=== PATIENT | female | born 1970 | race Caucasian/White ===

== ENCOUNTER 2023-12-28 17:20 | Emergency (ER) | payer OTHER, SELFPAY ==
[2023-12-28] VITALS (35 sets, daily range): BP systolic 155–182; BP diastolic 74–109; PULSE 69–91; TEMP 36.6–36.9; O2SAT 89–96; BMI 39.9
--- NOTE | 2023-12-28 17:42 | ECG_ITS ---
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
--- NOTE | 2023-12-28 17:42 | XR_ITS ---
The [address] [address] Patient Name: MABEL CHONG MRN: [id number] date: 1970 Sex: F Assigned Patient Location: ER Current Patient Location: ED.MAIN Accession/Order Number: [id number] Exam Date: 12/28/2023 18:10 Report Date: 12/28/2023 20:26 At the request of: SHARIFA LAMBERT Procedure: XR chest 1V EXAM: XR chest 1V HISTORY: c/p COMPARISON: CT angiography chest 12/28/2023. TECHNIQUE: AP portable upright chest x-ray. FINDINGS: Upper and mid lungs appear clear. Limited visualization left lung base due to overlying soft tissues. Prominent markings right base. Prominent markings also seen on CT. Cardiac enlargement accentuated by magnification and low lung volume. Adenopathy seen on CT is not well demonstrated on x-ray. No definite pneumothorax. No right effusion, left costophrenic angle poorly seen. Distended stomach. XR/XR chest 1V IMPRESSION: No definite acute abnormality seen although lower chest especially left lung base visualization limited due to overlying soft tissues. See report of subsequent chest CT. Electronically authenticated by: PIETRO BLANKENSHIP Date: 12/28/2023 20:26
--- NOTE | 2023-12-28 18:18 | ECG_ITS ---
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
--- NOTE | 2023-12-28 18:19 | ED_ITS ---
<Statement entered by Tera Lopez MD - 12/28/23 18:48> This documentation has been reviewed and approved. Chart was sent to my inbox for administrative and group management purposes. I was the attending physicians working during the patients hospital course. The patient was seen and managed independently by the MLP. I did not personally see or evaluate this patient, nor was I involved in the patient medical decision making process or plans of care. Pt was dispositioned by the MLP with complete independence and I was not involved in planning, or disposition. I was available for consultation should the MLP request during this patients ED stay. HPI HPI - General Adult General Chief complaint: Chest Pain Stated complaint: R SIDE CHEST PAIN Time Seen by Provider: 12/28/23 18:03 Source: patient Mode of arrival: walk-in Limitations: no limitations History of Present Illness HPI narrative: Patient presented to the emergency department for evaluation of chest pain. Patient states that starting on Thursday she woke up and she was having right- sided chest pain. Sharp, stabbing in nature, worsening when she takes deep breath, bends, twists. States that the pain takes her breath away. Patient states that when she bends over she notices it more as well, she cannot breathe at all. Patient states that sharp stabbing, 8-9 out of 10. Swelling. No calf pain or tenderness. States this is never happened before, she has not had no cancer, surgery, immobility. No other complaint at this time Related Data Allergies Allergy/AdvReac Type Severity Reaction Status Date / Time No Known Drug Allergies Allergy Verified 12/28/23 17:33 Opioid HPI Opioid Management Most Recent Opioid Data: Last Pain Scale 5 12/28/23 18:36 Last MAR Pain Assessment 12/28/23 18:36 Review of Systems ROS Narrative Negative unless otherwise stated in the HPI PFSH PFSH Social History Little interest or pleasure in doing things: not at all Feeling down, depressed, or hopeless: not at all Exam Narrative Exam Narrative: General: NAD, AAOx3, no distress Respiratory: respiratory effort normal, speaks in full sentences, no tripod position, no accessory muscle use. Lungs clear to auscultation without rhonchi, wheezes, rales, right chest wall and substernal chest pain that is reproducing patient's complaint on exam Cardiac: Regular rate and rhythm, no edema, regular s1/s2, no m/g/r Abdomen: Soft, ND/NT. No evidence of fluid wave. No pulsatile masses on exam, rebound tenderness, Fontaine sign or pain over Mcburney's point. Ext: No calf pain or tenderness noted or elicited Constitutional Vital Signs, click to edit/add: Last Vital Signs Temp 98 F 12/28/23 17:58 Pulse 90 12/28/23 17:58 Resp 18 12/28/23 17:58 BP 155/93 H 12/28/23 17:58 Pulse Ox 95 12/28/23 17:58 O2 Del Method Room Air 12/28/23 17:58 Course Vital Signs Vital signs: Vital Signs Temperature 98.4 F 12/28/23 17:33 Pulse Rate 86 12/28/23 17:33 Respiratory Rate 18 12/28/23 17:33 Blood Pressure 182/88 H 12/28/23 17:33 Pulse Oximetry 96 12/28/23 17:33 Temperature 98 F 12/28/23 17:58 Pulse Rate 90 12/28/23 17:58 Respiratory Rate 18 12/28/23 17:58 Blood Pressure 155/93 H 12/28/23 17:58 Pulse Oximetry 95 12/28/23 17:58 Oxygen Delivery Method Room Air 12/28/23 17:58 Medical Decision Making MDM Narrative Medical decision making narrative: [facility] Patient with history as above presented with chest pain. History obtained from patient. Patient was nontoxic, stable. Ambulatory. Exam as above. EKG reviewed. Labs reviewed. Independently reviewed imaging. Reviewed external records. Differential diagnosis considered. Overall presentation is consistent with chest pain, unclear etiology 1850 patient was signed out at normal change of shift pending labs, imaging Medical Records Medical records reviewed: Yes I reviewed the patient's medical records Discharge Plan Discharge Chief Complaint: Chest Pain Clinical Impression: Chest pain Patient Disposition: Still a Patient Print Language: Malay Referrals: Physician,Non-Staff, MD [Primary Care Provider] - 1 week
[2023-12-28] MEDS: MORPHINE SULFATE 4 MG/ML VIAL IV (18:36)
[2023-12-28] MEDS: ASPIRIN 81 MG TAB.CHEW 324 MG PO (18:38)
[2023-12-28 18:46] LABS: Basophils Percent Auto 0.4 % (0.2-2.0); Eosinophils Absolute Auto 0.2 10^3/uL (0.0-0.7); Eosinophils Percent Auto 2.1 % (0.9-7.0); Hematocrit 40.5 % (36.0-48.0); Hemoglobin 13.8 g/dL (12.0-16.0); Immature Granulocytes Abs Auto 0.03 10^3/uL (0.00-0.03); Immature Granulocytes Pct Auto 0.4 % (0.0-0.5); Lymphocytes Absolute Auto 1.4 10^3/uL (1.2-3.8); Lymphocytes Percent Auto 17.4 % (20.5-60.0); Mean Corpuscular HGB Conc 34.1 g/dL (29.9-35.2); Mean Corpuscular Hemoglobin 30.6 pg (26.7-34.0); Mean Corpuscular Volume 89.8 fL (81.0-99.0); Mean Platelet Volume 9.3 fL (9.5-13.5); Monocytes Absolute Auto 0.8 10^3/uL (0.3-0.8); Neutrophils Absolute Auto 5.6 10^3/uL (1.4-6.5); Neutrophils Percent Auto 69.7 % (43.0-75.0); Platelet Count 314 10^3/uL (150-450); Red Blood Count 4.51 10^6/uL (4.20-5.40); Red Cell Distribution Width 14.6 % (11.0-15.0)
--- NOTE | 2023-12-28 18:51 | CT_ITS ---
[address] [address] Patient Name: MABEL CHONG MRN: [id number] date: 1970 Sex: F Assigned Patient Location: ER Current Patient Location: ER Accession/Order Number: [id number] Exam Date: 12/28/2023 18:45 Report Date: 12/28/2023 20:35 At the request of: SHARIFA LAMBERT Procedure: CT angio chest EXAM: CT angio chest HISTORY: chest pain COMPARISON: Chest x-ray 12/28/2023 5:59 PM TECHNIQUE: CTA chest PE protocol. Axial scans with reformatted coronal sagittal and MIP images. Individualized radiation dose reduction used for this exam. Graft contrast: 100 mL Omnipaque 350 FINDINGS: Pulmonary arteries: Suboptimal pulmonary artery enhancement assessment limited due to patient size and body habitus. No definite pulmonary artery thrombus or embolus in the large central or medium size vessels. Suboptimal visualization of the distal vessels although no definite embolus or thrombus seen. Pulmonary outflow tract not dilated. Lungs/pleura: Scattered mild areas of dependent groundglass density upper, mid and lower lung brown with linear densities at the lung bases. No dense consolidation, edema or suspicious focal lung lesion. No pleural effusion or pneumothorax. No significant lung nodularity. Mediastinum: Diffuse mediastinal and hilar adenopathy. Lymph node enlargement generally between 1-2 cm, subcarinal lymph node 2.3 cm. Cardiac/vascular: Cardiac enlargement. No significant pericardial effusion. Normal size aorta. No evidence of right ventricular strain. No lower neck or axillary mass or adenopathy. No acute abnormality upper abdomen. Distended stomach. No suspicious bone lesion. CT/CT angio chest IMPRESSION: 1. Negative for pulmonary embolus although suboptimal pulmonary artery contrast enhancement especially of the smaller distal vessels. 2. Groundglass and linear lung densities most prominent dependent lungs especially lung bases. Differential Diagnosis includes atelectasis/pneumonitis or scarring or combination. No dense consolidation or edema. No pleural effusion. Not well demonstrated on preceding chest x-ray. 3. Diffuse hilar and mediastinal adenopathy. Question whether this due to benign disorder such as sarcoid or malignant process including lymphoma. Not typical for reactive adenopathy. Follow-up recommended. Electronically authenticated by: PIETRO BLANKENSHIP Date: 12/28/2023 20:35
[2023-12-28 19:14] LABS: Alanine Aminotransferase 24 U/L (14-59); Albumin Level 3.6 g/dL (3.4-5.0); Alkaline Phosphatase 105 U/L (46-116); Anion Gap 13.8; Aspartate Amino Transferase 22 U/L (15-37); BUN Creatinine Ratio 9.1; Bilirubin Total 0.4 mg/dL (0.2-1.0); Carbon Dioxide 29.8 mmol/L (21.0-32.0); Chloride 97 mmol/L (98-107); Estimated GFR (African America >60 (>=60 mL/min/1.73m^2); Estimated GFR (Non-African Ame >60 (>=60 mL/min/1.73m^2); Globulin 3.5 g/dL; Glucose 97 mg/dL (74-106); Sodium 138 mmol/L (136-145); Total Protein 7.1 g/dL (6.4-8.2); Troponin I High Sensitivity 25.8 pg/mL (4.0-51.3)
--- NOTE | 2023-12-28 19:14 | ED.CHESTPAI1 ---
HPI - Chest Pain General Chief Complaint: Chest Pain Stated Complaint: R SIDE CHEST PAIN Time Seen by Provider: 12/28/23 18:03 Source: patient Mode of arrival: walk-in Limitations: no limitations History of Present Illness HPI narrative: This 53-year-old female was signed out to me at shift change. She was seen and evaluated by Dr. Lopez for evaluation of several days of pleuritic chest pain, right shoulder pain and shortness of breath. The patient was seen and evaluated. She was noted to be mildly tachypneic and hypoxic at triage. I reviewed her EKG which is a sinus rhythm 87 bpm with nonspecific changes and no acute ST segment elevation. She has a normal white count and hemoglobin. CT scan at time of signout was pending but I did receive a call that it appeared that she had multiple pulmonary embolism. She was seen and evaluated. The preliminary result of the CTA was discussed with her. She is not on any hormone replacement therapy or control. She does vape but denies smoking cigarettes. She will be given an IV bolus of heparin and started on a heparin bolus. She has a normal BNP and troponin. Comprehensive metabolic profile reveals a potassium of 2.9. She was given IV and oral potassium. The CTA was read by radiology and is included in the body of this report. Is negative for pulmonary embolus although it does report suboptimal pulmonary artery contrast especially of the smaller distal vessels. It does note groundglass and linear lung densities most prominent in the dependent lungs and lung bases was a differential diagnosis including atelectasis pneumonitis or scarring or combination. There was no dense consolidation or edema no pleural effusion. It did show diffuse hilar and mediastinal adenopathy which was questionable due to CRYPTOLOGIC LINGUIST disorder such as sarcoid or malignant process including lymphoma. It was noted that this is not typical for reactive adenopathy with recommendation for close follow-up. The results of the CT scan were discussed with the patient and she was given a copy of the report. The heparin was discontinued at that time. She notes that she is still having pain that started in the right breast area. She states she did have a normal mammogram approximately 1 year ago. She wishes to be discharged home. She will be discharged home after her potassium has completed with prescription for [place] and Naprosyn for pleuritic type of chest pain, doxycycline and potassium. She was given a first dose of doxycycline in the emergency department. I offered her COVID-19 testing but she states she has this test at home and will test herself at home. I explained to her that the lymphadenopathy is concerning and could be a lymphoma. I explained that she will likely need a tissue diagnosis, mediastinoscopy or bronchoscopy. She states that her family physician is in [facility] and she will follow-up closely with her family physician. She will also be given referral information for pulmonary critical care from this facility. Related Data Home Medications ?Medication ?Instructions ?Recorded ?Confirmed Kratom 600 mg PO ONCE PRN PRN 12/28/23 12/28/23 acetaminophen 650 mg 650 mg PO Q12H PRN pain 12/28/23 12/28/23 tablet,extended release (8 Hour Pain Reliever) chlorthalidone 25 mg tablet 25 mg PO DAILY 12/28/23 12/28/23 cyclobenzaprine 10 mg tablet 10 mg PO BID 12/28/23 12/28/23 fluoxetine 20 mg capsule 20 mg PO BID 12/28/23 12/28/23 gabapentin 300 mg capsule 300 mg PO TID 12/28/23 12/28/23 hydrocodone 5 mg-acetaminophen 325 1 tab PO Q8H 12/28/23 12/28/23 mg tablet naproxen sodium 220 mg tablet 220 mg PO Q12H PRN prn 12/28/23 12/28/23 (Aleve) semaglutide 0.25 mg or 0.5 mg (2 0.25 mg subcut QWEEK 12/28/23 12/28/23 mg/3 mL) subcutaneous pen injector (Ozempic) Allergies Allergy/AdvReac Type Severity Reaction Status Date / Time No Known Drug Allergies Allergy Verified 12/28/23 17:33 PFSH PFSH Social History Little interest or pleasure in doing things: not at all Feeling down, depressed, or hopeless: not at all Exam Constitutional Vital Signs, click to edit/add: Last Vital Signs Temp 98 F 12/28/23 17:58 Pulse 79 12/28/23 18:54 Resp 21 H 12/28/23 18:54 BP 157/86 H 12/28/23 18:06 Pulse Ox 92 L 12/28/23 18:54 O2 Del Method Room Air 12/28/23 17:58 Course Vital Signs Vital signs: Vital Signs Temperature 98.4 F 12/28/23 17:33 Pulse Rate 86 12/28/23 17:33 Respiratory Rate 18 12/28/23 17:33 Blood Pressure 182/88 H 12/28/23 17:33 Pulse Oximetry 96 12/28/23 17:33 Temperature 98 F 12/28/23 17:58 Pulse Rate 79 12/28/23 18:54 Respiratory Rate 21 H 12/28/23 18:54 Blood Pressure 157/86 H 12/28/23 18:06 Pulse Oximetry 92 L 12/28/23 18:54 Oxygen Delivery Method Room Air 12/28/23 17:58 MDM - Chest Pain MDM Narrative Medical decision making narrative: [place] [address] CT Scan Report Signed Patient: MABEL CHONG MR#: [id number] : 1970 Acct:[id number] Age/Sex: 53 / F ADM Date: 12/28/23 Loc: ER Attending Dr: Ordering Physician: Sharifa Lopez M.D. Date of Service: 12/28/23 Procedure(s): CT angio chest Accession Number(s): [id number] cc: Physician,Non-Staff Shannan~ The [address] [address] Patient Name: MABEL CHONG MRN: [id number] date: 1970 Sex: F Assigned Patient Location: ER Current Patient Location: ER Accession/Order Number: [id number] Exam Date: 12/28/2023 18:45 Report Date: 12/28/2023 20:35 At the request of: SHARIFA LOPEZ Procedure: CT angio chest EXAM: CT angio chest HISTORY: chest pain COMPARISON: Chest x-ray 12/28/2023 5:59 PM TECHNIQUE: CTA chest PE protocol. Axial scans with reformatted coronal sagittal and MIP images. Individualized radiation dose reduction used for this exam. Graft contrast: 100 mL Omnipaque 350 FINDINGS: Pulmonary arteries: Suboptimal pulmonary artery enhancement assessment limited due to patient size and body habitus. No definite pulmonary artery thrombus or embolus in the large central or medium size vessels. Suboptimal visualization of the distal vessels although no definite embolus or thrombus seen. Pulmonary outflow tract not dilated. Lungs/pleura: Scattered mild areas of dependent groundglass density upper, mid and lower lung brown with linear densities at the lung bases. No dense consolidation, edema or suspicious focal lung lesion. No pleural effusion or pneumothorax. No significant lung nodularity. Mediastinum: Diffuse mediastinal and hilar adenopathy. Lymph node enlargement generally between 1-2 cm, subcarinal lymph node 2.3 cm. Cardiac/vascular: Cardiac enlargement. No significant pericardial effusion. Normal size aorta. No evidence of right ventricular strain. No lower neck or axillary mass or adenopathy. No acute abnormality upper abdomen. Distended stomach. No suspicious bone lesion. CT/CT angio chest IMPRESSION: 1. Negative for pulmonary embolus although suboptimal pulmonary artery contrast enhancement especially of the smaller distal vessels. 2. Groundglass and linear lung densities most prominent dependent lungs especially lung bases. Differential Diagnosis includes atelectasis/pneumonitis or scarring or combination. No dense consolidation or edema. No pleural effusion. Not well demonstrated on preceding chest x-ray. 3. Diffuse hilar and mediastinal adenopathy. Question whether this due to benign disorder such as sarcoid or malignant process including lymphoma. Not typical for reactive adenopathy. Follow-up recommended. Electronically authenticated by: PIETRO BLANKENSHIP Date: 12/28/2023 20:35 Medical Records Data Medical records narrative: [place] [address] XRay Report Signed Patient: MABEL CHONG MR#: [id number] : 1970 Acct:[id number] Age/Sex: 53 / F ADM Date: 12/28/23 Loc: ER Attending Dr: Ordering Physician: Sharifa Lopez M.D. Date of Service: 12/28/23 Procedure(s): XR chest 1V Accession Number(s): [id number] cc: Sharifa Lopez M.D.; Physician,Non-Staff M.DDarrion~ The [address] [address] Patient Name: MABEL CHONG MRN: [id number] date: 1970 Sex: F Assigned Patient Location: ER Current Patient Location: ED.MAIN Accession/Order Number: [id number] Exam Date: 12/28/2023 18:10 Report Date: 12/28/2023 20:26 At the request of: SHARIFA LOPEZ Procedure: XR chest 1V EXAM: XR chest 1V HISTORY: c/p COMPARISON: CT angiography chest 12/28/2023. TECHNIQUE: AP portable upright chest x-ray. FINDINGS: Upper and mid lungs appear clear. Limited visualization left lung base due to overlying soft tissues. Prominent markings right base. Prominent markings also seen on CT. Cardiac enlargement accentuated by magnification and low lung volume. Adenopathy seen on CT is not well demonstrated on x-ray. No definite pneumothorax. No right effusion, left costophrenic angle poorly seen. Distended stomach. XR/XR chest 1V IMPRESSION: No definite acute abnormality seen although lower chest especially left lung base visualization limited due to overlying soft tissues. See report of subsequent chest CT. Electronically authenticated by: PIETRO BLANKENSHIP Date: 12/28/2023 20:26 Lab Data Labs: Lab Results 12/28/23 12/28/23 Range/Units 18:33 19:03 WBC 8.0 (4.0-11.0) 10^3/uL RBC 4.51 (4.20-5.40) 10^6/uL Hgb 13.8 (12.0-16.0) g/dL Hct 40.5 (36.0-48.0) % MCV 89.8 (81.0-99.0) fL MCH 30.6 (26.7-34.0) pg MCHC 34.1 (29.9-35.2) g/dL RDW 14.6 (11.0-15.0) % Plt Count 314 (150-450) 10^3/uL MPV 9.3 L (9.5-13.5) fL Neut % (Auto) 69.7 (43.0-75.0) % Lymph % (Auto) 17.4 L (20.5-60.0) % [place] % (Auto) 10.0 (1.7-12.0) % Eos % (Auto) 2.1 (0.9-7.0) % Baso % (Auto) 0.4 (0.2-2.0) % Neut # (Auto) 5.6 (1.4-6.5) 10^3/uL Lymph # (Auto) 1.4 (1.2-3.8) 10^3/uL [place] # (Auto) 0.8 (0.3-0.8) 10^3/uL Eos # (Auto) 0.2 (0.0-0.7) 10^3/uL Baso # (Auto) 0.0 (0.0-0.1) 10^3/uL Abs Immat Gran (auto) 0.03 (0.00-0.03) 10^3/uL Imm/Tot Granulo (auto) 0.4 (0.0-0.5) % PT 10.4 (9.0-11.6) sec INR 0.98 APTT 29.2 (22.3-36.2) sec Sodium 138 (136-145) mmol/L Potassium 2.6 L* (3.5-5.1) mmol/L Chloride 97 L (98-107) mmol/L Carbon Dioxide 29.8 (21.0-32.0) mmol/L Anion Gap 13.8 BUN 8.0 (7.0-18.0) mg/dL Creatinine 0.88 (0.55-1.02) mg/dL Est GFR ( Amer) >60 (>=60 mL/min/1.73m^2) Est GFR (Non-Af Amer) >60 (>=60 mL/min/1.73m^2) BUN/Creatinine Ratio 9.1 Glucose 97 (74-106) mg/dL Calcium 9.0 (8.5-10.1) mg/dL Total Bilirubin 0.4 (0.2-1.0) mg/dL AST 22 (15-37) U/L ALT 24 (14-59) U/L Alkaline Phosphatase 105 (46-116) U/L Troponin I High Sens 25.8 (4.0-51.3) pg/mL NT-Pro-B Natriuret Pep 121.0 (<=900.0) pg/mL Total Protein 7.1 (6.4-8.2) g/dL Albumin 3.6 (3.4-5.0) g/dL Globulin 3.5 g/dL Albumin/Globulin Ratio 1.0 Lipase 43.0 (16.0-77.0) U/L Discharge Plan Discharge Chief Complaint: Chest Pain Clinical Impression: Chest pain, Pleuritic chest pain, Hilar lymphadenopathy, Mediastinal lymphadenopathy, Hypokalemia Patient Disposition: Home, Self-Care Time of Disposition Decision: 21:03 Condition: Good Prescriptions / Home Meds: No Action chlorthalidone 25 mg tablet 25 mg PO DAILY hydrocodone-acetaminophen 5-325 mg tablet 1 tab PO Q8H gabapentin 300 mg capsule 300 mg PO TID cyclobenzaprine 10 mg tablet 10 mg PO BID fluoxetine 20 mg capsule 20 mg PO BID Rx Instructions: administer in the morning and at noon/midday naproxen sodium [Aleve] 220 mg tablet 220 mg PO Q12H PRN (Reason: prn) Kratom capsule 600 mg PO ONCE PRN (Reason: PRN) acetaminophen [8 Hour Pain Reliever] 650 mg tablet extended release 650 mg PO Q12H PRN (Reason: pain) Ozempic 0.25 mg or 0.5 mg (2 mg/3 mL) pen injector 0.25 mg subcut QWEEK Rx Instructions: for 4 weeks 0.25mg/0.2 mL Print Language: Georgian Instructions: Pleurisy (ED), Lymphadenopathy (ED), Hypokalemia (ED) Referrals: Jeff Jenkins DO [Physician] - 1 week (hilar and mediastinal lymphadenopathy on CTA) Physician,Non-Staff, MD [Primary Care Provider] - 1 week
[2023-12-28 19:18] LABS: Potassium 2.6 mmol/L (3.5-5.1)
[2023-12-28 19:35] LABS: INR 0.98; Partial Thromboplastin Time 29.2 sec (22.3-36.2); Prothrombin Time 10.4 sec (9.0-11.6)
[2023-12-28] MEDS: HEPARIN SODIUM (PORCINE) 5,000 UNIT/ML VIAL 6200 UNIT IV (19:46)
[2023-12-28] MEDS: HEPARIN SODIUM,PORCINE/D5W 25,000 UNIT/500 ML IV.SOLN 28.08 UNIT IV (19:49)
[2023-12-28] MEDS: POTASSIUM CHLORIDE IN WATER 10 MEQ/100 ML PREMIX 100 MEQ IV ×2 (19:52→21:04)
[2023-12-28] MEDS: 0.9 % SODIUM CHLORIDE 1,000 ML 50 ML IV (20:00)
[2023-12-28] MEDS: POTASSIUM CHLORIDE 10 MEQ ER TABLET 40 MEQ PO (20:57)
[2023-12-28] MEDS: DOXYCYCLINE MONOHYDRATE 100 MG CAPSULE PO (21:16)
[2023-12-28] MEDS: HYDROCODONE/ACET 5-325 MG TABLET 2 TAB PO (21:16)
== END 2023-12-28 22:24 | disposition home or self-care (01) ==
PROVIDERS: Emergency Medicine; Emergency Provider Emergency Medicine
DX: R07.9 Chest pain, unspecified (principal); E87.6 Hypokalemia; R07.81 Pleurodynia; R59.0 Localized enlarged lymph nodes; F17.290 Nicotine dependence, other tobacco product, uncomplicated
CPT/HCPCS: 36415; 71045; 71275; 80053; 83690; 83880; 84484; 85025; 85610; 85730; 93005; 96365; 96367; 96368; 96375; 96376; 99285; J1644; J2270; J3480; Q9967

== ENCOUNTER 2024-03-08 14:09 | Emergency (ER) | payer OTHER, SELFPAY ==
[2024-03-08 14:14] VITALS: BP 173/83; PULSE 93; TEMP 37.3; O2SAT 97
--- NOTE | 2024-03-08 14:25 | XR_ITS ---
The [address] [address] Patient Name: MABEL CHONG MRN: [id number] date: 1970 Sex: F Assigned Patient Location: ER Current Patient Location: ER Accession/Order Number: [id number] Exam Date: 03/08/2024 15:05 Report Date: 03/08/2024 15:27 At the request of: ZHEN STATON Procedure: XR ribs BI min 4V w CXR1V EXAMINATION: XR ribs BI min 4V w CXR1V HISTORY: pain, fall COMPARISON: No relevant comparison available. FINDINGS: LUNGS: No significant pulmonary parenchymal abnormalities. Low lung volumes PLEURA: No pneumothorax, effusion, or pleural thickening. MEDIASTINUM: No visible mass or adenopathy. CARDIAC: No cardiomegaly or cardiac silhouette abnormality. RIBS: Mildly displaced fractures left lateral sixth through ninth ribs. OTHER: Negative. XR/XR ribs BI min 4V w CXR1V IMPRESSION: Mildly displaced left lateral sixth through ninth rib fractures with no definite pneumothorax Electronically authenticated by: EVANS CORADO Date: 03/08/2024 15:27
--- NOTE | 2024-03-08 14:25 | XR_ITS ---
[address] [address] Patient Name: MABEL CHONG MRN: [id number] date: 1970 Sex: F Assigned Patient Location: ER Current Patient Location: ER Accession/Order Number: [id number] Exam Date: 03/08/2024 15:05 Report Date: 03/08/2024 15:26 At the request of: ZHEN STATON Procedure: XR knee RT 3V PROCEDURE: XR knee RT 3V COMPARISON: None. HISTORY: pain, fall FINDINGS: BONES:No acute fracture or dislocation. Moderate tricompartmental osteoarthropathy with marginal osteophyte formation. Narrowing of the medial joint space SOFT TISSUES:Anterior soft tissue swelling EFFUSION:None visible. OTHER: Negative. XR/XR knee RT 3V IMPRESSION: Anterior soft tissue swelling. No acute fracture Electronically authenticated by: EVANS CORADO Date: 03/08/2024 15:26
--- NOTE | 2024-03-08 14:26 | ED_ITS ---
HPI HPI - Extremity Injury (Lower) General Chief Complaint: Extremity Injury, Lower Stated Complaint: FALL - RT SIDE PAIN Time Seen by Provider: 03/08/24 14:25 Source: patient Mode of arrival: walk-in History of Present Illness HPI Narrative: 53 year old female presents to the ED for pain to her right knee, right lower leg, and bilateral rib areas s/p slip and fall Thursday03/04/24. She landed on the knee. Denies hitting her head and LOC. Denies pain to her head, neck, back, abdomen, hips. She has extensive bruising to the right knee and proximal lower leg. Denies change in bowel and/or bladder control. Denies saddle anesthesia. She is in pain management. She takes norco. She did drive herself here today. Related Data Home Medications ?Medication ?Instructions ?Recorded ?Confirmed Kratom 600 mg PO ONCE PRN PRN 12/28/23 12/28/23 acetaminophen 650 mg 650 mg PO Q12H PRN pain 12/28/23 12/28/23 tablet,extended release (8 Hour Pain Reliever) chlorthalidone 25 mg tablet 25 mg PO DAILY 12/28/23 12/28/23 cyclobenzaprine 10 mg tablet 10 mg PO BID 12/28/23 12/28/23 fluoxetine 20 mg capsule 20 mg PO BID 12/28/23 12/28/23 gabapentin 300 mg capsule 300 mg PO TID 12/28/23 12/28/23 hydrocodone 5 mg-acetaminophen 325 1 tab PO Q8H 12/28/23 12/28/23 mg tablet naproxen sodium 220 mg tablet 220 mg PO Q12H PRN prn 12/28/23 12/28/23 (Aleve) semaglutide 0.25 mg or 0.5 mg (2 0.25 mg subcut QWEEK 12/28/23 12/28/23 mg/3 mL) subcutaneous pen injector (Ozempic) Previous Rx's ?Medication ?Instructions ?Recorded naproxen 375 mg tablet 375 mg PO BID PRN pain #10 tabs 03/08/24 Allergies Allergy/AdvReac Type Severity Reaction Status Date / Time No Known Drug Allergies Allergy Verified 12/28/23 17:33 Opioid HPI Opioid Management Most Recent Pain and Opioid Data: Last Pain Scale 5 12/28/23 18:50 12/28/23 Review of Systems ROS Constitutional Denies: fever or chills Ears, nose, mouth, and throat Denies: throat pain or neck pain Respiratory Denies: shortness of breath Gastrointestinal Denies: abdominal pain, nausea or vomiting Genitourinary Denies: painful urination, urinary incontinence or blood in urine Musculoskeletal Reports: extremity pain and extremity swelling; Denies: back pain or neck pain Integumentary/Breast Denies: rash Neurological Denies: headache, numbness in extremities, weakness in extremities or dizziness PFSH PFSH Social History Little interest or pleasure in doing things: not at all Feeling down, depressed, or hopeless: not at all Exam Constitutional Vital Signs, click to edit/add: Last Vital Signs Temp 99.2 F 03/08/24 14:14 Pulse 93 H 03/08/24 14:14 Resp 18 03/08/24 14:14 BP 173/83 H 03/08/24 14:14 Pulse Ox 97 03/08/24 14:14 O2 Del Method Room Air 03/08/24 14:14 Common normals: no apparent distress and oriented x3 General appearance: cooperative HENMT Head and scalp: atraumatic Nose: external nose normal Mouth: oral and palatal mucosa normal and lip normal Neck & C-Spine Common normals: supple Cervical spine: no cervical spine tenderness, no paracervical muscle tenderness and no paracervical muscle spasm Chest Chest: symmetrical chest wall rise and tenderness (Bilat anterior and lateral rib areas) Other: No bruising, abrasions, or wounds noted to chest, abdomen, neck, back. Respiratory Common normals: normal respiratory effort and clear to auscultation bilaterally Effort & inspection: able to speak in complete sentences and symmetric chest movement Cardio Common normals: regular rate and regular rhythm Peripheral pulses: radial pulses present, posterior tibial pulses present and dorsalis pedis pulses present GI Common normals: soft to palpation and non-tender Extremity Other: Full ROM to right hip, knee, foot, and ankle. Swelling to right knee, lower leg, and foot. Ecchymosis to right knee and proximal lower leg. Pain increases with movement. Tenderness to the knee. Neuro Common normals: oriented x3 and moves all extremities Sensorium/orientation: awake and alert Speech: speech normal Course Vital Signs Vital signs: Vital Signs Temperature 99.2 F 03/08/24 14:14 Pulse Rate 93 H 03/08/24 14:14 Respiratory Rate 18 03/08/24 14:14 Blood Pressure 173/83 H 03/08/24 14:14 Pulse Oximetry 97 03/08/24 14:14 Oxygen Delivery Method Room Air 03/08/24 14:14 Temperature 99.2 F 03/08/24 14:14 Pulse Rate 93 H 03/08/24 14:14 Respiratory Rate 18 03/08/24 14:14 Blood Pressure 173/83 H 03/08/24 14:14 Pulse Oximetry 97 03/08/24 14:14 Oxygen Delivery Method Room Air 03/08/24 14:14 MDM - Extremity Injury (Lower) MDM Narrative Medical decision making narrative: X-ray showed mildly displaced left lateral sixth through ninth rib fractures with no definite pneumothorax. Findings were discussed with the patient. She is in pain management. OARRS was reviewed. She has an incentive spirometer at home. A prescription was provided for Naprosyn at the recommendation of the ED physician. She was encouraged to follow up with her pcp and an orthopedist for a recheck, further evaluation and treatment. An appointment was made for her with Dr. Manjarrez for Mar 21 at 11 am. Differential Diagnosis Differential diagnosis: Likely acute internal derangement of knee and other (knee contusion, rib fracture, chest wall pain) Medical Records Attestation: I reviewed the patient's medical records. Imaging Data Chest x-ray: Attestation: I have reviewed the pertinent imaging results. Radiologist's impression: ITS Impressions Knee X-Ray 03/08/24 14:25 IMPRESSION: Anterior soft tissue swelling. No acute fracture Electronically authenticated by: EVANS CORADO Date: 03/08/2024 15:26 Ribs w/Chest X-Ray 03/08/24 14:25 IMPRESSION: Mildly displaced left lateral sixth through ninth rib fractures with no definite pneumothorax Electronically authenticated by: EVANS CORADO Date: 03/08/2024 15:27 Discharge Plan Discharge Chief Complaint: Extremity Injury, Lower Clinical Impression: Contusion of knee, right, Contusion of leg, right, Multiple rib fractures Patient Disposition: Home, Self-Care Time of Disposition Decision: 15:46 Condition: Good Mode of Transportation: Private Vehicle Prescriptions / Home Meds: New naproxen 375 mg tablet 375 mg PO BID PRN (Reason: pain) Qty: 10 0RF No Action chlorthalidone 25 mg tablet 25 mg PO DAILY hydrocodone-acetaminophen 5-325 mg tablet 1 tab PO Q8H gabapentin 300 mg capsule 300 mg PO TID cyclobenzaprine 10 mg tablet 10 mg PO BID fluoxetine 20 mg capsule 20 mg PO BID Rx Instructions: administer in the morning and at noon/midday naproxen sodium [Aleve] 220 mg tablet 220 mg PO Q12H PRN (Reason: prn) Kratom capsule 600 mg PO ONCE PRN (Reason: PRN) acetaminophen [8 Hour Pain Reliever] 650 mg tablet extended release 650 mg PO Q12H PRN (Reason: pain) Ozempic 0.25 mg or 0.5 mg (2 mg/3 mL) pen injector 0.25 mg subcut QWEEK Rx Instructions: for 4 weeks 0.25mg/0.2 mL Print Language: [place]ican Instructions: How to Use an Incentive Spirometer (ED), Rib Fracture (ED), C ontusion in Adults (ED) Additional Instructions: Return to the ER for new or worsening symptoms. Referrals: Physician,Non-Staff, [Primary Care Provider] - 1 week Robert Manjarrez MD [Physician] - 03/21/24 11:00 am Discharge Date/Time: 03/08/24 15:50
[2024-03-08] MEDS: ACETAMINOPHEN 325 MG TABLET 650 MG PO (14:51)
[2024-03-08] MEDS: DEXAMETHASONE SOD PHOS 10 MG/ML VIAL PO (14:51)
== END 2024-03-08 15:50 | disposition home or self-care (01) ==
PROVIDERS: Emergency Provider Emergency Medicine
DX: S22.42XA Multiple fractures of ribs, left side, initial encounter for closed fracture (principal); S80.11XA Contusion of right lower leg, initial encounter; S80.01XA Contusion of right knee, initial encounter; W01.0XXA Fall on same level from slipping, tripping and stumbling without subsequent striking against object, initial encounter; Z79.899 Other long term (current) drug therapy
CPT/HCPCS: 71111; 73562; 99284; J1100

== ENCOUNTER 2024-04-04 14:16 | Emergency (ER) | payer OTHER, SELFPAY ==
[2024-04-04 14:21] VITALS: BP 159/93; PULSE 93; TEMP 37.1; O2SAT 97; BMI 44.9
--- OUTSIDE RECORDS SUMMARY | 2024-04-04 14:32 | XMS_ITS | CCD ---
Author Organization [facility]iniSypr Care Team Providers Care Copy Editor Name Role Phone WANG, KUL B Unavailable Unavailable WANG, KUL B Unavailable Unavailable PRABHAKAR, DIPAKKUMAR P Unavailable Unavailable MURO, KAREN Unavailable Unavailable MURO, KAREN Unavailable Unavailable PRABHAKAR, DIPAKKUMAR P Unavailable Unavailable WANG, MILAGRO Unavailable Unavailable BEACH, EVETTE T Unavailable Unavailable PRABHAKAR, DIPAKKUMAR P Unavailable Unavailable DALE MONTIEL Unavailable Unavailabl e Prabhakar, Dipakkumar P Unavailable Unavailable Ruth Swanson MD Primary Care Provider Ruth Swanson MD Primary Care Provider [phone] Job Mehta DO Unavailable Kevin Lee DO Unavailable Alicia Hernandez DO Unavailable Jeff Deng MD Unavailable Genesis Deng MD Unavailable Ruth Swanson MD Unavailable Alphonso Sosa DO Unavailable [place] Adames RN Unavailable Unavailable Job Mehta DO Unavailable [phone] [place], [place] Unavailable Adrian Aaron DO Unavailable [place] Adames RN Unavailable Unavailable Kevin Lee DO Unavailable Moc, [place] Unavailable uRth Swanson MD Primary Care Provider [phone] Didich DO, Job M Unavailable Kevin Lee DO Unavailable [phone] Kohara DO, Alicia Unavailable Jeff Deng MD Unavailable Genesis Deng MD Unavailable Ruth Swanson MD Unavailable [phone] Sasfer DO Casey Unavailable Zacarias PALOMARES, [place] Unavailable Unavailable Tyson DO, Job M Unavailable Moc, [place] Unavailable Giorgio Aaron DOn K Unavailable Zacarias PALOMARES, [place] Unavailable Unavailable Kevin Lee DO Unavailable [phone] Moc, [place] Unavailable Ruth Swanson MD Primary Care Provider Tyson DOJob M Unavailable Kevin Lee DO Unavailable [phone] Kohara DO, Alicia Unavailable Jeff Deng MD Unavailable [phone] Genesis Deng MD Unavailable Ruth Swanson MD Unavailable [phone] Suhavaishali ARORA Casey Unavailable Tyson DOJob M Unavailable Moc, [place] Unavailable Adrian Aaron DO K Unavailable Kevin Lee DO Unavailable [phone] Moc, [place] Unavailable Zacarias PALOMARES, [place] Unavailable Unavailable Kevin Lee DO Unavailable [phone] Mary DO, Alicia Unavailable Jeff Deng MD Unavailable [phone] Ish CORNEJO, Genesis Kern Unavailable Ruth Swanson MD Unavailable Alphonso Sosa DO Unavailable Job Mehta DO Unavailable Galen DOAdrian Unavailable Mo, [place] Unavailable Zacarias PALOMARES, [place] Unavailable Unavailable Dago DO, Irma Unavailable Dago DO, Irma Unavailable [phone] Sona Aponte MD Unavailable Patricio PALOMARES, Juma Hernandez Unavailable Unavailabl e Dago DO, Irma Unavailable [phone] Dago DO, Irma Unavailable LIZA DOSREY Referring Unavailab le EJ, RUTH MARGIE Primary Care Unavailable ABUTEER HADEEL Admitting Unavailable PROVIDER, UNKNOWN Consulting Unavailable JE, RUTH MARGIE Primary Care Unavailable SONA APONTE Attending Unavailable Ruth Swanson MD Primary Care Provider [phone] NADINE BLACK Attending Unavailable EJ, RUTH MARGIE Referring Unavailable EJ, RUTH MARGIE Primary Care Unavailable LIZA DORSEY Attending Unavailab SONA James Referring Unavailable EJ, RUTH MARGIE Primary Care Unavailable RUTH SWANSON Attending Unavailable EJ, RUTH MARGIE Primary Care Unavailable SELF Referring Unavailable EJRUTH MARGIE Attending Unavailable EJ, RUTH MARGIE Primary Care Unavailable EJ RUTH MARGIE Attending Unavailable EJ, RUTH MARGIE Primary Care Unavailable EJ, RUTH MARGIE Referring Unavailable EJ, RUTH MARGIE Primary Care Unavailable EJRUTH MARGIE Attending Unavailable EJ, RUTH MARGIE Primary Care Unavailable MARIO, MARIO Admitting Unavailable MARIO MARIO Attending Unavailable MARIO, MARIO Referring Unavailable EJ, RUTH MARGIE Primary Care Unavailable EJ, RUTH MARGIE Primary Care Unavailable GABRIELLE BAIG Attending Unavailable EJ, RUTH MARGIE Primary Care Unavailable DAGO, IRMA Attending Unavailable EJ, RUTH MARGIE Primary Care Unavailable MARIAM MOSER Attending Unavailabl e EJ, RUTH MARGIE Primary Care Unavailable IRMA LOZA Attending Unavailable RUTH SWANSON Primary Care Unavailable IRMA LOZA Attending Unavailable RUTH SWANSON Primary Care Unavailable Allergies Allergy Classification Reported Allergen(s) Allergy Type Date of Onset Reaction(s) Facility (1 source) No Known Allergies; Translations: [No Known Allergies] Propensity to adverse reactions to drug (disorder) [facility] Repository (1 source) No Known Medication Allergies; Translations: [No Known Medication Allergies] Propensity to adverse reactions to drug (disorder) [facility] Repository Medications Current Medications Medication Drug Class(es) Dates Sig (Normalized) Sig (Original) acetaminophen 325 mg / HYDROcodone bitartrate 5 mg oral tablet (20 sources) Opioid Agonist Start: 01-04-2024 take 1 tablet by mouth every eight hours as needed HYDROcodone-aceta minophen (NORCO) 5-325 mg per tablet TAKE 1 TABLET BY MOUTH EVERY 8 HOURS FOR 17 DAYS NEEDED 01/04/2024 Active Start: 06-16-2023 End: 06-23-2023 take 1 tablet by mouth every six hours as needed for pain HYDROcodone-acetaminophen (NORCO) 5-325 mg per tablet Indications: Closed nondisplaced fracture of right ilium with routine healing, unspecified fracture morphology, subsequent encounter Take 1 tablet by mouth every 6 hours as needed for pain for up to 7 days. 28 tablet 0 06/16/2023 06/23/2023 Active Start: 05-25-2023 End: 06-16-2023 take 1 tablet by mouth every eight hours as needed HYDROcodone-acetaminophen (NORCO) 5-325 mg per tablet 1 tablet as needed Orally every 8 hrs for 28 days 05/25/2023 06/16/2023 Discontinued Start: 04-24-2022 take 1 tablet by koby th every eight hours as needed HYDROcodone-acetaminophen (NORCO) 5-325 mg per tablet Take 1 tablet by mouth every 8 hours as needed. 0 04/24/2022 Active Comment on above: Take 1 tablet by koby th every 8 hours as needed. 1 tablet as needed O rally every 8 hrs for 28 days Take 1 tablet by koby th every 6 hours as needed for pain for up to 7 days. acetaminophen 325 mg / oxyCODONE hydrochloride 5 mg oral tablet (1 source) Opioid Agonist Start: 06-02-19 End: 06-07-19 take 1 tablet by mouth every six hours as needed for pain oxyCODONE-acetamino phen (PERCOCET) 5-325 mg tablet Indications: Closed fracture of multiple rami of right pubis, initial encounter ([facility]) , Closed fracture of sacrum, unspecified fracture morphology, initial encounter ([facility]) , Other osteoporosis Take 1 tablet by mouth every 6 hours as needed for pain for up to 5 days. 20 tablet 0 06/02/2023 06/07/2023 Active Comment on above: Take 1 tablet by koby th every 6 hours as needed for pain for up to 5 days. amLODIPine 5 mg / benazepril hydrochloride 20 mg oral capsule (6 sources) Dihydropyridine Calcium Channel Bonny, Angiotensin Converting Enzyme Inhibitor Start: 02-04-20 End: 08-03-19 take 1 capsule by mouth once daily amLODIPine-benazepr il (LOTREL) 5-20 mg per capsule Take 1 capsule by mouth once daily. 90 capsule 1 02/04/2024 08/02/2024 Active atorvastatin 80 mg oral tablet (20 sources) HMG-CoA Reductase Inhibitor Start: 01-08-20 End: 07-07-19 take 1 tablet by mouth once daily atorvastatin (LIPITOR) 80 mg tablet Take 1 tablet by mouth once daily. 90 tablet 1 01/08/2024 07/06/2024 Active Start: 01-06-2022 End: 01-08-2024 take 1 tablet by mouth once daily atorvastatin (LIPITOR) 40 mg tablet take 1 tablet by mouth once daily 90 tablet 1 06/25/2022 01/08/2024 Discontinued Start: 10-02-2020 take 1 tablet by koby th once daily atorvastatin (LIPITOR) 40 mg tablet Take 1 tablet by mouth once daily. 90 tablet 1 10/02/2020 Active Comment on above: Take 1 tablet by koby th once daily. take 1 tablet by koby th once daily calcium citrate 950 mg oral tablet (20 sources) Start: End: take 1 tablet by mouth once daily calcium citrate (CALCITRATE) 200 mg (950 mg) tab Take 1 tablet by mouth once daily. Patient should start on May 31, 2023. 30 tablet 05/31/2023 Active Comment on above: Take 1 tablet by koby th once daily. Patient should start on May 31, 2023. cetirizine hydrochloride 10 mg oral tablet (17 sources) Histamine-1 Receptor Antagonist Start: 2 End: 3 take 1 tablet by mouth once daily cetirizine (ZYRTEC) 10 mg tablet Take 1 tablet by mouth once daily. 90 tablet 1 01/06/2022 07/05/2022 Active Start: 04-05-2021 take 1 tablet by koby th once daily cetirizine (ZYRTEC) 10 mg tablet take 1 tablet by mouth once daily 90 tablet 5 04/05/2021 Active Comment on above: take 1 tablet by koby th once daily Take 1 tablet by koby th once daily. chlorthalidone 25 mg oral tablet (20 sources) Thiazide-like Diuretic Start: 3 End: 4 take 1 tablet by mouth once daily chlorthalidone (HYGROTON) 25 mg tablet TAKE 1 TABLET BY MOUTH ONCE DAILY 90 tablet 1 03/18/2024 Active Start: 08-06-2021 End: 07-05-2022 take 1 tablet by mouth once daily chlorthalidone (HYGROTON) 25 mg tablet Take 1 tablet by mouth once daily. 90 tablet 1 01/06/2022 Active Start: 03-01-2020 take 1 tablet by koby th once daily chlorthalidone (HYGROTON) 25 mg tablet Take 1 tablet by mouth once daily. 90 tablet 1 03/01/2020 Active Comment on above: Take 1 tablet by koby th once daily. take 1 tablet by koby th once daily cyclobenzaprine hydrochloride 10 mg oral tablet (20 sources) Muscle Relaxant Start: 09-20-19 End: 01-13-20 take 1 tablet by mouth twice daily cyclobenzaprine (FLEXERIL) 10 mg tablet Indications: Chronic midline low back pain without sciatica , Muscle spasm take 1 tablet by mouth twice a day if needed 60 tablet 01/12/2023 Active Start: 01-06-2022 take 1 tablet by koby th twice daily as needed cyclobenzaprine (FLEXERIL) 10 mg tablet Indications: Chronic midline low back pain without sciatica , Muscle spasm Take 1 tablet by mouth twice daily as needed. 60 tablet 2 01/06/2022 Active Start: 01-10-2021 End: 12-12-2021 take 1 tablet by mouth twice daily as needed cyclobenzaprine (FLEXERIL) 10 mg tablet Indications: Chronic midline low back pain without sciatica , Muscle spasm Take 1 tablet by mouth twice daily as needed. 60 tablet 2 12/13/2021 Active Comment on above: Take 1 tablet by koby twice daily as needed. take 1 tablet by koby twice a day if needed diclofenac sodium 0.01 mg/mg topical gel (20 sources) Nonsteroidal Anti-inflammatory Drug Start: apply 4 g topically four times daily diclofenac (VOLTAREN) 1 % topical gel apply 4 grams to affected area four times a day TO AFFECTED LOWER JOINT 04/22/2022 Active Start: 12-03-2021 End: 01-02-2022 apply 2 g topically four times daily diclofenac (VOLTAREN) 1 % topical gel Apply 2 g to affected area four times daily. 240 g 2 12/03/2021 01/02/2022 Active Comment on above: Apply 2 g to affecte d area four times daily. apply 4 grams to aff ected area four times a day TO AFFECTED LOWER JOINT ergocalciferol 1.25 mg oral capsule (20 sources) Provitamin D2 Compound Start: 05-31-19 End: 06-22-19 take 1 capsule by mouth every week ergocalciferol 50,000 unit capsule (VITAMIN D2, DRISDOL) Take 1 capsule by mouth one time a week for 4 doses. Patient should start on May 31, 2023. 4 capsule 05/31/2023 Active Comment on above: Take 1 capsule by mo [facility] one time a week for 4 doses. Patient should start on May 31, 2023. FLUoxetine 20 mg oral capsule (20 sources) Serotonin Reuptake Inhibitor Start: 04-03-19 take 1 capsule by mouth twice daily FLUoxetine (PROZAC) 20 mg capsule Take 1 capsule by mouth two times a day. 180 capsule 1 04/03/2024 Active Start: 08-08-2022 End: 03-31-2024 take 1 capsule by mouth twice daily FLUoxetine (PROZAC) 20 mg capsule Take 1 capsule by mouth two times a day. 180 capsule 1 10/15/2023 03/31/2024 Discontinued Start: 01-06-2022 End: 07-05-2022 take 1 capsule by mouth twice daily FLUoxetine (PROZAC) 20 mg capsule Take 1 capsule by mouth twice daily. 180 capsule 1 01/06/2022 Active Start: 06-24-2021 End: 12-21-2021 take 2 capsules by mouth twice daily FLUoxetine (PROZAC) 20 mg capsule Take 2 capsules by mouth twice daily. 360 capsule 1 06/24/2021 06/25/2021 Discontinued Start: 12-13-2020 End: 12-22-2021 take 1 capsule by mouth twice daily FLUoxetine (PROZAC) 20 mg capsule Take 1 capsule by mouth twice daily. 180 capsule 1 06/25/2021 12/22/2021 Active Comment on above: Take 2 capsules by m outh twice daily. Take 1 capsule by mo uth twice daily. take 1 capsule by mo uth twice a day Take 1 capsule by mo uth two times a day. gabapentin 100 mg oral capsule (20 sources) Anti-epileptic Agent Start: 04-24-19 take 1 capsule by mouth three times daily gabapentin (NEURONTIN) 100 mg capsule Take 100 mg by mouth three times daily. 04/24/2022 Active Comment on above: Take 100 mg by mouth three times daily. levothyroxine sodium 0.05 mg oral tablet (16 sources) l-Thyroxine Start: 01-08-20 End: 07-07-19 take 1 tablet by mouth once daily levothyroxine (SYNTHROID) 50 mcg tablet Take 1 tablet by mouth once daily. 90 tablet 1 01/08/2024 07/06/2024 Active lidocaine 0.04 mg/mg medicated patch (6 sources) Antiarrhythmic, Amide Local Anesthetic Start: 05-31-19 End: 06-07-19 apply 1 dose transdermal route once daily lidocaine (SALONPAS) 4 % patch Apply 1 Patch as directed once daily for 7 days. 7 Patch 0 05/31/2023 06/07/2023 Active Start: 01-13-2022 End: 01-13-2022 lidocaine (PF) 10 mg/mL (1 % ) 2 mL injection (XYLOCAINE) Start: 01-13-2022 End: 01-13-2022 lidocaine (PF) 10 mg/mL (1 % ) 2 mL injection (XYLOCAINE) Start: 10-16-2021 End: 10-16-2021 lidocaine (PF) 10 mg/mL (1 % ) 2 mL injection (XYLOCAINE) Comment on above: Apply 1 Patch as dir ected once daily for 7 days. naproxen 500 mg oral tablet (20 sources) Nonsteroidal Anti-inflammatory Drug Start: 11-13-2022 End: 05-17-2023 take 1 tablet by mouth twice daily for pain naproxen (NAPROSYN) 500 mg tablet take 1 tablet by mouth twice a day if needed for pain take with food 60 tablet 2 05/17/2023 Active Start: 08-12-2022 take 1 tablet by koby th twice daily for pain naproxen (NAPROSYN) 500 mg tablet take 1 tablet by mouth twice a day if needed for pain take with food 60 tablet 2 08/12/2022 Active Start: 09-09-2021 End: 04-06-2022 take 1 tablet by mouth twice daily for pain naproxen (NAPROSYN) 500 mg tablet take 1 tablet by mouth twice a day if needed for pain take with food 60 tablet 2 01/06/2022 Active Start: 01-07-2021 take 1 tablet by koby th twice daily naproxen (NAPROSYN) 500 mg tablet take 1 tablet by mouth twice a day 60 tablet 2 01/07/2021 Active Comment on above: take 1 tablet by koby th twice a day Take 1 tablet by koby th twice daily as needed. for pain. Take with food. take 1 tablet by koby th twice a day if needed for pain take with food Take 1 tablet by koby th twice daily as needed (for pain). for pain. Take with food. ondansetron 4 mg oral tablet (7 sources) Serotonin-3 Receptor Antagonist Start: End: take 1 tablet by mouth every eight hours as needed ondansetron (ZOFRAN) 4 mg tablet Take 1 tablet by mouth every 8 hours as needed for nausea/vomiting for up to 12 doses. 12 tablet 02/04/2024 Active polyethylene glycol 3350 63077 mg powder for oral solution (3 sources) Osmotic Laxative Start: 4 End: polyethylene glycol 3350 (MIRALAX) 17 gram/dose powder Take 17 g by mouth once daily for 7 days. Dissolve dose in 4 - 8 ounces of liquid and take as directed. 119 g 0 05/30/2023 06/06/2023 Active Comment on above: Take 17 g by mouth o nce daily for 7 days. Dissolve dose in 4 - 8 ounces of liquid and take as directed. pot bicarb/potassium cit/ca (POTASSIUM BICARBONATE ORAL) (11 sources) take 99 mg by mouth once daily pot bicarb/potassium cit/ca (POTASSIUM BICARBONATE ORAL) Take 99 mg by mouth once daily. Active take 99 mg by mouth once daily p ot bicarb/potassium cit/ca (POTASSIUM BICARBONATE ORAL) Take 99 mg by mouth once daily. Suspended semaglutide (OZEMPIC) 0.25 mg or 0.5 mg (2 mg/3 mL) pen (6 sources) Start: 02-04-2024 End: 05-04-2024 inject 0.5 mg by subcutaneous injection every week semaglutide (OZEMPIC) 0.25 mg or 0.5 mg (2 mg/3 mL) pen Indications: Class 3 severe obesity with body mass index (BMI) of 45.0 to 49.9 in adult, unspecified obesity type, unspecified whether serious comorbidity present (HCC) Inject 0.5 mg subcutaneously one time a week. 3 mL 2 02/04/2024 05/04/2024 Active semaglutide, weight loss, (WEGOVY) 0.25 mg/0.5 mL pen injector (2 sources) Start: 10-12-2023 End: 11-09-2023 inject 0.5 mL by subcutaneous injection every week semaglutide, weight loss, (WEGOVY) 0.25 mg/0.5 mL pen injector Inject 0.5 mL subcutaneously one time a week for 28 days. 2 mL 0 10/12/2023 11/09/2023 Active sulfamethoxazole 800 mg / trimethoprim 160 mg oral tablet (10 sources) Dihydrofolate Reductase Inhibitor Antibacterial, Sulfonamide Antimicrobial Start: 02-02-2024 End: 02-05-2024 take 1 tablet by mouth twice daily sulfamethoxazole-t rimethoprim (BACTRIM DS) 800-160 mg per tablet Take 1 tablet by mouth two times a day for 3 days. 6 tablet 02/02/2024 02/04/2024 Discontinued Start: 01-29-2024 End: 02-25-2024 take 1 tablet by mouth once daily sulfamethoxazole-trimethoprim (BACTRIM D S) 800-160 mg per tablet Take 1 tablet by mouth once daily for 21 days. 21 tablet 02/04/2024 02/25/2024 Active urea 400 mg/ml topical cream (20 sources) Start: 11-18-2022 urea (CARMOL) 40 % Apply to affected area as needed. 198 g 1 11/18/2022 Active Comment on above: Apply to affected ar ea as needed. Completed/Discontinued Medications Medication Drug Class(es) Dates Sig (Normalized) Sig (Original) 30 ml bupivacaine hydrochloride 2.5 mg/ml injection (13 sources) Amide Local Anesthetic Start: 01-26-2024 End: 01-26-2024 bupivacaine (PF) 0.25 % (2.5 mg/mL) 4 mL injection (SENSORCAINE MPF) Start: 01-26-2024 End: 01-26-2024 4 mL, Injection - FOR ORTHO USE ONLY, ONCE, 1 dose, Starting on Thu01/26/24 at 1442, Until Thu01/26/24 at 1442 Start: 10-22-2023 End: 10-22-2023 bupivacaine (PF) 0.25 % (2.5 mg/mL) 4 mL injection (SENSORCAINE MPF) Start: 07-28-2022 End: 07-28-2022 BUPivacaine (PF) 0.25 % (2.5 mg/mL) 4 mL injection (SENSORCAINE MPF) Start: 01-13-2022 End: 01-13-2022 bupivacaine (PF) 0.25 % (2.5 mg/mL) 2 mL injection (SENSORCAINE MPF) Start: 01-13-2022 End: 01-13-2022 bupivacaine (PF) 0.25 % (2.5 mg/mL) 2 mL injection (SENSORCAINE MPF) Start: 10-16-2021 End: 10-16-2021 bupivacaine (PF) 0.25 % (2.5 mg/mL) 2 mL injection (SENSORCAINE MPF) 2 ml sodium hyaluronate 10 m g/ml prefilled syringe (2 sources) Start: 09-03-2021 End: 09-03-2021 sodium hyaluronate 20 mg injection (EUFLEXXA) Start: 08-23-2021 End: 08-23-2021 sodium hyaluronate 20 mg inj ection (EUFLEXXA) ketoconazole 20 mg/ml topical cream (20 sources) Azole Antifungal Start: 11-18-2022 End: 02-04-2024 ketoconazole (NIZORAL) 2 % cream Apply bid x 6 weeks 60 g 1 11/18/2022 02/04/2024 Discontinued (Other) Comment on above: Apply bid x 6 weeks lisinopril 20 mg oral tablet (13 sources) Angiotensin Converting Enzyme Inhibitor Start: 10-17-2016 take 1 tablet by mouth once daily lisinopril (ZESTRIL, PRINIVIL) 20 mg tablet Take 1 tablet by mouth once daily. 0 10/17/2016 Active Comment on above: Take 1 tablet by koby th once daily. meloxicam 15 mg oral tablet (7 sources) Nonsteroidal Anti-inflammatory Drug Start: 08-12-2021 take 1 tablet by mouth once daily at mealtime meloxicam (MOBIC) 15 mg tablet Indications: Chronic midline low back pain without sciatica take 1 tablet by mouth once daily with food 30 tablet 0 08/12/2021 Active Start: 04-10-2021 take 1 tablet by koby th once daily at mealtime meloxicam (MOBIC) 15 mg tablet take 1 tablet by mouth once daily with food 30 tablet 2 04/10/2021 Active Comment on above: take 1 tablet by koby th once daily with food oxyCODONE hydrochloride 5 mg oral tablet (3 sources) Opioid Agonist Start: End: take 1 tablet by mouth every six hours as needed oxyCODONE IR (ROXICODONE) 5 mg immediate release tablet Indications: Closed fracture of sacrum, unspecified portion of sacrum, initial encounter ([facility]) Take 1 tablet by mouth every 6 hours as needed for up to 3 days. 10 tablet 0 05/30/2023 06/02/2023 Comment on above: Take 1 tablet by koby th every 6 hours as needed for up to 3 days. microencapsulated potassium chloride 20 meq extended release oral tablet (13 sources) Start: take 1 tablet by mouth once daily potassium chloride ER (K-DUR, KLOR-CON) 20 mEq tablet Take 1 tablet by mouth once daily. 0 10/17/2016 Active Comment on above: Take 1 tablet by koby once daily. 0.25 mg, 0.5 mg dose 1.5 ml semaglutide 1.34 mg/ml pen injector (6 sources) Start: End: semaglutide (OZEMPIC) 0.25 mg or 0.5 mg(2 mg/1.5 mL) pen INJECT 20 UNITS SUBCUTANEOUSLY ONCE WEEKLY 12/30/2023 02/04/2024 Discontinued 1 ml triamcinolone acetonide 40 mg/ml injection (13 sources) Corticosteroid Start: End: triamcinolone acetonide 40 mg injection (KeNALog 40) Start: 01-26-2024 End: 01-26-2024 40 mg, Injection - FOR ORTHO USE ONLY, ONCE, 1 dose, Starting on Thu01/26/24 at 1442, Until Thu01/26/24 at 1442 Start: 10-22-2023 End: 10-22-2023 triamcinolone acetonide 40 m g injection (KeNALog 40) Start: 07-28-2022 End: 07-28-2022 triamcinolone acetonide 40 m g injection (KeNALog 40) Start: 01-13-2022 End: 01-13-2022 triamcinolone acetonide 40 m g injection (KeNALog 40) Start: 01-13-2022 End: 01-13-2022 triamcinolone acetonide 40 m g injection (KeNALog 40) Start: 10-16-2021 End: 10-16-2021 triamcinolone acetonide 40 m g injection (KeNALog 40) triazolam 0.25 mg oral tablet (8 sources) Benzodiazepine Start: 05-17-2023 End: 06-16-2023 take 1 tablet by mouth every hour triazolam (HALCION) 0.25 mg tablet take 1 tablet by mouth 1 HOUR PRIOR TO INJECTION 05/17/2023 06/16/2023 Discontinued Comment on above: take 1 tablet by mouth 1 HOUR PRIOR TO I NJECTION 1 tablet one hour pr ior to injection Orally 1 per day. for 2 days Problems Active Problems Problem Classification Problem Date Documented Date Episodic/Chronic Anxiety disorders (20 sources) Mixed anxiety and depressive disorder; Translations: [Other specified anxiety disorders] Onset: 05-19-2023 05-19-2023 Chronic Disorders of lipid metabolism (20 sources) Hyperlipidemia; Translations: [Hyperlipidemia, unspecified] Onset: 05-29-2023 05-29-2023 Chronic Essential hypertension (20 sources) Essential hypertension; Translations: [Essential (primary) hypertension] Onset: 05-29-2023 05-29-2023 Chronic Lymphadenitis (5 sources) Hilar lymphadenopathy ; Translations: [Localized enlarged lymph nodes] Onset: 01-15-2024 01-15-2024 Episodic Mood disorders (2 sources) Major depressive disorder, single episode, unspecified; Translations: [Major depressive disorder, single episode, unspecified] Onset: 11-05-2016 Mycoses (1 source) Tinea pedis; Translations: [Tinea pedis] 11-18-2022 Episodic Osteoarthritis (20 sources) Osteoarthritis of left knee joint; Translations: [Unilateral primary osteoarthritis, left knee] Onset: 05-29-2023 Chronic Osteoporosis (2 sources) Osteoporosis; Translations: [Other osteoporosis without current pathological fracture] Onset: 06-02-2023 06-02-2023 Chronic Other connective tissue disease (3 sources) Spasm; Translations: [Other muscle spasm] Episodic Other fractures (1 source) Fracture of unspecified parts of lumbosacral spine and pelvis, initial encounter for closed fracture; Translations: [Pelvic fracture (HCC)] Onset: 05-29-2023 Episodic Other fractures (1 source) Fracture of lumbar spine and/or pelvis; Translations: [Fracture of unspecified parts of lumbosacral spine and pelvis, subsequent encounter for fracture with routine healing] 06-10-2023 Episodic Other fractures (1 source) Closed fracture of ilium; Translations: [Unspecified fracture of right ilium, subsequent encounter for fracture with routine healing] 06-16-2023 Episodic Other lower respiratory disease (1 source) Dyspnea on exertion; Translations: [Other forms of dyspnea] 02-23-2024 Episodic Other non-traumatic joint disorders (1 source) Pain in unspecified hip; Translations: [Pain in joint involving pelvic region and thigh, unspecified laterality] Onset: 06-10-2023 Episodic Other non-traumatic joint disorders (1 source) Arthralgia of the pelvic region and thigh; Translations: [Pain in unspecified hip] 06-10-2023 Episodic Other nutritional; endocrine; and metabolic disorders (20 sources) Body mass index 40+ - severely obese; Translations: [Morbid (severe) obesity due to excess calories] Onset: 05-29-2023 05-29-2023 Chronic Other nutritional; endocrine; and metabolic disorders (1 source) Severe obesity; Translations: [Class 3 severe obesity with body mass index (BMI) of 45.0 to 49.9 in adult, unspecified obesity type, unspecified whether serious comorbidity present (HCC)] 02-04-2024 Chronic Other nutritional; endocrine; and metabolic disorders (1 source) Morbid (severe) obesity due to excess calories; Translations: [Class 3 severe obesity with body mass index (BMI) of 45.0 to 49.9 in adult, unspecified obesity type, unspecified whether serious comorbidity present (HCC)] Onset: 02-04-2024 Chronic Other nutritional; endocrine; and metabolic disorders (1 source) Body mass index (BMI) 45.0-49.9, adult; Translations: [Class 3 severe obesity with body mass index (BMI) of 45.0 to 49.9 in adult, unspecified obesity type, unspecified whether serious comorbidity present (HCC)] Onset: 02-04-2024 Chronic Pathological fracture (1 source) Pathological fracture, other site, initial encounter for fracture; Translations: [Sacral insufficiency fracture, initial encounter] Onset: 05-29-2023 Episodic Pneumonia (except that caused by tuberculosis or sexually transmitted disease) (2 sources) Pneumocystosis pneumonia; Translations: [Pneumocystosis] Onset: 02-23-2024 02-23-2024 Episodic Poisoning by other medications and drugs (2 sources) Poisoning by unspecified drugs, medicaments and biological substances, accidental (unintentional), initial encounter; Translations: [Poisoning by unspecified drugs, medicaments and biological substances, accidental (unintentional), initial encounter] Onset: 11-05-2016 Residual codes; unclassified (1 source) Pain, unspecified; Translations: [Intractable pain] Onset: 05-29-2023 Episodic Screening and history of mental health and substance abuse codes (3 sources) Ex-smoker; Translations: [Personal history of nicotine dependence] Onset: 02-23-2024 01-15-2024 Episodic Spondylosis; intervertebral disc disorders; other back problems (1 source) Unspecified thoracic, thoracolumbar and lumbosacral intervertebral disc disorder; Translations: [Schmorl's node] Onset: 05-29-2023 Chronic Substance-related disorders (20 sources) Opioid dependence in remission; Translations: [Opioid dependence, in remission] Onset: 06-02-2023 06-02-2023 Chronic Suicide and intentional self-inflicted injury (2 sources) Suicide attempt; Translations: [Poisoning by 4-Aminophenol derivatives, intentional self-harm, initial encounter] Onset: 11-04-2016 Unclassified (1 source) Class 3 severe obesity with body mass index (BMI) of 45.0 to 49.9 in adult, unspecified obesity type, unspecified whether serious comorbidity present (HCC); Translations: [Class 3 severe obesity with body mass index (BMI) of 45.0 to 49.9 in adult, unspecified obesity type, unspecified whether serious comorbidity present (HCC)] Onset: 02-04-2024 Past or Other Problems Problem Classification Problem Date Documented Da te Episodic/Chronic Abdominal pain (1 source) Right lower quadrant pain; Translations: [Severe right inguinal pain] Onset: 05-17-2023 Episodic Fluid and electrolyte disorders (20 sources) Hypokalemia; Translations: [Hypokalemia] Onset: 05-29-2023 05-29-2023 Episodic Other connective tissue disease (1 source) Pain in lower limb Onset: 05-26-2023 Episodic Other connective tissue disease (1 source) Pain in right thigh; Translations: [Acute pain of right thigh] Onset: 05-17-2023 Episodic Other fractures (20 sources) Fracture of multiple pubic rami; Translations: [Other specified fracture of right pubis, initial encounter for closed fracture] Onset: 05-29-2023 05-29-2023 Episodic Other fractures (20 sources) Closed fracture sacrum; Translations: [Unspecified fracture of sacrum, initial encounter for closed fracture] Onset: 05-29-2023 05-29-2023 Episodic Other fractures (2 sources) Unspecified fracture of sacrum, initial encounter for closed fracture; Translations: [Closed fracture of sacrum, unspecified portion of sacrum, initial encounter (HCC)] Onset: 05-29-2023 Episodic Other fractures (1 source) Unspecified fracture of right ilium, subsequent encounter for fracture with routine healing; Translations: [Closed nondisplaced fracture of right ilium with routine healing, unspecified fracture morphology, subsequent encounter] Onset: 06-16-2023 Episodic Other fractures (1 source) Other specified fracture of right pubis, initial encounter for closed fracture; Translations: [Closed fracture of multiple rami of right pubis, initial encounter ([facility])] Onset: 06-02-2023 Episodic Other screening for suspected conditions (not mental disorders or infectious disease) (20 sources) Patient encounter status; Translations: [Encounter for screening mammogram for malignant neoplasm of breast] Onset: 05-29-2023 Episodic Spondylosis; intervertebral disc disorders; other back problems (20 sources) Chronic low back pain; Translations: [Chronic midline low back pain without sciatica] Onset: 05-29-2023 Episodic Unclassified (1 source) Altered mental status, unspecified; Translations: [Altered mental status, unspecified] Onset: 11-04-2016 Episodic Results Test Name Value Interpretation Reference Range Facil ity CNOVon 02-23-2024 CNOV Office Visit (PUWCB ) SHEYLA CHONG ([id number]) 1970 F Date Time Provider Department 02/23/24 1:30 PM MARIAM MOSER [facility] During your visit today, we recorded the following information about you: Temperature Pulse Respiration Blood pressure 97.7 degrees 83/minute 20/minute 119/59 Weight Height 130.2 kg 1.651 m Mariam Moser APRN.GEOSPATIAL EXTRACTOR ANALYSIS 02/23/2024 4:11 PM Signed PULMONARY CLINIC follow up post bronchoscopy PATIENT NAME: Sheyla Chong PRIMARY CARE PHYSICIAN: Ruth Swanson MD Communication will be sent via US mail or shared electronic medical records S: last visit with pulmonology Dr. Joe CORNEJO 01/15/2024 Present today post bronchoscopy to review lung biopsy results. CT chest PE done 12/2023 at [facility] for right sided chest pain, started mid 12/2023. notes some improvement in right side chest discomfort, now reports more prominent Left chest pain, denies radiating pain to arms or jaw. Was treated with empiric antibiotics in for possible chest pleurisy. Was seen by Pulmonology 01/14/2025. Quit cigarettes 06/2022, Pyh 1.5 Now Vape's since 06/2022. Sob with climbing < 1 flight of stairs, ambulating < 1 mile, also notes weight increased. On Ozempic start 3 months ago. Tolerates routine adls. In her 20's was told she had cat scratch fever. 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 Denies prior exposure to HIV, recent URIs, Cough, hemoptysis, fevers/chills, wheezing, chest palpitations, use of inhalers, LE edema,unintentional wt loss, altered appetite or neck axillary lumps. ECOG PERFORMANCE STATUS: 1- Restricted in physically strenuous activity. Carries out light duty. Last 12 Encounter Wt Readings: Date: Wt: 02/04/2024 126.1 kg (278 lb) 01/26/2024 125.2 kg (276 lb) 01/15/2024 125.2 kg (276 lb) 10/22/2023 113.4 kg (250 lb) 06/16/2023 113.4 kg (250 lb) 06/02/2023 0 kg () 05/29/2023 113.4 kg (250 lb) 05/26/2023 113.4 kg (250 lb) 05/17/2023 113.4 kg (250 lb) 03/31/2023 104.3 kg (230 lb) 11/04/2022 104.3 kg (230 lb) 07/28/2022 104.3 kg (230 lb) PAST MEDICAL HISTORY: PAST MEDICAL HISTORY Diagnosis Date Anxiety Arthritis of hrjgdrye-xrwmcjbdx-ncip ezoid joint of right hand Bilateral knee pain Depression Fibromyalgia Hypertension Mixed hyperlipidemia CHASE (obstructive sleep apnea) Pneumonia community aquired Right wrist pain Tobacco use disorder PAST SURGICAL HISTORY: PAST SURGICAL HISTORY Procedure Laterality Date SECTION HX 2004 3 SECTIONS last one in 2004 HYSTERECTOMY HX 2009 KNEE ARTHROSCOPY/SURGERY Left 2017 WRIST SURGERY HX 07/2020 FAMILY HISTORY: FAMILY HISTORY Problem Relation Age of Onset Obesity Mother Diabetes Father Obesity Father SOCIAL HISTORY: Social History Tobacco Use Smoking status: Former Current packs/day: 0.00 Average packs/day: 0.5 packs/day for 3.0 years (1.5 ttl pk-yrs) Types: Cigarettes Start date: 06/2019 Quit date: 06/2022 Years since quittin.6 Smokeless tobacco: Never Vaping Use Vaping status: current everyday user Substance Use Topics Alcohol use: No Drug use: Yes Comment: rx percocet abuse- 4 years October MEDICATIONS: Current Outpatient Medications on File Prior to Visit Medication Sig amLODIPine-benazepril (LOTREL) 5-20 mg per capsule Take 1 capsule by mouth once daily. semaglutide (OZEMPIC) 0.25 mg or 0.5 mg (2 mg/3 mL) pen Inject 0.5 mg subcutaneously one time a week. sulfamethoxazole-trimet hoprim (BACTRIM DS) 800-160 mg per tablet Take 1 tablet by mouth once daily for 21 days. ondansetron (ZOFRAN) 4 mg tablet Take 1 tablet by mouth every 8 hours as needed for nausea/vomiting for up to 12 doses. pot bicarb/potassium cit/ca (POTASSIUM BICARBONATE ORAL) Take 99 mg by mouth once daily. (Patient not taking: Reported on 02/04/2024) HYDROcodone-acetaminoph en (NORCO) 5-325 mg per tablet TAKE 1 TABLET BY MOUTH EVERY 8 HOURS FOR 17 DAYS NEEDED levothyroxine (SYNTHROID) 50 mcg tablet Take 1 tablet by mouth once daily. atorvastatin (LIPITOR) 80 mg tablet Take 1 tablet by mouth once daily. chlorthalidone (HYGROTON) 25 mg tablet take 1 tablet by mouth once daily FLUoxetine (PROZAC) 20 mg capsule Take 1 capsule by mouth two times a day. calcium citrate (CALCITRATE) 200 mg (950 mg) tab Take 1 tablet by mouth once daily. Patient should start on May 31, 2023. ergocalciferol 50,000 unit capsule (VITAMIN D2, DRISDOL) Take 1 capsule by mouth one time a week for 4 doses. Patient should start on May 31, 2023. naproxen (NAPROSYN) 500 mg tablet take 1 tablet by mouth twice a day if needed for pain take with food cyclobenzaprine (FLEXERIL) 10 mg tablet take 1 tablet by mouth twice a day if needed urea (CARMOL) 40 % Apply to affected area as needed. ( (more content not included)... Normal [facility] CNOVon 02-04-2024 CNOV Office Visit (STFLF) BEST,SHEYLA MADDOX ([id number]) 1970 F Date Time Provider Department 02/04/24 5:15 PM RUTH SWANSON [facility] During your visit today, we recorded the following information about you: Temperature Pulse Blood pressure Weight 99.1 degrees 81/minute 180/78 126.1 kg Height 1.651 m Ruth Swanson MD 02/04/2024 6:15 PM Signed Sheyla is here today for an Ozempic follow up. She has been on it for 2 months. She having some nausea. She is wondering if she can have a medication to subside her nausea. She is ready to go up on her prescription. The history is provided by the patient. HISTORY REVIEWED PAST MEDICAL HISTORY Diagnosis Date Anxiety Arthritis of xpbxfplc-uzidczoul-qnvn ezoid joint of right hand Bilateral knee pain Depression Fibromyalgia Hypertension Mixed hyperlipidemia CHASE (obstructive sleep apnea) Pneumonia community aquired Right wrist pain Tobacco use disorder PAST SURGICAL HISTORY Procedure Laterality Date SECTION HX 2004 3 SECTIONS last one in 2004 HYSTERECTOMY HX 2008 KNEE ARTHROSCOPY/SURGERY Left 2017 WRIST SURGERY HX 07/2020 FAMILY HISTORY Problem Relation Age of Onset Obesity Mother Diabetes Father Obesity Father Social History Social History Narrative Not on file Allergies: ALLERGIES No Known Allergies Medications: sulfamethoxazole-trimet hoprim (BACTRIM DS) 800-160 mg per tablet Take 1 tablet by mouth two times a day for 3 days. sulfamethoxazole-trimet hoprim (BACTRIM DS) 800-160 mg per tablet Take 1 tablet by mouth once daily for 21 days. semaglutide (OZEMPIC) 0.25 mg or 0.5 mg(2 mg/1.5 mL) pen INJECT 20 UNITS SUBCUTANEOUSLY ONCE WEEKLY HYDROcodone-acetaminoph en (NORCO) 5-325 mg per tablet TAKE 1 TABLET BY MOUTH EVERY 8 HOURS FOR 17 DAYS NEEDED levothyroxine (SYNTHROID) 50 mcg tablet Take 1 tablet by mouth once daily. atorvastatin (LIPITOR) 80 mg tablet Take 1 tablet by mouth once daily. chlorthalidone (HYGROTON) 25 mg tablet take 1 tablet by mouth once daily FLUoxetine (PROZAC) 20 mg capsule Take 1 capsule by mouth two times a day. naproxen (NAPROSYN) 500 mg tablet take 1 tablet by mouth twice a day if needed for pain take with food cyclobenzaprine (FLEXERIL) 10 mg tablet take 1 tablet by mouth twice a day if needed gabapentin (NEURONTIN) 100 mg capsule Take 100 mg by mouth three times daily. diclofenac (VOLTAREN) 1 % topical gel apply 4 grams to affected area four times a day TO AFFECTED LOWER JOINT pot bicarb/potassium cit/ca (POTASSIUM BICARBONATE ORAL) Take 99 mg by mouth once daily. (Patient not taking: Reported on 02/04/2024) calcium citrate (CALCITRATE) 200 mg (950 mg) tab Take 1 tablet by mouth once daily. Patient should start on May 31, 2023. ergocalciferol 50,000 unit capsule (VITAMIN D2, DRISDOL) Take 1 capsule by mouth one time a week for 4 doses. Patient should start on May 31, 2023. urea (CARMOL) 40 % Apply to affected area as needed. (Patient not taking: Reported on 02/04/2024) ketoconazole (NIZORAL) 2 % cream Apply bid x 6 weeks Problem List: ACTIVE PROBLEM LIST Opioid Dependence in Remission ([facility]) - 06/02/2023 Closed Fracture of Multiple Pubic Rami, Right, Initial Encounter ([facility]) - 05/29/2023 Anxiety and Depression - 05/29/2023 Primary Hypertension - 05/29/2023 Chronic Back Pain - 05/29/2023 Osteoarthritis - 05/29/2023 Hld (Hyperlipidemia) - 05/29/2023 Hypokalemia - 05/29/2023 High Serum Bicarbonate - 05/29/2023 Closed Fracture of Sacrum (Hcc) - 05/29/2023 Obesity, Class III, BMI >= 40 - 05/29/2023 Review of Systems Constitutional: Negative for activity change, appetite change, chills, diaphoresis, fatigue, fever and unexpected weight change. HENT: Negative. Respiratory: Positive for shortness of breath. Negative for chest tightness. Cardiovascular: Negative for chest pain, palpitations and leg swelling. Gastrointestinal: Positive for nausea. Negative for abdominal pain, constipation, diarrhea and vomiting. Musculoskeletal: Positive for arthralgias, back pain and myalgias. Physical Exam Constitutional: Appearance: Normal appearance. She is obese. HENT: Head: Normocephalic and atraumatic. Cardiovascular: Rate and Rhythm: Normal rate and regular rhythm. Pulses: Normal pulses. Heart sounds: Normal heart sounds. Pulmonary: Breath sounds: Wheezing present. Comments: Bilateral lung wheezing Musculoskeletal: General: Normal range of motion. Skin: General: Skin is warm. Neurological: General: No focal deficit present. Mental Status: She is alert and oriented to person, place, and time. Psychiatric: Mood and Affect: Mood normal. Behavior: Behavior normal. BP 180/78 Pulse 81 Temp 37.3 ?C (99.1 ?F) (Left Tympanic) Ht 165.1 cm (5' 5 ) Wt 126.1 kg (278 lb) SpO2 93% BMI 46.26 kg/m? ASSESSMENT/PLAN: 1. Class 3 (more content not included)... Normal [facility] Jennifer 02-01-2024 [facility] Telephone (PULMGR) SHEYLA CHONG ([id number]) 1970 F Date Time Provider Department 02/01/24 NADINE BLACK PULMGR During your visit today, we recorded the following information about you: Saadia Espinoza 02/01/2024 12:04 PM Signed Pt lvm stating that dr black calls in antibiotic for her bacteria infection and has not received them and she has left [place] and want it to send over to [facility] in [facility], please advice Joseline Mccbae MA 02/02/2024 11:08 AM Signed A [facility] sent the rx over on 02/02/2024 pt informed Allergies As of Date: 02/01/2024 (No Known Allergies) Date Reviewed: 01/27/2024 Reviewed by: Josie De Oliveira, RN - Fully Assessed Prescriptions as of 02/02/2024 - sulfamethoxazole-trimet hoprim (BACTRIM DS) 800-160 mg per tablet Take 1 tablet by mouth two times a day for 3 days. - sulfamethoxazole-trimet hoprim (BACTRIM DS) 800-160 mg per tablet Take 1 tablet by mouth once daily for 21 days. - semaglutide (OZEMPIC) 0.25 mg or 0.5 mg(2 mg/1.5 mL) pen INJECT 20 UNITS SUBCUTANEOUSLY ONCE WEEKLY - pot bicarb/potassium cit/ca (POTASSIUM BICARBONATE ORAL) Take 99 mg by mouth once daily. - HYDROcodone-acetaminoph en (NORCO) 5-325 mg per tablet TAKE 1 TABLET BY MOUTH EVERY 8 HOURS FOR 17 DAYS NEEDED - levothyroxine (SYNTHROID) 50 mcg tablet Take 1 tablet by mouth once daily. - atorvastatin (LIPITOR) 80 mg tablet Take 1 tablet by mouth once daily. - chlorthalidone (HYGROTON) 25 mg tablet take 1 tablet by mouth once daily - FLUoxetine (PROZAC) 20 mg capsule Take 1 capsule by mouth two times a day. - calcium citrate (CALCITRATE) 200 mg (950 mg) tab Take 1 tablet by mouth once daily. Patient should start on May 31, 2023. - ergocalciferol 50,000 unit capsule (VITAMIN D2, DRISDOL) Take 1 capsule by mouth one time a week for 4 doses. Patient should start on May 31, 2023. - naproxen (NAPROSYN) 500 mg tablet take 1 tablet by mouth twice a day if needed for pain take with food - cyclobenzaprine (FLEXERIL) 10 mg tablet take 1 tablet by mouth twice a day if needed - urea (CARMOL) 40 % Apply to affected area as needed. - ketoconazole (NIZORAL) 2 % cream Apply bid x 6 weeks - gabapentin (NEURONTIN) 100 mg capsule Take 100 mg by mouth three times daily. - diclofenac (VOLTAREN) 1 % topical gel apply 4 grams to affected area four times a day TO AFFECTED LOWER JOINT Problem List As Of Date 02/01/2024 Noted Resolved Closed fracture of multiple pubic rami, right, *05/29/2023 Anxiety and depression [F41.9, F32.A] 05/29/2023 Primary hypertension [I10] 05/29/2023 Chronic back pain [M54.9, G89.29] 05/29/2023 Osteoarthritis [M19.90] 05/29/2023 HLD (hyperlipidemia) [E78.5] 05/29/2023 Hypokalemia [E87.6] 05/29/2023 High serum bicarbonate [R79.89] 05/29/2023 Closed fracture of sacrum (HCC) [S32.10XA] 05/29/2023 Obesity, Class III, BMI >= 40 [E66.01] 05/29/2023 Opioid dependence in remission (HCC) [F11.21] 06/02/2023 Encounter Status:Closed by JOSELINE MCCABE on 02/02/24 [facility] 01-29-2024 [facility] Telephone ([facility]) SHEYLA CHONG ([id number]) 1970 F Date Time Provider Department 01/29/24 KELSY CAMACHO During your visit today, we recorded the following information about you: Kelsy Camacho APRN.MEDINA 01/29/2024 2:51 PM Signed Called patient and updated her on bronchoscopy cultures (+PJP) Bactrim DS ordered x 21 days to patient's pharmacy of choice. Kelsy Camacho APRN.CNP 01/29/2024 2:51 PM Faina Ramos RN 02/01/2024 1:10 PM Signed Pt calling in requesting script to be sent to [facility] on [address] Allergies As of Date: 01/29/2024 (No Known Allergies) Date Reviewed: 01/27/2024 Reviewed by: Josie De Oliveira RN - Fully Assessed Reason for Visit: Orders [681] Order(s):sulfamethoxazo le-trimethoprim (BACTRIM DS) 800-160 mg per tabletTake 1 tablet by mouth once daily for 21 days.Disp: 21 tabletRfl: 0 Prescriptions as of 02/01/2024 - sulfamethoxazole-trimet hoprim (BACTRIM DS) 800-160 mg per tablet Take 1 tablet by mouth once daily for 21 days. - semaglutide (OZEMPIC) 0.25 mg or 0.5 mg(2 mg/1.5 mL) pen INJECT 20 UNITS SUBCUTANEOUSLY ONCE WEEKLY - pot bicarb/potassium cit/ca (POTASSIUM BICARBONATE ORAL) Take 99 mg by mouth once daily. - HYDROcodone-acetaminoph en (NORCO) 5-325 mg per tablet TAKE 1 TABLET BY MOUTH EVERY 8 HOURS FOR 17 DAYS NEEDED - levothyroxine (SYNTHROID) 50 mcg tablet Take 1 tablet by mouth once daily. - atorvastatin (LIPITOR) 80 mg tablet Take 1 tablet by mouth once daily. - chlorthalidone (HYGROTON) 25 mg tablet take 1 tablet by mouth once daily - FLUoxetine (PROZAC) 20 mg capsule Take 1 capsule by mouth two times a day. - calcium citrate (CALCITRATE) 200 mg (950 mg) tab Take 1 tablet by mouth once daily. Patient should start on May 31, 2023. - ergocalciferol 50,000 unit capsule (VITAMIN D2, DRISDOL) Take 1 capsule by mouth one time a week for 4 doses. Patient should start on May 31, 2023. - naproxen (NAPROSYN) 500 mg tablet take 1 tablet by mouth twice a day if needed for pain take with food - cyclobenzaprine (FLEXERIL) 10 mg tablet take 1 tablet by mouth twice a day if needed - urea (CARMOL) 40 % Apply to affected area as needed. - ketoconazole (NIZORAL) 2 % cream Apply bid x 6 weeks - gabapentin (NEURONTIN) 100 mg capsule Take 100 mg by mouth three times daily. - diclofenac (VOLTAREN) 1 % topical gel apply 4 grams to affected area four times a day TO AFFECTED LOWER JOINT Problem List As Of Date 01/29/2024 Noted Resolved Closed fracture of multiple pubic rami, right, *05/29/2023 Anxiety and depression [F41.9, F32.A] 05/29/2023 Primary hypertension [I10] 05/29/2023 Chronic back pain [M54.9, G89.29] 05/29/2023 Osteoarthritis [M19.90] 05/29/2023 HLD (hyperlipidemia) [E78.5] 05/29/2023 Hypokalemia [E87.6] 05/29/2023 High serum bicarbonate [R79.89] 05/29/2023 Closed fracture of sacrum (HCC) [S32.10XA] 05/29/2023 Obesity, Class III, BMI >= 40 [E66.01] 05/29/2023 Opioid dependence in remission (HCC) [F11.21] 06/02/2023 Prescriptions ordered this encounter Disp Refills Start End SULFAMETHOXAZOLE 800 MG-TRIMETHOPRIM* 21 t* 0 01/29/2024 02/19/2024 Route: ORAL Sig: Take 1 tablet by mouth once daily for 21 days. Encounter Status:Closed by KELSY CAMACHO on 01/29/24 [facility] Telephone ([facility]) SHEYLA CHONG ([id number]) 1970 F Date Time Provider Department 01/28/24 MARIO MARTIN [facility] During your visit today, we recorded the following information about you: Isi Coffman RN 01/28/2024 11:35 AM Addendum 1133 Vidhi Randall calling with urgent lab value. Broncho-alveolar lavage - RML BAL Pneumocystis jirovecii dna detected abnormal Secure EPIC chat also sent to Dr. Martin for notification. Isi Coffman RN Allergies As of Date: 01/28/2024 (No Known Allergies) Date Reviewed: 01/27/2024 Reviewed by: Josie De Oliveira RN - Fully Assessed Reason for Visit: Results [95] urgent lab value [Other] Prescriptions as of 01/28/2024 - semaglutide (OZEMPIC) 0.25 mg or 0.5 mg(2 mg/1.5 mL) pen INJECT 20 UNITS SUBCUTANEOUSLY ONCE WEEKLY - pot bicarb/potassium cit/ca (POTASSIUM BICARBONATE ORAL) Take 99 mg by mouth once daily. - HYDROcodone-acetaminoph en (NORCO) 5-325 mg per tablet TAKE 1 TABLET BY MOUTH EVERY 8 HOURS FOR 17 DAYS NEEDED - levothyroxine (SYNTHROID) 50 mcg tablet Take 1 tablet by mouth once daily. - atorvastatin (LIPITOR) 80 mg tablet Take 1 tablet by mouth once daily. - chlorthalidone (HYGROTON) 25 mg tablet take 1 tablet by mouth once daily - FLUoxetine (PROZAC) 20 mg capsule Take 1 capsule by mouth two times a day. - calcium citrate (CALCITRATE) 200 mg (950 mg) tab Take 1 tablet by mouth once daily. Patient should start on May 31, 2023. - ergocalciferol 50,000 unit capsule (VITAMIN D2, DRISDOL) Take 1 capsule by mouth one time a week for 4 doses. Patient should start on May 31, 2023. - naproxen (NAPROSYN) 500 mg tablet take 1 tablet by mouth twice a day if needed for pain take with food - cyclobenzaprine (FLEXERIL) 10 mg tablet take 1 tablet by mouth twice a day if needed - urea (CARMOL) 40 % Apply to affected area as needed. - ketoconazole (NIZORAL) 2 % cream Apply bid x 6 weeks - gabapentin (NEURONTIN) 100 mg capsule Take 100 mg by mouth three times daily. - diclofenac (VOLTAREN) 1 % topical gel apply 4 grams to affected area four times a day TO AFFECTED LOWER JOINT Problem List As Of Date 01/28/2024 Noted Resolved Closed fracture of multiple pubic rami, right, *05/29/2023 Anxiety and depression [F41.9, F32.A] 05/29/2023 Primary hypertension [I10] 05/29/2023 Chronic back pain [M54.9, G89.29] 05/29/2023 Osteoarthritis [M19.90] 05/29/2023 HLD (hyperlipidemia) [E78.5] 05/29/2023 Hypokalemia [E87.6] 05/29/2023 High serum bicarbonate [R79.89] 05/29/2023 Closed fracture of sacrum (HCC) [S32.10XA] 05/29/2023 Obesity, Class III, BMI >= 40 [E66.01] 05/29/2023 Opioid dependence in remission (HCC) [F11.21] 06/02/2023 Encounter Status:Closed by ISI COFFMAN on 01/28/24 [facility] ANES POSTPROC EVALon 024 ANES POSTPROC EVAL HNO ID: [id number] Author: MICHAEL ALBA MD Service: Anesthesiology Author Type: Physician Type: Anesthesia Postprocedure Evaluation Filed: 01/27/2024 15:54 Note Text: POST ANESTHESIA EVALUATION NOTE : 1970 Procedure Summary Date: 01/27/24 Room / Location: [place] OR / [place] OR Anesthesia Start: 5 Anesthesia Stop: 151 Procedure: BRONCHOSCOPY,RIGID/FLEX IBLE W/ FLUORO,W/ENDOBRONCHIAL ULTRASOUND (EBUS) GUIDED TRANSTRACHEAL/ TRANSBRONCHIAL ASPIRATION/BIOPSY,1 OR 2 MEDIASTINAL AND/OR HILAR LYMPH NODE STATIONS/STRUCTURES (Lung) Diagnosis: Mediastinal lymphadenopathy (Mediastinal lymphadenopathy [R59.0]) Surgeons: Mario Martin MD Responsible Provider: Michael Alba MD Anesthesia Type: general ASA Status: 3 Anesthesia Type: general Airway Type: ETT Last Vitals Vitals Value Taken Time BP 121/75 01/27/24 1548 Temp 36 ?C (96.8 ?F) 01/27/24 1548 Pulse 74 01/27/24 1554 Resp 49 01/27/24 1554 SpO2 93 % 01/27/24 1554 Vitals shown include unfiled device data. Post Anesthesia Patient Status Patient Evaluation: bedside. Neurological Status: aware and responsive. Pulmonary Status: breathing comfortably on supplemental oxygen Airway Control: returned to baseline unsupported. Cardiovascular Status: stable. Pain Management: clinically adequate Postoperative Hydration: acceptable. Intraoperative Events: no significant anesthesia events Post Operative Nausea/Vomiting Status: no significant post operative nausea or vomiting Recommendation: continue current plan of care. Anesthesia Observations No Documentation SIGNATURE: Michael Alba MD PATIENT NAME: Sheyla Chong DATE: January 27, 2024 TIME: 3:54 PM CSN: [id number] Normal [facility] ANES PRE-OPon 01-27-2024 ANES PRE-OP HNO ID: [id number] Author: MICHAEL ALBA MD Service: Anesthesiology Author Type: Physician Type: Anesthesia Preprocedure Evaluation Filed: 01/27/2024 13:20 Note Text: ANESTHESIOLOGY DAY OF SURGERY NOTE : 1970 Procedure Information Date/Time: 01/27/24 1500 Procedure: BRONCHOSCOPY,RIGID/FLEX IBLE W/ FLUORO,W/ENDOBRONCHIAL ULTRASOUND (EBUS) GUIDED TRANSTRACHEAL /TRANSBRONCHIAL ASPIRATION/BIOPSY 3 OR MORE MEDIASTINAL AND/OR HILAR LYMPH NODE STATIONS/STRUCTURES (Lung) Location: [place] OR 19 / [place] OR Surgeons: Mario Martin MD Estimated body mass index is 45.93 kg/m? as calculated from the following: Height as of 01/26/24: 165.1 cm (5' 5 ). Weight as of 01/26/24: 125.2 kg (276 lb). Most recent hematocrit and potassium results: Hematocrit 43.1 12/31/2023 Potassium 3.3 12/31/2023 Relevant Problems CARDIO (+) Primary hypertension I - PHYSICAL EVALUATION AIRWAY Patient intubated: No. Tracheostomy tube not present Mallampati: III. TM distance: >3 FB. Neck ROM: full ROM without neurological symptoms. Mouth opening: adequate. Short neck: no. Thick neck: no DENTAL Dental findings: poor dentition. Additional exam findings: no II - ANESTHESIA PLAN ASA Score: 3 Anesthetic Plan: general Airway type: ETT NPO Status: adequate Beta Bonny Monitoring Plan Monitoring plan: standard ASA. Post Procedure Analgesic Plan Postoperative analgesic plan: parenteral or oral opioids. Informed Consent Anesthetic risks, benefits, alternatives, personnel and consent discussed: yes. Patient / Responsible Constitution Party agrees to proceed: yes Patient / Surrogate agrees to blood products: blood products not planned DNR status not reviewed with patient and/or family prior to surgery. Significant changes in the patient condition since the History and Physical, not otherwise documented in primary service progress note: no. Vitals Value Taken Time BP 181/93 01/27/24 1303 Pulse Resp Temp SpO2 93 % 01/27/24 1303 Vitals shown include unfiled device data. No current facility-administered medications on file as of 01/27/2024. Outpatient Medications as of 01/27/2024 Medication Sig pot bicarb/potassium cit/ca (POTASSIUM BICARBONATE ORAL) Take 99 mg by mouth once daily. HYDROcodone-acetaminoph en (NORCO) 5-325 mg per tablet TAKE 1 TABLET BY MOUTH EVERY 8 HOURS FOR 17 DAYS NEEDED levothyroxine (SYNTHROID) 50 mcg tablet Take 1 tablet by mouth once daily. atorvastatin (LIPITOR) 80 mg tablet Take 1 tablet by mouth once daily. chlorthalidone (HYGROTON) 25 mg tablet take 1 tablet by mouth once daily FLUoxetine (PROZAC) 20 mg capsule Take 1 capsule by mouth two times a day. calcium citrate (CALCITRATE) 200 mg (950 mg) tab Take 1 tablet by mouth once daily. Patient should start on May 31, 2023. ergocalciferol 50,000 unit capsule (VITAMIN D2, DRISDOL) Take 1 capsule by mouth one time a week for 4 doses. Patient should start on May 31, 2023. naproxen (NAPROSYN) 500 mg tablet take 1 tablet by mouth twice a day if needed for pain take with food cyclobenzaprine (FLEXERIL) 10 mg tablet take 1 tablet by mouth twice a day if needed urea (CARMOL) 40 % Apply to affected area as needed. ketoconazole (NIZORAL) 2 % cream Apply bid x 6 weeks gabapentin (NEURONTIN) 100 mg capsule Take 100 mg by mouth three times daily. diclofenac (VOLTAREN) 1 % topical gel apply 4 grams to affected area four times a day TO AFFECTED LOWER JOINT semaglutide (OZEMPIC) 0.25 mg or 0.5 mg(2 mg/1.5 mL) pen INJECT 20 UNITS SUBCUTANEOUSLY ONCE WEEKLY I have interviewed and examined the patient. I have reviewed the medical record and/or the pre-anesthesia evaluation, pertinent labs, and test results. This contains updated information obtained within 48 hours of Surgery/Procedure. SIGNATURE: Michael Alba MD PATIENT NAME: Sheyla Chong DATE: January 27, 2024 TIME: 1:19 PM CSN: [id number] Normal [facility] ASPERGILLUS GALACTOMANNAN BA [place] 01-27-2024 ASPER. AG BAL,QUAL Negative Normal Negative [facility] Comment on above: Order Comment: Speci men Type: SPECIMEN OBTAINED BY LAVAGEOrdering Facility: [facility] Address: [address] [place] [address] Result Comment: Aspe rgillus Galactomannan antigen assay is used as an aid in diagnosis of invasive aspergillosis in immunocompromised individuals especially in post-stem cell transplant, hematological malignancies on chemotherapy, and HIV-positive patients with very low CD4 T-cell counts. The test may also be used in disease prognostication and for monitoring response to anti-fungal therapy. False positive and false negative results are not uncommon. Clinical and radiological correlation is required. Performed By: #### A SGALB ####[facility] LABCLIA [id number] [place] [address] [place] ASPERGILLUS GALACTOMANNAN 0.08 Index Value Normal <=0.49 [facility] Comment on above: Order Comment: Speci men Type: SPECIMEN OBTAINED BY LAVAGEOrdering Facility: [facility] Address: [address] [place] [address] Performed By: #### A SGALB ####[facility] LABCLIA [id number] [place] [address] [place] BAL MANUAL DIFFon 01-27-2024 DIF TTL, BA LAVAGE 100 cells counted Normal [facility] Comment on above: Order Comment: Speci men Type: SPECIMEN OBTAINED BY LAVAGEOrdering Facility: [facility] Address: [address] [place] [address] Performed By: #### L [id number], [id number], BALAVI ####[facility] LABORATORYCLIA [id number] [place] [address] [place] LYMPH%, BA LAVAGE 22 % Normal [facility] Comment on above: Order Comment: Speci men Type: SPECIMEN OBTAINED BY LAVAGEOrdering Facility: [facility] Address: [address] [place] [address] Performed By: #### L [id number], [id number], BALAVI ####[facility]ORYCLIA [id number] [place] [address] [place] MACRO%, BA LAVAGE 20 % Normal [facility] Comment on above: Order Comment: Speci men Type: SPECIMEN OBTAINED BY LAVAGEOrdering Facility: [facility] Address: [address] [place] [address] Performed By: #### L [id number], [id number], BALAVI ####[facility]ORYCLIA [id number] [place] [address] [place] MONO%, BA LAVAGE 1 % Normal [facility] Comment on above: Order Comment: Speci men Type: SPECIMEN OBTAINED BY LAVAGEOrdering Facility: [facility] Address: [address] [place] [address] Performed By: #### L [id number], [id number], BALAVI ####[facility]ORYCLIA [id number] [place] [address] [place] NEUT%, BA LAVAGE 17 % Normal [facility] Comment on above: Order Comment: Speci men Type: SPECIMEN OBTAINED BY LAVAGEOrdering Facility: [facility] Address: [address] [place] [address] Performed By: #### L [id number], [id number], BALAVI ####[facility]ORYCLIA [id number] [place] [address] [place] OTHER C1%, BA LAVAGE 39 % Normal [facility] Comment on above: Order Comment: Speci men Type: SPECIMEN OBTAINED BY LAVAGEOrdering Facility: [facility] Address: [address] [place] [address] Result Comment: Path review to follow. Performed By: #### L [id number], [id number], BALAVI ####[facility]ORYCLIA [id number] [place] [address] [place] REAC LYMPH %, BA LAVAGE 1 % Normal [facility] Comment on above: Order Comment: Speci men Type: SPECIMEN OBTAINED BY LAVAGEOrdering Facility: [facility] Address: [facility] [place] [address] Performed By: #### L [id number], [id number], BALAVI ####[facility] LABORATORYCLIA [id number] [address] STATES [facility] BAL ROUTINE BFLon 01-27-2024 Clarity (Unsp spec) Slightly Cloudy Abnormal Clear [facility] Comment on above: Order Comment: Speci men Type: SPECIMEN OBTAINED BY LAVAGEOrdering Facility: [facility] Address: [address] [place] [address] Performed By: #### L [id number], [id number], BALAVI ####[facility] LABORATORYCLIA [id number] [address] Color (Bronch spec) Slightly bloody Abnormal Colorless [facility] Comment on above: Order Comment: Speci men Type: SPECIMEN OBTAINED BY LAVAGEOrdering Facility: [facility] Address: [address] [place] [address] Performed By: #### L [id number], [id number], BALAVI ####[facility] LABORATORYCLIA [id number] [address] RBC LM.HPF (BAL) [#/Area] 2161 /uL Normal Reference range not established. [facility] Comment on above: Order Comment: Speci men Type: SPECIMEN OBTAINED BY LAVAGEOrdering Facility: [facility] Address: [address] [place] [address] Performed By: #### L [id number], [id number], BALAVI ####[facility] LABORATORYCLIA [id number] [address] WBC Manual cnt (Bronch spec) [#/Vol] 136 /uL Normal Reference range not established. [facility] Comment on above: Order Comment: Speci men Type: SPECIMEN OBTAINED BY LAVAGEOrdering Facility: [facility] Address: [address] [place] [address] Performed By: #### L [id number], [id number], BALAVI ####[facility] LABORATORYCLIA [id number] [address] BAL STAFF REVIEW (LAB ORDER) on 01-27-2024 BAL REVIEW Reviewed by Jeremias Cevallos MD [facility] Comment on above: Order Comment: Speci men Type: SPECIMEN OBTAINED BY LAVAGEOrdering Facility: [facility] Address: [address] [place] [address] Performed By: #### L [id number], [id number], BALAVI ####[facility] LABORATORYCLIA [id number] [address] BAL STAFF COMMENTS Negative [facility] Comment on above: Order Comment: Speci men Type: SPECIMEN OBTAINED BY LAVAGEOrdering Facility: [facility] Address: [address] [place] [address] Performed By: #### L [id number], [id number], BALAVI ####[facility] LABORATORYCLIA [id number] [address] Bacteria BAL Aerobe Culton 1 03-28-2023 Bacteria identified Aer cx Nom (BAL) ORGANISM ID: 1 1,000 CFU/mL normal respiratory dany GRAM STAIN: No organisms seen No Polymorphonuclear Leukocytes Normal [facility] Comment on above: Performed By: #### 1 1475-1, 91557-0 #### [facility] CLIA [id number] [address] Bronchoscopyon 01-27-2024 Bronchoscopy [facility] Pulmonary Patient Name: Sheyla Chong Procedure Date: 01/27/2024 1:48 PM Date of : 1970 Admit Type: Outpatient Room: OR Area Procedure: Bronchoscopy Indications: Adenopathy Providers: Mario Martin MD (Doctor) Referring MD: Nadine Black MD (Referring MD) Medicines: General Anesthesia, See the Anesthesia note for documentation of the administered medications Complications: No immediate complications Estimated Blood Loss: Estimated blood loss was minimal. Procedure: Pre-Anesthesia Assessment: - A History and Physical has been performed. Patient meds and allergies have been reviewed. The risks and benefits of the procedure and the sedation options and risks were discussed with the patient. All questions were answered and informed consent was obtained. Patient identification and proposed procedure were verified prior to the procedure by the physician, the nurse and the anesthesiologist in the procedure room. Mental Status Examination: alert and oriented. Airway Examination: normal oropharyngeal airway. Respiratory Examination: clear to auscultation. CV Examination: normal. ASA Grade Assessment: II - A patient with mild systemic disease. After reviewing the risks and benefits, the patient was deemed in satisfactory condition to undergo the procedure. The anesthesia plan was to use general anesthesia. Immediately prior to administration of medications, the patient was re-assessed for adequacy to receive sedatives. The heart rate, respiratory rate, oxygen saturations, blood pressure, adequacy of pulmonary ventilation, and response to care were monitored throughout the procedure. The physical status of the patient was re-assessed after the procedure. After obtaining informed consent, the Bronchoscope was introduced through the and advanced to the. I was present and participated during the entire procedure, including non-loving portions, and during the administration and monitoring of Moderate Sedation. the Endosonoscope was introduced through the and advanced to the. I was present and participated during the entire procedure, including non-loving portions, and during the administration and monitoring of Moderate Sedation. The procedure was accomplished without difficulty. The patient tolerated the procedure well. Findings: The laryngeal mask airway is in good position. The vocal cords appear normal. The subglottic space is normal. The trachea is of normal caliber. The glenis is sharp. The tracheobronchial tree was examined to at least the first subsegmental level. Bronchial mucosa and anatomy are normal; there are no endobronchial lesions, and no secretions. The bronchoscope was advanced until wedged at the desired location for bronchoalveolar lavage. BAL was performed in the RML medial segment (B5) of the lung and sent for cell count and differential, flow cytometry and bacterial, AFB and fungal analysis. 80 mL of fluid were instilled. 30 mL were returned. The return was blood-tinged. Once the airway inspection was completed, the standard bronchoscope was withdrawn and the convex probe endobronchial ultrasound (EBUS) bronchoscope was inserted through the same route. Lymph Nodes: The following lymph nodes were evaluated and/or sampled. Lymph node sizing was performed via endobronchial ultrasound. Sampling by transbronchial needle aspiration was also performed using a fine needle and sent for routine cytology. - The 7 (subcarinal) node was 12.3 mm by EBUS, [address] and PET scan was not done. Nine samples with the needle were obtained. - The 11Ri (inferior interlobar) node was 5.6 mm by EBUS, [address] and PET scan was not done. Three samples with the needle were obtained. Lymph Nodes: Rapid On-Site Evaluation (TEOFILO): Preliminary cytology was suggestive of non-necrotic granulomatous tissue (final results are pending) in the subcarinal mediastinum (level 7). Preliminary cytology was suggestive of non-necrotic granulomatous tissue (final results are pending) in the right inferior interlobar region (level 11Ri). Impression: - Adenopathy - Bronchoalveolar lavage was performed. - Lymph node sizing and sampling was performed. - Rapid On-Site Evaluation (TEOFILO): Preliminary cytology was suggestive suggestive of non-necrotic granulomatous tissue in node level 7, suggestive of non-necrotic granulomatous tissue in node level 11Ri (final results are pending). Recommendation: - Await test results. MD Mario Dewey MD 01/27/2024 3:23:39 PM This report has been signed electronically by Mario Martin MD Number of Addenda: 0 Note Initiated On: 01/27/2024 1:48 PM Procedure Start: 2:31:20 PM Procedure End: 3:07:07 PM Normal [facility] CD3 Cells NFr Bronchon 01-26 CD3 cells/100 cells (Bronch spec) 94 % Normal [facility] Comment on above: Order Comment: Speci men Type: SPECIMEN OBTAINED BY LAVAGEOrdering Facility: [facility] Address: [address] [place] [address] Performed By: #### 3 2752-8 ####[facility] LABCLIA [id number] [place] [address] [place] CD3 cells/100 cells (Bronch spec)on 01-27-2024 CD3+CD4+ (T4 helper) cells/100 cells (Bronch spec) 55 % Normal [facility] Comment on above: Order Comment: Speci men Type: SPECIMEN OBTAINED BY LAVAGEOrdering Facility: [facility] Address: [address] [place] [address] Performed By: #### 3 2752-8 ####[facility] LABIA [id number] [place] [address] [place] CD3+CD4+ (T4 helper) cells/CD3+CD8+ (T8 suppressor cells) cells (Bronch spec) [# ratio] 1.38 Normal [facility] Comment on above: Order Comment: Speci men Type: SPECIMEN OBTAINED BY LAVAGEOrdering Facility: [facility] Address: [address] [place] [address] Performed By: #### 3 2752-8 ####[facility] LABIA [id number] [place] [address] [place] CD3+CD8+ (T8 suppressor cells) cells/100 cells (Bronch spec) 40 % Normal [facility] Comment on above: Order Comment: Speci men Type: SPECIMEN OBTAINED BY LAVAGEOrdering Facility: [facility] Address: [address] [place] [address] Performed By: #### 3 2752-8 ####[facility] [id number] [place] [address] [place] CYTOLOGY NON-GYNon 4 ADEQUACY INTERPRETATION Normal [facility] Comment on above: Order Comment: Speci men Type: SPECIMEN OBTAINED BY ASPIRATION Ordering Facility: [facility] Address: [address] [place] [address] Result Comment: A: 1 1Ri #1,2 Rare non-necrotizing granulomas #3 Non-necrotizing granulomas B: St. 7 #1-3 Lymphoid sample with non-necrotizing granulomas #4 Non-diagnostic Each letter in the above intra-procedural assessment refers to a unique site. The specific site is indicated in the final diagnosis portion of the report. Each number in this assessment references a discrete evaluation episode. Intra-procedural assessment performed at [facility], [address] [place] [address] The above adequacy interpretation(s) were performed by cytopathologist, Dr. Chuy Alexander. Performed By: #### C YTONON #### [facility] CLIA [id number] [address] CASE REPORT Normal [facility] Comment on above: Order Comment: Speci men Type: SPECIMEN OBTAINED BY ASPIRATION Ordering Facility: [facility] Address: [address] [place] [address] Result Comment: [facility] Cytology Report Case: [id number] Authorizing Provider: Mario Martin MD Collected: 01/27/2024 03:12 PM Ordering Location: [facility] Received: 01/27/2024 03:40 PM Pathologist: Chuy Alexander DO Specimens: A) - Lymph Node, Transbronchial, 11 RI B) - Lymph Node, Transbronchial, 7 Performed By: #### C YTONON #### [facility] CLIA [id number] [address] [place] [address] CLINICAL HISTORY Normal [facility] Comment on above: Order Comment: Speci men Type: SPECIMEN OBTAINED BY ASPIRATION Ordering Facility: [facility] Address: [address] [place] [address] Result Comment: Pre- op diagnosis: Mediastinal lymphadenopathy [R59.0] Performed By: #### C YTONON #### [facility] CLIA [id number] [address] DIAGNOSIS COMMENT Normal [facility] Comment on above: Order Comment: Speci men Type: SPECIMEN OBTAINED BY ASPIRATION Ordering Facility: [facility] Address: [address] [place] [address] Result Comment: A, B . AFB and GMS stains performed on parts A and B are negative for acid fast and fungal organisms respectively. B. Flow cytometry shows no immunophenotypic evidence of a B-cell lymphoproliferative disorder (See [id number]). Performed By: #### C YTONON #### [facility] CLIA [id number] [address] Result Comment: This test was developed and its performance characteristics determined by [facility]'s [facility] Pathology and Laboratory Medicine [place] ([facility]). It has not been cleared or approved by the FDA. -[facility] is regulated under CLIA as qualified to perform high-complexity testing. This test is used for clinical purposes. It should not be regarded as investigational or for research. Performed By: #### F CLLRFLX #### [facility] CLIA [id number] [address] [place] [address] FINAL DIAGNOSIS Normal [facility] Comment on above: Order Comment: Speci men Type: SPECIMEN OBTAINED BY ASPIRATION Ordering Facility: [facility] Address: [address] [place] [address] Result Comment: A - Lymph Node, Transbronchial, Aspirate/Fine Needle Aspirate - 11 RI Negative for malignant cells. Non-necrotizing granulomas present. See comment. B - Lymph Node, Transbronchial, Aspirate/Fine Needle Aspirate - 7 Negative for malignant cells. Non-necrotizing granulomas present. See comment. The following cell blocks were associated with this case: A1 Cell Block, Alcohol Fixed B1 Cell Block, Alcohol Fixed Performed By: #### C YTONON #### [facility] CLIA [id number] [address] [place] [address] FINAL PERFORMING LAB Normal [facility] Comment on above: Order Comment: Speci men Type: SPECIMEN OBTAINED BY ASPIRATION Ordering Facility: [facility] Address: [address] [place] [address] Result Comment: Tech nical component, nurse monitoring screening performed at [facility], [address] [place] [address] CLIA# [id number] Diagnostic interpretation performed at [facility], [address] [place] [address] CLIA# [id number] Management Internship: Herrera Cui M.D. Performed By: #### C YTONON #### [facility] CLIA [id number] [address] [place] [address] Result Comment: Diag nostic interpretation performed at [facility], [address] [place] [address] CLIA# [id number] Management Internship: Jose Angel Romo M.D. Performed By: #### F CLLRFLX #### [facility] CLIA [id number] [address] [place] [address] OF [place] GROSS DESCRIPTION [facility] Comment on above: Order Comment: Speci men Type: SPECIMEN OBTAINED BY ASPIRATION Ordering Facility: [facility] Address: [address] [place] [address] Result Comment: A. L ymph Node, Transbronchial 30 cc clear colorless CytoLyt with material. Cell block prepared and 6 smears (3 air dried and 3 fixed). B. Lymph Node, Transbronchial 30 cc clear colorless CytoLyt with material. Cell block prepared and 8 smears (4 air dried and 4 fixed). Flow cytometry sent. Performed By: #### C YTONON #### [facility] CLIA [id number] [address] [place] [address] STATES [facility] Result Comment: A. L ymph Node, Transbronchial Received 10 mls of FNA Performed By: #### F CLLRFLX #### [facility] CLIA [id number] [address] [place] [address] STATES [place] ORDER COMMENT [facility] Comment on above: Order Comment: Speci men Type: SPECIMEN OBTAINED BY ASPIRATION Ordering Facility: [facility] Address: [address] [place] [address] Result Comment: Pre- op diagnosis: Mediastinal lymphadenopathy [R59.0] Performed By: #### C YTONON #### [facility] CLIA [id number] [address] [place] [address] FLOW CYTOMETRY FOR LEUKEMIA/ LYMPHOMA (FCLL) PERFORMABLEon 01-27-2024 FLOW CYTOMETRY ORDER STATUS Results will be reported under F case ID when completed [facility] Comment on above: Order Comment: Speci men Type: SPECIMEN OBTAINED BY ASPIRATION Ordering Facility: [facility] Address: [address] [place] [address] Performed By: #### F CLLP #### [facility] CLIA [id number] STATES [place] FLOW CYTOMETRY FOR LEUKEMIA/ LYMPHOMA (FCLL) REFLEXon 01-27-2024 FLOW CYTOMETRY RESULTS Normal [facility] Comment on above: Order Comment: Speci men Type: SPECIMEN OBTAINED BY ASPIRATION Ordering Facility: [facility] Address: [address] [place] [address] Result Comment: Spec imen type: Transbronchial station seven lymph node biopsy Morphology comments: See report [id number] Viability: 100% Lymphocyte gate: 74% of total events A limited flow cytometric analysis was performed on the transbronchial lymph node biopsy due to low cell yield. Antibodies to CD5, CD10, CD19, CD20, CD23, CD45, CD123, CD200, kappa and lambda light chains were used. This shows that 74% of total events have the CD45 and side scatter properties of lymphocytes. The lymphocytes are composed of T-cells (62%) and polytypic B-cells (38%). The limited antibody panel is insufficient to adequately evaluate for T-cell clonality or aberrant marker expression. GG 01/28/2024 Performed By: #### F CLLRFLX #### [facility] CLIA [id number] [address] [place] [address] [place] INTERPRETATION [facility] Comment on above: Order Comment: Speci men Type: SPECIMEN OBTAINED BY ASPIRATION Ordering Facility: [facility] Address: [address] [place] [address] Result Comment: Ther e is no immunophenotypic evidence of involvement by a B-lymphoproliferative disorder in this limited sample. Correlation with the histopathologic and clinical findings is suggested. ABO 01/28/2024 Performed By: #### F CLLRFLX #### [facility] CLIA [id number] [address] [place] [address] [place] Fungus Spec Culton 4 Fungus identified Cx Nom (Unsp spec) CULTURE, FUNGAL: No Fungus isolated after 28 days [facility] Comment on above: Performed By: #### 5 80-1 ####[facility] [id number] [address] STATES [place] L. pneumophila DNA EDILIA+probe Ql (Unsp spec)on 01-27-2024 Legionella spp Spec Ql EDILIA+probe Not detected Normal Not detected [facility] Comment on above: Order Comment: Speci men Type: SPECIMEN OBTAINED BY LAVAGEOrdering Facility: [facility] Address: [address] [place] [address] Performed By: #### 2 1363-7 ####[facility] [id number] [place] [address] [place] Microorganism Spec Culton Microorganism identified Cx Nom (Unsp spec) CULTURE, FUNGAL: No Fungus isolated after 28 days FUNGAL SMEAR: No fungus seen [facility] Comment on above: Performed By: #### 1 1475-1 ####[facility] [id number] [address] [place] Microorganism identified Cx Nom (Unsp spec) CULTURE, AFB: No Acid Fast Bacilli isolated after 42 days AFB STAIN: No acid fast bacilli seen by fluorochrome stain [facility] Comment on above: Performed By: #### 1 1475-1 ####[facility] [id number] [address] [place] Microorganism identified Cx Nom (Unsp spec) CULTURE, AFB: No Acid Fast Bacilli isolated after 42 days AFB STAIN: No acid fast bacilli seen by fluorochrome stain [facility] Comment on above: Performed By: #### 1 1475-1, 12105-2 ####[facility] [id number] [address] [place] PNEUMOCYSTIS JIROVECII PCRon 01-27-2024 P. jiroveci DNA EDILIA+probe (Unsp spec) [#/Vol] Detected Abnormal Pneumocystis jirovecii Not Detected by PCR [facility] Comment on above: Order Comment: Speci men Type: SPECIMEN OBTAINED BY LAVAGEOrdering Facility: [facility] Address: [address] [place] [address] Result Comment: Isol ated detection of Pneumocystis jirovecii DNA by PCR is not always diagnostic of Pneumocystis pneumonia, as some individuals can be colonized without signs or symptoms of disease. Correlation with clinical findings and other laboratory results is recommended. Performed By: #### P JPCR ####[facility] [id number] [address] [id number] [id number] [facility] CNOVon 01-26-2024 CNOV Office Visit (AGOTAL ) SHEYLA CHONG ([id number]) 1970 F Date Time Provider Department 01/26/24 3:30 PM IRMA LOZA During your visit today, we recorded the following information about you: Respiration Weight Height 18/minute 125.2 kg 1.651 m Zaira Benitez LPN 01/27/2024 8:42 AM Signed Injection prepared per Dr. Loza's order and provided to Dr. Loza. INDU Parks Heather, DO 01/27/2024 8:42 AM Signed The risks and benefits of a corticosteroid injection were discussed with the patient. The risks include but are not limited to: infection, fat atrophy, skin hypopigmentation, facial flushing, elevated blood glucose. The patient elected to proceed with injection and tolerated well. Large Joint Arthro/Inj: L knee joint Informed Consent Consent Obtained: Verbal [place] Protocol A moment to CARE was completed. SIGN IN Personnel directly involved with the procedure wore the appropriate PPE. Patient/Surrogate Stated/Verified: Patient name, Date of , Relevant allergies and Intended procedure TIME OUT Intended patient and procedure match the source document(s). Consent documented and matches the intended procedure. Relevant labs, photos, and/or imaging studies have been reviewed. Correct side/site marked and visible. Medications required for procedure verified. 01/26/2024 2:42 PM The procedure site was prepped in the usual sterile fashion. Site: L knee joint Medications: 40 mg triamcinolone acetonide 40 mg/mL Anesthetics: 4 mL bupivacaine (PF) 0.25 % (2.5 mg/mL) Outcome: Tolerated well, no immediate complications Post-injection instructions were reviewed with the patient and the patient voiced understanding of these instructions. SIGN OUT All instruments, equipment, possible retained foreign bodies accounted for. Post-procedure follow-up management communicated and Plan of Care Visit completed when applicable Large Joint Arthro/Inj: R knee joint Informed Consent Consent Obtained: Verbal [place] Protocol A moment to CARE was completed. SIGN IN Personnel directly involved with the procedure wore the appropriate PPE. Patient/Surrogate Stated/Verified: Patient name, Date of , Relevant allergies and Intended procedure TIME OUT Intended patient and procedure match the source document(s). Consent documented and matches the intended procedure. Relevant labs, photos, and/or imaging studies have been reviewed. Correct side/site marked and visible. Medications required for procedure verified. 01/26/2024 2:42 PM The procedure site was prepped in the usual sterile fashion. Site: R knee joint Medications: 40 mg triamcinolone acetonide 40 mg/mL Anesthetics: 4 mL bupivacaine (PF) 0.25 % (2.5 mg/mL) Outcome: Tolerated well, no immediate complications Post-injection instructions were reviewed with the patient and the patient voiced understanding of these instructions. SIGN OUT All instruments, equipment, possible retained foreign bodies accounted for. Post-procedure follow-up management communicated and Plan of Care Visit completed when applicable Irma Loza DO Orthopedic Surgery, Sports Medicine Allergies As of Date: 01/26/2024 (No Known Allergies) Date Reviewed: 01/26/2024 Reviewed by: Erik Whitmore MA - Fully Assessed Reason for Visit: Established Patient [175] Established Patient [175] Primary Visit Diagnosis:Primary osteoarthritis of left knee [M17.12] Other Visit Diagnosis:Primary osteoarthritis of right knee [M17.11] Order(s):Large Joint Arthro/Inj: L knee joint [GMU727] Order #: [id number] Large Joint Arthro/Inj: R knee joint [RHM601] Order #: [id number] [] bupivacaine (PF) 0.25 % (2.5 mg/mL) 4 mL injection (SENSORCAINE MPF)Disp: Rfl: [] bupivacaine (PF) 0.25 % (2.5 mg/mL) 4 mL injection (SENSORCAINE MPF)Disp: Rfl: [] triamcinolone acetonide 40 mg injection (KeNALog 40)Disp: Rfl: [] triamcinolone acetonide 40 mg injection (KeNALog 40)Disp: Rfl: Prescriptions as of 01/27/2024 - semaglutide (OZEMPIC) 0.25 mg or 0.5 mg(2 mg/1.5 mL) pen INJECT 20 UNITS SUBCUTANEOUSLY ONCE WEEKLY - pot bicarb/potassium cit/ca (POTASSIUM BICARBONATE ORAL) Take 99 mg by mouth once daily. - HYDROcodone-acetaminoph en (NORCO) 5-325 mg per tablet TAKE 1 TABLET BY MOUTH EVERY 8 HOURS FOR 17 DAYS NEEDED - levothyroxine (SYNTHROID) 50 mcg tablet Take 1 tablet by mouth once daily. - atorvastatin (LIPITOR) 80 mg tablet Take 1 tablet by mouth once daily. - chlorthalidone (HYGROTON) 25 mg tablet take 1 tablet by mouth once daily - FLUoxetine (PROZAC) 20 mg capsule Take 1 capsule by mouth two times a day. - calcium citrate (CALCITRATE) 200 mg (950 mg) tab Take 1 tablet by mouth once daily. Patient should start on May 31, 2023. - ergocalciferol 50,000 unit capsule (VITAMIN D2, DRISDO (more content not included)... Normal [facility] Large Joint Arthro/Inj: L kn ee jointon 01-26-2024 Irma Loza DO 01/27/2024 8:42 AM Large Joint Arthro/Inj: L knee joint Informed Consent Consent Obtained: Verbal [place] Protocol A moment to CARE was completed. SIGN IN Personnel directly involved with the procedure wore the appropriate PPE. Patient/Surrogate Stated/Verified: Patient name, Date of , Relevant allergies and Intended procedure TIME OUT Intended patient and procedure match the source document(s). Consent documented and matches the intended procedure. Relevant labs, photos, and/or imaging studies have been reviewed. Correct side/site marked and visible. Medications required for procedure verified. 01/26/2024 2:42 PM The procedure site was prepped in the usual sterile fashion. Site: L knee joint Medications: 40 mg triamcinolone acetonide 40 mg/mL Anesthetics: 4 mL bupivacaine (PF) 0.25 % (2.5 mg/mL) Outcome: Tolerated well, no immediate complications Post-injection instructions were reviewed with the patient and the patient voiced understanding of these instructions. SIGN OUT All instruments, equipment, possible retained foreign bodies accounted for. Post-procedure follow-up management communicated and Plan of Care Visit completed when applicable [facility] Large Joint Arthro/Inj: R kn ee jointon 01-26-2024 Irma Loza DO 01/27/2024 8:42 AM Large Joint Arthro/Inj: R knee joint Informed Consent Consent Obtained: Verbal [place] Protocol A moment to CARE was completed. SIGN IN Personnel directly involved with the procedure wore the appropriate PPE. Patient/Surrogate Stated/Verified: Patient name, Date of , Relevant allergies and Intended procedure TIME OUT Intended patient and procedure match the source document(s). Consent documented and matches the intended procedure. Relevant labs, photos, and/or imaging studies have been reviewed. Correct side/site marked and visible. Medications required for procedure verified. 01/26/2024 2:42 PM The procedure site was prepped in the usual sterile fashion. Site: R knee joint Medications: 40 mg triamcinolone acetonide 40 mg/mL Anesthetics: 4 mL bupivacaine (PF) 0.25 % (2.5 mg/mL) Outcome: Tolerated well, no immediate complications Post-injection instructions were reviewed with the patient and the patient voiced understanding of these instructions. SIGN OUT All instruments, equipment, possible retained foreign bodies accounted for. Post-procedure follow-up management communicated and Plan of Care Visit completed when applicable [facility] Vaishali Panel Informationon 01-25 [facility] Jennifer 01-19-2024 [facility] Telephone ([facility]) BEST,SHEYLA GABI ([id number]) 1970 F Date Time Provider Department 01/19/24 LALO RUBIO [facility] During your visit today, we recorded the following information about you: Clau Saldaña 01/19/2024 2:00 PM Signed Lalo Rubio MD [facility] Admin Pool For EBUS scheduling, Clau Saldaña 01/19/2024 2:27 PM Signed Patient is scheduled for EBUS on 01/27/24 @ 3:00pm. Nurse: Please contact patient for medication review and prep. NOTE: Patient has indicated that she is having cortisone shots in both days the day before on 01/26/24, I do not see that this is on the med list but to be sure, please advise if this would require a delay in the procedure. Called pt and reviewed all pre procedure dates times and locations. Pt is aware to be there 2 hours early. Pt aware nothing to eat or drink after midnight Pt aware must have a regional driver Pt aware a nurse will be reaching out to her to cover medications and prep. Pt notes understanding all instructions and will call if they have any questions before the procedure. Clau Saldaña 01/19/2024 2:39 PM Signed PSS: Patient is scheduled for EBUS on 01/27/24, please call patient and schedule for a follow up w/CMN provider or pulmonary provider approximately 2 weeks after procedure around 02/10/24. Please advise when patient is scheduled. Thank you Debra Camarena 01/20/2024 11:27 AM Signed Left a voicemail for patient to call back and schedule for New CMN visit on 02/08, 02/09 or 02/10 for follow up after EBUS. Faina Ramos, RN 01/20/2024 1:40 PM Signed Reviewed preop/medication hold instructions. Answered all questions. Ariadna Judd 01/21/2024 3:58 PM Signed PSS: Patient is scheduled for EBUS on 01/27/24, please call patient and schedule for a follow up w/CMN provider or pulmonary provider approximately 2 weeks after procedure around 02/10/24. Please advise when patient is scheduled. Bumping to the top to make sure this doesn't slip through the cracks. Debra Russell 01/22/2024 10:19 AM Signed Spoke with patient and scheduled New CMN for 02/23/2024 Allergies As of Date: 01/19/2024 (No Known Allergies) Date Reviewed: 01/15/2024 Reviewed by: Kwabena Feldman MA - Fully Assessed Reason for Visit: Bronchoscopy Scheduling [37169] Cmt: Bronchoscopy scheduling Primary Visit Diagnosis:Mediastinal lymphadenopathy [R59.0] Order(s):SURGICAL REQUEST - ELECTIVE (10/2019) [[id number]] Order #: [id number]: 1 Prescriptions as of 01/22/2024 - levothyroxine (SYNTHROID) 50 mcg tablet Take 1 tablet by mouth once daily. - atorvastatin (LIPITOR) 80 mg tablet Take 1 tablet by mouth once daily. - chlorthalidone (HYGROTON) 25 mg tablet take 1 tablet by mouth once daily - FLUoxetine (PROZAC) 20 mg capsule Take 1 capsule by mouth two times a day. - calcium citrate (CALCITRATE) 200 mg (950 mg) tab Take 1 tablet by mouth once daily. Patient should start on May 31, 2023. - ergocalciferol 50,000 unit capsule (VITAMIN D2, DRISDOL) Take 1 capsule by mouth one time a week for 4 doses. Patient should start on May 31, 2023. - naproxen (NAPROSYN) 500 mg tablet take 1 tablet by mouth twice a day if needed for pain take with food - cyclobenzaprine (FLEXERIL) 10 mg tablet take 1 tablet by mouth twice a day if needed - urea (CARMOL) 40 % Apply to affected area as needed. - ketoconazole (NIZORAL) 2 % cream Apply bid x 6 weeks - gabapentin (NEURONTIN) 100 mg capsule Take 100 mg by mouth three times daily. - diclofenac (VOLTAREN) 1 % topical gel apply 4 grams to affected area four times a day TO AFFECTED LOWER JOINT Problem List As Of Date 01/19/2024 Noted Resolved Closed fracture of multiple pubic rami, right, *05/29/2023 Anxiety and depression [F41.9, F32.A] 05/29/2023 Primary hypertension [I10] 05/29/2023 Chronic back pain [M54.9, G89.29] 05/29/2023 Osteoarthritis [M19.90] 05/29/2023 HLD (hyperlipidemia) [E78.5] 05/29/2023 Hypokalemia [E87.6] 05/29/2023 High serum bicarbonate [R79.89] 05/29/2023 Closed fracture of sacrum (HCC) [S32.10XA] 05/29/2023 Obesity, Class III, BMI >= 40 [E66.01] 05/29/2023 Opioid dependence in remission (HCC) [F11.21] 06/02/2023 Encounter Status:Closed by DEBRA LARA on 01/20/24 [facility] CNOVon 01-15-2024 CNOV Office Visit (PULMJM ) SHEYLA CHONG ([id number]) 1970 F Date Time Provider Department 01/15/24 9:20 AM NADINE BLACK [facility] During your visit today, we recorded the following information about you: Pulse Blood pressure Weight Height 84/minute 170/88 125.2 kg 1.651 m Nadine Black MD 01/18/2024 2:01 PM [facility]piratory [place] [facility] New Patient Consult Note Patient Name: Sheyla Chong PRIMARY CARE PHYSICIAN: Ruth Swanson MD REFERRING PHYSICIAN: Ruth Swasnon MD REASON FOR CONSULT: Mediastinal adenopathy My final recommendations will be communicated to the requesting health care provider by way of the shared medical record for internal providers or letter via the [employer] for external providers. CHIEF COMPLAINT: Mediastinal adenopathy HISTORY OF PRESENT ILLNESS: Sheyla Chong is a 53 year old female with a history of High cholesterol, Hypothyroidism, CHASE not on CPAP, Ex smoker, Anxiety and depression, fibromyalgia, chronic pain, obesity with BMI 45.93 . This patient is here for first Pulmonary office visit and consultation. I reviewed available objective data including imaging as available. Patient comes in for evaluation of incidentally found mediastinal and hilar lymphadenopathy on the recent CT scan. States that she went to [facility] on 27 December with a right sided chest pain. CT PE protocol was done which did not show any PE but showed mediastinal and hilar lymphadenopathy and some groundglass opacities. She was treated with antibiotics and ibuprofen for a possible pleuritic chest pain. She was told to follow-up with pulmonary and the oncology. She comes in today for evaluation. States that while taking the antibiotics her pain resolved but seems like it is coming back on and off. She denies any fever or chills or night sweats. She denies any weight loss. She denies any shortness of breath at rest but has dyspnea on exertion. She denies any coughing. Denies any wheezing. She is currently vaping. Started smoking at the age of 48 after she underwent divorce. States that 1 pack would last her couple of days but quit smoking 1 year ago. But she quit smoking after she had the recent CT chest. States that she had the CD of CT chest at home but she forgot to bring the CD PAST MEDICAL HISTORY Diagnosis Date Anxiety Arthritis of zppnajlu-bktmmvpkt-qzab ezoid joint of right hand Bilateral knee pain Depression Fibromyalgia Hypertension Mixed hyperlipidemia CHASE (obstructive sleep apnea) Pneumonia community aquired Right wrist pain Tobacco use disorder PAST SURGICAL HISTORY Procedure Laterality Date SECTION HX 2004 3 SECTIONS last one in 2004 HYSTERECTOMY HX 2009 KNEE ARTHROSCOPY/SURGERY Left 2017 WRIST SURGERY HX 07/2020 FAMILY HISTORY Problem Relation Age of Onset Obesity Mother Diabetes Father Obesity Father No reported family hx of ILD fibrosis, PAH, Tb, lung cancer, A1AT deficiency Social History Tobacco Use Smoking status: Former Current packs/day: 0.00 Average packs/day: 0.5 packs/day for 3.0 years (1.5 ttl pk-yrs) Types: Cigarettes Start date: 06/2019 Quit date: 06/2022 Years since quittin.5 Smokeless tobacco: Never Vaping Use Vaping status: current everyday user Substance Use Topics Alcohol use: No Drug use: Yes Comment: 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 atorvastatin (LIPITOR) 80 mg tablet Take 1 tablet by mouth once daily. chlorthalidone (HYGROTON) 25 mg tablet take 1 tablet by mouth once daily FLUoxetine (PROZAC) 20 mg capsule Take 1 capsule by mouth two times a day. naproxen (NAPROSYN) 500 mg tablet take 1 tablet by mouth twice a day if needed for pain take with food cyclobenzaprine (FLEXERIL) 10 mg tablet take 1 tablet by mouth twice a day if needed urea (CARMOL) 40 % Apply to affected area as needed. ketoconazole (NIZORAL) 2 % cream Apply bid x 6 weeks gabapentin (NEURONTIN) 100 mg capsule Take 100 mg by mouth three times daily. diclofenac (VOLTAREN) 1 % topical gel apply 4 grams to affected area four times a day TO AFFECTED LOWER JOINT calcium citrate (CALCITRATE) 200 mg (950 mg) tab Take 1 tablet by mouth once daily. Patient should start on May 31, 2023. ergocalciferol 50,000 unit capsule (VITAMIN D2, DRISDOL) Take 1 capsule by mouth one time a week for 4 doses. Patient should start on May 31, 2023. REVIEW OF SYSTEMS Constitutional:No fevers, sweats, chills, nightsweats, change in appetite, change in weight, change in energy. HEENT:Negative for frequent or significant headaches, No changes in hearing or vision, no nose bleeds or othe (more content not included)... [facility] 01-14-2024 [facility] Telephone ([facility]) SHEYLA CHONG ([id number]) 1970 F Date Time Provider Department 01/14/24 RUTH SWANSON [facility] During your visit today, we recorded the following information about you: Day Hayden 01/14/2024 8:56 AM Signed Patient called stating she has called to set up an appointment with pulmonology but has yet to hear back. Patient wants to know what she should do. Please follow up with patient. Marianna Walter 01/14/2024 12:26 PM Signed Has an appointment on 01/14 in [facility]. Allergies As of Date: 01/14/2024 (No Known Allergies) Date Reviewed: 06/16/2023 Reviewed by: Josafat Sifuentes MA - Fully Assessed Reason for Visit: Patient Question [6687] Prescriptions as of 01/14/2024 - levothyroxine (SYNTHROID) 50 mcg tablet Take 1 tablet by mouth once daily. - atorvastatin (LIPITOR) 80 mg tablet Take 1 tablet by mouth once daily. - chlorthalidone (HYGROTON) 25 mg tablet take 1 tablet by mouth once daily - FLUoxetine (PROZAC) 20 mg capsule Take 1 capsule by mouth two times a day. - calcium citrate (CALCITRATE) 200 mg (950 mg) tab Take 1 tablet by mouth once daily. Patient should start on May 31, 2023. - ergocalciferol 50,000 unit capsule (VITAMIN D2, DRISDOL) Take 1 capsule by mouth one time a week for 4 doses. Patient should start on May 31, 2023. - naproxen (NAPROSYN) 500 mg tablet take 1 tablet by mouth twice a day if needed for pain take with food - cyclobenzaprine (FLEXERIL) 10 mg tablet take 1 tablet by mouth twice a day if needed - urea (CARMOL) 40 % Apply to affected area as needed. - ketoconazole (NIZORAL) 2 % cream Apply bid x 6 weeks - gabapentin (NEURONTIN) 100 mg capsule Take 100 mg by mouth three times daily. - diclofenac (VOLTAREN) 1 % topical gel apply 4 grams to affected area four times a day TO AFFECTED LOWER JOINT Problem List As Of Date 01/14/2024 Noted Resolved Closed fracture of multiple pubic rami, right, *05/29/2023 Anxiety and depression [F41.9, F32.A] 05/29/2023 Primary hypertension [I10] 05/29/2023 Chronic back pain [M54.9, G89.29] 05/29/2023 Osteoarthritis [M19.90] 05/29/2023 HLD (hyperlipidemia) [E78.5] 05/29/2023 Hypokalemia [E87.6] 05/29/2023 High serum bicarbonate [R79.89] 05/29/2023 Closed fracture of sacrum (HCC) [S32.10XA] 05/29/2023 Obesity, Class III, BMI >= 40 [E66.01] 05/29/2023 Opioid dependence in remission (HCC) [F11.21] 06/02/2023 Encounter Status:Closed by MARIANNA WALTER on 01/14/24 Normal [facility] Jennifer 01-08-2024 [facility] SHEYLA CHONG ([id number]) 1970 F Date Time Provider Department 01/08/24 [facility] During your visit today, we recorded the following information about you: Allergies As of Date: 01/08/2024 (No Known Allergies) Date Reviewed: 06/16/2023 Reviewed by: Josafat Sifuentes MA - Fully Assessed Order(s):levothyroxine (SYNTHROID) 50 mcg tabletTake 1 tablet by mouth once daily.Disp: 90 tabletRfl: 1 atorvastatin (LIPITOR) 80 mg tabletTake 1 tablet by mouth once daily.Disp: 90 tabletRfl: 1 Prescriptions as of 01/22/2024 - levothyroxine (SYNTHROID) 50 mcg tablet Take 1 tablet by mouth once daily. - atorvastatin (LIPITOR) 80 mg tablet Take 1 tablet by mouth once daily. - chlorthalidone (HYGROTON) 25 mg tablet take 1 tablet by mouth once daily - FLUoxetine (PROZAC) 20 mg capsule Take 1 capsule by mouth two times a day. - calcium citrate (CALCITRATE) 200 mg (950 mg) tab Take 1 tablet by mouth once daily. Patient should start on May 31, 2023. - ergocalciferol 50,000 unit capsule (VITAMIN D2, DRISDOL) Take 1 capsule by mouth one time a week for 4 doses. Patient should start on May 31, 2023. - naproxen (NAPROSYN) 500 mg tablet take 1 tablet by mouth twice a day if needed for pain take with food - cyclobenzaprine (FLEXERIL) 10 mg tablet take 1 tablet by mouth twice a day if needed - urea (CARMOL) 40 % Apply to affected area as needed. - ketoconazole (NIZORAL) 2 % cream Apply bid x 6 weeks - gabapentin (NEURONTIN) 100 mg capsule Take 100 mg by mouth three times daily. - diclofenac (VOLTAREN) 1 % topical gel apply 4 grams to affected area four times a day TO AFFECTED LOWER JOINT Problem List As Of Date 01/08/2024 Noted Resolved Closed fracture of multiple pubic rami, right, *05/29/2023 Anxiety and depression [F41.9, F32.A] 05/29/2023 Primary hypertension [I10] 05/29/2023 Chronic back pain [M54.9, G89.29] 05/29/2023 Osteoarthritis [M19.90] 05/29/2023 HLD (hyperlipidemia) [E78.5] 05/29/2023 Hypokalemia [E87.6] 05/29/2023 High serum bicarbonate [R79.89] 05/29/2023 Closed fracture of sacrum (HCC) [S32.10XA] 05/29/2023 Obesity, Class III, BMI >= 40 [E66.01] 05/29/2023 Opioid dependence in remission (HCC) [F11.21] 06/02/2023 Prescriptions ordered this encounter Disp Refills Start End LEVOTHYROXINE 50 MCG TABLET 90 t* 1 01/08/2024 07/06/2024 Route: ORAL Sig: Take 1 tablet by mouth once daily. ATORVASTATIN 80 MG TABLET 90 t* 1 01/08/2024 07/06/2024 Route: ORAL Sig: Take 1 tablet by mouth once daily. Medications Discontinued During This Encounter Prescriptions - atorvastatin (LIPITOR) 40 mg tablet (Discontinued) take 1 tablet by mouth once daily Encounter Status:Closed by RUTH SWANSON on 01/22/24 Normal [facility] CBC W Auto Differential pane l (Bld)on 12-31-2023 Basophils (Bld) [#/Vol] 0.03 10*3/uL Normal <0.11 [facility] Comment on above: Order Comment: Speci men Type: BLOOD SPECIMENOrdering Facility: [facility] Address: [address] [place] [address] Performed By: #### 5 7021-8 ####[facility] LABCL[facility] [id number] [place] [address] [place] Basophils/100 WBC (Bld) 0.3 % Normal [facility] Comment on above: Order Comment: Speci men Type: BLOOD SPECIMENOrdering Facility: [facility] Address: [address] [place] [address] Performed By: #### 5 7021-8 ####[facility]CL[facility] [id number] [place] [address] [place] Differential cell count method Nom (Bld) Auto Normal [facility] Comment on above: Order Comment: Speci men Type: BLOOD SPECIMENOrdering Facility: [facility] Address: [address] [place] [address] Performed By: #### 5 7021-8 ####[facility]CL[facility] [id number] [place] [address] [place] Eosinophils (Bld) [#/Vol] 0.15 10*3/uL Normal <0.46 [facility] Comment on above: Order Comment: Speci men Type: BLOOD SPECIMENOrdering Facility: [facility] Address: [address] [place] [address] Performed By: #### 5 7021-8 ####[facility]CL[facility] [id number] [place] [address] [place] Eosinophils/100 WBC (Bld) 1.7 % Normal [facility] Comment on above: Order Comment: Speci men Type: BLOOD SPECIMENOrdering Facility: [facility] Address: [address] [place], [place] [address] Performed By: #### 5 7021-8 ####[facility]CL[facility] [id number] [place] [address] [place] Erythrocyte distribution width (RBC) [Ratio] 15.0 % Normal 11.5-15.0 [facility] Comment on above: Order Comment: Speci men Type: BLOOD SPECIMENOrdering Facility: [facility] Address: [address] [place] [address] Performed By: #### 5 7021-8 ####[facility] LABIA [id number] [place] [address] [place] Hematocrit (Bld) [Volume fraction] 43.1 % Normal 36.0-46.0 [facility] Comment on above: Order Comment: Speci men Type: BLOOD SPECIMENOrdering Facility: [facility] Address: [address] [place] [address] Performed By: #### 5 7021-8 ####[facility]IA [id number] [place] [address] [place] Hemoglobin (Bld) [Mass/Vol] 14.0 g/dL Normal 11.5-15.5 [facility] Comment on above: Order Comment: Speci men Type: BLOOD SPECIMENOrdering Facility: [facility] Address: [address] [place] [address] Performed By: #### 5 7021-8 ####[facility] LABIA [id number] [place] [address] [place] Immature granulocytes (Bld) [#/Vol] 0.03 10*3/uL Normal <0.10 [facility] Comment on above: Order Comment: Speci men Type: BLOOD SPECIMENOrdering Facility: [facility] Address: [address] [place] [address] Performed By: #### 5 7021-8 ####[facility]IA [id number] [place] [address] [place] Immature granulocytes/100 WBC (Bld) 0.3 % Normal [facility] Comment on above: Order Comment: Speci men Type: BLOOD SPECIMENOrdering Facility: [facility] Address: [address] [place] [address] Performed By: #### 5 7021-8 ####[facility]CL[facility] [id number] [place] [address] [place] Lymphocytes (Bld) [#/Vol] 1.34 10*3/uL Normal 1.00-4.00 [facility] Comment on above: Order Comment: Speci men Type: BLOOD SPECIMENOrdering Facility: [facility] Address: [address] [place] [address] Performed By: #### 5 7021-8 ####[facility]CL[facility] [id number] [place] [address] [place] Lymphocytes/100 WBC (Bld) 15.6 % Normal [facility] Comment on above: Order Comment: Speci men Type: BLOOD SPECIMENOrdering Facility: [facility] Address: [address] [place] [address] Performed By: #### 5 7021-8 ####[facility]CL[facility] [id number] [place] [address] [place] MCH (RBC) [Entitic mass] 29.5 pg Normal 26.0-34.0 [facility] Comment on above: Order Comment: Speci men Type: BLOOD SPECIMENOrdering Facility: [facility] Address: [address] [place] [address] Performed By: #### 5 7021-8 ####[facility]CL[facility] [id number] [place] [address] [place] MCHC (RBC) [Mass/Vol] 32.5 g/dL Normal 30.5-36.0 [facility] Comment on above: Order Comment: Speci men Type: BLOOD SPECIMENOrdering Facility: [facility] Address: [address] [place] [address] Performed By: #### 5 7021-8 ####[facility]CL[facility] [id number] [place] [address] [place] MCV (RBC) [Entitic vol] 90.9 fL Normal 80.0-100.0 [facility] Comment on above: Order Comment: Speci men Type: BLOOD SPECIMENOrdering Facility: [facility] Address: [address] [place] [address] Performed By: #### 5 7021-8 ####[facility]CL[facility] [id number] [place] [address] [place] Monocytes (Bld) [#/Vol] 0.85 10*3/uL Normal <0.87 [facility] Comment on above: Order Comment: Speci men Type: BLOOD SPECIMENOrdering Facility: [facility] Address: [address] [place] [address] Performed By: #### 5 7021-8 ####[facility]CL[facility] [id number] [place] [address] [place] Monocytes/100 WBC (Bld) 9.9 % Normal [facility] Comment on above: Order Comment: Speci men Type: BLOOD SPECIMENOrdering Facility: [facility] Address: [address] [place] [address] Performed By: #### 5 7021-8 ####[facility]CL[facility] [id number] [place] [address] [place] Neutrophils (Bld) [#/Vol] 6.21 10*3/uL Normal 1.45-7.50 [facility] Comment on above: Order Comment: Speci men Type: BLOOD SPECIMENOrdering Facility: [facility] Address: [address] [place] [address] Performed By: #### 5 7021-8 ####[facility]CL[facility] [id number] [place] [address] [place] Neutrophils/100 WBC (Bld) 72.2 % Normal [facility] Comment on above: Order Comment: Speci men Type: BLOOD SPECIMENOrdering Facility: [facility] Address: [address] [place] [address] Performed By: #### 5 7021-8 ####[facility]CL[facility] [id number] [place] [address] [place] Nucleated RBC (Bld) [#/Vol] 10*3/uL Normal <0.01 [facility] Comment on above: Order Comment: Speci men Type: BLOOD SPECIMENOrdering Facility: [facility] Address: [address] [place] [address] Performed By: #### 5 7021-8 ####[facility]CL[facility] [id number] [place] [address] [place] Nucleated RBC/100 WBC (Bld) [Ratio] 0.0 /100 WBC Normal [facility] Comment on above: Order Comment: Speci men Type: BLOOD SPECIMENOrdering Facility: [facility] Address: [address] [place] [address] Performed By: #### 5 7021-8 ####[facility]CL[facility] [id number] [place] [address] [place] Platelet mean volume (Bld) [Entitic vol] 9.3 fL Normal 9.0-12.7 [facility] Comment on above: Order Comment: Speci men Type: BLOOD SPECIMENOrdering Facility: [facility] Address: [address] [place] [address] Performed By: #### 5 7021-8 ####[facility]CL[facility] [id number] [place] [address] [place] Platelets (Bld) [#/Vol] 335 10*3/uL Normal 150-400 [facility] Comment on above: Order Comment: Speci men Type: BLOOD SPECIMENOrdering Facility: [facility] Address: [address] [place] [address] Performed By: #### 5 7021-8 ####[facility] LABCLIA [id number] [place] [id number] [place] RBC (Bld) [#/Vol] 4.74 10*6/uL Normal 3.90-5.20 [facility] Comment on above: Order Comment: Speci men Type: BLOOD SPECIMENOrdering Facility: [facility] Address: [address] [place] [address] Performed By: #### 5 7021-8 ####[facility] LABIA [id number] [place] [address] [place] WBC (Bld) [#/Vol] 8.61 10*3/uL Normal 3.70-11.00 [facility] Comment on above: Order Comment: Speci men Type: BLOOD SPECIMENOrdering Facility: [facility] Address: [address] [place] [address] Performed By: #### 5 7021-8 ####[facility] LABIA [id number] [place] [address] [place] Comprehensive metabolic 2000 panelon 12-31-2023 Albumin [Mass/Vol] 4.2 g/dL Normal 3.9-4.9 [facility] Comment on above: Order Comment: Speci men Type: BLOOD SPECIMENOrdering Facility: [facility] Address: [address] [place] [address] Performed By: #### 2 4331-1, 3016-3, 65433-8, 3024-7 ####[facility] LABIA [id number] [place] [address] [place] ALP [Catalytic activity/Vol] 98 U/L Normal 34-123 [facility] Comment on above: Order Comment: Speci men Type: BLOOD SPECIMENOrdering Facility: [facility] Address: [address] [place] [address] Performed By: #### 2 4331-1, 3016-3, 07690-8, 3023-7 ####[facility]CL[facility] [id number] [place] [address] [place] ALT [Catalytic activity/Vol] 19 U/L Normal 7-38 [facility] Comment on above: Order Comment: Speci men Type: BLOOD SPECIMENOrdering Facility: [facility] Address: [address] [place] [address] Performed By: #### 2 4331-1, 3016-3, 39895-0, 302-7 ####[facility]CL[facility] [id number] [place] [address] [place] Anion gap [Moles/Vol] 16 mmol/L High 8-15 [facility] Comment on above: Order Comment: Speci men Type: BLOOD SPECIMENOrdering Facility: [facility] Address: [address] [place] [address] Performed By: #### 2 4331-1, 3016-3, 62491-9, 3027 ####[facility]CL[facility] [id number] [place] [address] [place] AST [Catalytic activity/Vol] 22 U/L Normal 13-35 [facility] Comment on above: Order Comment: Speci men Type: BLOOD SPECIMENOrdering Facility: [facility] Address: [address] [place] [address] Performed By: #### 2 4331-1, 3016-3, 23128-2, 302-7 ####[facility] LABIA [id number] [place] [address] [place] Bilirubin [Mass/Vol] 0.2 mg/dL Normal 0.2-1.[address] [facility] Comment on above: Order Comment: Speci men Type: BLOOD SPECIMENOrdering Facility: [facility] Address: [address] [place], [place] [address] Performed By: #### 2 4331-1, 3016-3, 47656-2, 302-7 ####[facility]CLIA [id number] [address] [address] [place] Calcium [Mass/Vol] 9.4 mg/dL Normal 8.5-10.2 [facility] Comment on above: Order Comment: Speci men Type: BLOOD SPECIMENOrdering Facility: [facility] Address: [address] [place] [address] Performed By: #### 2 4331-1, 3016-3, 63435-0, 302-7 ####[facility]IA [id number] [place] [address] [place] Chloride [Moles/Vol] 96 mmol/L Low 98-[address] [facility] Comment on above: Order Comment: Speci men Type: BLOOD SPECIMENOrdering Facility: [facility] Address: [address] [place] [address] Performed By: #### 2 4331-1, 3016-3, 76631-3, 3023-7 ####[facility]IA [id number] [place] [address] [place] CO2 [Moles/Vol] 24 mmol/L Normal 22-30 [facility] Comment on above: Order Comment: Speci men Type: BLOOD SPECIMENOrdering Facility: [facility] Address: [address] [place], [place] [address] Performed By: #### 2 4331-1, 3016-3, 82850-6, 302-7 ####[facility] LABIA [id number] [place] [address] [place] Creatinine [Mass/Vol] 0.70 mg/dL Normal 0.58-0.96 [facility] Comment on above: Order Comment: Speci men Type: BLOOD SPECIMENOrdering Facility: [facility] Address: [address] [place] [address] Performed By: #### 2 4331-1, 3016-3, 11100-9, 3024-7 ####[facility]IA [id number] [place] [address] [place] Creatinine and Glomerular filtration rate.predicted panel (S/P/Bld) 104 mL/min/1.73m??? Normal >=60 [facility] Comment on above: Order Comment: Momo jalloh Type: BLOOD SPECIMENOrdering Facility: [facility] Address: [address] [place] [address] Result Comment: Radha mated Glomerular Filtration Rate (eGFR) is calculated using the 2020 CKD-EPI creatinine equation. This equation utilizes serum creatinine, sex, and age as parameters. The creatinine assay has traceable calibration to isotope dilution-mass spectrometry. Refer to KDIGO guidelines for clinical interpretation. In patients with unstable renal function, e.g. those with acute kidney injury, the eGFR may not accurately reflect actual GFR. Performed By: #### 2 4331-1, 3016-3, 55060-7, 3024-7 ####[facility]CL[facility] [id number] [place] [address] [place] Glucose [Mass/Vol] 128 mg/dL High 74-99 [facility] Comment on above: Order Comment: Momo jalloh Type: BLOOD SPECIMENOrdering Facility: [facility] Address: [address] [place] [address] Result Comment: The [place] Diabetes Association (ADA) provides guidance for cutoff values for fasting glucose and random glucose. The ADA defines fasting as no caloric intake for at least 8 hours. Fasting plasma glucose results between 100 to 125 mg/dL indicate increased risk for diabetes (prediabetes). Fasting plasma glucose results greater than or equal to 126 mg/dL meet the criteria for diagnosis of diabetes. In the absence of unequivocal hyperglycemia, results should be confirmed by repeat testing. In a patient with classic symptoms of hyperglycemia or hyperglycemic crisis, random plasma glucose results greater than or equal to 200 mg/dL meet the criteria for diagnosis of diabetes. Reference: Standards of Medical Care in Diabetes 2016, [place] Diabetes Association. Diabetes Care. 2016.39(Suppl 1). Performed By: #### 2 4331-1, 3016-3, 04125-5, 302-7 ####[facility]CL[facility] [id number] [address] [address] [place] Potassium [Moles/Vol] 3.3 mmol/L Low 3.7-5.1 [facility] Comment on above: Order Comment: Speci men Type: BLOOD SPECIMENOrdering Facility: [facility] Address: [address] [place], [place] [address] Performed By: #### 2 4331-1, 3016-3, 81147-4, 3023-7 ####[facility]IA [id number] [address] [address] [place] Protein [Mass/Vol] 7.0 g/dL Normal 6.3-8.0 [facility] Comment on above: Order Comment: Speci men Type: BLOOD SPECIMENOrdering Facility: [facility] Address: [address] [place] [address] Performed By: #### 2 4331-1, 3016-3, 99055-5, 7 ####[facility]IA [id number] [place] [id number] [place] Sodium [Moles/Vol] 136 mmol/L Normal 136-144 [facility] Comment on above: Order Comment: Speci men Type: BLOOD SPECIMENOrdering Facility: [facility] Address: [address] [place] [address] Performed By: #### 2 4331-1, 3016-3, 05156-4, 7 ####[facility]IA [id number] [address] [address] [place] Urea nitrogen [Mass/Vol] 9 mg/dL Normal 7-21 [facility] Comment on above: Order Comment: Speci men Type: BLOOD SPECIMENOrdering Facility: [facility] Address: [address] [place] [address] Performed By: #### 2 4331-1, 3016-3, 21636-8, 3024-7 ####[facility]IA [id number] [place] [address] [place] HbA1c (Bld)on 12-31-2023 Average glucose Estimated from glycated hemoglobin (Bld) [Mass/Vol] 114 mg/dL Normal [facility] Comment on above: Order Comment: Speci men Type: BLOOD SPECIMENOrdering Facility: [facility] Address: [address] [place] [address] Result Comment: eAG: (Estimated average glucose) is a calculated value from HgbA1c and is veterans employment representative of the average blood glucose level in the last 2-3 month period. Performed By: #### 5 5454-3 ####[facility] [id number] [place] [address] [place] HbA1c (Bld) [Mass fraction] 5.6 % Normal 4.3-5.6 [facility] Comment on above: Order Comment: Momo jalloh Type: BLOOD SPECIMENOrdering Facility: [facility] Address: [address] [place] [address] Result Comment: [place] Diabetes Association guidelines indicate that patients with HgbA1c in the range 5.7-6.4% are at increased risk for development of diabetes, and intervention by lifestyle modification may be beneficial. HgbA1c greater or equal to 6.5% is considered diagnostic of diabetes. Performed By: #### 5 5454-3 ####[facility]IA [id number] [place] [address] [place] Lipid 1996 panelon 4 Cholesterol [Mass/Vol] 266 mg/dL High <200 [facility] Comment on above: Order Comment: Momo jalloh Type: BLOOD SPECIMENOrdering Facility: [facility] Address: [address] [place] [address] Result Comment: <200 mg/dL, Desirable 200-239 mg/dL, Borderline high >239 mg/dL, High Performed By: #### 2 4331-1, 3016-3, 69803-9, 3023-7 ####[facility]CL[facility] [id number] [address] [address] [place] Cholesterol in HDL [Mass/Vol] 46 mg/dL Normal >39 [facility] Comment on above: Order Comment: Speci men Type: BLOOD SPECIMENOrdering Facility: [facility] Address: [address] [place] [address] Result Comment: 40-5 9 mg/dL, Acceptable >59 mg/dL, High: Negative risk factor for coronary heart disease <40 mg/dL, Low: Positive risk factor for coronary heart disease Performed By: #### 2 4331-1, 6-3, 42877-5, 7 ####[facility] LABCLIA [id number] [address] [address] [place] Cholesterol in LDL [Mass/Vol] 162 mg/dL High <100 [facility] Comment on above: Order Comment: Momo jalloh Type: BLOOD SPECIMENOrdering Facility: [facility] Address: [address] [place] [address] Result Comment: <100 mg/dL, Optimal 100-129 mg/dL, Near optimal/above optimal 130-159 mg/dL, Borderline high 160-189 mg/dL, High >189 mg/dL, Very high Secondary prevention optimal LDL Cholesterol levels are recommended to be < 70 mg/dL Performed By: #### 2 4331-1, 6-3, 53047-0, 3023-7 ####[facility] LABCLIA [id number] [address] [address] [place] Cholesterol in LDL/Cholesterol in HDL [Mass ratio] 3.52 {ratio} High <2.54 [facility] Comment on above: Order Comment: Geraldoi men Type: BLOOD SPECIMENOrdering Facility: [facility] Address: [address] [place] [address] Result Comment: Mariama pratt: 1. National Cholesterol Education Program ATP III Guideline At-A-Glance Quick Desk Reference: National Heart, Lung, and Blood [place]. National Institutes of Health. 2001: NIH Publication No. 01-3305. 2. An International Atherosclerosis Society position paper: global recommendations for the management of dyslipidemia: executive summary, Atherosclerosis. 2014: 232(2):410-413. Performed By: #### 2 4331-1, 3016-3, 53707-0, 3024-7 ####[facility] LABCLIA [id number] [place] [address] [place] Cholesterol in VLDL [Mass/Vol] 58 mg/dL High <30 [facility] Comment on above: Order Comment: Speci men Type: BLOOD SPECIMENOrdering Facility: [facility] Address: [address] [place] [address] Performed By: #### 2 4331-1, 3016-3, 50727-5, 3024-7 ####[facility] LABCLIA [id number] [place] [address] [place] Cholesterol non HDL [Mass/Vol] 220 mg/dL High <130 [facility] Comment on above: Order Comment: Geraldoi men Type: BLOOD SPECIMENOrdering Facility: [facility] Address: [address] [place] [address] Result Comment: <130 mg/dL, Optimal 130-159 mg/dL, Near optimal/above optimal 160-189 mg/dL, Borderline high 190-219 mg/dL, High >219 mg/dL, Very high Secondary prevention optimal non HDL Cholesterol levels are recommended to be <100 mg/dL Performed By: #### 2 4331-1, 3016-3, 83980-4, 3024-7 ####[facility] LABIA [id number] [place] [address] [place] Cholesterol.total/Ch olesterol in HDL [Mass ratio] 5.78 {ratio} High <5.10 [facility] Comment on above: Order Comment: Speci men Type: BLOOD SPECIMENOrdering Facility: [facility] Address: [address] [place] [address] Performed By: #### 2 4331-1, 6-3, 26278-2, 3023-09 ####[facility] LABCLIA [id number] [place] [address] [place] FASTING TIME 12 hrs Normal [facility] Comment on above: Order Comment: Speci men Type: BLOOD SPECIMENOrdering Facility: [facility] Address: [address] [place] [address] Performed By: #### 2 4331-1, 6-3, 70815-0, 3023-09 ####[facility] LABCLIA [id number] [place] [address] [place] Triglyceride [Mass/Vol] 288 mg/dL High <150 [facility] Comment on above: Order Comment: Speci men Type: BLOOD SPECIMENOrdering Facility: [facility] Address: [address] [place] [address] Result Comment: <150 mg/dL, Normal 150-199 mg/dL, Borderline high 200-499 mg/dL, High >499 mg/dL, Very high Performed By: #### 2 4331-1, 3015-3, , 3023-09 ####[facility] LABCLIA [id number] [place] [address] [place] T4 Free SerPl-mCncon 024 Free T4 [Mass/Vol] 0.8 ng/dL Low 0.9-1.7 [facility] Comment on above: Order Comment: Speci men Type: BLOOD SPECIMENOrdering Facility: [facility] Address: [address] [place] [address] Performed By: #### 2 4331-1, 6-3, 82037-1, 3023-09 ####[facility] LABCLIA [id number] [place] [address] [place] TSH SerPl-aCncon 12-31-2023 TSH Qn 5.320 m[IU]/L High 0.270-4.200 [facility] Comment on above: Order Comment: Speci men Type: BLOOD SPECIMENOrdering Facility: [facility] Address: [address] [place] [id number] Performed By: #### 2 4331-1, 3016-3, 31697-7, 3024-7 ####[facility] LABCLIA [id number] [id number] [id number] [facility] CNPNon 12-29-2023 CNPN Telephone (STFL) CASTILLO,SHEYLA MADDOX ([id number]) 1970 F Date Time Provider Department 12/29/23 RUTH SWANSON [facility] During your visit today, we recorded the following information about you: Vidhya Red RN 12/29/2023 1:00 PM Signed Patient states that she was seen in [place] ED yesterday, she states that she was told that she has 2 masses on her lungs, she states that she is in need of a referral for pulmonology, patient states that she is uploading the results of the xray to her [facility] for you to review Ruth Swanson MD 12/29/2023 1:23 PM Signed If she could take a pic of the report and send it in this message thread that would be a good start. Ellen Hirsch MA 12/29/2023 2:30 PM Signed Patient contacted, she did this, see mychart Allergies As of Date: 12/29/2023 (No Known Allergies) Date Reviewed: 06/16/2023 Reviewed by: Josafat Sifuentes MA - Fully Assessed Reason for Visit: Patient Update [1234] Prescriptions as of 12/30/2023 - chlorthalidone (HYGROTON) 25 mg tablet take 1 tablet by mouth once daily - FLUoxetine (PROZAC) 20 mg capsule Take 1 capsule by mouth two times a day. - calcium citrate (CALCITRATE) 200 mg (950 mg) tab Take 1 tablet by mouth once daily. Patient should start on May 31, 2023. - ergocalciferol 50,000 unit capsule (VITAMIN D2, DRISDOL) Take 1 capsule by mouth one time a week for 4 doses. Patient should start on May 31, 2023. - naproxen (NAPROSYN) 500 mg tablet take 1 tablet by mouth twice a day if needed for pain take with food - cyclobenzaprine (FLEXERIL) 10 mg tablet take 1 tablet by mouth twice a day if needed - urea (CARMOL) 40 % Apply to affected area as needed. - ketoconazole (NIZORAL) 2 % cream Apply bid x 6 weeks - atorvastatin (LIPITOR) 40 mg tablet take 1 tablet by mouth once daily - gabapentin (NEURONTIN) 100 mg capsule Take 100 mg by mouth three times daily. - diclofenac (VOLTAREN) 1 % topical gel apply 4 grams to affected area four times a day TO AFFECTED LOWER JOINT Problem List As Of Date 12/29/2023 Noted Resolved Closed fracture of multiple pubic rami, right, *05/29/2023 Anxiety and depression [F41.9, F32.A] 05/29/2023 Primary hypertension [I10] 05/29/2023 Chronic back pain [M54.9, G89.29] 05/29/2023 Osteoarthritis [M19.90] 05/29/2023 HLD (hyperlipidemia) [E78.5] 05/29/2023 Hypokalemia [E87.6] 05/29/2023 High serum bicarbonate [R79.89] 05/29/2023 Closed fracture of sacrum (HCC) [S32.10XA] 05/29/2023 Obesity, Class III, BMI >= 40 [E66.01] 05/29/2023 Opioid dependence in remission (HCC) [F11.21] 06/02/2023 Encounter Status:Closed by VIDHYA RED on 12/30/23 Normal [facility] CNOVon 10-22-2023 CNOV Office Visit (AGOTAL ) CASTILLOSHEYLA ([id number]) 1970 F Date Time Provider Department 10/22/23 3:15 PM IRMA LOZA During your visit today, we recorded the following information about you: Respiration Weight Height 16/minute 113.4 kg 1.651 m Guru Nixon LPN 10/22/2023 3:56 PM Signed Injection of 4cc marcaine and 1cc kenalog bilaterally ordered by Dr. Loza. Injection prepared per order and handed off to ordering physician. INDU Nichols Heather, DO 10/22/2023 3:56 PM Signed The risks and benefits of a corticosteroid injection were discussed with the patient. The risks include but are not limited to: infection, fat atrophy, skin hypopigmentation, facial flushing, elevated blood glucose. The patient elected to proceed with injection and tolerated well. Large Joint Arthro/Inj: R knee joint Informed Consent Consent Obtained: Verbal [place] Protocol A moment to CARE was completed. SIGN IN Personnel directly involved with the procedure wore the appropriate PPE. Patient/Surrogate Stated/Verified: Patient name, Date of , Relevant allergies and Intended procedure TIME OUT Intended patient and procedure match the source document(s). Consent documented and matches the intended procedure. Relevant labs, photos, and/or imaging studies have been reviewed. Correct side/site marked and visible. Medications required for procedure verified. 10/22/2023 3:55 PM The procedure site was prepped in the usual sterile fashion. Site: R knee joint Medications: 40 mg triamcinolone acetonide 40 mg/mL; 4 mL bupivacaine (PF) 0.25 % (2.5 mg/mL) Outcome: Tolerated well, no immediate complications Post-injection instructions were reviewed with the patient and the patient voiced understanding of these instructions. SIGN OUT All instruments, equipment, possible retained foreign bodies accounted for. Post-procedure follow-up management communicated and Plan of Care Visit completed when applicable Large Joint Arthro/Inj: L knee joint Informed Consent Consent Obtained: Verbal [place] Protocol A moment to CARE was completed. SIGN IN Personnel directly involved with the procedure wore the appropriate PPE. Patient/Surrogate Stated/Verified: Patient name, Date of , Relevant allergies and Intended procedure TIME OUT Intended patient and procedure match the source document(s). Consent documented and matches the intended procedure. Relevant labs, photos, and/or imaging studies have been reviewed. Correct side/site marked and visible. Medications required for procedure verified. 10/22/2023 3:56 PM The procedure site was prepped in the usual sterile fashion. Site: L knee joint Medications: 40 mg triamcinolone acetonide 40 mg/mL; 4 mL bupivacaine (PF) 0.25 % (2.5 mg/mL) Outcome: Tolerated well, no immediate complications Post-injection instructions were reviewed with the patient and the patient voiced understanding of these instructions. SIGN OUT All instruments, equipment, possible retained foreign bodies accounted for. Post-procedure follow-up management communicated and Plan of Care Visit completed when applicable Irma Loza DO Orthopedic Surgery, Sports Medicine Allergies As of Date: 10/22/2023 (No Known Allergies) Date Reviewed: 06/16/2023 Reviewed by: Josafat Sifuentes MA - Fully Assessed Reason for Visit: Follow Up [171] Follow Up [171] Primary Visit Diagnosis:Primary osteoarthritis of left knee [M17.12] Other Visit Diagnosis:Primary osteoarthritis of right knee [M17.11] Order(s):Large Joint Arthro/Inj: R knee joint [YXS013] Order #: [id number] Large Joint Arthro/Inj: L knee joint [EKN386] Order #: [id number] [] bupivacaine (PF) 0.25 % (2.5 mg/mL) 4 mL injection (SENSORCAINE MPF)Disp: Rfl: [] bupivacaine (PF) 0.25 % (2.5 mg/mL) 4 mL injection (SENSORCAINE MPF)Disp: Rfl: [] triamcinolone acetonide 40 mg injection (KeNALog 40)Disp: Rfl: [] triamcinolone acetonide 40 mg injection (KeNALog 40)Disp: Rfl: Prescriptions as of 10/22/2023 - FLUoxetine (PROZAC) 20 mg capsule Take 1 capsule by mouth two times a day. - semaglutide, weight loss, (WEGOVY) 0.25 mg/0.5 mL pen injector Inject 0.5 mL subcutaneously one time a week for 28 days. - chlorthalidone (HYGROTON) 25 mg tablet Take 1 tablet by mouth once daily. - calcium citrate (CALCITRATE) 200 mg (950 mg) tab Take 1 tablet by mouth once daily. Patient should start on May 31, 2023. - ergocalciferol 50,000 unit capsule (VITAMIN D2, DRISDOL) Take 1 capsule by mouth one time a week for 4 doses. Patient should start on May 31, 2023. - naproxen (NAPROSYN) 500 mg tablet take 1 tablet by mouth twice a day if needed for pain take with food - cyclobenzaprine (FLEXERIL) 10 mg tablet take 1 tablet by mouth twice a day if needed - urea (CARMOL) 40 % Ap (more content not included)... Normal [facility] Large Joint Arthro/Inj: L curt ta 10-22-2023 Irma Loza DO 10/22/2023 3:56 PM Large Joint Arthro/Inj: L knee joint Informed Consent Consent Obtained: Verbal [place] Protocol A moment to CARE was completed. SIGN IN Personnel directly involved with the procedure wore the appropriate PPE. Patient/Surrogate Stated/Verified: Patient name, Date of , Relevant allergies and Intended procedure TIME OUT Intended patient and procedure match the source document(s). Consent documented and matches the intended procedure. Relevant labs, photos, and/or imaging studies have been reviewed. Correct side/site marked and visible. Medications required for procedure verified. 10/22/2023 3:56 PM The procedure site was prepped in the usual sterile fashion. Site: L knee joint Medications: 40 mg triamcinolone acetonide 40 mg/mL; 4 mL bupivacaine (PF) 0.25 % (2.5 mg/mL) Outcome: Tolerated well, no immediate complications Post-injection instructions were reviewed with the patient and the patient voiced understanding of these instructions. SIGN OUT All instruments, equipment, possible retained foreign bodies accounted for. Post-procedure follow-up management communicated and Plan of Care Visit completed when applicable [facility] Large Joint Arthro/Inj: R curt ta 10-22-2023 Irma Loza DO 10/22/2023 3:56 PM Large Joint Arthro/Inj: R knee joint Informed Consent Consent Obtained: Verbal [place] Protocol A moment to CARE was completed. SIGN IN Personnel directly involved with the procedure wore the appropriate PPE. Patient/Surrogate Stated/Verified: Patient name, Date of , Relevant allergies and Intended procedure TIME OUT Intended patient and procedure match the source document(s). Consent documented and matches the intended procedure. Relevant labs, photos, and/or imaging studies have been reviewed. Correct side/site marked and visible. Medications required for procedure verified. 10/22/2023 3:55 PM The procedure site was prepped in the usual sterile fashion. Site: R knee joint Medications: 40 mg triamcinolone acetonide 40 mg/mL; 4 mL bupivacaine (PF) 0.25 % (2.5 mg/mL) Outcome: Tolerated well, no immediate complications Post-injection instructions were reviewed with the patient and the patient voiced understanding of these instructions. SIGN OUT All instruments, equipment, possible retained foreign bodies accounted for. Post-procedure follow-up management communicated and Plan of Care Visit completed when applicable [facility] CNOVon 06-16-2023 CNOV Office Visit (STFLF) SHEYLA CHONG ([id number]) 1970 F Date Time Provider Department 06/16/23 4:45 PM RUTH SWANSON STFLF During your visit today, we recorded the following information about you: Temperature Pulse Blood pressure Weight 97.8 degrees 89/minute 135/90 113.4 kg Height 1.651 m Ruth Swanson MD 06/16/2023 4:58 PM Signed Pt is here with continued discomfort from a pelvis fracture, possibly a stress fracture.She is walking with a walker. The history is provided by the patient. Hypertension Pertinent negatives include no chest pain, palpitations or shortness of breath. HISTORY REVIEWED PAST MEDICAL HISTORY Diagnosis Date Anxiety Arthritis of fmbzkpgn-maxciwagz-rjfh ezoid joint of right hand Bilateral knee pain Depression Fibromyalgia Hypertension Mixed hyperlipidemia CHASE (obstructive sleep apnea) Pneumonia community aquired Right wrist pain Tobacco use disorder PAST SURGICAL HISTORY Procedure Laterality Date SECTION HX 2005 3 SECTIONS last one in 2004 HYSTERECTOMY HX 2009 KNEE ARTHROSCOPY/SURGERY Left 2017 WRIST SURGERY HX 07/2020 FAMILY HISTORY Problem Relation Age of Onset Obesity Mother Diabetes Father Obesity Father Social History Social History Narrative Not on file Allergies: ALLERGIES No Known Allergies Medications: calcium citrate (CALCITRATE) 200 mg (950 mg) tab Take 1 tablet by mouth once daily. Patient should start on May 31, 2023. ergocalciferol 50,000 unit capsule (VITAMIN D2, DRISDOL) Take 1 capsule by mouth one time a week for 4 doses. Patient should start on May 31, 2023. FLUoxetine (PROZAC) 20 mg capsule Take 1 capsule by mouth two times a day. naproxen (NAPROSYN) 500 mg tablet take 1 tablet by mouth twice a day if needed for pain take with food cyclobenzaprine (FLEXERIL) 10 mg tablet take 1 tablet by mouth twice a day if needed urea (CARMOL) 40 % Apply to affected area as needed. ketoconazole (NIZORAL) 2 % cream Apply bid x 6 weeks gabapentin (NEURONTIN) 100 mg capsule Take 100 mg by mouth three times daily. diclofenac (VOLTAREN) 1 % topical gel apply 4 grams to affected area four times a day TO AFFECTED LOWER JOINT chlorthalidone (HYGROTON) 25 mg tablet Take 1 tablet by mouth once daily. HYDROcodone-acetaminoph en (NORCO) 5-325 mg per tablet Take 1 tablet by mouth every 6 hours as needed for pain for up to 7 days. atorvastatin (LIPITOR) 40 mg tablet take 1 tablet by mouth once daily Problem List: ACTIVE PROBLEM LIST Opioid Dependence in Remission ([facility]) - 06/02/2023 Closed Fracture of Multiple Pubic Rami, Right, Initial Encounter ([facility]) - 05/29/2023 Anxiety and Depression - 05/29/2023 Primary Hypertension - 05/29/2023 Chronic Back Pain - 05/29/2023 Osteoarthritis - 05/29/2023 Hld (Hyperlipidemia) - 05/29/2023 Hypokalemia - 05/29/2023 High Serum Bicarbonate - 05/29/2023 Closed Fracture of Sacrum ([facility]) - 05/29/2023 Obesity, Class III, BMI >= 40 - 05/29/2023 Review of Systems Constitutional: Negative. HENT: Negative. Respiratory: Negative for cough, shortness of breath and wheezing. Cardiovascular: Negative for chest pain, palpitations and leg swelling. Genitourinary: Positive for pelvic pain. Physical Exam Vitals and nursing note reviewed. Constitutional: General: She is not in acute distress. Appearance: Normal appearance. She is not ill-appearing, toxic-appearing or diaphoretic. Cardiovascular: Rate and Rhythm: Normal rate and regular rhythm. Pulmonary: Effort: Pulmonary effort is normal. Breath sounds: Normal breath sounds. Musculoskeletal: Lumbar back: Tenderness present. Decreased range of motion. Back: Skin: General: Skin is warm and dry. Neurological: Mental Status: She is alert and oriented to person, place, and time. BP 135/90 Pulse 89 Temp 36.6 ?C (97.8 ?F) (Left Tympanic) Ht 165.1 cm (5' 5 ) Wt 113.4 kg (250 lb) SpO2 99% BMI 41.60 kg/m? ASSESSMENT/PLAN: 1. Closed nondisplaced fracture of right ilium with routine healing, unspecified fracture morphology, subsequent encounter - ICD9: V54.19, ICD10: S32.301D PT consulted - HYDROCODONE 5 MG-ACETAMINOPHEN 325 MG TABLET Ruth Swanson MD Allergies As of Date: 06/16/2023 (No Known Allergies) Date Reviewed: 06/16/2023 Reviewed by: Josafat Sifuentes MA - Fully Assessed Reason for Visit: Hypertension [168] Cmt: Medications Refills Primary Visit Diagnosis:Closed nondisplaced fracture of right ilium with routine healing, unspecified fracture morphology, subsequent encounter [S32.301D] Order(s):chlorthalidone (HYGROTON) 25 mg tabletTake 1 tablet by mouth once daily.Disp: 90 tabletRfl: 1 HYDROcodone-acetaminoph en (NORCO) 5-325 mg per tabletTake 1 tablet by mouth every 6 hours as needed for pain for up to 7 days.Disp: 28 tabletRfl: 0 CONSULT TO PHYSICAL THERAPY [9032 (more content not included)... Normal [facility] XR Pelvis APon 06-15-2023 IMPRESSION: Healing right superior and inferior rami fractures. Pharmacist'S Aide: BASIL Transcribe Date/Time: Jun 15 2023 9:27A Dictated by : REMEDIOS PERERA MD This examination was interpreted and the report reviewed and electronically signed by: REMEDIOS PERERA MD on Jun 15 2023 9:29AM [facility] * * *Final Report* * * DATE OF EXAM: Jun 10 2023 3:06PM MDO 5239 - XR PELVIS 1V AP / PROCEDURE REASON: M25.559-Pain in joint involving pelvic region and thigh, unspecified laterality * * * * Physician Interpretation * * * * EXAMINATION / TECHNIQUE: XR PELVIS 1V AP PATIENT/TECHNOLOGIST PROVIDED HISTORY: PAIN IN JOINT INVOLVING PELVIC REGION AND THIGH CLINICAL INFORMATION ( PROVIDED BY ORDERING CLINICIAN) : Pain in joint involving pelvic region and thigh, unspecified laterality COMPARISON: 05/17/[address] 06/05/2023 RESULT: Increased callus along right superior and inferior rami fractures suggestive of healing. No new fracture. The bilateral hip joints, pubic symphysis, and sacroiliac joints are relatively preserved. Degenerative changes in the lower lumbar spine. [facility] Provider, [facility] [place] - 06/15/2023 * * *Final Report* * * DATE OF EXAM: Jun 10 2023 3:06PM MDO 5239 - XR PELVIS 1V AP / PROCEDURE REASON: M25.559-Pain in joint involving pelvic region and thigh, unspecified laterality * * * * Physician Interpretation * * * * EXAMINATION / TECHNIQUE: XR PELVIS 1V AP PATIENT/TECHNOLOGIST PROVIDED HISTORY: PAIN IN JOINT INVOLVING PELVIC REGION AND THIGH CLINICAL INFORMATION ( PROVIDED BY ORDERING CLINICIAN) : Pain in joint involving pelvic region and thigh, unspecified laterality COMPARISON: 05/17/[address] 06/05/2023 RESULT: Increased callus along right superior and inferior rami fractures suggestive of healing. No new fracture. The bilateral hip joints, pubic symphysis, and sacroiliac joints are relatively preserved. Degenerative changes in the lower lumbar spine. IMPRESSION IMPRESSION: Healing right superior and inferior rami fractures. Pharmacist'S Aide: BASIL Transcribe Date/Time: Jun 15 2023 9:27A Dictated by : REMEDIOS PERERA MD This examination was interpreted and the report reviewed and electronically signed by: REMEDIOS PERERA MD on Jun 15 2023 9:29AM EST [facility] XR Pelvis APOrdered By: [facility] Provider on 06-15-2023 [facility] CNOVon 06-10-2023 CNOV Office Visit (ORMDNA ) SHEYLA CHONG ([id number]) 1970 F Date Time Provider Department 06/10/23 3:15 PM LIZA DORSEY During your visit today, we recorded the following information about you: Liza Dorsey DO 06/16/2023 10:06 AM Signed Reason for Visit/Chief Complaint Sheyla Chong is a 53 year old female who presents today for a new evaluation of following complaint: Patient presents with: Right Hip - New, Pain History of Present Illness: PAIN EVALUATION 06/10/2023 0528 Pain Level: 7 Description: Aching;Burning;Pressure ;Pulsating;Radiating;Sh sami;Stabbing;Throbbing Duration Units: Weeks Frequency: Intermittent Intervention/Comfort measure: Medication;Reposition;R elaxation;Cold;Heat;Pos itioning Comments: Most time if laying on my back it will help with excruciating pain. It will juat be a constant dull ache while laying down. HPI: Sheyla Chong is a 53 year old female presenting today with right hip pain. Patient has been experiencing hip pain for about 4 weeks now. She has made multiple trips to the ED over the past 4 weeks due to the pain. Patient continues to have difficulty walking and standing Pain history is noted as above. Denies calf pain, numbness, tingling, fever, chills or other constitutional symptoms. Previous Treatments: Ice: No Heat: No Brace: No NSAIDs: Yes, percocoet, norco Injections: No Surgeries: No Physical Therapy: No Review of Systems: Patient did not have, and does not currently have, any weight loss, malaise, fever, chills, headache, chest pain, chest pressure, palpitations, cough, shortness of breath, orthopnea, paroxsymal nocturnal dyspnea, nausea, vomiting, diarrhea, constipation, melena, hematochezia, urinary difficulties, prolonged bleeding, easily bruising, heat or cold intolerance, new onset joint pain or swelling, new onset extremity weakness or numbness, new onset auditory or visual disturbances, lightheadedness, dizziness, partial loss of consciousness or full loss of consciousness. Current Outpatient Medications on File Prior to Visit Medication Sig HYDROcodone-acetaminoph en (NORCO) 5-325 mg per tablet 1 tablet as needed Orally every 8 hrs for 28 days triazolam (HALCION) 0.25 mg tablet take 1 tablet by mouth 1 HOUR PRIOR TO INJECTION triazolam (HALCION) 0.25 mg tablet 1 tablet one hour prior to injection Orally 1 per day. for 2 days calcium citrate (CALCITRATE) 200 mg (950 mg) tab Take 1 tablet by mouth once daily. Patient should start on May 31, 2023. ergocalciferol 50,000 unit capsule (VITAMIN D2, DRISDOL) Take 1 capsule by mouth one time a week for 4 doses. Patient should start on May 31, 2023. FLUoxetine (PROZAC) 20 mg capsule Take 1 capsule by mouth two times a day. naproxen (NAPROSYN) 500 mg tablet take 1 tablet by mouth twice a day if needed for pain take with food cyclobenzaprine (FLEXERIL) 10 mg tablet take 1 tablet by mouth twice a day if needed urea (CARMOL) 40 % Apply to affected area as needed. ketoconazole (NIZORAL) 2 % cream Apply bid x 6 weeks gabapentin (NEURONTIN) 100 mg capsule Take 100 mg by mouth three times daily. diclofenac (VOLTAREN) 1 % topical gel apply 4 grams to affected area four times a day TO AFFECTED LOWER JOINT chlorthalidone (HYGROTON) 25 mg tablet take 1 tablet by mouth once daily atorvastatin (LIPITOR) 40 mg tablet take 1 tablet by mouth once daily No current facility-administered medications on file prior to visit. ALLERGIES No Known Allergies Physical Exam: Vitals: There were no vitals taken for this visit. Psych: Pleasant, good affect and mood General Appearance: Well appearing, alert, in no acute distress, well-hydrated, well nourished.. Skin: Skin color, texture, turgor normal, no suspicious rashes or lesions. Peripheral Pulses: Normal. Neurologic: Gait abnormal. Reflexes normal and symmetric. Sensation grossly intact.. Lymph Nodes: No cervical lymphadenopathy, No supraclavicular lymphadenopathy, No axillary lymphadenopathy., and No inguinal lymphadenopathy.. Respiratory: No recent pulmonary infection, hemoptysis, chronic cough, or shortness of breath at rest Rheumatologic: Joint deformities: right hip pain Back Exam Tenderness The patient is experiencing tenderness in the lumbar. Range of Motion Extension: normal Flexion: normal Lateral bend right: normal Lateral bend left: normal Rotation right: normal Rotation left: normal Muscle Strength The patient has normal back strength. Right Quadriceps: 5/5 Left Quadriceps: 5/5 Right Hamstrings: 5/5 Left Hamstrings: 5/5 Tests Straight leg raise right: negative Straight leg raise left: negative Reflexes Patellar: normal Achilles: normal Babinski's sign: normal Other Toe walk: normal Heel walk: normal Sensation: normal Gait: abnormal Erythem (more content not included)... Normal [facility] XR PELVIS 1V APon 06-10-2023 XR PELVIS 1V AP * * *Final Report* * * DATE OF EXAM: Jun 10 2023 3:06PM LEAH [id number] - XR PELVIS 1V AP / PROCEDURE REASON: M25.559-Pain in joint involving pelvic region and thigh, unspecified laterality * * * * Physician Interpretation * * * * EXAMINATION / TECHNIQUE: XR PELVIS 1V AP PATIENT/TECHNOLOGIST PROVIDED HISTORY: PAIN IN JOINT INVOLVING PELVIC REGION AND THIGH CLINICAL INFORMATION ( PROVIDED BY ORDERING CLINICIAN) : Pain in joint involving pelvic region and thigh, unspecified laterality COMPARISON: 05/17/[address] 06/05/2023 RESULT: Increased callus along right superior and inferior rami fractures suggestive of healing. No new fracture. The bilateral hip joints, pubic symphysis, and sacroiliac joints are relatively preserved. Degenerative changes in the lower lumbar spine. IMPRESSION: Healing right superior and inferior rami fractures. Pharmacist'S Aide: BASIL Transcribe Date/Time: Jun 15 2023 9:27A Dictated by : REMEDIOS PERERA MD This examination was interpreted and the report reviewed and electronically signed by: REMEDIOS PERERA MD on Jun 15 2023 9:29AM EST [id number] Normal [facility] XR Pelvis APon 06-10-2023 Radiology Study observation (narrative) [facility] CNOVon 06-02-2023 CNOV Office Visit (STFLF) CASTILLOSHEYLA MADDOX ([id number]) 1970 F Date Time Provider Department 06/02/23 1:45 PM RUTH SWANSON STFLF During your visit today, we recorded the following information about you: Temperature Pulse Blood pressure Height 99.1 degrees 91/minute 106/72 1.651 m Ruth Swanson MD 06/02/2023 2:29 PM Signed Pt is a 53 year old female presenting today to follow up from a hospital visit. Pt was admitted from 05/28-05/29 with a closed fracture right pubic rami and sacral fracture at [facility]. Pt did not have surgery. Pt states she does not know what caused the fractures. Denies recent injury. Pt states the pain is in the medial groin area. Pt states the pain travels from right hip and groin down to her right ankle. Pt states she was discharged with percocet, calcium citrate, vitamin d, lidocaine patch 4%, oxycodone IR 5 mg, miralax. Pt states she had a low potassium level and was given 4 bags of IV potassium while admitted. Potassium level was 2.9 4 days On admission note, neurosurgery was consulted for acute Schmorl's node along the superior endplate of L3 causing less than 30% compression. Moderate degenerative disc disease, mild canal stenosis at L4-5, severe right L5-S1 and moderate left L5-S1 neural foraminal stenosis at this time neurosurgery thought it was best to try and control pain and possibly do right L4-5, L5-S1 transformational injection as outpatient. Pt states her sons wedding is this weekend and wants to feel better for this. The history is provided by the patient. HISTORY REVIEWED PAST MEDICAL HISTORY Diagnosis Date Anxiety Arthritis of gzhrqfei-zwbgcajeq-kalq ezoid joint of right hand Bilateral knee pain Depression Fibromyalgia Hypertension Mixed hyperlipidemia CHASE (obstructive sleep apnea) Pneumonia community aquired Right wrist pain Tobacco use disorder PAST SURGICAL HISTORY Procedure Laterality Date SECTION HX 2004 3 SECTIONS last one in 2004 HYSTERECTOMY HX 2009 KNEE ARTHROSCOPY/SURGERY Left 2017 WRIST SURGERY HX 07/2020 FAMILY HISTORY Problem Relation Age of Onset Obesity Mother Diabetes Father Obesity Father Social History Social History Narrative Not on file Allergies: ALLERGIES No Known Allergies Medications: HYDROcodone-acetaminoph en (NORCO) 5-325 mg per tablet 1 tablet as needed Orally every 8 hrs for 28 days triazolam (HALCION) 0.25 mg tablet take 1 tablet by mouth 1 HOUR PRIOR TO INJECTION triazolam (HALCION) 0.25 mg tablet 1 tablet one hour prior to injection Orally 1 per day. for 2 days calcium citrate (CALCITRATE) 200 mg (950 mg) tab Take 1 tablet by mouth once daily. Patient should start on May 31, 2023. ergocalciferol 50,000 unit capsule (VITAMIN D2, DRISDOL) Take 1 capsule by mouth one time a week for 4 doses. Patient should start on May 31, 2023. lidocaine (SALONPAS) 4 % patch Apply 1 Patch as directed once daily for 7 days. oxyCODONE IR (ROXICODONE) 5 mg immediate release tablet Take 1 tablet by mouth every 6 hours as needed for up to 3 days. polyethylene glycol 3350 (MIRALAX) 17 gram/dose powder Take 17 g by mouth once daily for 7 days. Dissolve dose in 4 - 8 ounces of liquid and take as directed. FLUoxetine (PROZAC) 20 mg capsule Take 1 capsule by mouth two times a day. naproxen (NAPROSYN) 500 mg tablet take 1 tablet by mouth twice a day if needed for pain take with food cyclobenzaprine (FLEXERIL) 10 mg tablet take 1 tablet by mouth twice a day if needed urea (CARMOL) 40 % Apply to affected area as needed. ketoconazole (NIZORAL) 2 % cream Apply bid x 6 weeks gabapentin (NEURONTIN) 100 mg capsule Take 100 mg by mouth three times daily. diclofenac (VOLTAREN) 1 % topical gel apply 4 grams to affected area four times a day TO AFFECTED LOWER JOINT chlorthalidone (HYGROTON) 25 mg tablet take 1 tablet by mouth once daily atorvastatin (LIPITOR) 40 mg tablet take 1 tablet by mouth once daily Problem List: ACTIVE PROBLEM LIST Closed Fracture of Multiple Pubic Rami, Right, Initial Encounter ([facility]) - 05/29/2023 Anxiety and Depression - 05/29/2023 Primary Hypertension - 05/29/2023 Chronic Back Pain - 05/29/2023 Osteoarthritis - 05/29/2023 Hld (Hyperlipidemia) - 05/29/2023 Hypokalemia - 05/29/2023 High Serum Bicarbonate - 05/29/2023 Closed Fracture of Sacrum ([facility]) - 05/29/2023 Obesity, Class III, BMI >= 40 - 05/29/2023 Review of Systems Constitutional: Negative for chills, fatigue and fever. HENT: Negative. Respiratory: Negative for cough, shortness of breath and wheezing. Cardiovascular: Negative for chest pain, palpitations and leg swelling. Musculoskeletal: Positive for arthralgias. Physical Exam Constitutional: Appearance: Normal appearance. She is not ill-appearing, toxic-appearing or diaphoretic. Comments: Mild distress HENT: Head (more content not included)... Normal [facility] CNPNon 06-01-2023 CNPN Telephone (HCSIND) SHEYLA CHONG ([id number]) 1970 F Date Time Provider Department 06/01/23 [facility] During your visit today, we recorded the following information about you: Pat Osman LPN 06/01/2023 10:38 AM Signed Date/Time: 06/01/2023 10:35 AM Called patient @ [phone], left voicemail requesting return call to confirm [facility] services. Called significant other Oz @ [phone], left voicemail requesting return call to confirm [facility] services. Pat Osman LPN 06/02/2023 10:05 AM Signed Date/Time: 06/02/2023 10:01 AM Spoke with devon Carrion @ phone #: [phone] - Preferred # for contact: [phone]. Have you received help from a home care company in the last 60 days? No. Are you agreeable to [facility] services? No. Allergies As of Date: 06/01/2023 (No Known Allergies) Date Reviewed: 05/30/2023 Reviewed by: Sandra Grimaldo RN - Fully Assessed Reason for Visit: Home Care [4073] Cmt: Confirmation call. Prescriptions as of 06/02/2023 - calcium citrate (CALCITRATE) 200 mg (950 mg) tab Take 1 tablet by mouth once daily. Patient should start on May 31, 2023. - ergocalciferol 50,000 unit capsule (VITAMIN D2, DRISDOL) Take 1 capsule by mouth one time a week for 4 doses. Patient should start on May 31, 2023. - lidocaine (SALONPAS) 4 % patch Apply 1 Patch as directed once daily for 7 days. - oxyCODONE IR (ROXICODONE) 5 mg immediate release tablet Take 1 tablet by mouth every 6 hours as needed for up to 3 days. - polyethylene glycol 3350 (MIRALAX) 17 gram/dose powder Take 17 g by mouth once daily for 7 days. Dissolve dose in 4 - 8 ounces of liquid and take as directed. - FLUoxetine (PROZAC) 20 mg capsule Take 1 capsule by mouth two times a day. - naproxen (NAPROSYN) 500 mg tablet take 1 tablet by mouth twice a day if needed for pain take with food - cyclobenzaprine (FLEXERIL) 10 mg tablet take 1 tablet by mouth twice a day if needed - urea (CARMOL) 40 % Apply to affected area as needed. - ketoconazole (NIZORAL) 2 % cream Apply bid x 6 weeks - chlorthalidone (HYGROTON) 25 mg tablet take 1 tablet by mouth once daily - atorvastatin (LIPITOR) 40 mg tablet take 1 tablet by mouth once daily - gabapentin (NEURONTIN) 100 mg capsule Take 100 mg by mouth three times daily. - diclofenac (VOLTAREN) 1 % topical gel apply 4 grams to affected area four times a day TO AFFECTED LOWER JOINT Problem List As Of Date 06/01/2023 Noted Resolved Closed fracture of multiple pubic rami, right, *05/29/2023 Anxiety and depression [F41.9, F32.A] 05/29/2023 Primary hypertension [I10] 05/29/2023 Chronic back pain [M54.9, G89.29] 05/29/2023 Osteoarthritis [M19.90] 05/29/2023 HLD (hyperlipidemia) [E78.5] 05/29/2023 Hypokalemia [E87.6] 05/29/2023 High serum bicarbonate [R79.89] 05/29/2023 Closed fracture of sacrum (HCC) [S32.10XA] 05/29/2023 Obesity, Class III, BMI >= 40 [E66.01] 05/29/2023 Encounter Status:Closed by PAT OSMAN on 06/01/23 [facility] SHEYLA CH[facility] ([id number]) 1970 F Date Time Provider Department 06/01/23 PAT OSMAN HCSIND During your visit today, we recorded the following information about you: Pat Osman LPN 06/01/2023 10:34 AM Signed Ruth Swanson MD Please advise if you are agreeable to signing and following for [facility] services? Our Clinicians will be sending the Plan of Care to you for review and approval. They will reach out for any appropriate orders required to provide home care services for the patient. We are not able to initiate [facility] services without a following provider. Home care clinicians may also obtain orders from [facility] Providers Thank you and we would be happy to answer any questions. Pat Osman LPN 06/01/2023 10:34 AM Pat Osman LPN 06/02/2023 9:54 AM Signed Ruth Swanson MD Please advise if you are agreeable to signing and following for [facility] services? Our Clinicians will be sending the Plan of Care to you for review and approval. They will reach out for any appropriate orders required to provide home care services for the patient. We are not able to initiate HHC services without a following provider. Home care clinicians may also obtain orders from [facility] Providers Thank you and we would be happy to answer any questions. Pat Osman LPN 06/02/2023 9:54 AM Allergies As of Date: 06/01/2023 (No Known Allergies) Date Reviewed: 05/30/2023 Reviewed by: Sandra Grimaldo, JELANI - Fully Assessed Reason for Visit: Home Care [4073] Cmt: MD to follow. Prescriptions as of 06/02/2023 - calcium citrate (CALCITRATE) 200 mg (950 mg) tab Take 1 tablet by mouth once daily. Patient should start on May 31, 2023. - ergocalciferol 50,000 unit capsule (VITAMIN D2, DRISDOL) Take 1 capsule by mouth one time a week for 4 doses. Patient should start on May 31, 2023. - lidocaine (SALONPAS) 4 % patch Apply 1 Patch as directed once daily for 7 days. - oxyCODONE IR (ROXICODONE) 5 mg immediate release tablet Take 1 tablet by mouth every 6 hours as needed for up to 3 days. - polyethylene glycol 3350 (MIRALAX) 17 gram/dose powder Take 17 g by mouth once daily for 7 days. Dissolve dose in 4 - 8 ounces of liquid and take as directed. - FLUoxetine (PROZAC) 20 mg capsule Take 1 capsule by mouth two times a day. - naproxen (NAPROSYN) 500 mg tablet take 1 tablet by mouth twice a day if needed for pain take with food - cyclobenzaprine (FLEXERIL) 10 mg tablet take 1 tablet by mouth twice a day if needed - urea (CARMOL) 40 % Apply to affected area as needed. - ketoconazole (NIZORAL) 2 % cream Apply bid x 6 weeks - chlorthalidone (HYGROTON) 25 mg tablet take 1 tablet by mouth once daily - atorvastatin (LIPITOR) 40 mg tablet take 1 tablet by mouth once daily - gabapentin (NEURONTIN) 100 mg capsule Take 100 mg by mouth three times daily. - diclofenac (VOLTAREN) 1 % topical gel apply 4 grams to affected area four times a day TO AFFECTED LOWER JOINT Problem List As Of Date 06/01/2023 Noted Resolved Closed fracture of multiple pubic rami, right, *05/29/2023 Anxiety and depression [F41.9, F32.A] 05/29/2023 Primary hypertension [I10] 05/29/2023 Chronic back pain [M54.9, G89.29] 05/29/2023 Osteoarthritis [M19.90] 05/29/2023 HLD (hyperlipidemia) [E78.5] 05/29/2023 Hypokalemia [E87.6] 05/29/2023 High serum bicarbonate [R79.89] 05/29/2023 Closed fracture of sacrum (HCC) [S32.10XA] 05/29/2023 Obesity, Class III, BMI >= 40 [E66.01] 05/29/2023 Encounter Status:Closed by PAT OSMAN on 06/01/23 Normal [facility] Basic metabolic 2000 panelon 05-30-2023 Anion gap [Moles/Vol] 8 mmol/L Low 9-18 [facility] Comment on above: Order Comment: Speci men Type: BLOOD SPECIMENOrdering Facility: [facility] Address: [address] [place] [address] Performed By: #### 2 4321-2 ####[facility]ATORYCLIA [id number] [place] [address] [place] Calcium [Mass/Vol] 8.9 mg/dL Normal 8.5-10.2 [facility] Comment on above: Order Comment: Speci men Type: BLOOD SPECIMENOrdering Facility: [facility] Address: [address] [place] [address] Performed By: #### 2 4321-2 ####[facility]ORATORYCLIA [id number] [place] [address] [place] Chloride [Moles/Vol] 99 mmol/L Normal 97-105 [facility] Comment on above: Order Comment: Speci men Type: BLOOD SPECIMENOrdering Facility: [facility] Address: [address] [place] [address] Performed By: #### 2 4321-2 ####[facility]ORATORYCLIA [id number] [address] [place] CO2 [Moles/Vol] 33 mmol/L High 22-30 [facility] Comment on above: Order Comment: Speci men Type: BLOOD SPECIMENOrdering Facility: [facility] Address: [address] [place] [address] Performed By: #### 2 4321-2 ####[facility] LABORATORYCLIA [id number] [address] Creatinine [Mass/Vol] 0.85 mg/dL Normal 0.58-0.96 [facility] Comment on above: Order Comment: Speci men Type: BLOOD SPECIMENOrdering Facility: [facility] Address: [address] [place] [address] Performed By: #### 2 4321-2 ####[facility] LABORATORYCLIA [id number] [address] Creatinine and Glomerular filtration rate.predicted panel (S/P/Bld) 83 mL/min/1.73m??? Normal >=60 [facility] Comment on above: Order Comment: Speci men Type: BLOOD SPECIMENOrdering Facility: [facility] Address: [address] [place] [address] Result Comment: Radha mated Glomerular Filtration Rate (eGFR) is calculated using the 2020 CKD-EPI creatinine equation. This equation utilizes serum creatinine, sex, and age as parameters. The creatinine assay has traceable calibration to isotope dilution-mass spectrometry. Refer to KDIGO guidelines for clinical interpretation. In patients with unstable renal function, e.g. those with acute kidney injury, the eGFR may not accurately reflect actual GFR. Performed By: #### 2 4321-2 ####[facility] LABORATORYCLIA [id number] [address] OF [facility] Glucose [Mass/Vol] 92 mg/dL Normal 74-99 [facility] Comment on above: Order Comment: Geraldoi men Type: BLOOD SPECIMENOrdering Facility: [facility] Address: [address] [place] [address] Result Comment: The [place] Diabetes Association (ADA) provides guidance for cutoff values for fasting glucose and random glucose. The ADA defines fasting as no caloric intake for at least 8 hours. Fasting plasma glucose results between 100 to 125 mg/dL indicate increased risk for diabetes (prediabetes). Fasting plasma glucose results greater than or equal to 126 mg/dL meet the criteria for diagnosis of diabetes. In the absence of unequivocal hyperglycemia, results should be confirmed by repeat testing. In a patient with classic symptoms of hyperglycemia or hyperglycemic crisis, random plasma glucose results greater than or equal to 200 mg/dL meet the criteria for diagnosis of diabetes. Reference: Standards of Medical Care in Diabetes 2016, [place] Diabetes Association. Diabetes Care. 2016.39(Suppl 1). Performed By: #### 2 4321-2 ####[facility] LABORATORYCLIA [id number] [place] [address] [place] Potassium [Moles/Vol] 3.9 mmol/L Normal 3.7-5.1 [facility] Comment on above: Order Comment: Speci men Type: BLOOD SPECIMENOrdering Facility: [facility] Address: [address] [place] [address] Performed By: #### 2 4321-2 ####[facility] LABORATORYCLIA [id number] [place] [address] [place] Sodium [Moles/Vol] 140 mmol/L Normal 136-144 [facility] Comment on above: Order Comment: Speci men Type: BLOOD SPECIMENOrdering Facility: [facility] Address: [address] [place] [address] Performed By: #### 2 4321-2 ####[facility] LABORATORYCLIA [id number] [place] [address] [place] Urea nitrogen [Mass/Vol] 16 mg/dL Normal 7-21 [facility] Comment on above: Order Comment: Speci men Type: BLOOD SPECIMENOrdering Facility: [facility] Address: [address] [place] [address] Performed By: #### 2 4321-2 ####[facility] LABORATORYCLIA [id number] [place] [address] [place] CASE MANAGEMon 05-30-2023 CASE MANAGEM HNO ID: [id number] Author: ERNIE PHILIPPE LSW Service: ASSESSMENT Author Type: Infectious Disease Physician Type: Care Mgt Progress Note Filed: 05/31/2023 11:10 Note Text: CARE MANAGEMENT PROGRESS NOTE SERVICE DATE: 05/31/2023 SERVICE TIME: 11:10 AM LOS: 0 days Needs Prior to Discharge: None;Ready for Discharge Pt. Discharged home after hours yesterday. SW checked [employer] and [facility] accepted pt. SW called and left pt. A voicemail message re: accepting [facility] agency. SIGNATURE: Ernie MONAE, NATALIE PATIENT NAME: Sheyla Chong DATE: May 31, 2023 TIME: 11:09 AM PAGER/CONTACT #[facility] HNO ID: [id number] Author: SAVI HALLMAN RN Service: ? Author Type: Registered Nurse Type: Care Mgt Initial Assessment Filed: 05/30/2023 17:34 Note Text: CARE MANAGEMENT: ASSESSMENT AND DISCHARGE PLAN SERVICE DATE: May 30, 2023 SERVICE TIME: 5:29 PM PCP: Ruth Swanson MD Primary Contact: Extended Emergency Contact Information Primary Emergency Contact: Oz Olivera Mobile Relation: Significant other Admission Status: Observation Insurance Provider: [facility] MEDICAID OF [place] Discharge Planning requested by: Per Department Practice Potential Transition Plans Home Care Advance Directives Current Advance Directive: None [employer] [employer] Attempted to Assist with AD Completion: Yes Action: Education Provided Current Living Arrangements and Support Lives with: Spouse/significant other Type of Residence: Private Residence (House) Does the patient have to climb stairs at home?: Yes;stairs within the home Support: How do you manage to accomplish the following: Independent: Ambulation;Bathe/Shower ;Dress;Meals/Meal Prep;Going to the bathroom;Medication Management;Transportati on to appointments/community Current Services/Equipment Discharge Planning Patient Goal(s): [place] [facility] Explained: Are you interested in bedside delivery of your medications? No, uses [facility], [place], [place] Discharge Planning Participant(s): Patient Patient/Family Comments: Caregiver Assessment: TBD Transport at Discharge: Transportation Arrangements: Car Needs Prior to Discharge: [facility] Post-Acute Discharge Plan: 53 yr female admitted R Groin Pain, R Pelvic Fx. Pt. lives with sign other, is Independent and has no specific choice of C[facility] Since it is after 5PM and C are closed for the day, I willl leave a note for Thursday CMs to Check Responses. SIGNATURE: Savi Hallman RN,BSN, ACM PATIENT NAME: Sheyla Chong DATE: May 30, 2023 TIME: 5:29 PM CONTACT #: [phone] Normal [facility] CBC panel Auto (Bld)on 05-29 Erythrocyte distribution width (RBC) [Ratio] 14.9 % Normal 11.5-15.0 [facility] Comment on above: Order Comment: Speci men Type: BLOOD SPECIMENOrdering Facility: [facility] Address: [address] [place] [address] Performed By: #### 5 8410-2 ####[facility]ORATORYCLIA [id number] [address] [place] Hematocrit (Bld) [Volume fraction] 42.7 % Normal 36.0-46.0 [facility] Comment on above: Order Comment: Momo jalloh Type: BLOOD SPECIMENOrdering Facility: [facility] [facility] Address: [address] [place] [address] Performed By: #### 5 8410-2 ####[facility] LABORATORYCLIA [id number] [place] [address] [place] Hemoglobin (Bld) [Mass/Vol] 13.5 g/dL Normal 11.5-15.5 [facility] Comment on above: Order Comment: Speci men Type: BLOOD SPECIMENOrdering Facility: [facility] Address: [address] [place] [address] Performed By: #### 5 8410-2 ####M[facility] LABORATORYCLIA [id number] [address] [place] MCH (RBC) [Entitic mass] 28.7 pg Normal 26.0-34.0 [facility] Comment on above: Order Comment: Speci men Type: BLOOD SPECIMENOrdering Facility: [facility] Address: [address] [place] [address] Performed By: #### 5 8410-2 ####[facility] LABORATORYCLIA [id number] [address] MCHC (RBC) [Mass/Vol] 31.6 g/dL Normal 30.5-36.0 [facility] Comment on above: Order Comment: Speci men Type: BLOOD SPECIMENOrdering Facility: [facility] Address: [address] [place] [address] Performed By: #### 5 8410-2 ####M[facility] LABORATORYCLIA [id number] [address] MCV (RBC) [Entitic vol] 90.9 fL Normal 80.0-100.0 [facility] Comment on above: Order Comment: Speci men Type: BLOOD SPECIMENOrdering Facility: [facility] Address: [address] [place] [address] Performed By: #### 5 8410-2 ####M[facility] LABORATORYCLIA [id number] [address] Nucleated RBC (Bld) [#/Vol] 10*3/uL Normal <0.01 [facility] Comment on above: Order Comment: Speci men Type: BLOOD SPECIMENOrdering Facility: [facility] Address: [address] [place] [address] Performed By: #### 5 8410-2 ####[facility] LABORATORYCLIA [id number] [address] [place] Platelet mean volume (Bld) [Entitic vol] 9.3 fL Normal 9.0-12.7 [facility] Comment on above: Order Comment: Speci men Type: BLOOD SPECIMENOrdering Facility: [facility] Address: [address] [place] [address] Performed By: #### 5 8410-2 ####M[facility] LABORATORYCLIA [id number] [address] [place] Platelets (Bld) [#/Vol] 268 10*3/uL Normal 150-400 [facility] Comment on above: Order Comment: Momo yeimi Type: BLOOD SPECIMENOrdering Facility: [facility] Address: [address] [place] [address] Performed By: #### 5 8410-2 ####[facility] LABORATORYCLIA [id number] [place] [id number] [facility] RBC (Bld) [#/Vol] 4.70 10*6/uL Normal 3.90-5.20 [facility] Comment on above: Order Comment: Momo yeimi Type: BLOOD SPECIMENOrdering Facility: [facility] Address: [address] [place], [place] [address] Performed By: #### 5 8410-2 ####[facility] LABORATORYCLIA [id number] [place] [id number] [facility] WBC (Bld) [#/Vol] 11.31 10*3/uL High 3.70-11.00 [facility] Comment on above: Order Comment: Geraldoruiz jalloh Type: BLOOD SPECIMENOrdering Facility: [facility] Address: [address] [place] [address] Performed By: #### 5 8410-2 ####[facility] LABORATORYCLIA [id number] [place] [id number] [facility] CNCOon 05-30-2023 CNCO Letter Text Normal [facility] CNDSon 05-30-2023 CNDS HNO ID: [id number] Author: SONA APONTE MD Service: Hospital Medicine Author Type: Physician Type: Discharge Summary Filed: 05/30/2023 18:08 Note Text: DISCHARGE SUMMARY PATIENT NAME: Sheyla Chong ADMISSION DATE: 05/29/2023 DISCHARGE DATE: 05/30/2023 ATTENDING PHYSICIAN: Sona Aponte MD Code Status: Full Code PCP: Ruth Swanson MD Highest Readmission Risk Score: 10 The 30 day readmissions risk score is derived from an internally validated risk model which evaluates patient level characteristics, utilization history, medication orders and lab results up until the day of discharge. Patients with a score of 40 or above are considered highest risk for readmission. Specific patient level drivers will be listed at the bottom of the summary. TRANSITIONS OF CARE CRITICAL ISSUES: LOVING MEDICATION CHANGES: Calcium citrate, ergocalciferol, lidocaine patch as needed, oxycodone as needed, MiraLAX LAB MONITORING NEEDED: Patient should have repeat CBC, renal function and electrolytes on next outpatient visit, repeat vitamin D level IMAGING FOLLOW-UP: Follow-up x-rays with orthopedics in 4 to 6 weeks LABS AND PROCEDURES PENDING AT DISCHARGE: Follow-up blood cultures-pending final result FOLLOW UP: Patient will need to follow-up with primary care physician, orthopedics, neurosurgery and endocrine soon after discharge from the hospital. REASON FOR HOSPITALIZATION: Right groin pain PRINCIPAL DIAGNOSIS: Closed fracture pubic rami, sacral fracture SECONDARY DIAGNOSIS: Principal Problem: Closed fracture of multiple pubic rami, right, initial encounter (HCC) (POA: Yes) Active Problems: Anxiety and depression (POA: Yes) Primary hypertension (POA: Yes) Chronic back pain (POA: Yes) Osteoarthritis (POA: Yes) HLD (hyperlipidemia) (POA: Yes) Hypokalemia (POA: Yes) High serum bicarbonate (POA: Yes) Closed fracture of sacrum (HCC) (POA: Yes) Obesity, Class III, BMI >= 40 (POA: Unknown) Resolved Problems: * No resolved hospital problems. * HOSPITAL COURSE: Sheyla Chong is a 53 year old female with past medical history notable for hypertension, osteoarthritis, chronic back pain, fibromyalgia, depression/anxiety, and CHASE noncompliant with CPAP who presented with right groin pain. Patient was admitted to the hospital for further treatment and evaluation. Prior CT imaging revealed patient to have a closed fracture of pubic rami and sacral fracture. Orthopedics was consulted and felt that no acute surgical intervention was needed. Patient should continue protected weightbearing with a walker for the next 6 weeks. Recommended endocrinology outpatient endocrine consult, vitamin D and calcium supplementation. Recommended 50,000 vitamin D weekly X 12 weeks and calcium daily. In the emergency department patient had CT lumbar spine which showed an acute Schmorl's node along the superior endplate of L3 causing less than 30% compression. Moderate degenerative disc disease, mild canal stenosis at L4-5, severe right L5-S1 and moderate left L5-S1 neural foraminal stenosis. Findings of CT lumbar spine was discussed with neurosurgery-Dr. Covington. Neurosurgery felt patient did not require any urgent surgical intervention, recommended pain control, PT can consider right L4-5, L5-S1 transformational injection as outpatient. If patient does not get better can consider MRI lumbar spine and follow-up as an outpatient. Patient will likely benefit from Pain management as an outpatient. PT/OT recommended home health. Patient stated that her pain was better managed on medication. Patient wanted to leave the hospital soon as possible. Patient's hospital course and need for follow-up were explained to patient who is in understanding. Patient will need to follow-up with PCP regarding blood cultures. Patient will need to follow-up with primary care physician, orthopedics, spine and endocrine soon after discharge from the hospital. OPERATIONS/PROCEDURE DURING THIS HOSPITALIZATION: * No surgery found * CONSULTS DURING HOSPITALIZATION: Treatment Team: Attending Provider: Sona Aponte MD Consulting: Genesis Nava MD Orders Placed This Encounter CONSULT TO ENDOCRINOLOGY Physician Consult Follow-Up Appointment Follow-Up Appointment Follow-Up Appointment PATIENT CONDITION AT DISCHARGE: Stable ADVANCE CARE PLANNING DISCUSSION (if applicable): N/A DISCHARGE DISPOSITION: Home with Home Health Physical Exam Constitutional: In no apparent distress. Vital signs stable. Obese Eye: Pupils are equal. Extraocular motions intact ENMT: No visible external trauma. Hearing grossly intact. Neck: No adenopathy, no Jugular Vein Distention Cardiovascular: Regular rate and rhythm. S1 and S2 Respiratory: Chest with clear breath sounds bilaterally Gastrointestinal: Soft, without detectable tenderness. No sign of distention. No rebound or guarding, no masses palpated. Bowel sounds pres (more content not included)... Normal [facility] CONSULTon 05-30-2023 CONSULT HNO ID: [id number] Author: GENESIS NAVA MD Service: Orthopaedic Surgery Author Type: Physician Type: Consults Filed: 05/30/2023 10:23 Note Text: Orthopaedic Surgery Admission/Consult History and Physical Patient Name: Sheyla Chong Admission Date: 05/29/2023 Date of Evaluation: 05/30/2023 Time of Evaluation: 10:21 AM CC: Sheyla Chong is a 53 year old y/o female consult to orthopaedics regarding right pelvic fractures HPI: Sheyla Chong is a 53 year old y/o female with past medical history of obstructive sleep apnea, morbid obesity with a BMI of 41, now admitted to the hospital with nondisplaced pubic rami and sacral ala fracture on the right side. She cannot recall any trauma or miss step. She reports worsening groin and buttock pain over the past 2 weeks. She had initial x-rays that were negative. She then subsequently had CT scan which demonstrated these nondisplaced insufficiency fractures about her right hemipelvis. Denies neurovascular changes. Denies systemic changes systemic symptoms or oncologic disease. Does vape PAST MEDICAL HISTORY: PAST MEDICAL HISTORY Diagnosis Date Anxiety Arthritis of yjgddtoy-cprxgwoxn-mffr ezoid joint of right hand Bilateral knee pain Depression Fibromyalgia Hypertension Mixed hyperlipidemia CHASE (obstructive sleep apnea) Pneumonia community aquired Right wrist pain Tobacco use disorder PAST SURGICAL HISTORY: PAST SURGICAL HISTORY Procedure Laterality Date SECTION HX 2004 3 SECTIONS last one in 2004 HYSTERECTOMY HX 2008 KNEE ARTHROSCOPY/SURGERY Left 2017 WRIST SURGERY HX 07/2020 PAST FAMILY HISTORY: FAMILY HISTORY Problem Relation Age of Onset Obesity Mother Diabetes Father Obesity Father SOCIAL HISTORY: Social History Socioeconomic History Marital status: Single Spouse name: Not on file Number of children: Not on file Years of education: Not on file Highest education level: 12th grade Occupational History Not on file Tobacco Use Smoking status: Former Packs/day: 0.50 Years: 3.00 Additional pack years: 0.00 Total pack years: 1.50 Types: Cigarettes Quit date: 06/2022 Years since quittin.9 Smokeless tobacco: Never Vaping Use Vaping Use: Never used Substance and Sexual Activity Alcohol use: No Drug use: Yes Comment: rx percocet abuse- 4 years October Sexual activity: Yes Other Topics Concerns: Not on file Social History Narrative Not on file Social Determinants of Health Financial Resource Strain: Patient Declined (05/19/2023) Overall Financial Resource Strain (CARDIA) Difficulty of Paying Living Expenses: Patient declined Food Insecurity: Patient Declined (05/19/2023) Hunger Vital Sign Worried About Running Out of Food in the Last Year: Patient declined Ran Out of Food in the Last Year: Patient declined Transportation Needs: Patient Declined (05/19/2023) PRAPARE - Transportation Lack of Transportation (Medical): Patient declined Lack of Transportation (Non-Medical): Patient declined Physical Activity: Unknown (05/19/2023) Exercise Vital Sign Days of Exercise per Week: 4 days Minutes of Exercise per Session: Patient declined Stress: Patient Declined (05/19/2023) [place] [employer] - Occupational Stress Questionnaire Feeling of Stress : Patient declined Social Connections: Patient Declined (05/19/2023) Social Connection and Isolation Panel [NHANES] Frequency of Communication with Friends and Family: Patient declined Frequency of Social Gatherings with Friends and Family: Patient declined Attends Faith Services: Patient declined Active Member of Clubs or Organizations: Patient declined Attends Club or Organization Meetings: Patient declined Marital Status: Patient declined Housing Stability: Unknown (05/19/2023) Housing Stability Vital Sign Unable to Pay for Housing in the Last Year: Patient refused Number of Places Lived in the Last Year: Not on file Unstable Housing in the Last Year: Patient refused COMPLETE REVIEW OF SYSTEMS: ONLY ORTHOPAEDIC REVIEWED PHYSICAL EXAM: BP 148/76 Pulse (!) 51 Temp 36.8 ?C (98.2 ?F) (Temporal Artery) Resp 16 Ht 166.4 cm (5' 5.5 ) Wt 113.4 kg (250 lb) SpO2 96% BMI 40.97 kg/m? Extremity Exam Right lower extremity Atraumatic in appearance Normal length Neurovascular intact Does hurt with hip range of motion and direct compression Imaging: Nondisplaced pubic rami and sacral ala fractures Labs: CBC, Coags, BMP, Mg, Phos Recent Labs 05/30/23 0706 05/29/23 1824 WBC 11.31* 15.11* HB 13.5 14.3 HCT 42.7 42.7 PLT 268 310 NA 140 138 K 3.9 2.9* CHLOR 99 96* CO2 33* 34* BUN 16 20 CREAT 0.85 0.86 GLUC 92 91 CA 8.9 8.8 MG -- 2.3 PROCEDURE: Not applicable ASSESSMENT: Sheyla Chong is a 53 year old y/o female presents with nondisplaced right sacral ala and pubic rami fractures (more content not included)... Normal [facility] THERAPY NTon 05-30-2023 THERAPY NT HNO ID: [id number] Author: EMEKA BARTHOLOMEW, OTR/L Service: Occupational Therapy Author Type: Occupational Therapist Type: Therapy (PT/OT/Speech/Resp) Filed: 05/30/2023 13:05 Note Text: Occupational Therapy Evaluation Summary SERVICE DATE: 05/30/2023 SERVICE TIME: 1232 to 1255 ROOM: [place] [address] OT 6 Clicks Score: 20 Total Joint Replacement Discharge Readiness: Cleared from Occupational Therapy DISCHARGE RECOMMENDATIONS Home Recommended Discharge Disposition Comments: Pt presents with pain impacting functional transfers and self care tasks. Following evaluation and tx session, pt is safe to go home with no further OT needs. Anticipated Discharge Needs: Physical Assist at Home, Supervision at Home Physical Assist at Home for: Cleaning, Laundry, Meals, Shopping, Transportation Supervision at Home due to: Other: See Comment (wet shower transfers) ASSESSMENT Response to Therapy Interventions: Good Participation in Activities, On-Track to Achieve Discharge Goals Pt pleasant and motivated. 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 Pt educated on use of LB equipment in the event pain impedes function. Pt educated on proper use of RW, and it's role in decreased pain. PRECAUTIONS Fall Risk BLE Protective WB - WBAT in FWW CURRENT HOSPITAL COURSE CT hip showing Right superior and inferior rami fractures. Bilateral sacral alae insufficiency fractures.; CT lumbar showing Findings compatible with an acute Schmorl's node along the superior endplate of L3 causing less than 30% compression. Moderate degenerative disc and facet disease as detailed above. Broad-based disc protrusion causes mild canal stenosis at L4-L5. Severe right L5-S1 and moderate left L5-S1 neural foraminal stenoses Relevant Past Medical History: hypertension, osteoarthritis, chronic back pain, fibromyalgia, depression/anxiety, and CHASE noncompliant with CPAP HOME LIVING Patient Lives With: Significant Other Assistance Available: Part-Time, Other: See Comment Comments: However reports has good support system and available to have 24/7 care if necessary Entry To Home: Stairs, Without Rail Number Of Stairs Into Home: 2 Number Of Stairs To Bed/Bath: 0 Tub/Shower Type: tub shower + transfer bench + grab bar + HHSH Laundry: basement, friends/family able to assist per pt Equipment Owned: Cane, Grab Bars- Shower, Hand Held Shower, Commode- Bedside, Rollator, Walker- Wheeled, Shower Chair, Extended Tub Bench, Wheelchair- Manual PRIOR FUNCTIONAL LEVEL Within Functional Limits Pt was I for ADLs, IADLs, no falls, sleeps in flat bed. Active. Amb w/o AD. Baseline Cognition: Oriented to self, Oriented to time, Oriented to place, Oriented to situation SUBJECTIVE I work but make my own schedule COGNITION Responsiveness: Alert, Awake Follows Commands: 3-step Commands THERAPY DIAGNOSIS Reduced mobility-other, Decreased activities of daily living (ADL), Muscle Weakness (generalized), Unsteadiness on feet TREATMENT INTERVENTIONS Evaluation, Self Fpc Management (24032) Timed Code Treatment (minutes): 8 Skilled Treatment Time (minutes): 23 TRAINING AND EDUCATION PROVIDED Activity Adaptation/Compensatory Strategies, Assistive Device Use, Benefits of In-Hospital Mobility, Bed Mobility, Discharge Planning, Energy Conservation, Expected Functional Level, Functional Mobility Involving ADLs, Grooming Tasks, Health Literacy, Insight into Deficits, Lower Extremity Bathing, Lower Extremity Dressing, Positioning, Precautions/Restriction s, Role of Occupational Therapy, Sitting Balance to Improve [place] with ADLs/Self-Care, Standing Balance to Improve [place] with ADLs/Self-Care, Transfer - Sit to Stand, Treatment Protocol THERAPEUTIC SKILLS USED Activity Dosing, Cues for Sequencing/Proper Technique for Activity, Cuing Tactile, Cuing Verbal, Cuing Visual, Movement Facilitation, Physical Assist, Task Analysis Learning, Teach-Back for Education, Therapeutic Use of Self FUNCTIONAL STATUS Activities of Daily Living Assist Level Additional Information Feeding Independent Grooming Additional Information, Set Up at sink to brush teeth Bathing Upper Body Set Up, Additional Information seated Bathing Lower Body Minimal Assistance, Additional Information to reach bottom of feet based on pain Dressing Upper Body Set Up Dressing Lower Body Minimal Assistance, Additional Information to don socks, cues to use RW for balance when pulling up shorts Toileting Supervision Mobility Assist Level Additional Information Bed Mobility Sit to Stand Contact Guard Assistance Stand to Sit Contact Guard Assistance Bed to Chair Toilet/Commode Shower Functional Mobility Additional Information, Stand By Assistance Functional Mobility Device: Wheeled Walker bed<>sink GOALS Patient елена (more content not included)... [facility] THERAPY NT HNO ID: [id number] Author: AIRAM GREENBERG PT Service: Physical Therapy Author Type: Physical Therapist Type: Therapy (PT/OT/Speech/Resp) Filed: 05/30/2023 12:41 Note Text: Summary: PT Eval Physical Therapy Evaluation Summary SERVICE DATE: 05/30/2023 SERVICE TIME: 1148 to 1226 ROOM: [id number]- PT 6 Clicks Score: 19 DISCHARGE RECOMMENDATIONS Home PT Recommended Discharge Disposition Comments: Pt currently functioning below baseline. Pt presents with decreased ROM, decreased strength, impaired activity tolerance, impaired balance, and overall decreased funtional mobility. Pt would benefit from continued skilled services post acute stay to address deficits Recommended Discharge Equipment: No equipment needs anticipated ASSESSMENT Response to Therapy Interventions: Good Participation in Activities, Improved Tolerance for Activity, On-Track to Achieve Discharge Goals, Multiple Ongoing Medical Issues Education provided re: safe techniques for stair negotiation with 1 person assist, safe gait training with FWW, how to adjust FWW to appropriate height and s/sx of improper AD height. Demonstration provided for walker height. Pt verbalizes understanding. Patient states she has access to any DME she needs. Discussed benefits of possible chair cushion for pain relief PRECAUTIONS Fall Risk BLE Protective WB - WBAT in FWW CURRENT HOSPITAL COURSE CT hip showing Right superior and inferior rami fractures. Bilateral sacral alae insufficiency fractures.; CT lumbar showing Findings compatible with an acute Schmorl's node along the superior endplate of L3 causing less than 30% compression. Moderate degenerative disc and facet disease as detailed above. Broad-based disc protrusion causes mild canal stenosis at L4-L5. Severe right L5-S1 and moderate left L5-S1 neural foraminal stenoses Relevant Past Medical History: hypertension, osteoarthritis, chronic back pain, fibromyalgia, depression/anxiety, and CHASE noncompliant with CPAP HOME LIVING Patient Lives With: Significant Other Assistance Available: Part-Time, Other: See Comment Comments: However reports has good support system and available to have 24/7 care if necessary Entry To Home: Stairs, Without Rail Number Of Stairs Into Home: 2 Number Of Stairs To Bed/Bath: 0 Tub/Shower Type: tub shower + transfer bench + grab bar + HHSH Laundry: basement, friends/family able to assist per pt Equipment Owned: Cane, Grab Bars- Shower, Hand Held Shower, Commode- Bedside, Rollator, Walker- Wheeled, Shower Chair, Extended Tub Bench, Wheelchair- Manual PRIOR FUNCTIONAL LEVEL Within Functional Limits Pt reports independence with ADLs/IADLs [employer]OR [place], 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 Patient reports onset of pain worsening over past few weeks, denies fall or trauma. + driving, typically does not ambulate with AD however was using rollator Thursday secondary to intense pain SUBJECTIVE Pt reports, I knew something was wrong Thursday when I couldn't walk unassisted. I was using a rollator Thursday and could barely move Thursday. Before that, I was walking but still in pain. Agreeable to PT, cleared with RN THERAPY DIAGNOSIS Reduced mobility-other, Difficulty walking-musculoskeletal TREATMENT INTERVENTIONS Evaluation, Gait Training (25262), Therapeutic Activity (20426) Timed Code Treatment (minutes): 23 Skilled Treatment Time (minutes): 38 TRAINING AND EDUCATION PROVIDED Anatomy and Impact on Deficits, Assistive Device Use, Bed Mobility, Benefits of In-Hospital Mobility, Discharge Planning, Expected Functional Level, Falls Prevention, Gait Pattern, Reduction of Deviations, Role of Physical Therapy, Sitting Balance, Standing Balance, Transfers, Treatment Protocol THERAPEUTIC SKILLS USED Activity Dosing, Cues for Sequencing/Proper Technique for Activity, Cuing Tactile, Cuing Verbal, Cuing Visual, Management of Critical Lines, Tubes and/or Drains, Muscle Activation Facilitation, Physical Assist, Postural Alignment Correction FUNCTIONAL STATUS Bed Mobility Supine To Sit: Stand By Assistance Sit to Supine: Stand By Assistance Scooting: Contact Guard Assistance Transfers Sit To Stand: Contact Guard Assistance Stand To Sit: Contact Guard Assistance Bed to Chair Gait Contact Guard Assistance Gait Device: Wheeled Walker Gait Distance (feet): 1 X 25 Stairs Minimal Assistance Curb Step: Contact Guard Assistance GOALS Patient will demonstrate progress with functional mobility to allow safe discharge to home with available support and/or physical assistance. Transfer Supine to/from Sit with: Stand By Assistance Transfer Sit to/from Stand with: Stand By Assistance Ambulate with: Stand By Assistance Distance: 80 feet Device: Wheeled Walker Ambul (more content not included)... [facility] HNO ID: [id number] Author: AIRAM GREENBERG, PT Service: Physical Therapy Author Type: Physical Therapist Type: Therapy (PT/OT/Speech/Resp) Filed: 05/30/2023 08:24 Note Text: Summary: PT MV PHYSICAL THERAPY MISSED VISIT SERVICE DATE: 05/30/2023 SERVICE TIME: 821 ROOM: [place] [address] Patient not seen due to Clinical Appropriateness. Awaiting ortho consult for multiple pelvic/sacral fractures with no known trauma/etiology. Will re-attempt with updated ortho recommendations when patient is medically appropriate for mobility tasks. SIGNATURE: Airam Greenberg, PT PATIENT NAME: Sheyla Chong DATE: May 30, 2023 TIME: 8:23 AM Normal [facility] URINALYSIS, REFLEX MICROSCOP ICon 05-30-2023 Bilirubin Ql (U) Negative Normal Negative [facility] Comment on above: Order Comment: Speci men Type: URINE SPECIMENOrdering Facility: [facility] Address: [address] [place] [address] Performed By: #### L [id number] ####[facility] LABORATORYCLIA [id number] [place] [address] [place] Clarity (Unsp spec) Clear Normal Clear [facility] [facility] Comment on above: Order Comment: Speci men Type: URINE SPECIMENOrdering Facility: [facility] Address: [address] [place] [address] Performed By: #### L [id number] ####[facility] LABORATORYCLIA [id number] [place] [address] [place] Color (U) Yellow Normal Yellow [facility] Comment on above: Order Comment: Speci men Type: URINE SPECIMENOrdering Facility: [facility] Address: [address] [place] [address] Performed By: #### L [id number] ####[facility] LABORATORYCLIA [id number] [place] [address] [place] Epithelial cells LM.HPF (Urine sed) [#/Area] Few Normal [facility] Comment on above: Order Comment: Speci men Type: URINE SPECIMENOrdering Facility: [facility] Address: [address] [place] [address] Performed By: #### L [id number] ####[facility] LABORATORYCLIA [id number] [place] [address] [place] Glucose Test strip (U) [Mass/Vol] Negative Normal Negative [facility] Comment on above: Order Comment: Speci men Type: URINE SPECIMENOrdering Facility: [facility] Address: [address] [place] [address] Performed By: #### L [id number] ####[facility] LABORATORYCLIA [id number] [place] [address] [place] Hemoglobin Ql (U) Negative Normal Negative [facility] Comment on above: Order Comment: Speci men Type: URINE SPECIMENOrdering Facility: [facility] Address: [address] [place] [address] Performed By: #### L [id number] ####[facility] LABORATORYCLIA [id number] [place] [address] [place] Ketones Ql (U) Negative Normal Negative [facility] Comment on above: Order Comment: Speci men Type: URINE SPECIMENOrdering Facility: [facility] Address: [address] [place] [address] Performed By: #### L [id number] ####[facility] LABORATORYCLIA [id number] [place] [address] [place] Leukocyte esterase Test strip Ql (U) Trace Abnormal Negative [facility] Comment on above: Order Comment: Speci men Type: URINE SPECIMENOrdering Facility: [facility] Address: [address] [place] [address] Performed By: #### L [id number] ####M[facility] LABORATORYCLIA [id number] [place] [address] [place] Nitrite Ql (U) Negative Normal Negative [facility] Comment on above: Order Comment: Speci men Type: URINE SPECIMENOrdering Facility: [facility] Address: [address] [place] [address] Performed By: #### L [id number] ####[facility] LABORATORYCLIA [id number] [address] [place] pH (U) 7.0 [pH] Normal 5.0-8.0 [facility] Comment on above: Order Comment: Speci men Type: URINE SPECIMENOrdering Facility: [facility] Address: [address] [place] [address] Performed By: #### L [id number] ####[facility] LABORATORYCLIA [id number] [address] [place] Protein (U) [Mass/Vol] Negative Normal Negative [facility] Comment on above: Order Comment: Speci men Type: URINE SPECIMENOrdering Facility: [facility] Address: [address] [place] [address] Performed By: #### L [id number] ####[facility] LABORATORYCLIA [id number] [address] [place] RBC LM.HPF (Urine sed) [#/Area] 0-3 /HPF Normal 0-3 /HPF [facility] Comment on above: Order Comment: Speci men Type: URINE SPECIMENOrdering Facility: [facility] Address: [address] [place] [address] Performed By: #### L [id number] ####[facility] LABORATORYCLIA [id number] [address] Specific gravity (U) [Rel density] 1.010 Normal 1.005-1.030 [facility] Comment on above: Order Comment: Speci men Type: URINE SPECIMENOrdering Facility: [facility] Address: [address] [place] [address] Performed By: #### L [id number] ####[facility] LABORATORYCLIA [id number] [address] STATES [facility] Urobilinogen Ql (U) 0.2 EU/dL Normal 0.2-1.0 EU/dL [facility] Comment on above: Order Comment: Speci men Type: URINE SPECIMENOrdering Facility: [facility] Address: [address] [place] [address] Performed By: #### L [id number] ####[facility] LABORATORYCLIA [id number] [address] STATES [facility] WBC LM.HPF (Urine sed) [#/Area] 0-5 /HPF Normal 0-5 /HPF [facility] Comment on above: Order Comment: Speci men Type: URINE SPECIMENOrdering Facility: [facility] Address: [address] [place] [address] Performed By: #### L [id number] ####[facility] LABORATORYCLIA [id number] [address] XR CHEST 1V FRONTAL PORTon 0 05-30-2023 XR CHEST 1V FRONTAL PORT * * *Final Report* * * DATE OF EXAM: May 30 2023 6:18AM MDX [id number] - XR CHEST 1V FRONTAL PORT / PROCEDURE REASON: Sepsis * * * * Physician Interpretation * * * * EXAMINATION: CHEST RADIOGRAPH (PORTABLE SINGLE VIEW AP) Exam Date/Time: 05/30/2023 6:18 AM CLINICAL HISTORY: Sepsis MQ: XCPR_5 Comparison: None RESULT/ IMPRESSION: Lines, tubes, and devices: None. Lungs and pleura: No edema, infiltrates, pulmonary nodules or pleural effusions. No pneumothorax. Cardiomediastinal silhouette: Borderline enlargement. Other: . Pharmacist'S Aide: PSCB Transcribe Date/Time: May 30 2023 6:56A Dictated by : TAJ CAMPOS MD This examination was interpreted and the report reviewed and electronically signed by: TAJ CAMPOS MD on May 30 2023 6:57AM EST [id number] Normal [facility] 25(OH[facility]3 [facility] 25-hydroxyvitamin D3 [Mass/Vol] 7.3 ng/mL Low 31.0-80.0 [facility] Comment on above: Order Comment: Speci men Type: BLOOD SPECIMENOrdering Facility: [facility] Address: [address] [place], [place] [address] [address] Performed By: #### 1 989-3 ####[facility] LABCLIA [id number] [address] [place] ALLIED HEALTHon 05-29-2023 ALLIED HEALTH HNO ID: [id number] Author: KESHAV MCCORMACK RT(R) Service: Radiology Author Type: Technologist Type: Allied Health Filed: 05/29/2023 16:25 Note Text: Radiology Service Progress Note PATIENT NAME: Sheyla Chong DATE OF SERVICE: May 29, 2023 TIME: 4:25 PM PATIENT IDENTITY VERIFICATION COMPLETED USING TWO (2) IDENTIFIERS: Name and Date of confirmed by patient verbally and Name and Date of confirmed by identification band. FALL SCREENING: Has the patient had 2 falls in the last year or 1 fall with injury or currently using an Ambulatory Assistive Device (Walker, Cane, Wheelchair, Crutches, etc.)? Emergency Room Patient: Screened in ED PATIENT GENDER DATA: Female. status: : No status: NO. PATIENT RELEVANT IMPLANT DATA REVIEWED: Yes PATIENT PRESENTS WITH AN IMPLANTABLE OR ATTACHED CARE SERVICES MANAGER: No RADIOLOGY DEPARTMENT: CT; Exam(s) Completed: Spine PERIPHERAL IV DATA: Not applicable SIGNED BY: RT Doron(R) May 29, 2023 4:25 PM Normal [facility] Bacteria Bld Culton 05-29-19 24 Bacteria identified Cx Nom (Bld) CULTURE, BLOOD: No growth 5 days Normal [facility] Comment on above: Performed By: #### 6 00-7 ####[facility] LABCLIA [id number] [address] [place] Bacteria identified Cx Nom (Bld) CULTURE, BLOOD: No growth 5 days Normal [facility] Comment on above: Performed By: #### 6 00-7 ####[facility] LABCLIA [id number] [facility] [id number] [address] [place] CBC W Auto Differential pane l (Bld)on 05-29-2023 Basophils (Bld) [#/Vol] 0.05 10*3/uL Normal <0.11 [facility] Comment on above: Order Comment: Speci men Type: BLOOD SPECIMENOrdering Facility: [facility] Address: [address] [place] [address] Performed By: #### 5 7021-8 ####[facility] LABORATORYCLIA [id number] [place] [address] [place] Basophils/100 WBC (Bld) 0.3 % Normal [facility] Comment on above: Order Comment: Speci men Type: BLOOD SPECIMENOrdering Facility: [facility] Address: [address] [place] [address] Performed By: #### 5 7021-8 ####[facility] LABORATORYCLIA [id number] [place] [address] [place] Differential cell count method Nom (Bld) Auto Normal [facility] Comment on above: Order Comment: Speci men Type: BLOOD SPECIMENOrdering Facility: [facility] Address: [address] [place] [address] Performed By: #### 5 7021-8 ####[facility] LABORATORYCLIA [id number] [place] [address] [place] Eosinophils (Bld) [#/Vol] 0.16 10*3/uL Normal <0.46 [facility] Comment on above: Order Comment: Speci men Type: BLOOD SPECIMENOrdering Facility: [facility] Address: [address] [place] [address] Performed By: #### 5 7021-8 ####[facility] LABORATORYCLIA [id number] [place] [address] [place] Eosinophils/100 WBC (Bld) 1.1 % Normal [facility] Comment on above: Order Comment: Speci men Type: BLOOD SPECIMENOrdering Facility: [facility] Address: [address] [place] [address] Performed By: #### 5 7021-8 ####[facility] LABORATORYCLIA [id number] [address] [place] Erythrocyte distribution width (RBC) [Ratio] 14.7 % Normal 11.5-15.0 [facility] Comment on above: Order Comment: Speci men Type: BLOOD SPECIMENOrdering Facility: [facility] Address: [address] [place] [address] Performed By: #### 5 7021-8 ####[facility] LABORATORYCLIA [id number] [address] [place] Hematocrit (Bld) [Volume fraction] 42.7 % Normal 36.0-46.0 [facility] Comment on above: Order Comment: Speci men Type: BLOOD SPECIMENOrdering Facility: [facility] Address: [address] [place] [address] Performed By: #### 5 7021-8 ####[facility] LABORATORYCLIA [id number] [address] [place] Hemoglobin (Bld) [Mass/Vol] 14.3 g/dL Normal 11.5-15.5 [facility] Comment on above: Order Comment: Speci men Type: BLOOD SPECIMENOrdering Facility: [facility] Address: [address] [place] [address] Performed By: #### 5 7021-8 ####[facility] LABORATORYCLIA [id number] [address] [place] Immature granulocytes (Bld) [#/Vol] 0.08 10*3/uL Normal <0.10 [facility] Comment on above: Order Comment: Speci men Type: BLOOD SPECIMENOrdering Facility: [facility] Address: [address] [place] [address] Performed By: #### 5 7021-8 ####[facility] LABORATORYCLIA [id number] [address] Immature granulocytes/100 WBC (Bld) 0.5 % Normal [facility] Comment on above: Order Comment: Speci men Type: BLOOD SPECIMENOrdering Facility: [facility] Address: [address] [place] [address] Performed By: #### 5 7021-8 ####[facility] LABORATORYCLIA [id number] [place] [address] [place] Lymphocytes (Bld) [#/Vol] 3.44 10*3/uL Normal 1.00-4.00 [facility] Comment on above: Order Comment: Speci men Type: BLOOD SPECIMENOrdering Facility: [facility] Address: [address] [place] [address] Performed By: #### 5 7021-8 ####[facility] LABORATORYCLIA [id number] [address] [place] Lymphocytes/100 WBC (Bld) 22.8 % Normal [facility] Comment on above: Order Comment: Speci men Type: BLOOD SPECIMENOrdering Facility: [facility] Address: [address] [place] [address] Performed By: #### 5 7021-8 ####[facility] LABORATORYCLIA [id number] [address] [place] MCH (RBC) [Entitic mass] 29.9 pg Normal 26.0-34.0 [facility] Comment on above: Order Comment: Speci men Type: BLOOD SPECIMENOrdering Facility: [facility] Address: [address] [place] [address] Performed By: #### 5 7021-8 ####[facility] LABORATORYCLIA [id number] [address] MCHC (RBC) [Mass/Vol] 33.5 g/dL Normal 30.5-36.0 [facility] Comment on above: Order Comment: Speci men Type: BLOOD SPECIMENOrdering Facility: [facility] Address: [address] [place] [address] Performed By: #### 5 7021-8 ####[facility] LABORATORYCLIA [id number] [address] MCV (RBC) [Entitic vol] 89.1 fL Normal 80.0-100.0 [facility] Comment on above: Order Comment: Speci men Type: BLOOD SPECIMENOrdering Facility: [facility] Address: [address] [place] [address] Performed By: #### 5 7021-8 ####[facility] LABORATORYCLIA [id number] [place] [address] [place] Monocytes (Bld) [#/Vol] 1.10 10*3/uL High <0.87 [facility] Comment on above: Order Comment: Speci men Type: BLOOD SPECIMENOrdering Facility: [facility] Address: [address] [place] [address] Performed By: #### 5 7021-8 ####[facility] LABORATORYCLIA [id number] [address] [place] Monocytes/100 WBC (Bld) 7.3 % Normal [facility] Comment on above: Order Comment: Speci men Type: BLOOD SPECIMENOrdering Facility: [facility] Address: [address] [place] [address] Performed By: #### 5 7021-8 ####[facility] LABORATORYCLIA [id number] [address] [place] Neutrophils (Bld) [#/Vol] 10.28 10*3/uL High 1.45-7.50 [facility] Comment on above: Order Comment: Speci men Type: BLOOD SPECIMENOrdering Facility: [facility] Address: [address] [place] [address] Performed By: #### 5 7021-8 ####[facility] LABORATORYCLIA [id number] [address] [place] Neutrophils/100 WBC (Bld) 68.0 % Normal [facility] Comment on above: Order Comment: Speci men Type: BLOOD SPECIMENOrdering Facility: [facility] Address: [address] [place] [address] Performed By: #### 5 7021-8 ####[facility] LABORATORYCLIA [id number] [place] [address] [place] Nucleated RBC (Bld) [#/Vol] 10*3/uL Normal <0.01 [facility] Comment on above: Order Comment: Speci men Type: BLOOD SPECIMENOrdering Facility: [facility] Address: [address] [place], [place] [address] Performed By: #### 5 7021-8 ####[facility] LABORATORYCLIA [id number] [address] [place] Nucleated RBC/100 WBC (Bld) [Ratio] 0.0 /100 WBC Normal [facility] Comment on above: Order Comment: Speci men Type: BLOOD SPECIMENOrdering Facility: [facility] Address: [address] [place] [address] Performed By: #### 5 7021-8 ####[facility] LABORATORYCLIA [id number] [address] [place] Platelet mean volume (Bld) [Entitic vol] 9.1 fL Normal 9.0-12.7 [facility] Comment on above: Order Comment: Speci men Type: BLOOD SPECIMENOrdering Facility: [facility] Address: [address] [place] [address] Performed By: #### 5 7021-8 ####[facility] LABORATORYCLIA [id number] [address] [place] Platelets (Bld) [#/Vol] 310 10*3/uL Normal 150-400 [facility] Comment on above: Order Comment: Speci men Type: BLOOD SPECIMENOrdering Facility: [facility] Address: [address] [place] [address] Performed By: #### 5 7021-8 ####[facility] LABORATORYCLIA [id number] [address] [place] RBC (Bld) [#/Vol] 4.79 10*6/uL Normal 3.90-5.20 [facility] Comment on above: Order Comment: Speci men Type: BLOOD SPECIMENOrdering Facility: [facility] Address: [address] [place] [address] Performed By: #### 5 7021-8 ####[facility] LABORATORYCLIA [id number] [address] [place] WBC (Bld) [#/Vol] 15.11 10*3/uL High 3.70-11.00 [facility] Comment on above: Order Comment: Speci men Type: BLOOD SPECIMENOrdering Facility: [facility] Address: [address] [place] [id number] Performed By: #### 5 7021-8 ####[facility] LABORATORYCLIA [id number] [address] OF [facility] CT LUMBAR SPINE WO IVCONon 0 05-29-2023 CT LUMBAR SPINE WO IVCON * * *Final Report* * * DATE OF EXAM: May 29 2023 4:11PM [facility] [place] LUMBAR SPINE WO IVCON / PROCEDURE REASON: Low back pain, trauma * * * * Physician Interpretation * * * * EXAMINATION: CT LUMBAR SPINE WO IVCON CLINICAL HISTORY: Low back pain, trauma TECHNIQUE: Spiral, high resolution axial unenhanced images were obtained from the thoracolumbar junction to the sacrum with sagittal and coronal planar reconstructions. MQ: CTLSPWO_3 CT Radiation dose: Integrated Dose-Length Product (DLP) for this visit = 1611 mGy*cm. CT Dose Reduction Employed: Automated exposure control(AEC) and iterative recon COMPARISON: None. RESULT: Counting reference: Lumbosacral junction. For the purposes of this report, Structural Architect (topogram) images: Unremarkable. Alignment: Alignment is anatomic. Back and disc phenomenon at L5-S1 and L1-L2. Bone marrow /fracture: No evidence of a lytic or blastic process in the visualized spine. There is a large superior endplate Schmorl's node along the anterior superior endplate of L3 which appears to be acute or subacute since there is margin of high attenuation along the periphery. Paraspinal soft tissues: The paraspinal soft tissues planes are maintained. Lower thoracic spine: The visualized lower thoracic bony canal and foramina are patent. L1-L2: Canal and foramina are patent. L2-L3: Canal and foramina are patent L3-L4: Canal and foramina are patent L4-L5: Mild canal stenosis due to broad-based disc protrusion. Bilateral mild neural foraminal stenosis. L5-S1: Mild canal stenosis due to disc osteophyte complex. Moderate left and severe right neural foraminal stenosis due to hypertrophic changes in the facet joints and endplates. Sacrum and iliac wings: The visualized sacrum and iliac wings are within normal limits. IMPRESSION: Findings compatible with an acute Schmorl's node along the superior endplate of L3 causing less than 30% compression. Moderate degenerative disc and facet disease as detailed above. Broad-based disc protrusion causes mild canal stenosis at L4-L5. Severe right L5-S1 and moderate left L5-S1 neural foraminal stenoses. Anatomic Lumbar Variant: None. L4-5 is considered the level of the iliac crest and assume there are 5 lumbar-type vertebrae. Pharmacist'S Aide: PSCB Transcribe Date/Time: May 29 2023 4:40P Dictated by : PHILLIP LAWS MD This examination was interpreted and the report reviewed and electronically signed by: PHILLIP LAWS MD on May 29 2023 4:42PM EST [id number] Normal [facility] Comprehensive metabolic 2000 panelon 05-29-2023 Albumin [Mass/Vol] 4.1 g/dL Normal 3.9-4.9 [facility] Comment on above: Order Comment: Speci men Type: BLOOD SPECIMENOrdering Facility: [facility] Address: [address] [place] [address] Performed By: #### 2 4322-10, ####[facility] LABORATORYCLIA [id number] [place] [address] [place] ALP [Catalytic activity/Vol] 134 U/L High 34-123 [facility] Comment on above: Order Comment: Geraldoi yeimi Type: BLOOD SPECIMENOrdering Facility: [facility] Address: [address] [place] [address] Performed By: #### 2 4322-10, ####[facility] LABORATORYCLIA [id number] [place] [id number] [place] ALT [Catalytic activity/Vol] 10 U/L Normal 7-38 [facility] Comment on above: Order Comment: Speci men Type: BLOOD SPECIMENOrdering Facility: [facility] Address: [facility] [place] [address] Performed By: #### 2 43205-28, ####[facility] LABORATORYCLIA [id number] [place] [address] [place] Anion gap [Moles/Vol] 8 mmol/L Low 9-18 [facility] Comment on above: Order Comment: Speci men Type: BLOOD SPECIMENOrdering Facility: [facility] Address: [address] [address] [place] [address] Performed By: #### 2 432-8, ####[facility] LABORATORYCLIA [id number] [place] [address] [place] AST [Catalytic activity/Vol] 13 U/L Normal 13-35 [facility] Comment on above: Order Comment: Speci men Type: BLOOD SPECIMENOrdering Facility: [facility] Address: [address] [place] [address] Performed By: #### 2 432-8, ####[facility] LABORATORYCLIA [id number] [place] [address] [place] Bilirubin [Mass/Vol] 0.3 mg/dL Normal 0.2-1.3 [facility] Comment on above: Order Comment: Speci men Type: BLOOD SPECIMENOrdering Facility: [facility] Address: [address] [place] [address] Performed By: #### 2 4328, ####[facility] LABORATORYCLIA [id number] [place] [address] [place] Calcium [Mass/Vol] 8.8 mg/dL Normal 8.5-10.2 [facility] Comment on above: Order Comment: Speci men Type: BLOOD SPECIMENOrdering Facility: [facility] Address: [address] [place] [address] Performed By: #### 2 432-8, ####[facility] LABORATORYCLIA [id number] [place] [address] [place] Chloride [Moles/Vol] 96 mmol/L Low 97-105 [facility] Comment on above: Order Comment: Speci men Type: BLOOD SPECIMENOrdering Facility: [facility] Address: [address] [place] [address] Performed By: #### 2 4323-8, ####[facility] LABORATORYCLIA [id number] [place] [id number] [place] CO2 [Moles/Vol] 34 mmol/L High 22-30 [facility] Comment on above: Order Comment: Momo jalloh Type: BLOOD SPECIMENOrdering Facility: [facility] Address: [address] [place] [address] Performed By: #### 2 4323-8, ####[facility] LABORATORYCLIA [id number] [place] [address] [place] Creatinine [Mass/Vol] 0.86 mg/dL Normal 0.58-0.96 [facility] Comment on above: Order Comment: Momo men Type: BLOOD SPECIMENOrdering Facility: [facility] Address: [address] [place] [address] Performed By: #### 2 4323-8, ####[facility] LABORATORYCLIA [id number] [place] [id number] [facility] Creatinine and Glomerular filtration rate.predicted panel (S/P/Bld) 81 mL/min/1.73m??? Normal >=60 [facility] Comment on above: Order Comment: Momo jalloh Type: BLOOD SPECIMENOrdering Facility: [facility] Address: [address] [place] [address] Result Comment: Radha mated Glomerular Filtration Rate (eGFR) is calculated using the 2020 CKD-EPI creatinine equation. This equation utilizes serum creatinine, sex, and age as parameters. The creatinine assay has traceable calibration to isotope dilution-mass spectrometry. Refer to KDIGO guidelines for clinical interpretation. In patients with unstable renal function, e.g. those with acute kidney injury, the eGFR may not accurately reflect actual GFR. Performed By: #### 2 4323-8, ####[facility] LABORATORYCLIA [id number] [place] [address] [place] Glucose [Mass/Vol] 91 mg/dL Normal 74-99 [facility] Comment on above: Order Comment: Momo jalloh Type: BLOOD SPECIMENOrdering Facility: [facility] Address: [address] [place] [address] Result Comment: The [place] Diabetes Association (ADA) provides guidance for cutoff values for fasting glucose and random glucose. The ADA defines fasting as no caloric intake for at least 8 hours. Fasting plasma glucose results between 100 to 125 mg/dL indicate increased risk for diabetes (prediabetes). Fasting plasma glucose results greater than or equal to 126 mg/dL meet the criteria for diagnosis of diabetes. In the absence of unequivocal hyperglycemia, results should be confirmed by repeat testing. In a patient with classic symptoms of hyperglycemia or hyperglycemic crisis, random plasma glucose results greater than or equal to 200 mg/dL meet the criteria for diagnosis of diabetes. Reference: Standards of Medical Care in Diabetes 2016, [place] Diabetes Association. Diabetes Care. 2016.39(Suppl 1). Performed By: #### 2 4322-10, ####[facility] LABORATORYCLIA [id number] [place] [address] [place] Potassium [Moles/Vol] 2.9 mmol/L Low 3.7-5.1 [facility] Comment on above: Order Comment: Geraldoi yeimi Type: BLOOD SPECIMENOrdering Facility: [facility] Address: [address] [place] [address] Performed By: #### 2 4322-10, ####[facility] LABORATORYCLIA [id number] [place] [address] [place] Protein [Mass/Vol] 6.8 g/dL Normal 6.3-8.0 [facility] Comment on above: Order Comment: Geraldoi yeimi Type: BLOOD SPECIMENOrdering Facility: [facility] Address: [address] [place] [address] Performed By: #### 2 4322-10, ####[facility] LABORATORYCLIA [id number] [place] [address] [place] Sodium [Moles/Vol] 138 mmol/L Normal 136-144 [facility] Comment on above: Order Comment: Speci men Type: BLOOD SPECIMENOrdering Facility: [facility] Address: [address] [place] [address] Performed By: #### 2 4322-10, ####[facility] LABORATORYCLIA [id number] [place] [address] [place] Urea nitrogen [Mass/Vol] 20 mg/dL Normal 7-21 [facility] Comment on above: Order Comment: Speci men Type: BLOOD SPECIMENOrdering Facility: [facility] Address: [address] [place] [address] Performed By: #### 2 4323-8, 00901-7 ####[facility] LABORATORYCLIA [id number] [place] [address] [facility] ED NOTEon 05-29-2023 ED NOTE HNO ID: [id number] Author: ZAIN FRENCH RN Service: Nursing Author Type: Registered Nurse Type: ED Notes Filed: 05/29/2023 18:45 Note Text: Attempt to call RN report Ezra to return the call for report [facility] ED NOTE HNO ID: [id number] Author: ZAIN FRENCH RN Service: Nursing Author Type: Registered Nurse Type: ED Notes Filed: 05/29/2023 18:43 Note Text: Pt was updated of her bed assignment She has requested to have her IV moved from AC to her left wrist it was changed per Medic student and RN bedside Normal [facility] ED NOTE HNO ID: [id number] Author: ZAIN FRENCH RN Service: Nursing Author Type: Registered Nurse Type: ED Notes Filed: 05/29/2023 18:21 Note Text: 10 min heads up was provided [facility] ED NOTE HNO ID: [id number] Author: ZAIN FRENCH RN Service: Nursing Author Type: Registered Nurse Type: ED Notes Filed: 05/29/2023 17:55 Note Text: Pt to the bathroom per wheelchair with the assist of 1 pt has increased level of pain with movement [facility] ED NOTE HNO ID: [id number] Author: NILDA HDEZ RN Service: Nursing Author Type: Registered Nurse Type: ED Notes Filed: 05/29/2023 15:31 Note Text: ARIE Stevenson rounds on pt at bedside to assess. Pt has been dealing with right sided hip/groin pain for the past 3-4 weeks. Was seen through her PCP for [facility] and [facility] as well. Pt [facility] xrays done through [facility] and confirmed a fracture but sat out in the ED lobby for 7 hours and never saw a doctor. Pt followed up with a physician through [facility] today and was sent down here for more imaging since she has the fracture but with no injury. [facility] ED PROV NOTEon 05-29-2023 ED PROV NOTE HNO ID: [id number] Author: DANNIE PALMER MD Service: ? Author Type: Physician Type: ED Provider Notes Filed: 05/29/2023 19:11 Note Text: ED Provider Note Patient Name: Sheyla Chong : 1970 SERVICE DATE: 05/29/23 History Patient presents with: Hip Pain Pain Radiology CT 53 year old female h/o HTN, arthritis, presents to ED c/o pelvic fracture and pain. Pt has had progressively worsening pain x 2 weeks to right hip and low back. Seen at [facility], negative hip xrays. Worsening pain and difficulty ambulating, taken to [facility] where she had CT ordered while waiting in the lobby. CT completed but pt left without being seen. Saw fractures results on [facility], followed up today at [facility] and referred to ED for further imaging and pain control. Pt has been using her mothers Rolator but difficulty ambulating, laying in bed mostly. Denies any h/o trauma. History provided by: Medical records, patient and relative PAST MEDICAL HISTORY Diagnosis Date - Anxiety - Arthritis of zeweycca-hnbvsrisv-nbdt ezoid joint of right hand - Bilateral knee pain - Depression - Fibromyalgia - Hypertension - Mixed hyperlipidemia - CHASE (obstructive sleep apnea) - Pneumonia community aquired - Right wrist pain - Tobacco use disorder PAST SURGICAL HISTORY Procedure Laterality Date - SECTION HX 2005 3 SECTIONS last one in 2004 - HYSTERECTOMY HX 2009 - KNEE ARTHROSCOPY/SURGERY Left 2017 - WRIST SURGERY HX 07/2020 FAMILY HISTORY Problem Relation Age of Onset - Obesity Mother - Diabetes Father - Obesity Father Social History Tobacco Use - Smoking status: Former Packs/day: 0.50 Years: 3.00 Additional pack years: 0.00 Total pack years: 1.50 Types: Cigarettes Quit date: 06/2022 Years since quittin.9 - Smokeless tobacco: Never Vaping Use - Vaping Use: Never used Substance and Sexual Activity - Alcohol use: No - Drug use: Yes Comment: rx percocet abuse- 4 years October - Sexual activity: Yes ALLERGIES No Known Allergies Review of Systems Constitutional: Negative for chills and fever. Respiratory: Negative. Cardiovascular: Negative. Genitourinary: Negative. Musculoskeletal: Positive for arthralgias, back pain and gait problem. Skin: Negative. Hematological: Negative. Psychiatric/Behavioral: Negative. Physical Exam Vitals [05/29/23 1519] BP Pulse Temp Temp src Resp SpO2 Weight Height 148/58 82 36.9 ?C (98.5 ?F) Oral 17 95 % 113.4 kg (250 lb) 1.664 m (5' 5.5 ) Physical Exam Vitals and nursing note reviewed. Constitutional: Appearance: Normal appearance. HENT: Head: Normocephalic and atraumatic. Mouth/Throat: Mouth: Mucous membranes are moist. Cardiovascular: Rate and Rhythm: Normal rate. Pulses: Normal pulses. Pulmonary: Effort: Pulmonary effort is normal. Musculoskeletal: Cervical back: Normal range of motion. Comments: Pain with any movement right hip. Skin: General: Skin is warm and dry. Capillary Refill: Capillary refill takes less than 2 seconds. Neurological: Mental Status: She is alert and oriented to person, place, and time. Diagnostic Testing ED Labs Ordered and Reviewed - No data to display CT LUMBAR SPINE WO IVCON Final Result IMPRESSION: Findings compatible with an acute Schmorl's node along the superior endplate of L3 causing less than 30% compression. Moderate degenerative disc and facet disease as detailed above. Broad-based disc protrusion causes mild canal stenosis at L4-L5. Severe right L5-S1 and moderate left L5-S1 neural foraminal stenoses. Anatomic Lumbar Variant: None. L4-5 is considered the level of the iliac crest and assume there are 5 lumbar-type vertebrae. Pharmacist'S Aide: PSCB Transcribe Date/Time: May 29 2023 4:40P Dictated by : PHILLIP LAWS MD This examination was interpreted and the report reviewed and electronically signed by: PHILLIP LAWS MD on May 29 2023 4:42PM EST Procedures ED Course / Clinical Impression Clinical Impressions as of 05/29/23 1856 Pelvic fracture (HCC) Sacral insufficiency fracture, initial encounter Intractable pain Schmorl's node Hypokalemia MDM / Disposition / Plan 53 year old female presents c/o pelvic fracture. Progressively worsening pain x 2 weeks with no injury. CT completed 2 days ago showed pelvic fractures and sacral fracture. Pt has had difficulty ambulating, typically independent gait without issue. No relief with norco at home. Morphine given for pain relief. CT lumbar spine shows acute shmorls node at L3 with ild compression. Degenerative changes noted throughout. Discussed with pt. Continues to have pain and difficulty moving despite IV pain meds. Unclear cause of fractures. No steroid use or other concerning meds. Hypokalemia, IV repletion given. Plan to admit for pain control, ortho to consult. Discussed with Dr Nava. History and Record Review Cli (more content not included)... [facility] HISTORY PHYSICALon HISTORY PHYSICAL HNO ID: [id number] Author: VIANEY BARNARD APRN.GEOSPATIAL EXTRACTOR ANALYSIS Service: Hospital Medicine Author Type: Nurse Practitioner Type: H&P Filed: 05/30/2023 00:09 Note Text: Attestation signed by Linda Byrd MD at 05/30/2023 4:57 AM Discussed with provider below and I agree with their history exam assessment and plan. SIGNATURE: Linda Byrd MD PATIENT NAME: Sheyla Chong DATE: 05/30/2023 TIME: 4:57 AM DEPARTMENT OF HOSPITAL MEDICINE HISTORY AND PHYSICAL EXAM SERVICE DATE: 05/29/2023 SERVICE TIME: 7:55 PM Primary Care Physician: Ruth Swanson MD NIGHT AND WEEKEND COVERAGE: [place] COVERAGE: Days: [phone], please page attending physician. Nights: [phone], please page [facility] Night coverage pager [phone]. Subjective CHIEF COMPLAINT: R groin pain HPI: This is a 53 year old female with past medical history notable for hypertension, osteoarthritis, chronic back pain, fibromyalgia, depression/anxiety, and CHASE noncompliant with CPAP who presents with right groin pain. Patient notes that this pain started approximately 3 weeks ago without any acute trauma that she knows of. Describes the pain as sharp in character with radiation into her back as well as her upper leg. Currently rating pain 7/10 and made acutely worse with ambulation where she is now using a rollator to get around at home when she normally ambulates without any assistive devices. Patient tried using Voltaren, Tylenol, and Percocet at home although these did not provide adequate relief of her symptoms. It should be noted this time that the patient has been seen multiple times for this pain in the emergency room. She was initially seen on 05/17/2023 in the [facility] ED during which her workup was unremarkable and an outpatient duplex ultrasound of the right lower extremity was ordered. She then returned to the emergency room on 05/26/[address] of her hip without contrast on the right showing right superior and inferior rami fractures as well as bilateral sacral alae insufficiency fractures. Duplex ultrasound of the right lower extremity was also obtained which was negative for proximal and calf DVTs as well as superficial thrombophlebitis. Unfortunately, the patient had to wait many hours and thus left the emergency room but reach out to her primary care provider on 05/27/2023. As she was unable to get a hold of her primary care provider, she made an appointment at [facility] today and was directed to come back to the emergency room given that she was having extreme issues ambulating. Also of interest, the patient does endorse frequent bone fractures since she was a child including multiple breaks without trauma with no clear etiology. She has never had any workup related to this. Socially, the patient denies alcohol or recreational drug use however she does endorse vaping use frequently during the day. She also denies fever/chills, headache, dizziness, changes in her vision/hearing, trouble swallowing, chest pain, shortness of breath, cough, nausea/vomiting, abdominal pain, constipation/diarrhea/h ematochezia, urinary changes, new swelling, or new numbness/tingling. In the ED the patient was found to be afebrile and hemodynamically stable on room air. Labs are notable for hypokalemia of 2.9, bicarb of 24, ALP of 134 but other LFTs normal, and leukocytosis of 15.11 with an ANC of 10.28. CT of the lumbar spine showed findings compatible with an acute Schmorl's node along the superior endplate of L3 causing less than 30% compression; moderate degenerative disc and facet disease with broad-based disc protrusion causing mild canal stenosis at L4-L5; and severe right L5-S1 and moderate L4-5 as [address] of the hip obtained at [facility] on 05/26/2023 showed right superior and inferior rami fractures as well as bilateral sacral alae insufficiency fractures. The patient was given a dose of morphine and discussed with orthopedics who was amenable to consult during admission. Therefore she will be admitted under hospital medicine for further workup and management of her right knee fractures as well as bilateral sacral insufficiency fractures. PAST MEDICAL HISTORY Diagnosis Date Anxiety Arthritis of amrwsndq-kgrpgowga-bexo ezoid joint of right hand Bilateral knee pain Depression Fibromyalgia Hypertension Mixed hyperlipidemia CHASE (obstructive sleep apnea) Pneumonia community aquired Right wrist pain Tobacco use disorder PAST SURGICAL HISTORY Procedure Laterality Date SECTION HX 2004 3 SECTIONS last one in 2004 HYSTERECTOMY HX 2008 KNEE ARTHROSCOPY/SURGERY Left 2017 WRIST SURGERY HX 07/2020 FAMILY HISTORY Problem Relation Age of Onset Obesity Mother Diabetes (more content not included)... Normal [facility] Magnesium SerPl-mCncon 05-28 Magnesium [Mass/Vol] 2.3 mg/dL Normal 1.7-2.3 [facility] Comment on above: Order Comment: Speci men Type: BLOOD SPECIMENOrdering Facility: [facility] Address: [address] [place] [address] Performed By: #### 2 4323-8, 58055-4 ####[facility] LABORATORYCLIA [id number] [place] [id number] [place] ALLIED HEALTHon 05-26-2023 ALLIED HEALTH HNO ID: [id number] Author: KELSY HODGE RT(R) Service: Radiology Author Type: Technologist Type: Allied Health Filed: 05/26/2023 12:06 Note Text: Radiology Service Progress Note PATIENT NAME: Sheyla Chong DATE OF SERVICE: May 26, 2023 TIME: 12:05 PM PATIENT IDENTITY VERIFICATION COMPLETED USING TWO (2) IDENTIFIERS: Name and Date of confirmed by patient verbally and Name and Date of confirmed by identification band. FALL SCREENING: Has the patient had 2 falls in the last year or 1 fall with injury or currently using an Ambulatory Assistive Device (Walker, Cane, Wheelchair, Crutches, etc.)? Emergency Room Patient: Screened in ED PATIENT GENDER DATA: Female. status: : No status: NO. PATIENT RELEVANT IMPLANT DATA REVIEWED: Yes PATIENT PRESENTS WITH AN IMPLANTABLE OR ATTACHED CARE SERVICES MANAGER: No RADIOLOGY DEPARTMENT: CT; Exam(s) Completed: Lower extremity PERIPHERAL IV DATA: Inpatient: see LDA documentation SIGNED BY: Kelsy Hodge RT(R) May 26, 2023 12:05 PM [facility] CT HIP WO IVCON RTon 024 CT HIP WO IVCON RT * * *Final Report* * * DATE OF EXAM: May 26 2023 12:10PM [facility] 0080 - CT HIP WO IVCON RT / PROCEDURE REASON: Hip pain, chronic, no prior imaging * * * * Physician Interpretation * * * * EXAMINATION: CT HIP WO IVCON RT CLINICAL HISTORY: Hip pain, chronic, no prior imaging Technique: -- Noncontrast CT of the right hip Exam Date: 05/26/2023 12:10 PM Comparison: Right hip radiograph 05/17/2023 CT Radiation dose: Integrated Dose-length product (DLP) for this visit = 457 mGy*cm CT Dose Reduction Employed: Automated exposure control(AEC) and iterative recon RESULT: Soft tissue: No soft tissue hematoma.. Bones: There is a fracture in the right inferior ramus. A second fracture is noted in the lateral aspect of the right superior ramus best seen on coronal views. There is vertical sclerosis in bilateral sacral alae, likely representing pelvic insufficiency fracture. IMPRESSION: Right superior and inferior rami fractures. Bilateral sacral alae insufficiency fractures. Pharmacist'S Aide: PSCB Transcribe Date/Time: May 26 2023 12:16P Dictated by : MEHRDAD CHAPMAN MD This examination was interpreted and the report reviewed and electronically signed by: MEHRDAD CHAPMAN MD on May 26 2023 12:21PM EST [id number] [facility] ED NOTEon 05-26-2023 ED NOTE HNO ID: [id number] Author: TEMITOPE URBAN Medic Service: ? Author Type: Unloader and Piano Bench Assembler Type: ED Notes Filed: 05/26/2023 16:33 Note Text: Having someone come pick her up to elope [facility] ED Triage Noteon 05-26-2023 ED Triage Note HNO ID: [id number] Author: YUDI GUAJARDO APRN.CNP Service: Emergency Medicine Author Type: Nurse Practitioner Type: ED Triage Notes Filed: 05/26/2023 11:37 Note Text: ED INTAKE NOTE Patient Name: Sheyla Chong Service Date: 05/26/23 BRIEF HPI: Alert and oriented 53-year-old female comes in with complaints of right hip pain. Patient states that she has been having the hip pain for a while and pain management yesterday and they ordered an outpatient CT. Has not had it done yet. States this morning she came in because she is now having difficulty ambulating. BRIEF EXAM: Awake and Alert RRR WINN INTAKE WORKUP: Imaging: CT: Right hip U/S: Right lower extremity No diagnosis found. SIGNATURE: Yudi Guajardo APRN.CNP [facility] US DVT LOWER RTon 05-26-2023 US DVT LOWER RT * * *Final Report* * * DATE OF EXAM: May 26 2023 12:49PM [facility] 1007 - US DVT LOWER RT / PROCEDURE REASON: Leg deep vein thrombosis (DVT), new symptoms * * * * Physician Interpretation * * * * EXAMINATION: RIGHT LOWER EXTREMITY DEEP VENOUS ULTRASOUND WITH DOPPLER IMAGING CLINICAL HISTORY: Lower extremity swelling TECHNIQUE: Grayscale with compression maneuvers, color Doppler and spectral Doppler imaging of the right proximal deep veins was performed. Grayscale with compression maneuvers of the peroneal and posterior tibial veins was performed. The right great and small saphenous veins were evaluated at their insertion to the deep system. The contralateral common femoral vein was imaged for comparison. Images were obtained and stored in a permanent archive. MQ: [id number] COMPARISON: None RESULT: RIGHT LOWER EXTREMITY PROXIMAL DEEP VEINS Distal External Iliac, Common Femoral and proximal Profunda Veins: Compression: Normal Doppler: Normal, spontaneous respirophasic flow. Normal response to augmentation. Femoral vein: Compression: Normal Doppler: Normal, spontaneous flow. Normal response to augmentation. Popliteal vein: Compression: Normal Doppler: Normal, spontaneous flow. Normal response to augmentation. CALF DEEP VEINS Peroneal veins: Normal compression. Posterior tibial veins: Normal compression. Gastrocnemius and Soleal veins: Not imaged. SUPERFICIAL VEINS Great saphenous: Patent and compressible at insertion into common femoral vein; not otherwise assessed. Small Saphenous: Patent and compressible in the proximal calf, not otherwise assessed. LEFT LOWER EXTREMITY (FOR COMPARISON) Common Femoral Vein: Compression: Normal Doppler: Normal, spontaneous respirophasic flow. Normal response to augmentation. IMPRESSION: Negative study for proximal DVT in the right lower extremity. Negative study for calf DVT in the right lower extremity. Negative study for superficial thrombophlebitis in the imaged segments of the right lower extremity. Pharmacist'S Aide: BASIL Transcribe Date/Time: May 26 2023 1:04P Dictated by : MEHRDAD CHAPMAN MD This examination was interpreted and the report reviewed and electronically signed by: MEHRDAD CHAPMAN MD on May 26 2023 1:05PM EST [id number] [facility] ED PROV NOTEon 05-17-2023 ED PROV NOTE HNO ID: [id number] Author: GABRIELLE BAIG MD Service: Emergency Medicine Author Type: Physician Type: ED Provider Notes Filed: 05/17/2023 22:40 Note Text: ED Provider Note Patient Name: Sheyla Chong : 1970 SERVICE DATE: 05/17/23 History Patient presents with: Groin Pain: Pt with pain in right groin that radiates into right buttock and down right leg. HPI Sheyla Chong is a 53 year old female who presents with right groin pain. She reports about 3 weeks of gradually worsening pain. It began in her right inguinal crease, and radiates through to her buttock and down her medial thigh. She does report chronic low back pain and had a back injury 5 months ago, but states she recovered from the injury and her current back pain is no different than usual. Also had a fall to her knees several weeks ago, but does not recall any hip or groin pain at that time. She does report a remote history of Bartonella infection and had a surgery to excise lymph nodes from her groin. States this pain feels somewhat similar, but denies any cat exposures. Pain is worsened with any movement of the leg, especially bearing weight, standing from a sitting position, and rolling over in bed. Sitting on the toilet is also verypainful. She has been trying Tylenol, Voltaren, and Vicodin without improvement. Denies leg swelling. PAST MEDICAL HISTORY Diagnosis Date Anxiety Arthritis of gzihstge-jrpmsfkhu-uexv ezoid joint of right hand Bilateral knee pain Depression Fibromyalgia Hypertension Mixed hyperlipidemia CHASE (obstructive sleep apnea) Pneumonia community aquired Right wrist pain Tobacco use disorder PAST SURGICAL HISTORY Procedure Laterality Date SECTION HX 2005 3 SECTIONS last one in 2004 HYSTERECTOMY HX 2009 KNEE ARTHROSCOPY/SURGERY Left 2017 WRIST SURGERY HX 07/2020 FAMILY HISTORY Problem Relation Age of Onset Obesity Mother Diabetes Father Obesity Father Social History Tobacco Use Smoking status: Former Packs/day: 0.50 Years: 3.00 Additional pack years: 0.00 Total pack years: 1.50 Types: Cigarettes Quit date: 06/2022 Years since quittin.9 Smokeless tobacco: Never Vaping Use Vaping Use: Never used Substance and Sexual Activity Alcohol use: No Drug use: Yes Comment: 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 Musculoskeletal: Positive for arthralgias and myalgias. Physical Exam Vitals [05/17/232045] BP Pulse Temp Temp src Resp SpO2 Weight Height 191/78 (!) 98 37 ?C (98.6 ?F) Temporal 18 96 % 113.4 kg (250 lb) 1.651 m (5' 5 ) Physical Exam Constitutional: awake and alert, tearful, appears uncomfortable Abdomen: soft, nontender, nondistended; no hernia or inguinal lymphadenopathy MSK: Tenderness to lateral right inguinal crease and musculature down the medial thigh. Mild tenderness around SI joint. No pain with passive hip flexion. Negative straight leg raise. Pain is severe with active right hip flexion and with passive knee flexion with internal and external rotation of the hip. Skin: warm and dry, no rashes Diagnostic Testing ED Labs Ordered and Reviewed - No data to display Procedures ED Course / Clinical Impression Clinical Impressions as of 05/17/232235 Acute pain of right thigh Severe right inguinal pain MDM / Disposition / Plan Patient presents with several weeks of worsening right groin and medial thigh pain, without known injury. Radiographs negative for any acute bony pathology. The pain is reproducible along the proximal insertion of the quadriceps and along the medial thigh, suggesting more of a muscular pathology, potentially a strain or tendinosis. She did have improvement in pain with Toradol here. I did consider the possibility of DVT, though felt unlikely in the absence of leg swelling or risk factors. I have ordered an outpatient DVT ultrasound, but my suspicion is not high enough to empirically anticoagulate her at this time. Referred to orthopedics outpatient for further evaluation and management of her pain. History and Record Review External record(s) reviewed: prior outpatient record. Findings from review of outpatient records: Follows with orthopedics for bilateral knee osteoarthritis Differential Diagnoses - Radiculopathy is less likely for the following reason(s): Negative straight leg raise, nonradicular distribution, reproducible tenderness in thigh - Inguinal hernia is less likely for the following reason(s): Not noted on exam - Hip osteoarthritis is less likely for the following reason(s): no evidence on imaging Disposition The patient was discharged. Counseled patient regarding radiology results and suspected diagnosis. Return precautions given for any new or worsening symptoms. SIGNATURE: Gabrielle Baig MD - GABRIELLE BAIG (more content not included)... Normal [facility] XR HIP 3V PELV+ AP/LAT RTon 05-17-2023 XR HIP 3V PELV+ AP/LAT RT * * *Final Report* * * DATE OF EXAM: May 17 2023 9:42PM GRX [id number] - XR HIP 3V PELV+ AP/LAT RT / PROCEDURE REASON: Other * * * * Physician Interpretation * * * * RIGHT HIP: CLINICAL INDICATION: Other REFERENCE: None FINDINGS: 3 radiographs of the right hip demonstrate normally aligned and intact osseous structures. No fracture or dislocation is directly imaged. Joint space appears well-maintained. Surrounding bony and soft tissue structures are intact. IMPRESSION: Unremarkable exam with no acute fracture or dislocation identified. Pharmacist'S Aide: PSCB Transcribe Date/Time: May 17 2023 9:45P Dictated by : DALE TY MD This examination was interpreted and the report reviewed and electronically signed by: DALE TY MD on May 17 2023 9:46PM EST [id number] Normal [facility] CNOVon 03-31-2023 CNOV Office Visit (AGOTAL ) SHEYLA CHONG ([id number]) 1970 F Date Time Provider Department 03/31/23 3:15 PM IRMA LOZA During your visit today, we recorded the following information about you: Respiration Weight Height 20/minute 104.3 kg 1.651 m Jody Yap LPN 04/02/2023 10:43 AM Signed REVIEW OF SYSTEMS: GENERAL: Well developed, well nourished. No acute distress PAIN: Chronic Pain bilat knee CARDIOVASCULAR: negative MSK: bilat knee SKIN: Negative for lesions, rash, itching, metal sensitivity NEURO: Negative for seizure, trauma, numbness/tingling of extremities. ENDOCRINE: Negative for diabetic associated symptoms HEMATOLOGY: Negative for excessive bleeding, clots, bleeding disorders. Jody Yap LPN 04/02/2023 10:43 AM Signed This nurse prepared two injections of 4ml Marcaine and 1ml Kenalog with a 22g needle for injection of bilat knee injections and handed them to Dr. Loza.INDU Pierce Heather, DO 04/02/2023 10:43 AM Signed Patient presents with: Left Knee - Established Patient, Follow Up, Knee Pain, Swelling Right Knee - Established Patient, Follow Up, Knee Pain, Swelling Sheyla Chong is a 53 year old female who presents for Osteoarthritis of the bilateral knees. The patient notes that the right knee is worse than the left. The patient has undergone conservative management with multiple rounds of corticosteroid injections, Euflexxa injections, physical therapy and bracing. She notes significant improvement of her symptoms following her last corticosteroid injection in October. She is requesting repeat corticosteroid injection today. Reviewed nursing note and current pain scale. PAST MEDICAL HISTORY Diagnosis Date Anxiety Arthritis of zwxenvkz-afudxgqno-syqg ezoid joint of right hand Bilateral knee pain Depression Fibromyalgia Hypertension Mixed hyperlipidemia CHASE (obstructive sleep apnea) Pneumonia community aquired Right wrist pain Tobacco use disorder PAST SURGICAL HISTORY Procedure Laterality Date SECTION HX 2005 3 SECTIONS last one in 2004 HYSTERECTOMY HX 2009 KNEE ARTHROSCOPY/SURGERY Left 2017 WRIST SURGERY HX 07/2020 FAMILY HISTORY Problem Relation Age of Onset Obesity Mother Diabetes Father Obesity Father Social History Tobacco Use Smoking status: Former Packs/day: 0.50 Years: 3.00 Additional pack years: 0.00 Total pack years: 1.50 Types: Cigarettes Quit date: 06/2022 Years since quittin.7 Smokeless tobacco: Never Vaping Use Vaping Use: Never used Substance Use Topics Alcohol use: No Drug use: Yes Comment: 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 ketoconazole (NIZORAL) 2 % cream Apply bid x 6 weeks chlorthalidone (HYGROTON) 25 mg tablet take 1 tablet by mouth once daily FLUoxetine (PROZAC) 20 mg capsule take 1 capsule by mouth twice a day atorvastatin (LIPITOR) 40 mg tablet take 1 tablet by mouth once daily potassium chloride ER (K-DUR, KLOR-CON) 20 mEq tablet Take 1 tablet by mouth once daily. HYDROcodone-acetaminoph en (NORCO) 5-325 mg per tablet Take 1 tablet by mouth every 8 hours as needed. lisinopril (ZESTRIL, PRINIVIL) 20 mg tablet Take 1 tablet by mouth once daily. gabapentin (NEURONTIN) 100 mg capsule Take 100 mg by mouth three times daily. diclofenac (VOLTAREN) 1 % topical gel apply 4 grams to affected area four times a day TO AFFECTED LOWER JOINT No current facility-administered medications for this visit. Allergies: ALLERGIES No Known Allergies Physical Examination: Resp 20 Ht 5' 5 (1.65m) Wt 230 lb (104.3kg) BMI 38.27 kg/(m2). Bilateral Knee Exam Inspection: Skin is intact Standing alignment is: Varus Limb length is equal Edema is absent Effusion is small Warmth is absent Quadriceps atrophy is absent Hoffa swelling is absent Femoral anteversion is absent Tibial torsion is absent Motion Hyperextension: Absent Flexion: 90 degrees Extension: 0 degrees Patellofemoral Crepitus is present Patellar grind pain is present Retinacular tenderness is absent Facet tenderness is present medially/laterally Lateral subluxation normal Medial subluxation is absent Apprehension is normal Tibiofemoral: Crepitus is present Joint line tenderness is present medially Collateral ligament tenderness is absent Stability Elsy is stable Posterior drawer is stable Valgus stress opening is normal at 0 degrees and normal at 30 degrees Varus stress opening is normal at 0 degree and normal at 30 degrees ER symmetry is n (more content not included)... Normal [facility] No Panel Informationon 07-15 [facility] MRI Spine Lumbar w/o Contras ton 04-05-2021 MRI Spine Lumbar w/o Contrast Patient Name: SHEYLA CHONG [facility] ACCESSION EXAM DATE/TIME PROCEDURE ORDERING PROVIDER [id number] 04/05/2021 15:17 EST MRI Spine Lumbar w/o MD DILIA, MYRTLE Contrast CPT code 41308 Reason For Exam (MRI Spine Lumbar w/o Contrast) radiculopathy Report Examination: MRI lumbar spine Clinical Indication: radiculopathy Comparison: None Findings: Multiplanar multisequence high field strength MRI images were obtained through the lumbar spine without administration of intravenous gadolinium contrast. Five lumbar type vertebra are assumed for purposes of numbering on this examination. The lumbar spine is in normal overall alignment without evidence of spondylolisthesis. 19 mm heterogeneous/nodular appearing possible cyst of the left lower renal pole. Mild L5-S1 intervertebral disc space narrowing with reactive vertebral body endplate changes. Otherwise the lumbar spine demonstrates grossly normal signal intensity. The conus terminates at a normal L1 level. No abnormal signal is appreciated within the distal cord. Shortening of the pedicles resulting in relative congenital central canal stenosis with superimposed degenerative change. T12-L1: Trace annular disc bulge. No central canal stenosis or neural foraminal narrowing. L1-L2: Trace annular disc bulge. No central canal stenosis or neural foraminal narrowing. L2-L3: No disc bulge or disc protrusion. No central spinal canal stenosis. No neural foraminal narrowing. L3-L4: No disc bulge or protrusion. Ligamentous hypertrophy and facet arthropathy. Moderate bilateral neural foraminal narrowing. No significant superimposed central canal stenosis. L4-L5: 2 to 3 mm disc bulge. Bilateral facet arthropathy and ligamentous hypertrophy contributes to mild central canal stenosis. Moderate-severe bilateral neural foraminal narrowing. Magnetic Resonance Imaging Report L5-S1: 4-5 mm annular disc bulge extending laterally, especially on the left. Bilateral facet arthropathy and ligamentous hypertrophy contributes to severe central canal stenosis. Moderate-severe bilateral neural foraminal narrowing. Impression: 1. Shortening of the pedicles resulting in relative congenital central canal stenosis with superimposed degenerative change. 2. At L3-L4 there is moderate bilateral neural foraminal narrowing. 3. At L4-L5 there is mild central canal stenosis moderate-severe bilateral neural foraminal narrowing. 4. At L5-S1 there is severe central canal stenosis and moderate-severe bilateral neural foraminal narrowing. 5. 19 mm heterogeneous/nodular appearing possible cyst of the left lower renal pole. Renal mass is indeterminate on this examination. Further evaluation with CT or MRI (preferred) with and without contrast is recommended. Recommendations based on Management of the Incidental Renal Mass on CT: A White Paper of the ACR Incidental Findings Committee . J Am Ian Radiol 2018;15(2):264-273 Report Dictated on Final Dictating Physician: MD MARKHAM JASON Signed Date and Time: 04/06/2021 0:21 am Signed by: MD MARKHAM JASON Transcribed Date and Time: 04/06/2021 0:22 Normal [facility] MRI WRIST WO IVCON RTon 03-24 MRI WRIST WO IVCON RT Final Report DATE OF EXAM: Apr 17 2020 6:16PM [facility] [id number] - MRI WRIST WO IVCON RT / PROCEDURE REASON: Right wrist pain Physician Interpretation EXAMINATION: MRI WRIST WO IVCON RT CLINICAL HISTORY: Inpatient / ED: Otherinternal derangement Outpatient: Right wrist pain rt wrist pain, pain 1st metatarsal, no surg Technique: Multiplanar multisequence noncontrast imaging of the right wrist. Exam Date: 04/17/2020 6:16 PM Comparison: Radiograph 03/08/2020 Contrast: ml of ml of ml of RESULT: Images are somewhat motion degraded. The scapholunate ligament appears to be completely torn. There is widening of the scapholunate interval. Lunatotriquetral ligament appears intact. There is suspicion of a high-grade tear of the cartilaginous disc of the TFCC. This is only well seen on the coronal gradient images. The dorsal and volar radioulnar ligaments appear to be intact. The flexor tendons and the carpal tunnel contents are unremarkable. The extensor tendons of the wrist appear intact. There is suspected cartilage loss of the radiocarpal joint. Type II articulation between the lunate and the hamate. There is suspected to be cartilage loss of the articulation. Subchondral cystic degenerative change of the proximal pole of the hamate. There is also mild cystic degenerative change along the ulnar aspect of the capitate. There is at least mild appearing osteoarthritis of the triscaphe joint. Mild degenerative narrowing of the first carpometacarpal joint. No evidence of a fracture. No suspicious marrow edema. IMPRESSION: 1. Full-thickness appearing tear of the scapholunate ligament. Mild widening of the scapholunate interval. 2. Suspected high-grade tear of the central cartilaginous disc of the TFCC. 3. Multi compartmental cartilage loss and subchondral cystic degenerative changes as detailed above. Pharmacist'S Aide: BASIL Transcribe Date/Time: Apr 18 2020 10:50A Dictated by : DAVION DUCKWORTH MD This examination was interpreted and the report reviewed and electronically signed by: DAVION DUCKWORTH MD on Apr 18 2020 12:56PM EST Normal [facility] XR WRIST 4V PA/LAT/OBL/SCAPH RTon 03-09-2020 XR WRIST 4V PA/LAT/OBL/SCAPH RT Final Report DATE OF EXAM: Mar 08 2020 10:15PM GRX [id number] - XR WRIST 4V PA/LAT/OBL/SCAPH RT / PROCEDURE REASON: Joint pain, wrist Physician Interpretation RIGHT WRIST X-RAY SERIES HISTORY: Joint pain, wrist TECHNIQUE: PA, lateral, oblique COMPARISON: None available. RESULT: No fracture, dislocation or destructive changes. There is widening of the scapholunate interval. Joint space narrowing is noted in the radiocarpal joint . There is a cyst noted in the hamate bone. IMPRESSION: Widening of the scapholunate interval which can be seen with scapholunate dissociation/ligamentou s injury. No acute fractures are identified. Pharmacist'S Aide: [facility] Transcribe Date/Time: Mar 08 2020 10:19P Dictated by : EVANS AVALOS MD This examination was interpreted and the report reviewed and electronically signed by: EVANS AVALOS MD on Mar 08 2020 10:20PM EST Normal [facility] SCREENINGon 03-07-2020 [facility] SCREENING Final Report DATE OF EXAM: Mar 07 2020 3:24PM TONNY Osullivan81 - [facility] SCREENING / PROCEDURE REASON: Encounter for screening mammogram for breast cancer Physician Interpretation #[id number] - [facility] SCREENING BILATERAL DIGITAL SCREENING MAMMOGRAM WITH CAD: 03/07/2020 HISTORY: Encounter For Screening Mammogram For Breast Cancer\ Baseline screening mammogram. Patient reports no breast problems. RESULT: TECHNIQUE: The study was acquired using full field digital technology and interpreted from soft copy. Current study was also evaluated with a Computer Aided Detection (CAD). No prior exams were available for comparison. There are scattered fibroglandular elements in both breasts. There is a focal asymmetry in the left breast upper outer aspect middle depth. No other significant masses, calcifications, or other findings are seen in either breast. IMPRESSION: INCOMPLETE: NEEDS ADDITIONAL IMAGING EVALUATION The focal asymmetry in the left breast is indeterminate. Additional views are recommended. Capri gibbs/abhijeet:03/07/2020 15:37:22 Principal Quality Engineer(s): RT Za(R)(M), [employer] letter sent: Additional Imaging Needed Mammogram BI-RADS: 0 Incomplete: needs additional imaging evaluation Multiple national specialty organizations have released breast cancer screening guidelines for women at average risk for developing breast cancer - guidelines that are based on both evidence and opinion, yet differ on when to start and how often to screen for breast cancer. With representation from Breast Imaging, Internal Medicine, Women's Health, Family Medicine, and Medical/Surgical Oncology, the [facility] has carefully reviewed the data and reached the following consensus: 1) All women should engage in shared decision-making with their providers to decide when to start and how often to screen; 2) All women should have the opportunity to start screening mammography at age 40; 3) For women ages 45-55, we recommend annual screening mammograms; 4) For women ages 55 and over, we support both the transition from an annual to a biennial interval if this aligns more with patient's values and preferences, or continuation with annual screening; 5) All women should discuss with their providers when to stop screening mammograms. Pharmacist'S Aide: Abhijeet Solorzanoribe Date/Time: Mar 07 2020 3:10P Dictated by : CAPRI REINA MD This examination was interpreted and the report reviewed and electronically signed by: CAPRI REINA MD on Mar 07 2020 3:37PM EST Normal [facility] Acetaminophenon 11-05-2016 Acetaminophen mass conc <10 Low 10-30 [facility] Comment on above: Result Comment: [address] [address] Performed By: #### A CET ####[address] [address] CBC with Diffon 11-05-2016 Abs. Basophil 0.00 k/uL Normal 0.0-0.2 [facility] Comment on above: Performed By: #### C DP, CP ####[address] [address] Abs.Neutrophil (Seg) 5.00 k/uL Normal 1.8-7.7 [facility] Comment on above: Performed By: #### C DP, CP ####[address] [address] Basophils/100 WBC Auto (Bld) 0 % Normal [facility] Comment on above: Performed By: #### C DP, CP ####[address] [address] Eosinophils 0.20 10*3/uL Normal 0.0-0.4 [facility] Comment on above: Performed By: #### C DP, CP ####[address] [address] Eosinophils/100 leukocytes 2 % Normal [facility] Comment on above: Performed By: #### C DP, CP ####[address] [address] Erythrocyte distribution width Auto Ratio (RBC) 16.8 % High 12.5-15.4 [facility] Comment on above: Performed By: #### C DP, CP ####[address] [address] Erythrocyte morphology ANISOCYTOSIS PRESENT Normal [facility] Comment on above: Result Comment: [address] [address] Performed By: #### C DP, CP ####[address] [address] Erythrocytes (RBC) 5.12 10*6/uL Normal 4.0-5.2 [facility] Comment on above: Performed By: #### C DP, CP ####[address] [address] Hematocrit (HCT) 42.0 % Normal 36-46 [facility] Comment on above: Performed By: #### C DP, CP ####[address] [address] Hemoglobin mass conc (Bld) 13.3 g/dL Normal 12.0-16.0 [facility] Comment on above: Performed By: #### C DP, CP ####[address] [address] Lymphocytes 2.00 10*3/uL Normal 1.0-4.8 [facility] Comment on above: Performed By: #### C DP, CP ####[address] [address] Lymphocytes/100 leukocytes 25 % Normal [facility] Comment on above: Performed By: #### C DP, CP ####[address] [address] MCH 25.9 pg Low 26-34 [facility] Comment on above: Performed By: #### C DP, CP ####[facility] [place] [address] MCHC mass conc (RBC) 31.6 g/dL Normal 31-37 [facility] Comment on above: Performed By: #### C DP, CP ####[address] [address] MCV 82.1 fL Normal 80-100 [facility] Comment on above: Performed By: #### C DP, CP ####[address] [address] Monocytes 0.70 10*3/uL Normal 0.1-1.2 [facility] Comment on above: Performed By: #### C DP, CP ####[address] [address] Monocytes/100 leukocytes 9 % Normal [facility] Comment on above: Performed By: #### C DP, CP ####[address] [address] Neutrophil (Seg) 64 % Normal [facility] Comment on above: Performed By: #### C DP, CP ####[address] [address] Platelet mean volume (PMV) 8.4 fL Normal 6.0-12.0 [facility] Comment on above: Performed By: #### C DP, CP ####[address] [address] Platelets 306 10*3/uL Normal 140-450 [facility] Comment on above: Performed By: #### C DP, CP ####[address] [address] WBC (Leukocytes) 7.9 10*3/uL Normal 3.5-11.0 [facility] Comment on above: Performed By: #### C DP, CP ####[id number] [place] [address] Auto Diff Performed NOT REPORTED Normal [facility] Comment on above: Performed By: #### C DP, CP ####[id number] [place] [address] Platelets NOT REPORTED Normal [facility] Comment on above: Performed By: #### C DP, CP ####[address] [address] WBC Morphology NOT REPORTED Normal [facility] Comment on above: Performed By: #### C DP, CP ####[address] [address] Comp Metabolic Profon 2016 (cont.) Normal [facility] Comment on above: Result Comment: Aver age GFR for 40-49 years old: 99 mL/min/1.73sq mChronic Kidney Disease: <60 mL/min/1.73sq mKidney failure: <15 mL/min/1.73sq meGFR calculated using average adult body mass. Additional eGFR calculator available at:[email or web address] Clemente [facility] And [facility] [address] [place] [address] Performed By: #### C DP, CP ####[address] [address] Alanine aminotransferase (ALT) 12 U/L Normal 5-33 [facility] Comment on above: Performed By: #### C DP, CP ####[address] [address] Albumin 4.1 g/dL Normal 3.5-5.2 [facility] Comment on above: Performed By: #### C DP, CP ####[address] [address] Albumin/Globulin Ratio 1.6 {ratio} Normal 1.0-2.5 [facility] Comment on above: Performed By: #### C DP, CP ####[id number] [place] [address] Alkaline Phos 61 U/L Normal 35-104 [facility] Comment on above: Performed By: #### C DP, CP ####[address] [address] Anion gap 15 mmol/L Normal 9-17 [facility] Comment on above: Performed By: #### C DP, CP ####[address] [address] Aspartate aminotransferase (AST) 13 U/L Normal <32 [facility] Comment on above: Performed By: #### C DP, CP ####[address] [address] Bilirubin Ql (U) 0.22 mg/dL Low 0.3-1.2 [facility] Comment on above: Performed By: #### C DP, CP ####[address] [address] Calcium 8.7 mg/dL Normal 8.6-10.4 [facility] Comment on above: Performed By: #### C DP, CP ####[facility] [address] [address] Chloride 106 mmol/L Normal 98-107 [facility] Comment on above: Performed By: #### C DP, CP ####[address] [address] CO2 21 mmol/L Normal 20-31 [facility] Comment on above: Performed By: #### C DP, CP ####[address] [address] Creatinine 0.62 mg/dL Normal 0.50-0.90 [facility] Comment on above: Performed By: #### C DP, CP ####[facility] [id number] [place] [address] eGFR (non-black) mL/min/{1.73_m2} Normal >60 [facility] Comment on above: Performed By: #### C DP, CP ####[facility] [id number] [place] [address] Glucose mass conc 80 mg/dL Normal 70-99 [facility] Comment on above: Performed By: #### C DP, CP ####[address] [address] Potassium molar conc 3.7 mmol/L Normal 3.7-5.3 [facility] Comment on above: Performed By: #### C DP, CP ####[id number] [place] [address] Protein 6.7 g/dL Normal 6.4-8.3 [facility] Comment on above: Performed By: #### C DP, CP ####[facility] [place] [address] Sodium 142 mmol/L Normal 135-144 [facility] Comment on above: Performed By: #### C DP, CP ####[facility] [id number] [place] [address] Urea nitrogen 6 mg/dL Normal 6-20 [facility] Comment on above: Performed By: #### C DP, CP ####[facility] [place] [address] BUN/CRE Ratio NOT REPORTED Normal 9-20 [facility] Comment on above: Performed By: #### C DP, CP ####[address] [address] Staging: NOT REPORTED Normal [facility] Comment on above: Performed By: #### C DP, CP ####[address] [address] Discharge Summaryon 11-06-19 17 HIM IP Note OR Residential Direct Support Professional Normal [facility] Drug Scr, Abuse, Uron 2016 Amphetamine(s),Ur Negative Normal NEG [facility] Comment on above: Result Comment: (Pos itive cutoff 1000 ng/mL) Performed By: #### D AU ####[address] [address] Barbiturate(s),Ur Negative Normal NEG [facility] Comment on above: Result Comment: (Pos itive cutoff 200 ng/mL) Performed By: #### D AU ####[address] [address] Base excess Negative Normal NEG [facility] Comment on above: Result Comment: (Pos itive cutoff 300 ng/mL) Performed By: #### D AU ####[address] [address] Benzodiazepine(s) Negative Normal NEG [facility] Comment on above: Result Comment: (Pos itive cutoff 200 ng/mL) Performed By: #### D AU ####[address] [address] Cannabinoid(s),Ur Negative Normal NEG [facility] Comment on above: Result Comment: (Pos itive cutoff 50 ng/mL) Performed By: #### D AU ####[address] [address] Interpretive Info Assay provides medic al screening only. The absence of expected drug(s) and/or Normal [facility] Comment on above: Result Comment: meta bolite(s) may indicate diluted or adulterated urine, limitations of testing or timing of collection.Testing for legal purposes should be confirmed by another method. To request confirmation of test result, please call the lab within 7 days of sample submission.[address] [address] Performed By: #### D AU ####[address] [address] Opiate(s), Ur Positive Abnormal NEG [facility] Comment on above: Result Comment: (Pos itive cutoff 300 ng/mL) Performed By: #### D AU ####[address] [address] Oxycodone, Urine Positive Abnormal NEG [facility] Comment on above: Result Comment: (Pos itive cutoff 100 ng/mL) Performed By: #### D AU ####[address] [address] Phencyclidine, Ur Negative Normal NEG [facility] Comment on above: Result Comment: (Pos itive cutoff 25 ng/mL) Performed By: #### D AU ####[address] [address] Urine, methadone presence Negative Normal NEG [facility] Comment on above: Result Comment: (Pos itive cutoff 300 ng/mL) Performed By: #### D AU ####[address] [address] History and Physicalon 11-05 HIM IP Note OR Residential Direct Support Professional Normal [facility] Acetaminophenon 11-04-2016 Acetaminophen mass conc 53 ug/mL High 10-30 [facility] Comment on above: Result Comment: Perf ormed at [address] [place], [place] [id number] [phone] Performed By: #### A CET, ALCB ####[address] [place] [address] Arterial Blood Gaseson 11-04 Margie Test PASS Normal [facility] Comment on above: Performed By: #### C DP, BMP, SALI ####[address] [place] [address] Bicarbonate (HCO3) 21.6 mmol/L Low 22-26 [facility] Comment on above: Performed By: #### C DP, BMP, SALI ####[address] [place] [address] Body Temp. 37.0 Normal [facility] Comment on above: Performed By: #### C DP, BMP, SALI ####[address] [place] [address] CO2 41.0 mmHg Normal 35-45 [facility] Comment on above: Performed By: #### C DP, BMP, SALI ####[address] [place] [address] Negative Base Excess 4.0 mmol/L High 0.0-2.0 [facility] Comment on above: Performed By: #### C DP, BMP, SALI ####[address] [place] [address] O2 Device/Flow/% ROOM AIR Normal [facility] Comment on above: Performed By: #### C DP, BMP, SALI ####[address] [place] [address] O2 saturation 94.1 % Low 95-98 [facility] Comment on above: Performed By: #### C DP, BMP, SALI ####[address] [place] [address] Oxygen in arterial blood 74.0 mm[Hg] Low 80-100 [facility] Comment on above: Performed By: #### C DP, BMP, SALI ####[address] [place] [address] pH of blood 7.339 [pH] Low 7.35-7.45 [facility] Comment on above: Performed By: #### C DP, BMP, SALI ####[address] [place] [address] Pt. Position SEMI-FOWLERS Normal [facility] Comment on above: Result Comment: Perf ormed at [address] [place] [address] Performed By: #### C DP, BMP, SALI ####[address] [place] [address] Site Drawn Right Radial Artery Normal [facility] Comment on above: Performed By: #### C DP, BMP, SALI ####[address] [place] [address] CO2 NOT REPORTED Normal [facility] Comment on above: Performed By: #### C DP, BMP, SALI ####[address] [place] [address] FIO2 NOT REPORTED Normal [facility] Comment on above: Performed By: #### C DP, BMP, SALI ####[address] [place] [address] Hemoglobin mass conc (Bld) NOT REPORTED Normal 0.0-1.9 [facility] Comment on above: Performed By: #### C DP, BMP, SALI ####[address] [place] [address] Mode NOT REPORTED Normal [facility] Comment on above: Performed By: #### C DP, BMP, SALI ####[address] [place] [address] Notification Time NOT REPORTED Normal [facility] Comment on above: Performed By: #### C DP, BMP, SALI ####[address] [place] [address] Notification: NOT REPORTED Normal [facility] Comment on above: Performed By: #### C DP, BMP, SALI ####[address] [place] [address] PEEP/CPAP NOT REPORTED Normal [facility] Comment on above: Performed By: #### C DP, BMP, SALI ####[address] [place] [address] pH Adjst'd for Temp. NOT REPORTED Normal 7.350-7.450 [facility] Comment on above: Performed By: #### C DP, BMP, SALI ####[address] [place] [id number] pO2 Adjst'd for Temp NOT REPORTED Normal 80.0-100.0 [facility] Comment on above: Performed By: #### C DP, BMP, SALI ####[address] [place] [address] Positive Base Excess NOT REPORTED Normal 0.0-2.0 [facility] Comment on above: Performed By: #### C DP, BMP, SALI ####[address] [place] [address] PSV NOT REPORTED Normal [facility] Comment on above: Performed By: #### C DP, BMP, SALI ####[address] [place] [id number] Respiratory rate NOT REPORTED Normal [facility] Comment on above: Performed By: #### C DP, BMP, SALI ####[address] [place] [address] Set Rate NOT REPORTED Normal [facility] Comment on above: Performed By: #### C DP, BMP, SALI ####[address] [place] [address] Text for Respiratory NOT REPORTED Normal [facility] Comment on above: Performed By: #### C DP, BMP, SALI ####[address] [place] [address] Total Hb NOT REPORTED Normal 12.0-16.0 [facility] Comment on above: Performed By: #### C DP, BMP, SALI ####[address] [place] [address] Total Rate NOT REPORTED Normal [facility] Comment on above: Performed By: #### C DP, BMP, SALI ####[address] [place] [address] VT NOT REPORTED Normal [facility] Comment on above: Performed By: #### C DP, BMP, SALI ####[address] [place] [address] Basic Metabolic Profon 11-04 (cont.) Normal [facility] Comment on above: Result Comment: Aver age GFR for 40-49 years old: 99 mL/min/1.73sq mChronic Kidney Disease: <60 mL/min/1.73sq mKidney failure: <15 mL/min/1.73sq meGFR calculated using average adult body mass. Additional eGFR calculator available at:http://[email or web address].[place]/multiple_crcl_2012.htm Performed By: #### C DP, BMP, SALI ####[address] [place] [address] Anion gap 13 mmol/L Normal - [facility] Comment on above: Performed By: #### C DP, BMP, SALI ####[address] [place] [address] BUN/CRE Ratio 13 Normal - [facility] Comment on above: Performed By: #### C DP, BMP, SALI ####[address] [place] [address] Calcium 9.0 mg/dL Normal 8.6-10.4 [facility] Comment on above: Performed By: #### C DP, BMP, SALI ####[address] [place] [address] Chloride 99 mmol/L Normal 98-107 [facility] Comment on above: Performed By: #### C DP, BMP, SALI ####[address] [place] [address] CO2 23 mmol/L Normal 20-31 [facility] Comment on above: Performed By: #### C DP, BMP, SALI ####[address] [place] [address] Creatinine 0.60 mg/dL Normal 0.50-0.90 [facility] Comment on above: Performed By: #### C DP, BMP, SALI ####[address] , [facility] eGFR (non-black) mL/min/{1.73_m2} Normal >60 [facility] Comment on above: Performed By: #### C DP, BMP, SALI ####[address] [place] [address] Glucose mass conc 92 mg/dL Normal 70-99 [facility] Comment on above: Performed By: #### C DP, BMP, SALI ####[address] [place] [address] Potassium molar conc 4.0 mmol/L Normal 3.7-5.3 [facility] Comment on above: Performed By: #### C DP, BMP, SALI ####[address] [place] [address] Sodium 135 mmol/L Normal 135-144 [facility] Comment on above: Performed By: #### C DP, BMP, SALI ####[address] [place] [address] Staging: Normal [facility] Comment on above: Result Comment: Stag e 1: Some kidney damage normal GFRStage 2: Mild kidney damage GFR 60-89Stage 3: Moderate kidney damage GFR 30-59Stage 4: Severe kidney damage GFR 15-29Stage 5: Severe kidney damage GFR <15ESRD - chronic treatment by dialysis or transplantPerformed at [address] [place] [address] Performed By: #### C DP, BMP, SALI ####[address] [place] [address] Urea nitrogen 8 mg/dL Normal 6-20 [facility] Comment on above: Performed By: #### C SHANDA BMP, SALI ####[address] [place] [address] CBC with Diffon 11-04-2016 Abs. Basophil 0.00 k/uL Normal 0.0-0.2 [facility] Comment on above: Result Comment: Perf ormed at [address] [place] [address] Performed By: #### C SHANDA BMP, SALI ####[address] [place] [address] Abs.Neutrophil (Seg) 4.50 k/uL Normal 1.8-7.7 [facility] Comment on above: Performed By: #### C DP BMP, SALI ####[address] [place] [id number] Basophils/100 WBC Auto (Bld) 0 % Normal [facility] Comment on above: Performed By: #### C DP, BMP, SALI ####[address] [place] [address] Eosinophils 0.20 10*3/uL Normal 0.0-0.4 [facility] Comment on above: Performed By: #### C DP, BMP, SALI ####[address] [place] [address] Eosinophils/100 leukocytes 2 % Normal [facility] Comment on above: Performed By: #### C DP, BMP, SALI ####[address] [place] [address] Erythrocyte distribution width Auto Ratio (RBC) 15.0 % Normal 12.1-15.2 [facility] Comment on above: Performed By: #### C DP, BMP, SALI ####[address] [place] [address] Erythrocytes (RBC) 5.04 10*6/uL Normal 4.0-5.2 [facility] Comment on above: Performed By: #### C DP, BMP, SALI ####[address] [place] [address] Hematocrit (HCT) 40.1 % Normal 36-46 [facility] Comment on above: Performed By: #### C DP, BMP, SALI ####[address] [place] [address] Hemoglobin mass conc (Bld) 13.0 g/dL Normal 12.0-16.0 [facility] Comment on above: Performed By: #### C DP, BMP, SALI ####[address] [place] [address] Lymphocytes 2.50 10*3/uL Normal 1.0-4.8 [facility] Comment on above: Performed By: #### C DP, BMP, SALI ####[address] [place] [address] Lymphocytes/100 leukocytes 32 % Normal [facility] Comment on above: Performed By: #### C DP, BMP, SALI ####[address] [place] [address] MCH 25.9 pg Low 26-34 [facility] Comment on above: Performed By: #### C DP, BMP, SALI ####[address] [place] [address] MCHC mass conc (RBC) 32.5 g/dL Normal 31-37 [facility] Comment on above: Performed By: #### C DP, BMP, SALI ####[address] [place] [address] MCV 79.6 fL Low 80-100 [facility] Comment on above: Performed By: #### C DP, BMP, SALI ####[address] [place] [address] Monocytes 0.60 10*3/uL Normal 0.2-0.8 [facility] Comment on above: Performed By: #### C DP, BMP, SALI ####[address] [place] [address] Monocytes/100 leukocytes 7 % Normal [facility] Comment on above: Performed By: #### C SHANDA, BMP, SALI ####[address] [place] [address] Neutrophil (Seg) 59 % Normal [facility] Comment on above: Performed By: #### C DP, BMP, SALI ####[address] [place] [address] Platelet mean volume (PMV) 8.2 fL Normal 6.0-12.0 [facility] Comment on above: Performed By: #### C DP, BMP, SALI ####[address] [place] [address] Platelets 307 10*3/uL Normal 140-450 [facility] Comment on above: Performed By: #### C DP, BMP, SALI ####[address] [place] [address] WBC (Leukocytes) 7.8 10*3/uL Normal 3.5-11.0 [facility] Comment on above: Performed By: #### C DP, BMP, SALI ####[address] [place] [address] Auto Diff Performed NOT REPORTED Normal [facility] Comment on above: Performed By: #### C DP, BMP, SALI ####[address] [place] [address] Erythrocyte morphology NOT REPORTED Normal [facility] Comment on above: Performed By: #### C DP, BMP, SALI ####[address] [place] [address] Platelets NOT REPORTED Normal [facility] Comment on above: Performed By: #### C DP, BMP, SALI ####[address] [place] [address] WBC Morphology NOT REPORTED Normal [facility] Comment on above: Performed By: #### C DP, BMP, SALI ####[address] [place] [address] CT HEAD WO CONTRASTon 2016 CT HEAD WO CONTRAST FINAL REPORTEXAM: CT HEAD WO CONTRASTHISTORY: altered mental status TECHNIQUE: CT of the head was performed without contrast.PRIORS: None.FINDINGS: The brain osman-white differentiation is intact. There is no ventriculomegaly. There is no hemorrhage or mass. No abnormal extracerebral collections are present.No definite or specific abnormalities of the orbits, globes, paranasal sinuses, mastoid air cells, cranium or soft tissues.IMPRESSION: Impression: No acute intracranial abnormality.Electronica lly Signed By: JOB MALONEY on 11/04/2016 21:30Interpreted by:Job MaloneySigned by:Job Maloney11/04/16Final result Normal [facility] Drug Scr, Abuse, Uron 2016 Amphetamine(s),Ur Negative Normal NEG [facility] Comment on above: Performed By: #### C DP, BMP, SALI ####[address] [place] [address] Barbiturate(s),Ur Negative Normal NEG [facility] Comment on above: Performed By: #### C DP, BMP, SALI ####[address] [place] [address] Base excess Negative Normal NEG [facility] Comment on above: Performed By: #### C DP, BMP, SALI ####[address] [place] [address] Benzodiazepine(s) Positive Abnormal NEG [facility] Comment on above: Performed By: #### C DP, BMP, SALI ####[address] [place] [address] Buprenorphrine, Ur Negative Normal NEG [facility] Comment on above: Result Comment: Perf ormed at [address] [place] [address] Performed By: #### C DP, BMP, SALI ####[address] [place] [address] Cannabinoid(s),Ur Negative Normal [facility] Comment on above: Performed By: #### C DP, BMP, SALI ####[address] [place] [address] Methamphetamine, Ur Negative Normal NEG [facility] Comment on above: Performed By: #### C DP, BMP, SALI ####[address] [place] [address] Opiate(s), Ur Positive Abnormal NEG [facility] Comment on above: Performed By: #### C DP, BMP, SALI ####[address] [place] [address] Oxycodone, Urine Positive Abnormal NEG [facility] Comment on above: Performed By: #### C DP, BMP, SALI ####[address] [place] [address] Phencyclidine, Ur Negative Normal NEG [facility] Comment on above: Performed By: #### C DP, BMP, SALI ####[address] [place] [address] Propoxyphene,Urine Negative Normal NEG [facility] Comment on above: Performed By: #### C DP, BMP, SALI ####[address] [place] [address] Urine, methadone presence Negative Normal NEG [facility] Comment on above: Performed By: #### C DP, BMP, SALI ####[address] [place] [address] Urine, tricyclic antidepressants Positive Abnormal NEG [facility] Comment on above: Result Comment: Drug screen results are to be used for medical purposes only. All positive results are unconfirmed. Testing for employment or legal uses should be sent to a reference laboratory for confirmation. Performed By: #### C DP, BMP, SALI ####[address] [place] [address] Interpretive Info NOT REPORTED Normal [facility] Comment on above: Performed By: #### C DP, BMP, SALI ####[address] [place] [address] MDMA, Urine NOT REPORTED Normal NEG [facility] Comment on above: Performed By: #### C DP, BMP, SALI ####[address] [place] [address] Buprenorphrine, Ur NOT REPORTED Normal NEG [facility] Comment on above: Performed By: #### D AU ####[facility] [place] [address] MDMA, Urine NOT REPORTED Normal NEG [facility] Comment on above: Performed By: #### D AU ####[facility] [place] [address] Methamphetamine, Ur NOT REPORTED Normal NEG [facility] Comment on above: Performed By: #### D AU ####[facility] [place] [address] Propoxyphene,Urine NOT REPORTED Normal NEG [facility] Comment on above: Performed By: #### D AU ####[place] [address] [place] [address] Urine, tricyclic antidepressants NOT REPORTED Normal NEG [facility] Comment on above: Performed By: #### D AU ####[place] [place] [address] [place] [address] Ethanol Alcoholon 11-04-2016 Ethanol mg/dL Normal <10 [facility] Comment on above: Performed By: #### A CET, ALCB ####[address] , [place] [address] Ethanol percent <0.010 Normal [facility] Comment on above: Result Comment: Perf ormed at [address] [place] [address] Performed By: #### A CET, ALCB ####[address] [place] [address] HCG, ,Urineon 11-04 HCG.beta subunit ( test) Ql (U) Negative Normal NEG [facility] Comment on above: Result Comment: Perf ormed at [address] [place] [address] Performed By: #### U A, UMICAO, UHCG, ANI ####[address] [place] [address] Liver Profileon 11-04-2016 Alanine aminotransferase (ALT) 13 U/L Normal 5-33 [facility] Comment on above: Performed By: #### C DP, BMP, SALI ####[address] [place] [address] Albumin 4.1 g/dL Normal 3.5-5.2 [facility] Comment on above: Performed By: #### C DP, BMP, SALI ####[address] [place] [address] Albumin/Globulin Ratio 1.4 {ratio} Normal 1.0-2.5 [facility] Comment on above: Result Comment: Perf ormed at [address] [place] [address] Performed By: #### C DP, BMP, SALI ####[address] [place] [address] Alkaline Phos 70 U/L Normal 35-104 [facility] Comment on above: Performed By: #### C DP, BMP, SALI ####[address] [place] [address] Aspartate aminotransferase (AST) 18 U/L Normal <32 [facility] Comment on above: Performed By: #### C DP, BMP, SALI ####[address] [place] [address] Bilirubin (direct) mg/dL Normal <0.31 [facility] Comment on above: Performed By: #### C DP, BMP, SALI ####[address] [place] [address] Bilirubin Ql (U) 0.41 mg/dL Normal 0.3-1.2 [facility] Comment on above: Performed By: #### C DP, BMP, SALI ####[address] [place] [address] Bilirubin, Indirect CANNOT BE CALCULATED Normal 0.00-1 .00 [facility] Comment on above: Performed By: #### C DP, BMP, SALI ####[address] [place] [address] Protein 7.0 g/dL Normal 6.4-8.3 [facility] Comment on above: Performed By: #### C SHANDA, BMP, SALI ####[address] [place] [address] Globulin NOT REPORTED Normal 1.5-3.8 [facility] Comment on above: Performed By: #### C DP, BMP, SALI ####[address] [place] [address] Salicylateon 11-04-2016 Salicylate <1 Low 3-10 [facility] Comment on above: Result Comment: Perf ormed at [address] [place] [address] Performed By: #### C SHANDA, ALFONSO, SALI ####[address] [place] [address] Troponinon 11-04-2016 Troponin I.cardiac mass conc Normal [facility] Comment on above: Result Comment: Refe rence Range: <0.03 Within reference range. 0.03-0.09 Possible myocardial damage.Repeat at appropriate intervals to rule out chronic elevation. >= 0.10 Indicative of myocardial damage.Performed at [address] [place] [address] Performed By: #### T ROPI ####[address] [place] [address] Troponin T.cardiac mass conc ug/L Normal <0.03 [facility] Comment on above: Result Comment: Trop onin T results cannot be compared to Troponin-I results. Performed By: #### T ROPI ####[address] [place] [address] Urinalysis, Routineon 2016 Acetaminophen mass conc Negative Normal NEG [facility] Comment on above: Performed By: #### U A, UMICAO, UHCG, ANI ####[address] [place] [address] Bilirubin (direct) Negative Normal NEG [facility] Comment on above: Performed By: #### U A, UMICAO, UHCG, ANI ####[address] [place] [address] Hemoglobin mass conc (Bld) Negative Normal NEG [facility] Comment on above: Performed By: #### U A, UMICAO, UHCG, ANI ####[address] [place] [address] Nitrite,Ur Negative Normal NEG [facility] Comment on above: Performed By: #### U A, UMICAO, UHCG, ANI ####[address] [place] [address] Turbidity CLEAR Normal CLEAR [facility] Comment on above: Performed By: #### U A, UMICAO, UHCG, ANI ####[address] [place] [address] Urine, color YELLOW Normal YEL [facility] Comment on above: Performed By: #### U A, UMICAO, UHCG, ANI ####[address] [place] [address] Urine, glucose presence Negative Normal NEG [facility] Comment on above: Performed By: #### U A, UMICAO, UHCG, ANI ####[address] [place] [address] Urine, leukocyte esterase presence SMALL Abnormal NEG [facility] Comment on above: Result Comment: Perf ormed at [address] [place] [address] Performed By: #### U A, UMICAO, UHCG, ANI ####[address] [place] [address] Urine, pH 5.5 [pH] Normal 5.0-9.0 [facility] Comment on above: Performed By: #### U A, UMICAO, UHCG, ANI ####[address] [place] [address] Urine, protein presence Negative Normal NEG [facility] Comment on above: Performed By: #### U A, UMICAO, UHCG, ANI ####[address] [place] [address] Urine, specific gravity 1.015 Normal 1.010-1.020 [facility] Comment on above: Performed By: #### U A, UMICAO, UHCG, ANI ####[address] [place] [address] Urobilinogen,Ur Normal Normal NORM [facility] Comment on above: Performed By: #### U A, UMICAO, UHCG, ANI ####[address] [place] [address] Comment NOT REPORTED Normal [facility] Comment on above: Performed By: #### U A, UMICAO, UHCG, ANI ####[address] [place] [address] Urinalysis,Microon 7 ----- Normal [facility] Comment on above: Performed By: #### U A, UMICAO, UHCG, ANI ####[address] [place] [address] Mucus Strands TRACE Abnormal NONE [facility] Comment on above: Result Comment: Perf ormed at [address] [place] [address] Performed By: #### U A, UMICAO, UHCG, ANI ####[address] [place] [address] Urine WBC's 2 TO 5 Normal 0-5 [facility] Comment on above: Performed By: #### U A, UMICAO, UHCG, ANI ####[address] [place] [address] Urine, bacteria in sediment TRACE Abnormal NONE [facility] Comment on above: Performed By: #### U A, UMICAO, UHCG, ANI ####[address] [place] [address] Urine, epithelial cells in sediment 2 TO 5 Normal 0-25 [facility] Comment on above: Performed By: #### U A, UMICAO, UHCG, ANI ####[address] [place] [address] Urine, erythrocytes 0 TO 2 Normal 0-2 [facility] Comment on above: Performed By: #### U A, UMICAO, UHCG, ANI ####[address] [place] [address] Epithelial, Renal NOT REPORTED Normal 0 [facility] Comment on above: Performed By: #### U A, UMICAO, UHCG, ANI ####[address] [place] [address] Other Observations NOT REPORTED [facility] Comment on above: Performed By: #### U A, UMICAO, UHCG, ANI ####[address] [place] [address] Trichomonas NOT REPORTED Normal NONE [facility] Comment on above: Performed By: #### U A, UMICAO, UHCG, ANI ####[address] [place] [address] Urine, amorphous sediment presence in sediment NOT REPORTED Normal NONE [facility] Comment on above: Performed By: #### U A, UMICAO, UHCG, ANI ####[address] [place] [address] Urine, casts in sediment NOT REPORTED Normal [facility] Comment on above: Performed By: #### U Libia, AGAPITO, DavidG, ANI ####[address] [place] [address] Urine, crystals in sediment NOT REPORTED Normal NONE [facility] Comment on above: Performed By: #### U Libia, AGAPITO, DavidG, ANI ####[address] [place] [address] Urine, yeast presence in sediment NOT REPORTED Normal NONE [facility] Comment on above: Performed By: #### U A, AGAPITO, DavidG, ANI ####[address] [place] [address] XR CHEST PORTABLEon 11-05-19 XR CHEST PORTABLE FINAL REPORTEXAM: XR CHEST PORTABLEHISTORY: AMS TECHNIQUE: Frontal view chest PRIORS: 07/11/2016.FINDINGS: Examination overall limited due to prominent soft tissue attenuation. Stable appearance of the cardiomediastinal silhouette. Low lung volumes accentuating the pulmonary markings. No definite consolidation, pneumothorax or pleural effusion. Osseous structures unremarkable. IMPRESSION: Impression: Low lung volumes. No acute radiographic abnormality. Interpreted by:Job MaloneySigned by:Job Maloney11/04/16Final result Normal [facility] No Panel Information [facility] Vital Signs Date Time Vital Sign Value Performing Clinician Faci lity 02-23-2024 13:51-0500 Body height 165.1 cm Mariam Moser APRN.GEOSPATIAL EXTRACTOR ANALYSIS Work Phone: [facility] 02-23-2024 13:51-0500 Body mass index (BMI) [Ratio] 47.76 kg/m2 Mariam Moser APRN.GEOSPATIAL EXTRACTOR ANALYSIS Work Phone: [facility] 02-23-2024 13:51-0500 Body temperature 97.7 [degF] Mariam Moser APRN.GEOSPATIAL EXTRACTOR ANALYSIS Work Phone: [facility] 02-23-2024 13:51-0500 Body weight 130.18 kg Mariam Moser APRN.GEOSPATIAL EXTRACTOR ANALYSIS Work Phone: [facility] 02-23-2024 13:51-0500 Diastolic blood pressure 59 mm[Hg] Mariam Moser APRN.GEOSPATIAL EXTRACTOR ANALYSIS Work Phone: [facility] 02-23-2024 13:51-0500 Heart rate 83 /min Mariam Moser APRN.GEOSPATIAL EXTRACTOR ANALYSIS Work Phone: [facility] 02-23-2024 13:51-0500 Respiratory rate 20 /min Mariam Moser APRN.GEOSPATIAL EXTRACTOR ANALYSIS Work Phone: [facility] 02-23-2024 13:51-0500 SaO2% (BldA) [Mass fraction] 92 % Mariam Moser APRN.GEOSPATIAL EXTRACTOR ANALYSIS Work Phone: [facility] 02-23-2024 13:51-0500 Systolic blood pressure 119 mm[Hg] Mariam Moser APRN.GEOSPATIAL EXTRACTOR ANALYSIS Work Phone: [facility] 02-04-2024 17:14-0500 Body height 165.1 cm Ruth Swanson MD Work Phone: [facility] 02-04-2024 17:14-0500 Body mass index (BMI) [Ratio] 46.26 kg/m2 Ruth Swanson MD Work Phone: [facility] 02-04-2024 17:14-0500 Body temperature 99.1 [degF] Ruth Swanson MD Work Phone: [facility] 02-04-2024 17:14-0500 Body weight 126.1 kg Ruth Swanson MD Work Phone: [facility] 02-04-2024 17:14-0500 Diastolic blood pressure 78 mm[Hg] Ruth Swanson MD Work Phone: [facility] 02-04-2024 17:14-0500 Heart rate 81 /min Ruth Swanson MD Work Phone: [facility] 02-04-2024 17:14-0500 SaO2% (BldA) [Mass fraction] 93 % Ruth Swanson MD Work Phone: [facility] 02-04-2024 17:14-0500 Systolic blood pressure 180 mm[Hg] Ruth Swanson MD Work Phone: [facility] 01-26-2024 15:19-0500 Body height 165.1 cm Irma Dago DO Work Phone: [facility] 01-26-2024 15:19-0500 Body mass index (BMI) [Ratio] 45.93 kg/m2 Irma Dago DO Work Phone: [facility] 01-26-2024 15:19-0500 Body weight 125.19 kg Irma Dago DO Work Phone: [facility] 01-26-2024 15:19-0500 Respiratory rate 18 /min Irma Dago DO Work Phone: [facility] 01-15-2024 09:25-0400 Body height 165.1 cm Nadine Black MD Work Phone: [facility] 01-15-2024 09:25-0400 Body mass index (BMI) [Ratio] 45.93 kg/m2 Nadine Black MD Work Phone: [facility] 01-15-2024 09:25-0400 Body weight 125.19 kg Nadine Black MD Work Phone: [facility] 01-15-2024 09:25-0400 Diastolic blood pressure 88 mm[Hg] Nadine Black MD Work Phone: [facility] 01-15-2024 09:25-0400 Heart rate 84 /min Nadine Black MD Work Phone: [facility] 01-15-2024 09:25-0400 SaO2% (BldA) [Mass fraction] 95 % Nadine Black MD Work Phone: [facility] 01-15-2024 09:25-0400 Systolic blood pressure 170 mm[Hg] Nadine Black MD Work Phone: [facility] 10-22-2023 15:03-0400 Body height 165.1 cm Irma Dago DO Work Phone: [facility] 10-22-2023 15:03-0400 Body mass index (BMI) [Ratio] 41.6 kg/m2 Irma Dago DO Work Phone: [facility] 10-22-2023 15:03-0400 Body weight 113.4 kg Irma Dago DO Work Phone: [facility] 10-22-2023 15:03-0400 Respiratory rate 16 /min Irma Dago DO Work Phone: [facility] 06-16-2023 16:16-0400 Body height 165.1 cm Ruth Swanson MD Work Phone: [facility] 06-16-2023 16:16-0400 Body temperature 97.81 [degF] Ruth Swanson MD Work Phone: [facility] 06-16-2023 16:16-0400 Body weight 113.4 kg Ruth Swanson MD Work Phone: [facility] 06-16-2023 16:16-0400 Diastolic blood pressure 90 mm[Hg] Ruth Swanson MD Work Phone: [facility] 06-16-2023 16:16-0400 Heart rate 89 /min Ruth Swanson MD Work Phone: [facility] 06-16-2023 16:16-0400 SaO2% (BldA) [Mass fraction] 99 % Ruth Swanson MD Work Phone: [facility] 06-16-2023 16:16-0400 Systolic blood pressure 135 mm[Hg] Ruth Swanson MD Work Phone: [facility] 06-02-2023 13:35-0400 Body height 165.1 cm Ruth Swanson MD Work Phone: [facility] 06-02-2023 13:35-0400 Body temperature 99.1 [degF] Ruth Swanson MD Work Phone: [facility] 06-02-2023 13:35-0400 Diastolic blood pressure 72 mm[Hg] Ruth Swanson MD Work Phone: [facility] 06-02-2023 13:35-0400 Heart rate 91 /min Ruth Swanson MD Work Phone: [facility] 06-02-2023 13:35-0400 SaO2% (BldA) [Mass fraction] 93 % Ruth Swanson MD Work Phone: [facility] 06-02-2023 13:35-0400 Systolic blood pressure 106 mm[Hg] Ruth Swanson MD Work Phone: [facility] 07-28-2022 15:13-0400 Body height 165.1 cm Irma Dago DO Work Phone: [facility] 07-28-2022 15:13-0400 Body weight 104.33 kg Irma Dago DO Work Phone: [facility] 07-28-2022 15:13-0400 Respiratory rate 18 /min Irma Dago DO Work Phone: [facility] 07-15-2022 09:55-0400 Body height 165.1 cm Irma Dago DO Work Phone: [facility] 07-15-2022 09:55-0400 Body weight 104.33 kg Irma Dago DO Work Phone: [facility] 07-15-2022 09:55-0400 Heart rate 74 /min Irma Dago DO Work Phone: [facility] 07-15-2022 09:55-0400 SaO2% (BldA) [Mass fraction] 98 % Irma Dago DO Work Phone: [facility] 01-13-2022 15:20-0400 Body height 165.1 cm Irma Dago DO Work Phone: [facility] 01-13-2022 15:20-0400 Body weight 113.4 kg Irma Dago DO Work Phone: [facility] 01-13-2022 15:20-0400 Respiratory rate 20 /min Irma Dago DO Work Phone: [facility] 12-02-2021 14:44-0400 Body height 165.1 cm Irma Dago DO Work Phone: [facility] 12-02-2021 14:44-0400 Body weight 113.4 kg Irma Dago DO Work Phone: [facility] 12-02-2021 14:44-0400 Respiratory rate 18 /min Irma Dago DO Work Phone: [facility] 10-14-2021 14:38-0400 Body height 165.1 cm Irma Dago DO Work Phone: [facility] 10-14-2021 14:38-0400 Body weight 113.4 kg Irma Dago DO Work Phone: [facility] 10-14-2021 14:38-0400 Respiratory rate 16 /min Irma Dago DO Work Phone: [facility] 08-30-2021 15:33-0400 Body height 165.1 cm Irma Dago DO Work Phone: [facility] 08-30-2021 15:33-0400 Body weight 113.4 kg Irma Dago DO Work Phone: [facility] 08-30-2021 15:33-0400 Respiratory rate 18 /min Irma Dago DO Work Phone: [facility] 08-21-2021 15:25-0400 Body height 165.1 cm Irma Dago DO Work Phone: [facility] 08-21-2021 15:25-0400 Body weight 113.4 kg Irma Dago DO Work Phone: [facility] 08-21-2021 15:25-0400 Respiratory rate 18 /min Irma Dago DO Work Phone: [facility] 06-28-2021 14:23-0400 Body height 165.1 cm Irma Loza DO Work Phone: [facility] 06-28-2021 14:23-0400 Body weight 113.4 kg Irma Loza DO Work Phone: [facility] 06-28-2021 14:23-0400 Respiratory rate 18 /min Irma Loza DO Work Phone: [facility] Encounters Encounter Date Encounter Type Care Provider Facility Start: 03-31-2024 End: 04-03-2024 Refill [facility] Comment on above: Refill Request Start: 03-18-2024 End: 03-18-2024 Refill Ruth Swanson MD Work Phone: [facility] Comment on above: Refill Request Start: 02-23-2024 End: 02-23-2024 ambulatory MARIAM MOSER Facility:[facility] Start: 02-23-2024 End: 02-23-2024 Office outpatient visit 40 minutes Mariam Moser APRN.GEOSPATIAL EXTRACTOR ANALYSIS Work Phone: Pulmonary Medicine Comment on above: 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); Former cigarette smoker; Mediastinal lymphadenopathy; Dyspnea on exertion Start: 02-19-2024 End: 02-19-2024 Telephone encounter Kelsy Camacho APRN.GEOSPATIAL EXTRACTOR ANALYSIS Work Phone: [facility] Comment on above: Orders; Opened In Er ror Opened In Error Start: 02-04-2024 End: 02-04-2024 Office outpatient visit 25 minutes Ruth Swanson MD Work Phone: [facility] Comment on above: Class 3 severe obesi ty with body mass index (BMI) of 45.0 to 49.9 in adult, unspecified obesity type, unspecified whether serious comorbidity present (HCC) (Primary Dx); Hypertension, unspecified type Start: 02-04-2024 End: 02-04-2024 ambulatory RUTH SWANSON Facility:[facility] Start: 02-01-2024 End: 02-02-2024 Telephone encounter Nadine Black MD Work Phone: Pulmonary Start: 01-29-2024 End: 01-29-2024 Telephone encounter Kelsy Camacho APRN.CNP Work Phone: [facility] Comment on above: Orders Start: 01-28-2024 End: 02-02-2024 Telephone encounter Mario Martin MD Work Phone: Pulmonary Medicine Comment on above: Results; urgent lab value Refill Request Start: 01-27-2024 End: 01-27-2024 ambulatory MARIO MARTIN Facility:[facility] Start: 01-26-2024 End: 01-26-2024 Patient encounter procedure Irma Loza Work Phone: [facility] Comment on above: Primary osteoarthrit is of left knee (Primary Dx); Primary osteoarthritis of right knee Start: 01-26-2024 End: 01-26-2024 ambulatory IRMA LOZA Facility[facility] Start: 01-19-2024 End: 01-19-2024 ambulatory Lalo Rubio MD Work Phone: Pulmonary Medicine Start: 01-19-2024 End: 01-20-2024 Telephone encounter Lalo Rubio MD Work Phone: Pulmonary Medicine Comment on above: Bronchoscopy Schedul ing (Bronchoscopy scheduling) Start: 01-15-2024 End: 01-15-2024 ambulatory NADINE BLACK Facility:[id number] Start: 01-15-2024 End: 01-15-2024 Patient encounter procedure Nadine Black MD Work Phone: [facility] Comment on above: Hilar adenopathy (Pr imary Dx); Ex-smoker; Vaping nicotine dependence, tobacco product Start: 01-14-2024 End: 01-14-2024 Telephone encounter Ruth Swanson MD Work Phone: [facility] Comment on above: Patient Question Start: 01-08-2024 End: 01-22-2024 Telephone encounter Ruth Swanson MD Work Phone: [facility] Start: 12-31-2023 End: 12-31-2023 ambulatory RUTH SWANSON Facility:[facility] Start: 12-31-2023 Encounter for genera l adult medical examination without abnormal findings LIZA DORSEY [facility] Start: 12-29-2023 End: 12-30-2023 Telephone encounter Ruth Swanson MD Work Phone: [facility] Comment on above: Patient Update Start: 12-05-2023 End: 12-08-2023 Refill Ruth Swanson MD Work Phone: [facility] Comment on above: Refill Request Start: 10-22-2023 End: 10-22-2023 Patient encounter procedure Irma Dago DO Work Phone: [facility] Comment on above: Primary osteoarthrit is of left knee (Primary Dx); Primary osteoarthritis of right knee Start: 10-22-2023 End: 10-22-2023 ambulatory IRMA DAGO Facility:[facility] Start: 10-14-2023 Refill Ruth parkinson MD Work Phone: [facility] Comment on above: Refill Request Start: 10-04-2023 ambulatory Irma Presto n DO Work Phone: [facility] Start: 10-04-2023 Patient encounter procedure Irma Dago DO Work Phone: [facility] Comment on above: Knee injections Start: 07-01-2023 ambulatory Ruth parkinson MD Work Phone: Internal Medicine [facility] [place] Start: 06-29-2023 E-mail encounter fro m caregiver [facility] Provider AGA MENDOZA Start: 06-29-2023 Patient encounter procedure [facility] Management Comment on above: Instructions for you r upcoming appointment Start: 06-16-2023 End: 06-16-2023 Patient encounter procedure Ruth Swanson MD Work Phone: [facility] Comment on above: Closed nondisplaced fracture of right ilium with routine healing, unspecified fracture morphology, subsequent encounter (Primary Dx) Start: 06-16-2023 End: 06-16-2023 ambulatory RUTH SWANSON Facility:[facility] Start: 06-10-2023 ambulatory LIZA MADDOX SUNITA Chuckie acility:[facility] Start: 06-10-2023 End: 06-10-2023 ambulatory LIZA MADDOX SUNITA Facility:[facility] Start: 06-10-2023 End: 06-10-2023 Patient encounter procedure Liza Maddox Sunita DO Work Phone: Orthopaedics Comment on above: Fracture of unspecif ied parts of lumbosacral spine and pelvis, subsequent encounter for fracture with routine healing (Primary Dx); Closed fracture of sacrum, unspecified portion of sacrum, initial encounter (HCC); Closed fracture of multiple pubic rami, right, initial encounter (HCC) Start: 06-10-2023 End: 06-10-2023 Subsequent hospital visit by physician Radio Knowles Blauvelt Theodore Work Phone: Radiology Comment on above: Pain in joint involv ing pelvic region and thigh, unspecified laterality [M25.559] Start: 06-02-2023 End: 06-02-2023 Patient encounter procedure Ruth Swanson MD Work Phone: [facility] Comment on above: Closed fracture of m ultiple rami of right pubis, initial encounter (HCC) (Primary Dx); Closed fracture of sacrum, unspecified fracture morphology, initial encounter (HCC); Other osteoporosis; Opioid dependence in remission (HCC) Start: 06-02-2023 End: 06-02-2023 ambulatory RUTH HANSON EJ Facility:[facility] Start: 06-01-2023 Telephone encounter Pat calvillo LPN Work Phone: [facility] Comment on above: Home Care (Confirmat ion call.) Home Care (MD loreto mercado) Start: 05-29-2023 End: 05-30-2023 ambulatory HADEEL ABUTEER Facility:[facility] Start: 05-27-2023 ambulatory Ruth parkinson MD Work Phone: [facility] Comment on above: Test results from ye samuel s ED visit Start: 05-26-2023 End: 05-26-2023 Emergency department patient visit RUTH SWANSON Facility:[facility] Start: 05-19-2023 End: 05-19-2023 Telemedicine consultation with patient Ruth Swanson MD Work Phone: [facility] Start: 05-19-2023 End: 05-19-2023 ambulatory Ruth Swanson MD Work Phone: [facility] Comment on above: Anxiety with depress ion (Primary Dx) Start: 05-17-2023 End: 05-17-2023 Emergency department patient visit RUTH SWANSON Facility:[facility] Start: 05-17-2023 Refill uRth parkinson MD Work Phone: [facility] Comment on above: Refill Request Start: 03-31-2023 End: 03-31-2023 ambulatory IRMAHER BARRETTON Facility:[facility] Start: 03-02-2023 End: 03-02-2023 Subsequent hospital visit by physician Karen Garg [facility] Comment on above: Pain in right ankle and joints of right foot [M25.571] Start: 02-05-2023 Refill Irma Barretto n DO Work Phone: [facility] Comment on above: Refill Request Start: 01-08-2023 Refill Xi freitas DRYWALL HANGER.GEOSPATIAL EXTRACTOR ANALYSIS Work Phone: [facility] Comment on above: Refill Request Start: 11-18-2022 End: 11-18-2022 ambulatory Idalia Murillo MD Work Phone: Dermatology Comment on above: Tinea pedis, unspeci fied laterality (Primary Dx) Start: 11-18-2022 End: 11-18-2022 Telemedicine consultation with patient Idalia Murillo MD Work Phone: [facility] Start: 10-22-2022 Refill Ruth parkinson MD Work Phone: [facility] Comment on above: Refill Request Start: 07-28-2022 End: 07-28-2022 Patient encounter procedure Irma Loza DO Work Phone: [facility] Comment on above: Primary osteoarthrit is of right knee (Primary Dx); Primary osteoarthritis of left knee Start: 07-15-2022 End: 07-15-2022 Patient encounter procedure Irma Loza DO Work Phone: [facility] Comment on above: Primary osteoarthrit is of right knee (Primary Dx) Start: 07-15-2022 End: 07-15-2022 Subsequent hospital visit by physician [facility] Comment on above: Primary osteoarthrit is of right knee [M17.11] Start: 06-25-2022 Refill Ruth parkinson MD Work Phone: [facility] Comment on above: Refill Request Start: 05-26-2022 Documentation procedure Mammog cecilia Coordinator [facility] Start: 05-26-2022 Letter encounter Mammography Coordinator [facility] Start: 05-23-2022 End: 05-23-2022 Subsequent hospital visit by physician Screen Mammo [facility] Comment on above: Encounter for screen ing mammogram for breast cancer [Z12.31] Start: 03-12-2022 ambulatory Ruth parkinson MD Work Phone: Internal Medicine [facility] [place] Start: 01-13-2022 End: 01-13-2022 Patient encounter procedure Irma Loza DO Work Phone: [facility] Comment on above: Primary osteoarthrit is of left knee (Primary Dx); Primary osteoarthritis of right knee Start: 12-29-2021 Refill Ruth parkinson MD Work Phone: [facility] Comment on above: Refill Request Start: 12-12-2021 Refill Xi freitas APRN.GEOSPATIAL EXTRACTOR ANALYSIS Work Phone: [facility] Comment on above: Refill Request Start: 12-02-2021 End: 12-02-2021 Patient encounter procedure Irma Dago DO Work Phone: [facility] Comment on above: Primary osteoarthrit is of left knee (Primary Dx) Start: 11-29-2021 Refill Irma Presto n DO Work Phone: [facility] Comment on above: Refill Request Start: 10-14-2021 End: 10-14-2021 Patient encounter procedure Irma Dago DO Work Phone: [facility] Comment on above: Primary osteoarthrit is of left knee (Primary Dx) Start: 08-30-2021 End: 08-30-2021 Follow-up encounter Irma Dago DO Work Phone: [facility] Comment on above: Left Knee - Follow U p Start: 08-30-2021 End: 08-30-2021 Patient encounter procedure Irma Dago DO Work Phone: [facility] Start: 08-21-2021 End: 08-21-2021 Follow-up encounter Irma Dago DO Work Phone: [facility] Comment on above: Left Knee - Follow U p Start: 08-21-2021 End: 08-21-2021 Patient encounter procedure Irma Dago DO Work Phone: [facility] Start: 08-15-2021 Refill Ruth parkinson MD Work Phone: [facility] Comment on above: Refill Request Start: 08-05-2021 Refill Ruth parkinson MD Work Phone: [facility] Comment on above: Refill Request Start: 06-28-2021 End: 06-28-2021 Patient encounter procedure Irma Dago DO Work Phone: [facility] Comment on above: Primary osteoarthrit is of left knee (Primary Dx) Start: 06-24-2021 Refill Ruth parkinson MD Work Phone: [facility] Comment on above: Refill Request Start: 06-24-2021 Telephone encounter Ruth Swanson MD Work Phone: [facility] Comment on above: Medication Problem Start: 11-05-2016 End: 11-10-2016 Evaluation and management of inpatient GILDA WANG [facility] Start: 11-05-2016 End: 11-05-2016 Evaluation and management of inpatient KAREN MURO [facility] Start: 11-04-2016 End: 11-05-2016 Emergency department patient visit EVETTE Laith [facility] Start: 09-02-2016 Ambulatory DALE Mckeon cility:[facility] Procedures Date Procedure Procedure Detail Performing Clinician Start: 01-26-2024 Arthrocentesis aspir &/inj major jt/bursa w/o us Irma Dago DO Work Phone: Start: 01-26-2024 Arthrocentesis aspir &/inj major jt/bursa w/o us Irma Dago DO Work Phone: Start: 12-31-2023 Lipid 1996 panel - S renato or Plasma Ruth Swanson MD Work Phone: Start: 10-22-2023 Arthrocentesis aspir &/inj major jt/bursa w/o us Irma Dago DO Work Phone: Start: 10-22-2023 Arthrocentesis aspir &/inj major jt/bursa w/o us Irma Dago DO Work Phone: Start: 06-10-2023 Radiologic examinati on pelvis 1/2 views Liza Dorsey DO Work Phone: Start: 07-28-2022 Arthrocentesis aspir &/inj major jt/bursa w/o us Irma Dago DO Work Phone: Start: 07-28-2022 Arthrocentesis aspir &/inj major jt/bursa w/o us Irma Dago DO Work Phone: Start: 07-15-2022 Radiologic exam knee complete 4/more views Irma Dago DO Work Phone: Start: 05-23-2022 Mammography Mammograph y Coordinator Start: 01-13-2022 Arthrocentesis aspir &/inj major jt/bursa w/o us Irma Dago DO Work Phone: Start: 01-13-2022 Arthrocentesis aspir &/inj major jt/bursa w/o us Irma Dago DO Work Phone: Start: 10-16-2021 Radiologic exam knee complete 4/more views Irma Dago DO Work Phone: Start: 10-16-2021 Arthrocentesis aspir &/inj major jt/bursa w/o us Irma Dago DO Work Phone: Start: 09-03-2021 Arthrocentesis aspir &/inj major jt/bursa w/o us Irma Dago DO Work Phone: Start: 08-23-2021 Arthrocentesis aspir &/inj major jt/bursa w/o us Irma Dago DO Work Phone: Start: 09-29-2020 Adult depression scr eening assessment Ruth Swanson MD Work Phone: Start: 03-07-2020 Mammography Ruth ozuna MD Work Phone: Start: 03-02-2020 Lipid 1996 panel - S renato or Plasma Xi Gallagher DRYWALL HANGER.GEOSPATIAL EXTRACTOR ANALYSIS Work Phone: Start: 11-09-2016 DISCHARGE PATIENT GILDA SANCHEZ Start: 11-07-2016 IP CONSULT TO HISTOR Y AND PHYSICAL GILDA WANG Start: 11-05-2016 PATIENT STATUS (DIRECT) GILDA YOSTPTA Start: 11-05-2016 DIET GENERAL GILDA WANG Start: 11-05-2016 FULL CODE GILDA WANG Start: 11-05-2016 DISCHARGE PATIENT DOUGL MURO Start: 11-05-2016 PATIENT STATUS (DIRECT) GILDA WANG Start: 11-05-2016 INITIATE OXYGEN THER APY PROTOCOL KAREN MURO Start: 11-05-2016 CBC WITH AUTO DIFFERENTIAL KAREN MURO Start: 11-05-2016 COMPREHENSIVE METABO LIC PANEL KAREN MURO Start: 11-05-2016 ADVANCE DIET TOLE RATED (NURSING COMMUNICATION) KAREN MURO Start: 11-05-2016 DIET GENERAL KAREN CI JONES Start: 11-05-2016 ACETAMINOPHEN LEVEL DAVID GLAS MURO Start: 11-05-2016 DAILY WEIGHTS KAREN C IFUENTES Start: 11-05-2016 PATIENT STATUS (DIRECT) KAREN MURO Start: 11-05-2016 EKG 12-LEAD KAREN CI JONES Start: 11-05-2016 FULL CODE KAREN CI JONES Start: 11-05-2016 INITIATE OXYGEN THER APY PROTOCOL KAREN MURO Start: 11-05-2016 INTAKE AND OUTPUT DOUGL MURO Start: 11-05-2016 IP CONSULT TO PSYCHIATRY KAREN MURO Start: 11-05-2016 MISCELLANEOUS NURSIN G CARE ORDER (SPECIFY) KAREN MURO Start: 11-05-2016 NEURO/VASCULAR CHECKS D OUGLAS MURO Start: 11-05-2016 NOTIFY PHYSICIAN (SPECIFY) KAREN MURO Start: 11-05-2016 NURSING COMMUNICATION D OUGLAS MURO Start: 11-05-2016 REASON FOR NO MECHAN ICAL VTE PROPHYLAXIS KAREN MRUO Start: 11-05-2016 SITTER AT BEDSIDE DOUGL MURO Start: 11-05-2016 VITAL SIGNS KAREN CI JONES Start: 11-04-2016 Ct head/brain w/o co ntrast material [place] Start: 11-04-2016 EKG 12-LEAD [place] NGUYE N Start: 11-04-2016 Microscopic urinalysis [place] Start: 11-04-2016 , URINE [place] N GUYEN Start: 11-04-2016 Urinalysis [place] N[place] Start: 11-04-2016 URINE DRUG SCREEN [place] Start: 11-04-2016 Chest x-ray 1 view frontal [place] Start: 11-04-2016 BLOOD GAS, ARTERIAL [place] Start: 11-04-2016 ACETAMINOPHEN LEVEL [place] Start: 11-04-2016 BASIC METABOLIC PANEL D [place] Start: 11-04-2016 CBC WITH AUTO DIFFERENTIAL [place] Start: 11-04-2016 ETHANOL [place] Start: 11-04-2016 HEPATIC FUNCTION PANEL [place] Start: 11-04-2016 SALICYLATE LEVEL [place] Start: 11-04-2016 TROPONIN [place] Start: 11-04-2016 POCT GLUCOSE [place] Start: 11-04-2016 GLUCOSE, WHOLE BLOOD DA [place]NA [place] Start: 11-04-2016 Continuous pulse oximetry [place] Start: 11-04-2016 URINE DRUG SCREEN DOUGL MURO Plan of Treatment Date Care Activity Detail Author Start: 12-13-2031 Urine microalbumin profile [facility] Start: 12-30-2028 Lipid panel Lipid Screening [facility] Start: 12-30-2026 Diabetes Screening Diabetes Screening [facility] Start: 05-29-2026 Diabetes Screening Diabetes Screening [facility] Start: 03-02-2025 Lipid 1996 panel - Serum or Plasma Lipid Screening [facility] Start: 03-02-2025 Lipid panel Lipid Screening [facility] Start: 03-02-2025 LIPID SCREEN LIPID SCREEN [facility] Start: 02-22-2025 BP Controlled (<130/80) BP Controlled (<130/80) [facility] Start: 02-03-2025 Annual PCP Team Chronic Disease Visit Annual PCP Team Chronic Disease Visit [facility] Start: 06-15-2024 Annual PCP Team Chronic Disease Visit Annual PCP Team Chronic Disease Visit [facility] Start: 06-01-2024 Annual PCP Team Chronic Disease Visit Annual PCP Team Chronic Disease Visit [facility] Start: 06-01-2024 BP Controlled (<130/80) BP Controlled (<130/80) [facility] Start: 05-19-2024 Annual PCP Team Chronic Disease Visit Annual PCP Team Chronic Disease Visit [facility] Start: 04-21-2024 End: 04-21-2024 Patient encounter procedure 04/21/2024 2:10 PM EST Office Visit Pulmonary [address] [place] [phone] Nadine Black MD [address] [place] [address] 2 month follow up Pulmonary Comment on above: 2 month follow up Start: 04-21-2024 End: 04-21-2024 ambulatory [facility] [place] Comment on above: Hilar adenopathy [R59.0] Start: 02-24-2024 End: 02-24-2024 ambulatory 02/24/2024 4:00 PM EST Visit (SP) Office Hematology/Oncology [address] [place] [address] Mohan Stone MD [address] [place] [address] DX Hilar adenopathy/ Ref: Hematology/Oncology Comment on above: DX Hilar adenopathy/ Ref: Start: 02-23-2024 End: 02-23-2024 Patient encounter procedure 02/23/2024 1:30 PM EST Office Visit Pulmonary Medicine [address] [place] [address] Mariam Moser, DRYWALL HANGER.GEOSPATIAL EXTRACTOR ANALYSIS [address] [place] [address] New CMN - follow up after EBUS [facility] Comment on above: New CMN - follow up after EBUS Start: 02-12-2024 End: 02-12-2024 ambulatory 02/12/2024 10:20 AM EST Visit (SP) Office [facility] [address] [place], [place] [phone] Ayde Carter MD [address] [place], [place] [id number] Hilar adenopathy/ [facility] Comment on above: Hilar adenopathy/ Start: 02-04-2024 End: 02-04-2024 Patient encounter procedure 02/04/2024 5:15 PM EST [facility] [address] [place] [phone] Ruth Swanson MD [address] [place] [phone] Discuss the Ozempic I started. [facility] Comment on above: Discuss the Ozempic I started. Start: 01-27-2024 End: 01-27-2024 Admission to same day surgery center 01/27/2024 3:00 PM EST - 01/27/2024 5:00 PM EST Surgery [facility] [place] [address] Mario Martin MD [address] [place] [address] BRONCHOSCOPY,RIGID/FLEXI BLE W/ FLUORO,W/ENDOBRONCHIAL ULTRASOUND (EBUS) GUIDED TRANSTRACHEAL /TRANSBRONCHIAL ASPIRATION/BIOPSY 3 OR MORE MEDIASTINAL AND/OR HILAR LYMPH NODE STATIONS/STRUCTURES [facility] Comment on above: BRONCHOSCOPY,RIGID/FLEXIBLE W/ FLUORO,W/ ENDOBRONCHIAL ULTRASOUND (EBUS) GUIDED TRANSTRACHEAL /TRANSBRONCHIAL ASPIRATION/BIOPSY 3 OR MORE MEDIASTINAL AND/OR HILAR LYMPH NODE STATIONS/STRUCTURES Start: 01-27-2024 End: 01-27-2024 [facility] ebus guided sampl 3/> node station/strux BRONCHOSCOPY,RIGID/FLEXI BLE W/ FLUORO,W/ENDOBRONCHIAL ULTRASOUND (EBUS) GUIDED TRANSTRACHEAL /TRANSBRONCHIAL ASPIRATION/BIOPSY 3 OR MORE MEDIASTINAL AND/OR HILAR LYMPH NODE STATIONS/STRUCTURES Mediastinal lymphadenopathy 01/27/2024 3:00 PM EST [facility] Start: 01-27-2024 Subsequent hospital visit by physician 01/27/2024 3:00 PM EST Hospital Encounter [facility] [address] [address] Mario Martin MD [address] [place] [address] Mediastinal lymphadenopathy [R59.0] [facility] Comment on above: Mediastinal lymphadenopathy [R59.0] Start: 01-26-2024 End: 01-26-2024 Patient encounter procedure 01/26/2024 3:30 PM EST Office Visit [facility] Orthopa[facility]ics [address] [place] [phone] Irma Loza DO [address] [place], [place] [phone] BL knee injection [facility] Comment on above: BL knee injection Start: 01-15-2024 End: 01-15-2024 Patient encounter procedure 01/15/2024 9:20 AM EDT Office Visit [facility] Pulmonary [address] [place] [phone] Nadine Black MD [address] [facility] [facility] [address] [place], [place] [phone] Hilar adenopathy [R59.0] [facility] Pulmonary Comment on above: Hilar adenopathy [R59.0] Start: 01-14-2024 End: 01-14-2024 Patient encounter procedure 01/14/2024 2:00 PM EDT Office Visit [facility] [address] [place] [address] Ruth Swanson MD [address] [address] Discuss the Ozempic I started. [facility] Comment on above: Discuss the Ozempic I started. Start: 11-22-2023 Covid-19 Vaccine () Covid-19 Vaccine ( season) [facility] Start: 11-22-2023 Covid-19 Vaccine () Covid-19 Vaccine () [facility] Start: 11-22-2023 Influenza vaccination [facility] Start: 11-16-2023 End: 11-16-2023 Patient encounter procedure 11/16/2023 10:30 AM EDT Office Visit [facility] [address] [place] [phone] Ruth Swanson MD [address] [place] [phone] weight gain [facility] Comment on above: weight gain Start: 10-20-2023 End: 10-20-2023 Patient encounter procedure 10/20/2023 3:30 PM EDT Office Visit [facility] [address] [place] [phone] Irma Loza [address] [place], [place] [phone] BL cortisone injection [facility] Comment on above: BL cortisone injection Start: 09-20-2023 DIABETES SCREEN DIABETES SCREEN [facility] Start: 09-20-2023 Diabetes Screening Diabetes Screening [facility] Start: 05-24-2023 Mammography [facility] Start: 05-24-2023 Screening for malignant neoplasm of breast Mammogram Screening [facility] Start: 03-23-2023 Depression Assessment Depression Assessment [facility] Start: 01-06-2023 ANNUAL PCP TEAM CHRONIC DISEASE VISIT ANNUAL PCP TEAM CHRONIC DISEASE VISIT [facility] Start: 11-21-2022 Covid-19 Vaccine ( season) Covid-19 Vaccine ( season) [facility] Start: 11-21-2022 Influenza vaccination [facility] Start: 03-23-2022 DEPRESSION ASSESSMENT DEPRESSION ASSESSMENT [facility] Start: 11-21-2021 Influenza vaccination INFLUENZA (#1) [facility] Start: 09-29-2021 Adult depression screening assessment DEPRESSION SCREENING [facility] Start: 07-01-2021 COVID-19 VACCINE (4 - Booster for Pfizer series) COVID-19 VACCINE (4 - Booster for Pfizer series) [facility] Start: 04-27-2021 COVID-19 VACCINE (4 - Booster for Pfizer series) COVID-19 VACCINE (4 - Booster for Pfizer series) [facility] Start: 04-27-2021 COVID-19 VACCINE (4 - Pfizer series) COVID-19 VACCINE (4 - Pfizer series) [facility] Start: 03-23-2021 DEPRESSION ASSESSMENT DEPRESSION ASSESSMENT [facility] Start: 2021 Pneumococcal Vaccine: 50+ (1 of 1 - PCV) Pneumococcal Vaccine: 50+ (1 of 1 - PCV) [facility] Start: 2021 SHINGRIX VACCINE (1 of 2) SHINGRIX VACCINE (1 of 2) [facility] Start: 03-07-2021 Mammography MAMMOGRAM [facility] Start: 2016 COLOGUARD (FIT-DNA) COLOGUARD (FIT-DNA) [facility] Start: 2016 Colonoscopy COLONOSCOPY [facility] Start: 2016 COLORECTAL CANCER SCREENING COLORECTAL CANCER SCREENING [facility] Start: [address] COLONOGRAPHY [facility] Start: 2016 FECAL OCCULT BLOOD FECAL OCCULT BLOOD [facility] Start: 2016 Screening for malignant neoplasm of colon [facility] Start: 2016 SIGMOIDOSCOPY SIGMOIDOSCOPY [facility] Start: 2001 HPV TESTING HPV TESTING [facility] Start: 2001 Screening for malignant neoplasm of cervix HPV Testing [facility] Start: 1992 PAP TESTING PAP TESTING [facility] Start: 1992 Screening for malignant neoplasm of cervix [facility] Start: 1990 Hepatitis B Vaccine (1 of 3 - 19+ 3-dose series) Hepatitis B Vaccine (1 of 3 - 19+ 3-dose series) [facility] Start: 1990 Urine microalbumin profile DTAP,TDAP,TD (1 - Tdap) [facility] Start: 1989 BP CONTROLLED (<130/80) BP CONTROLLED (<130/80) [facility] Start: 1989 HEPATITIS C SCREENING HEPATITIS C SCREENING [facility] Start: 1989 Hepatitis C screening Hepatitis C Screening [facility] Start: 1989 HIV SCREENING HIV SCREENING [facility] Start: 1989 HIV screening HIV Screening [facility] Start: 1977 PNEUMOCOCCAL (1 - PCV) PNEUMOCOCCAL (1 - PCV) [facility] Start: 1971 HEPATITIS B (1 of 3 - 3-dose series) HEPATITIS B (1 of 3 - 3-dose series) [facility] Start: 1971 Hepatitis B Vaccine (1 of 3 - 3-dose series) Hepatitis B Vaccine (1 of 3 - 3-dose series) [facility] End: 07-01-2024 BD DXA TRABECULAR BONE SCORE (TBS) BD DXA TRABECULAR BONE SCORE (TBS) Radiology Routine Closed fracture of multiple rami of right pubis, initial encounter (HCC) Closed fracture of sacrum, unspecified fracture morphology, initial encounter (HCC) Other osteoporosis 1 Occurrences starting 06/02/2023 until 07/01/2024 [facility] Work Phone: Comment on above: 1 Occurrences starting 06/02/2023 until 07/01/2024 End: 07-01-2024 DXA Skeletal system.axial Views for bone density DXA-AXIAL SKELETON Radiology Routine Closed fracture of multiple rami of right pubis, initial encounter (HCC) Closed fracture of sacrum, unspecified fracture morphology, initial encounter (HCC) Other osteoporosis 1 Occurrences starting 06/02/2023 until 07/01/2024 [facility] Work Phone: Comment on above: 1 Occurrences starting 06/02/2023 until 07/01/2024 End: 02-13-2025 LUNG DIFFUSION CAPACITY (DLCO) LUNG DIFFUSION CAPACITY (DLCO) PFT Routine Hilar adenopathy 1 Occurrences starting 01/15/2024 until 02/13/2025 [facility] Comment on above: 1 Occurrences starting 01/15/2024 until 02/13/2025 End: 02-13-2025 LUNG VOLUMES LUNG VOLUMES PFT Routine Hilar adenopathy 1 Occurrences starting 01/15/2024 until 02/13/2025 [facility] Comment on above: 1 Occurrences starting 01/15/2024 until 02/13/2025 End: 04-11-2023 SUSANNA SCREENING SUSANNA SCREENING Radiology Routine Encounter for screening mammogram for breast cancer 1 Occurrences starting 03/12/2022 until 04/11/2023 [facility] Work Phone: Comment on above: 1 Occurrences starting 03/12/2022 until 04/11/2023 End: 05-23-2022 SUSANNA SCREENING [facility] Work Phone: Comment on above: 1 Occurrences starting 05/23/2022 until 05/23/2022 End: 07-30-2024 MG Breast Screening SUSANNA SCREENING Radiology Routine Encounter for screening mammogram for breast cancer 1 Occurrences starting 07/01/2023 until 07/30/2024 [facility] Work Phone: Comment on above: 1 Occurrences starting 07/01/2023 until 07/30/2024 End: 07-09-2024 MR Pelvis WO contrast MRI PELVIS WO IVCON Radiology Routine Fracture of unspecified parts of lumbosacral spine and pelvis, subsequent encounter for fracture with routine healing 1 Occurrences starting 06/10/2023 until 07/09/2024 [facility] Work Phone: Comment on above: 1 Occurrences starting 06/10/2023 until 07/09/2024 End: 02-13-2025 SPIROMETRY - BASELINE AND POST DILATOR SPIROMETRY - BASELINE AND POST DILATOR PFT Routine Hilar adenopathy 1 Occurrences starting 01/15/2024 until 02/13/2025 [facility] Work Phone: Comment on above: 1 Occurrences starting 01/15/2024 until 02/13/2025 [facility] Immunizations Immunization Date Immunization Notes Care Provider Fa ok 12-12-2021 tetanus toxoid, redu gabriel diphtheria toxoid, and acellular pertussis vaccine, adsorbed Xi Magilavy DRYWALL HANGER.GEOSPATIAL EXTRACTOR ANALYSIS Work Phone: [facility] 03-02-2021 Influenza, injectabl e, Madin Baxley Canine Kidney, preservative free, quadrivalent Xi Magilavy DRYWALL HANGER.GEOSPATIAL EXTRACTOR ANALYSIS Work Phone: [facility] 03-02-2021 influenza virus vacc ine, unspecified formulation Xi Magilavy DRYWALL HANGER.GEOSPATIAL EXTRACTOR ANALYSIS Work Phone: [facility] 07-28-2020 COVID-19 vaccine, ag e 12+ yr (PFIZER-BIONTECH - PURPLE TOP) Ruth Swanson MD Work Phone: [facility] 07-07-2020 COVID-19 vaccine, ag e 12+ yr (PFIZER-BIONTECH - PURPLE TOP) Ruth Swanson MD Work Phone: [facility] 01-23-2020 influenza, injectabl e, quadrivalent, contains preservative Ruth Swanson MD Work Phone: [facility] 02-04-2019 influenza, injectabl e, quadrivalent, contains preservative Ruth Swanson MD Work Phone: [facility] 01-18-2008 meningococcal polysaccharide (groups A, C, Y and W-135) diphtheria toxoid conjugate vaccine (MCV4P) Ruth Swanson MD Work Phone: [facility] Payers Date Payer Category Payer Medicaid [id number] 2018 Medicaid [facility] MEDICAID [facility] [employer] MEDICAID [id number] 2018-Present [phone] [address] [place] [address] Medicaid [id number] 2018 Medicaid [id number] 2016 Unknown 2014 Unknown [id number] Social History Date Type Detail Facility Start: 04-03-2020 End: 01-13-2022 Tobacco smoking status NHIS Smokes tobacco daily [facility] Start: 06-22-2019 End: 06-21-2022 History of tobacco use Cigarette Smoker [facility] Start: 04-03-2020 End: 07-28-2022 Cigarettes smoked current (pack per day) - Reported 0.5 [facility] Start: 04-03-2020 End: 02-23-2024 Tobacco use and exposure Smokeless tobacco non-user [facility] Start: 06-13-2021 End: 02-23-2024 Alcohol intake Current non-drinker of alcohol (finding) [facility] Start: 09-30-2020 End: 01-05-2022 History SDOH Alcohol Frequency 1 [facility] Start: 09-30-2020 End: 01-05-2022 History SDOH Social Connections Phone 5 [facility] Start: 09-30-2020 End: 01-05-2022 History SDOH Social Connections Mandaeism 2 [facility] Start: 09-30-2020 End: 01-05-2022 History SDOH Physical Activity DPW 0 [facility] Start: 09-29-2020 Education 12 [facility] Start: 1970 Sex Assigned At Not on file [facility] Start: 06-07-2021 End: 08-12-2021 Exposure to SARS-CoV-2 (event) Unable to assess [facility] Start: 06-18-2021 End: 01-13-2022 Exposure to SARS-CoV-2 (event) Not sure [facility] Start: 01-05-2022 History SDOH Social Connections Mandaeism 3 [facility] Start: 01-05-2022 History SDOH Social Connections Living 8 [facility] Start: 01-05-2022 History SDOH Physica l Activity DPW 6 [facility] Start: 01-05-2022 History SDOH Physica l Activity MPS 15 [facility] Start: 07-15-2022 End: 02-23-2024 Tobacco smoking status NHIS Ex-smoker [facility] in Start: 06-22-2019 End: 06-21-2022 History of tobacco use Current smoker [facility] Start: 01-05-2022 End: 07-28-2022 Social connection and isolation panel [facility] Do you belong to any clubs or organizations such as religious groups, unions, fraternal or athletic groups, or school groups? Yes [facility] Are you now , , , , never or living with a partner? Living with partner [facility] How often to you hav e a drink containing alcohol? Never [facility] How many standard dr inks containing alcohol do you have on a typical day? Patient does not drink [facility] Do you feel stress - tense, restless, nervous, or anxious, or unable to sleep at night because your mind is troubled all the time - these days [OSQ] Very much [facility] (I/We) worried wheth er (my/our) food would run out before (I/we) got money to buy more. Never true [facility] At any time in the p ast 12 months, were you homeless or living in fpc [including now]? No [facility] Are you now , , , , never or living with a partner? Refused [facility] (I/We) worried wheth er (my/our) food would run out before (I/we) got money to buy more. DK or Refused [facility] Start: 02-23-2024 Tobacco Comment Start age 49, now [facility] Goals Date Patient Goal Desired Activity /State Personal health goal Clinical Notes 06-24-2021 to 03-31-2024 Telephone Encounter - Dyana Marion RN - 03/31/2024 1:30 PM ESTTelephone Encounter - Dyana Marion RN - 03/31/2024 1:30 PM ESTTelephone Encounter - Rosa Sales MA - 03/18/2024 8:17 AM EST Note Date & Type Note Facility 03-31-2024 Telephone encounter Note Patient calling for refill Prescription Refill Information The patient has been identified by name and date of : Yes Caregiver verified no other encounters exist for this prescription request: Yes Caregiver confirmed with patient/requestor that no other refills are due, in the near future, with this provider at this time: Yes The last office visit in the department: 02/04/2024 Does the patient have a future office visit with this provider/department: No Requested Prescriptions Pending Prescriptions Disp Refills FLUoxetine (PROZAC) 20 mg capsule 180 capsule 1 Sig: Take 1 capsule by mouth two times a day. Dyana Marion RN March 31, 2024 1:30 PM [facility] 03-31-2024 Miscellaneous Notes Patient calling for refill Prescription Refill Information The patient has been identified by name and date of : Yes Caregiver verified no other encounters exist for this prescription request: Yes Caregiver confirmed with patient/requestor that no other refills are due, in the near future, with this provider at this time: Yes The last office visit in the department: 02/04/2024 Does the patient have a future office visit with this provider/department: No Requested Prescriptions Pending Prescriptions Disp Refills FLUoxetine (PROZAC) 20 mg capsule 180 capsule 1 Sig: Take 1 capsule by mouth two times a day. Dyana Marion RN March 31, 2024 1:30 PM documented in this encounter [facility] 03-18-2024 Telephone encounter Note Prescription Refill Information The patient has been identified by name and date of : Yes Caregiver verified no other encounters exist for this prescription request: Yes Caregiver confirmed with patient/requestor that no other refills are due, in the near future, with this provider at this time: Yes The last office visit in the department: 02/04/24 Does the patient have a future office visit with this provider/department: No Requested Prescriptions Pending Prescriptions Disp Refills chlorthalidone (HYGROTON) 25 mg tablet [Pharmacy Med Name: CHLORTHALIDONE 25MG TABLETS] 90 tablet 1 Sig: TAKE 1 TABLET BY MOUTH ONCE DAILY Rosa Sales MA March 18, 2024 8:17 AM [facility] 03-18-2024 Miscellaneous Notes Prescription Refill Information The patient has been identified by name and date of : Yes Caregiver verified no other encounters exist for this prescription request: Yes Caregiver confirmed with patient/requestor that no other refills are due, in the near future, with this provider at this time: Yes The last office visit in the department: 02/04/24 Does the patient have a future office visit with this provider/department: No Requested Prescriptions Pending Prescriptions Disp Refills chlorthalidone (HYGROTON) 25 mg tablet [Pharmacy Med Name: CHLORTHALIDONE 25MG TABLETS] 90 tablet 1 Sig: TAKE 1 TABLET BY MOUTH ONCE DAILY Rosa Sales MA March 18, 2024 8:17 AM documented in this encounter [facility] 02-23-2024 Instructions Mariam Moser APRN.CNP - 02/23/2024 2:20 PM EST Please schedule PFT test, Keep follow up with pulmonology scheduled in 04/21/2024. Continue weaning down on Vape. I recommend referral to infectious disease for further evaluation, at this time you prefer to hold office. documented in this encounter [facility] 02-23-2024 History of Present illness Narrative Images from the original note were not included. PULMONARY CLINIC follow up post bronchoscopy PATIENT NAME: Sheyla Chong PRIMARY CARE PHYSICIAN: Ruth Swanson MD Communication will be sent via US mail or shared electronic medical records S: last visit with pulmonology Dr. Joe CORNEJO 01/15/2024 Present today post bronchoscopy to review lung biopsy results. CT chest PE done 12/2023 at [facility] for right sided chest pain, started mid 12/2023. notes some improvement in right side chest discomfort, now reports more prominent Left chest pain, denies radiating pain to arms or jaw. Was treated with empiric antibiotics in for possible chest pleurisy. Was seen by Pulmonology 01/14/2025. Quit cigarettes 06/2022, Pyh 1.5 Now Vape's since 06/2022. Sob with climbing < 1 flight of stairs, ambulating < 1 mile, also notes weight increased. On Ozempic start 3 months ago. Tolerates routine adls. In her 20's was told she had cat scratch fever. 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 Denies prior exposure to HIV, recent URIs, Cough, hemoptysis, fevers/chills, wheezing, chest palpitations, use of inhalers, LE edema,unintentional wt loss, altered appetite or neck axillary lumps. ECOG PERFORMANCE STATUS: 1- Restricted in physically strenuous activity. Carries out light duty. Last 12 Encounter Wt Readings: Date: Wt: 02/04/2024 126.1 kg (278 lb) 01/26/2024 125.2 kg (276 lb) 01/15/2024 125.2 kg (276 lb) 10/22/2023 113.4 kg (250 lb) 06/16/2023 113.4 kg (250 lb) 06/02/2023 0 kg () 05/29/2023 113.4 kg (250 lb) 05/26/2023 113.4 kg (250 lb) 05/17/2023 113.4 kg (250 lb) 03/31/2023 104.3 kg (230 lb) 11/04/2022 104.3 kg (230 lb) 07/28/2022 104.3 kg (230 lb) PAST MEDICAL HISTORY: PAST MEDICAL HISTORY Diagnosis Date Anxiety Arthritis of zajndsrl-delacelky-nblrtfnwc joint of right hand Bilateral knee pain Depression Fibromyalgia Hypertension Mixed hyperlipidemia CHASE (obstructive sleep apnea) Pneumonia community aquired Right wrist pain Tobacco use disorder PAST SURGICAL HISTORY: PAST SURGICAL HISTORY Procedure Laterality Date SECTION HX 2004 3 SECTIONS last one in 2004 HYSTERECTOMY HX 2009 KNEE ARTHROSCOPY/SURGERY Left 2017 WRIST SURGERY HX 07/2020 FAMILY HISTORY: FAMILY HISTORY Problem Relation Age of Onset Obesity Mother Diabetes Father Obesity Father SOCIAL HISTORY: Social History Tobacco Use Smoking status: Former Current packs/day: 0.00 Average packs/day: 0.5 packs/day for 3.0 years (1.5 ttl pk-yrs) Types: Cigarettes Start date: 06/2019 Quit date: 06/2022 Years since quittin.6 Smokeless tobacco: Never Vaping Use Vaping status: current everyday user Substance Use Topics Alcohol use: No Drug use: Yes Comment: rx percocet abuse- 4 years October MEDICATIONS: Current Outpatient Medications on File Prior to Visit Medication Sig amLODIPine-benazepril (LOTREL) 5-20 mg per capsule Take 1 capsule by mouth once daily. semaglutide (OZEMPIC) 0.25 mg or 0.5 mg (2 mg/3 mL) pen Inject 0.5 mg subcutaneously one time a week. sulfamethoxazole-trimethoprim (BACTRIM DS) 800-160 mg per tablet Take 1 tablet by mouth once daily for 21 days. ondansetron (ZOFRAN) 4 mg tablet Take 1 tablet by mouth every 8 hours as needed for nausea/vomiting for up to 12 doses. pot bicarb/potassium cit/ca (POTASSIUM BICARBONATE ORAL) Take 99 mg by mouth once daily. (Patient not taking: Reported on 02/04/2024) HYDROcodone-acetaminophen (NORCO) 5-325 mg per tablet TAKE 1 TABLET BY MOUTH EVERY 8 HOURS FOR 17 DAYS NEEDED levothyroxine (SYNTHROID) 50 mcg tablet Take 1 tablet by mouth once daily. atorvastatin (LIPITOR) 80 mg tablet Take 1 tablet by mouth once daily. chlorthalidone (HYGROTON) 25 mg tablet take 1 tablet by mouth once daily FLUoxetine (PROZAC) 20 mg capsule Take 1 capsule by mouth two times a day. calcium citrate (CALCITRATE) 200 mg (950 mg) tab Take 1 tablet by mouth once daily. Patient should start on May 31, 2023. ergocalciferol 50,000 unit capsule (VITAMIN D2, DRISDOL) Take 1 capsule by mouth one time a week for 4 doses. Patient should start on May 31, 2023. naproxen (NAPROSYN) 500 mg tablet take 1 tablet by mouth twice a day if needed for pain take with food cyclobenzaprine (FLEXERIL) 10 mg tablet take 1 tablet by mouth twice a day if needed urea (CARMOL) 40 % Apply to affected area as needed. (Patient not taking: Reported on 02/04/2024) gabapentin (NEURONTIN) 100 mg capsule Take 100 mg by mouth three times daily. diclofenac (VOLTAREN) 1 % topical gel apply 4 grams to affected area four times a day TO AFFECTED LOWER JOINT No current facility-administered medications on file prior to visit. ALLERGIES: ALLERGIES No Known Allergies PHYSICAL EXAM: BP 119/59 Pulse 83 Temp (Src) 97.7 (Temporal) Resp 20 Ht 5' 5 (1.65m) Wt 287 lb (130.2kg) SpO2 92% BMI 47.76 kg/(m^2). General appearance: Well appearing, alert, in no acute distress, well-hydrated, well nourished. Skin: Skin color normal, no suspicious rashes or lesions Lungs: Lungs clear to auscultation. No wheezing, rhonchi, rales. Heart: RRR without murmur, gallop, or rubs. No ectopy Musculoskeletal: No joint swelling, deformity, or tenderness Peripheral pulses: Pulses palpable, radial=4/4 Neuro: Alert & oriented X 3 DATA: Last CT/CTA Chest/Lungs CT CHEST W IVCON PE Exam End: 04/04/2018 6:29 PM (Final result) Bronchoscopy 01/27/2024 Pneumocystis jirovecii DNA - Detected ASPER. AG BAL,QUAL, Aspergillus galactomannan - negative Legionella species DNA - negative FCM BAL markers Component Ref Range & Units 3 wk ago CD3+ T Cell % % 94 CD3+CD4+ T Cell % % 55 CD3+CD8+ T Cell % % 40 CD3+CD4+/CD3+CD8+ Ratio 1.38 - BAL culture and gram stain - no organisms FINAL DIAGNOSIS A - Lymph Node, Transbronchial, Aspirate/Fine Needle Aspirate - 11 RI Negative for malignant cells. Non-necrotizing granulomas present. See comment. B - Lymph Node, Transbronchial, Aspirate/Fine Needle Aspirate - 7 Negative for malignant cells. Non-necrotizing granulomas present. See comment. Comment A, B. AFB and GMS stains performed on parts A and B are negative for acid fast and fungal organisms respectively. B. Flow cytometry shows no immunophenotypic evidence of a B-cell lymphoproliferative disorder (See [id number]). CT chest PE 12/28/[address] Chest - Impression Only CT CHEST W IVCON PE Exam End: 04/04/2018 6:29 PM (Final result) Last XR Chest - Impression Only XR CHEST 1V FRONTAL PORT Exam End: 05/30/2023 6:18 AM (Final result) Impression: IMPRESSION: Lines, tubes, and devices: None. Lungs and pleura: No edema, infiltrates, pulmonary nodules or pleural effusions. No pneumothorax. Cardiomediastinal silhouette: Borderline enlargement. Other: .... Pulmonary Function Testing: No textual results found for the specified procedure(s). ASSESSMENT & PLAN: 1. 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 AFB, Fungal cultures preliminary results - No growth as of today. Mediastinal lymph nodes stat 7, 11RI non-necrotic granulomatous tissue, negative malignancy. CT chest PE 12/2023 at [facility] RUL, LLL, TONNY GG opacities new since prior CT chest 2019, likely inflammatory/infectious in nature. -Completed Bactrim double strength DS for 21 days. -Recommended ID referral for further evaluation, prefers to hold off. -Keep upcoming follow up with general pulm scheduled 04/21/2023, may schedule sooner if new or worsening symptoms noted. 2. Former cigarette smoker Continues to abstain from nicotine use. Encouraged abstaining from Vaping. 3. Mediastinal lymphadenopathy CT chest PE 12/2023 enlarged Mediastinal lymph nodes bulky subcarinal and right hilar Mediastinal lymph nodes stat 7, 11RI non-necrotic granulomatous tissue, negative malignancy. Likely reactive in nature -Keep upcoming follow up with general pulm scheduled 04/21/2023, may schedule sooner if new or worsening symptoms noted 4. Dyspnea on exertion Please schedule PFT , keep upcoming pulmonology apt 04/21/2024. may schedule sooner if new or worsening symptoms noted. Mariam Moser APRN.[facility] [place] [facility] I spent a total of 90 minutes on the date of the service which included preparing to see the patient, [id number] patient care, completing clinical documentation, obtaining and/or reviewing separately obtained history, performing a medically appropriate examination, counseling and educating the patient/family/caregiver, communicating with other HCPs (not separately reported), independently interpreting results (not separately reported), communicating results to the patient/family/caregiver, and care coordination (not separately reported). documented in this encounter [facility] 02-23-2024 Note HNO ID: [id number] Author: MARIAM MOSER APRN.[employer] Service: ? Author Type: Nurse Practitioner Type: Progress Notes Filed: 02/23/2024 16:11 Note Text: PULMONARY CLINIC follow up post bronchoscopy PATIENT NAME: Sheyla Chong PRIMARY CARE PHYSICIAN: Ruth Swanson MD Communication will be sent via US mail or shared electronic medical records S: last visit with pulmonology Dr. Joe CORNEJO 01/15/2024 Present today post bronchoscopy to review lung biopsy results. CT chest PE done 12/2023 at [facility] for right sided chest pain, started mid 12/2023. notes some improvement in right side chest discomfort, now reports more prominent Left chest pain, denies radiating pain to arms or jaw. Was treated with empiric antibiotics in for possible chest pleurisy. Was seen by Pulmonology 01/14/2025. Quit cigarettes 06/2022, Pyh 1.5 Now Vape's since 06/2022. Sob with climbing < 1 flight of stairs, ambulating < 1 mile, also notes weight increased. On Ozempic start 3 months ago. Tolerates routine adls. In her 20's was told she had cat scratch fever. 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 Denies prior exposure to HIV, recent URIs, Cough, hemoptysis, fevers/chills, wheezing, chest palpitations, use of inhalers, LE edema,unintentional wt loss, altered appetite or neck axillary lumps. ECOG PERFORMANCE STATUS: 1- Restricted in physically strenuous activity. Carries out light duty. Last 12 Encounter Wt Readings: Date: Wt: 02/04/2024 126.1 kg (278 lb) 01/26/2024 125.2 kg (276 lb) 01/15/2024 125.2 kg (276 lb) 10/22/2023 113.4 kg (250 lb) 06/16/2023 113.4 kg (250 lb) 06/02/2023 0 kg () 05/29/2023 113.4 kg (250 lb) 05/26/2023 113.4 kg (250 lb) 05/17/2023 113.4 kg (250 lb) 03/31/2023 104.3 kg (230 lb) 11/04/2022 104.3 kg (230 lb) 07/28/2022 104.3 kg (230 lb) PAST MEDICAL HISTORY: PAST MEDICAL HISTORY Diagnosis Date Anxiety Arthritis of cimpoieu-vqzggoedp-jrnamvlir joint of right hand Bilateral knee pain Depression Fibromyalgia Hypertension Mixed hyperlipidemia CHASE (obstructive sleep apnea) Pneumonia community aquired Right wrist pain Tobacco use disorder PAST SURGICAL HISTORY: PAST SURGICAL HISTORY Procedure Laterality Date SECTION HX 2005 3 SECTIONS last one in 2004 HYSTERECTOMY HX 2008 KNEE ARTHROSCOPY/SURGERY Left 2017 WRIST SURGERY HX 07/2020 FAMILY HISTORY: FAMILY HISTORY Problem Relation Age of Onset Obesity Mother Diabetes Father Obesity Father SOCIAL HISTORY: Social History Tobacco Use Smoking status: Former Current packs/day: 0.00 Average packs/day: 0.5 packs/day for 3.0 years (1.5 ttl pk-yrs) Types: Cigarettes Start date: 06/2019 Quit date: 06/2022 Years since quittin.6 Smokeless tobacco: Never Vaping Use Vaping status: current everyday user Substance Use Topics Alcohol use: No Drug use: Yes Comment: rx percocet abuse- 4 years October MEDICATIONS: Current Outpatient Medications on File Prior to Visit Medication Sig amLODIPine-benazepril (LOTREL) 5-20 mg per capsule Take 1 capsule by mouth once daily. semaglutide (OZEMPIC) 0.25 mg or 0.5 mg (2 mg/3 mL) pen Inject 0.5 mg subcutaneously one time a week. sulfamethoxazole-trimethoprim (BACTRIM DS) 800-160 mg per tablet Take 1 tablet by mouth once daily for 21 days. ondansetron (ZOFRAN) 4 mg tablet Take 1 tablet by mouth every 8 hours as needed for nausea/vomiting for up to 12 doses. pot bicarb/potassium cit/ca (POTASSIUM BICARBONATE ORAL) Take 99 mg by mouth once daily. (Patient not taking: Reported on 02/04/2024) HYDROcodone-acetaminophen (NORCO) 5-325 mg per tablet TAKE 1 TABLET BY MOUTH EVERY 8 HOURS FOR 17 DAYS NEEDED levothyroxine (SYNTHROID) 50 mcg tablet Take 1 tablet by mouth once daily. atorvastatin (LIPITOR) 80 mg tablet Take 1 tablet by mouth once daily. chlorthalidone (HYGROTON) 25 mg tablet take 1 tablet by mouth once daily FLUoxetine (PROZAC) 20 mg capsule Take 1 capsule by mouth two times a day. calcium citrate (CALCITRATE) 200 mg (950 mg) tab Take 1 tablet by mouth once daily. Patient should start on May 31, 2023. ergocalciferol 50,000 unit capsule (VITAMIN D2, DRISDOL) Take 1 capsule by mouth one time a week for 4 doses. Patient should start on May 31, 2023. naproxen (NAPROSYN) 500 mg tablet take 1 tablet by mouth twice a day if needed for pain take with food cyclobenzaprine (FLEXERIL) 10 mg tablet take 1 tablet by mouth twice a day if needed urea (CARMOL) 40 % Apply to affected area as needed. (Patient not taking: Reported on 02/04/2024) gabapentin (NEURONTIN) 100 mg capsule Take 100 mg by mouth three times daily. diclofenac (VOLTAREN) 1 % topical gel apply 4 grams to affected area four times a day TO AFFECTED LOWER JOINT No current facility-administered medications on file prior to visit. ALLERGIES (more content not included)... [facility] 02-04-2024 Note HNO ID: [id number] Author: RUTH SWANSON MD Service: ? Author Type: Physician Type: Progress Notes Filed: 02/04/2024 18:15 Note Text: Sheyla is here today for an Ozempic follow up. She has been on it for 2 months. She having some nausea. She is wondering if she can have a medication to subside her nausea. She is ready to go up on her prescription. The history is provided by the patient. HISTORY REVIEWED PAST MEDICAL HISTORY Diagnosis Date Anxiety Arthritis of hravbbtn-qgturjqgz-xuuojhreq joint of right hand Bilateral knee pain Depression Fibromyalgia Hypertension Mixed hyperlipidemia CHASE (obstructive sleep apnea) Pneumonia community aquired Right wrist pain Tobacco use disorder PAST SURGICAL HISTORY Procedure Laterality Date SECTION HX 2004 3 SECTIONS last one in 2004 HYSTERECTOMY HX 2008 KNEE ARTHROSCOPY/SURGERY Left 2017 WRIST SURGERY HX 07/2020 FAMILY HISTORY Problem Relation Age of Onset Obesity Mother Diabetes Father Obesity Father Social History Social History Narrative Not on file Allergies: ALLERGIES No Known Allergies Medications: sulfamethoxazole-trimethoprim (BACTRIM DS) 800-160 mg per tablet Take 1 tablet by mouth two times a day for 3 days. sulfamethoxazole-trimethoprim (BACTRIM DS) 800-160 mg per tablet Take 1 tablet by mouth once daily for 21 days. semaglutide (OZEMPIC) 0.25 mg or 0.5 mg(2 mg/1.5 mL) pen INJECT 20 UNITS SUBCUTANEOUSLY ONCE WEEKLY HYDROcodone-acetaminophen (NORCO) 5-325 mg per tablet TAKE 1 TABLET BY MOUTH EVERY 8 HOURS FOR 17 DAYS NEEDED levothyroxine (SYNTHROID) 50 mcg tablet Take 1 tablet by mouth once daily. atorvastatin (LIPITOR) 80 mg tablet Take 1 tablet by mouth once daily. chlorthalidone (HYGROTON) 25 mg tablet take 1 tablet by mouth once daily FLUoxetine (PROZAC) 20 mg capsule Take 1 capsule by mouth two times a day. naproxen (NAPROSYN) 500 mg tablet take 1 tablet by mouth twice a day if needed for pain take with food cyclobenzaprine (FLEXERIL) 10 mg tablet take 1 tablet by mouth twice a day if needed gabapentin (NEURONTIN) 100 mg capsule Take 100 mg by mouth three times daily. diclofenac (VOLTAREN) 1 % topical gel apply 4 grams to affected area four times a day TO AFFECTED LOWER JOINT pot bicarb/potassium cit/ca (POTASSIUM BICARBONATE ORAL) Take 99 mg by mouth once daily. (Patient not taking: Reported on 02/04/2024) calcium citrate (CALCITRATE) 200 mg (950 mg) tab Take 1 tablet by mouth once daily. Patient should start on May 31, 2023. ergocalciferol 50,000 unit capsule (VITAMIN D2, DRISDOL) Take 1 capsule by mouth one time a week for 4 doses. Patient should start on May 31, 2023. urea (CARMOL) 40 % Apply to affected area as needed. (Patient not taking: Reported on 02/04/2024) ketoconazole (NIZORAL) 2 % cream Apply bid x 6 weeks Problem List: ACTIVE PROBLEM LIST Opioid Dependence in Remission (Formerly [facility]) - 06/02/2023 Closed Fracture of Multiple Pubic Rami, Right, Initial Encounter ([facility]) - 05/29/2023 Anxiety and Depression - 05/29/2023 Primary Hypertension - 05/29/2023 Chronic Back Pain - 05/29/2023 Osteoarthritis - 05/29/2023 Hld (Hyperlipidemia) - 05/29/2023 Hypokalemia - 05/29/2023 High Serum Bicarbonate - 05/29/2023 Closed Fracture of Sacrum ([facility]) - 05/29/2023 Obesity, Class III, BMI >= 40 - 05/29/2023 Review of Systems Constitutional: Negative for activity change, appetite change, chills, diaphoresis, fatigue, fever and unexpected weight change. HENT: Negative. Respiratory: Positive for shortness of breath. Negative for chest tightness. Cardiovascular: Negative for chest pain, palpitations and leg swelling. Gastrointestinal: Positive for nausea. Negative for abdominal pain, constipation, diarrhea and vomiting. Musculoskeletal: Positive for arthralgias, back pain and myalgias. Physical Exam Constitutional: Appearance: Normal appearance. She is obese. HENT: Head: Normocephalic and atraumatic. Cardiovascular: Rate and Rhythm: Normal rate and regular rhythm. Pulses: Normal pulses. Heart sounds: Normal heart sounds. Pulmonary: Breath sounds: Wheezing present. Comments: Bilateral lung wheezing Musculoskeletal: General: Normal range of motion. Skin: General: Skin is warm. Neurological: General: No focal deficit present. Mental Status: She is alert and oriented to person, place, and time. Psychiatric: Mood and Affect: Mood normal. Behavior: Behavior normal. BP 180/78 Pulse 81 Temp 37.3 ?C (99.1 ?F) (Left Tympanic) Ht 165.1 cm (5' 5 ) Wt 126.1 kg (278 lb) SpO2 93% BMI 46.26 kg/m? ASSESSMENT/PLAN: 1. Class 3 severe obesity with body mass index (BMI) of 45.0 to 49.9 in adult, unspecified obesity type, unspecified whether serious comorbidity present (HCC) - ICD9: 278.01, V85.42, ICD10: E66.813, E66.01, Z68.42 (primary diagnosis) Weight decreasing - Pharmacological intervention - SEMAGLUTIDE 0.25 MG OR (more content not included)... [facility] 02-04-2024 History of Present illness Narrative Sheyla is here today for an Ozempic follow up. She has been on it for 2 months. She having some nausea. She is wondering if she can have a medication to subside her nausea. She is ready to go up on her prescription. The history is provided by the patient. HISTORY REVIEWED PAST MEDICAL HISTORY Diagnosis Date Anxiety Arthritis of ejvhohvr-hixzrstsf-bnwubkuns joint of right hand Bilateral knee pain Depression Fibromyalgia Hypertension Mixed hyperlipidemia CHASE (obstructive sleep apnea) Pneumonia community aquired Right wrist pain Tobacco use disorder PAST SURGICAL HISTORY Procedure Laterality Date SECTION HX 2004 3 SECTIONS last one in 2004 HYSTERECTOMY HX 2008 KNEE ARTHROSCOPY/SURGERY Left 2017 WRIST SURGERY HX 07/2020 FAMILY HISTORY Problem Relation Age of Onset Obesity Mother Diabetes Father Obesity Father Social History Social History Narrative Not on file Allergies: ALLERGIES No Known Allergies Medications: sulfamethoxazole-trimethoprim (BACTRIM DS) 800-160 mg per tablet Take 1 tablet by mouth two times a day for 3 days. sulfamethoxazole-trimethoprim (BACTRIM DS) 800-160 mg per tablet Take 1 tablet by mouth once daily for 21 days. semaglutide (OZEMPIC) 0.25 mg or 0.5 mg(2 mg/1.5 mL) pen INJECT 20 UNITS SUBCUTANEOUSLY ONCE WEEKLY HYDROcodone-acetaminophen (NORCO) 5-325 mg per tablet TAKE 1 TABLET BY MOUTH EVERY 8 HOURS FOR 17 DAYS NEEDED levothyroxine (SYNTHROID) 50 mcg tablet Take 1 tablet by mouth once daily. atorvastatin (LIPITOR) 80 mg tablet Take 1 tablet by mouth once daily. chlorthalidone (HYGROTON) 25 mg tablet take 1 tablet by mouth once daily FLUoxetine (PROZAC) 20 mg capsule Take 1 capsule by mouth two times a day. naproxen (NAPROSYN) 500 mg tablet take 1 tablet by mouth twice a day if needed for pain take with food cyclobenzaprine (FLEXERIL) 10 mg tablet take 1 tablet by mouth twice a day if needed gabapentin (NEURONTIN) 100 mg capsule Take 100 mg by mouth three times daily. diclofenac (VOLTAREN) 1 % topical gel apply 4 grams to affected area four times a day TO AFFECTED LOWER JOINT pot bicarb/potassium cit/ca (POTASSIUM BICARBONATE ORAL) Take 99 mg by mouth once daily. (Patient not taking: Reported on 02/04/2024) calcium citrate (CALCITRATE) 200 mg (950 mg) tab Take 1 tablet by mouth once daily. Patient should start on May 31, 2023. ergocalciferol 50,000 unit capsule (VITAMIN D2, DRISDOL) Take 1 capsule by mouth one time a week for 4 doses. Patient should start on May 31, 2023. urea (CARMOL) 40 % Apply to affected area as needed. (Patient not taking: Reported on 02/04/2024) ketoconazole (NIZORAL) 2 % cream Apply bid x 6 weeks Problem List: ACTIVE PROBLEM LIST Opioid Dependence in Remission (Formerly [facility]) - 06/02/2023 Closed Fracture of Multiple Pubic Rami, Right, Initial Encounter ([facility]) - 05/29/2023 Anxiety and Depression - 05/29/2023 Primary Hypertension - 05/29/2023 Chronic Back Pain - 05/29/2023 Osteoarthritis - 05/29/2023 Hld (Hyperlipidemia) - 05/29/2023 Hypokalemia - 05/29/2023 High Serum Bicarbonate - 05/29/2023 Closed Fracture of Sacrum (Hcc) - 05/29/2023 Obesity, Class III, BMI >= 40 - 05/29/2023 Review of Systems Constitutional: Negative for activity change, appetite change, chills, diaphoresis, fatigue, fever and unexpected weight change. HENT: Negative. Respiratory: Positive for shortness of breath. Negative for chest tightness. Cardiovascular: Negative for chest pain, palpitations and leg swelling. Gastrointestinal: Positive for nausea. Negative for abdominal pain, constipation, diarrhea and vomiting. Musculoskeletal: Positive for arthralgias, back pain and myalgias. Physical Exam Constitutional: Appearance: Normal appearance. She is obese. HENT: Head: Normocephalic and atraumatic. Cardiovascular: Rate and Rhythm: Normal rate and regular rhythm. Pulses: Normal pulses. Heart sounds: Normal heart sounds. Pulmonary: Breath sounds: Wheezing present. Comments: Bilateral lung wheezing Musculoskeletal: General: Normal range of motion. Skin: General: Skin is warm. Neurological: General: No focal deficit present. Mental Status: She is alert and oriented to person, place, and time. Psychiatric: Mood and Affect: Mood normal. Behavior: Behavior normal. BP 180/78 Pulse 81 Temp 37.3 C (99.1 F) (Left Tympanic) Ht 165.1 cm (5' 5 ) Wt 126.1 kg (278 lb) SpO2 93% BMI 46.26 kg/m ASSESSMENT/PLAN: 1. Class 3 severe obesity with body mass index (BMI) of 45.0 to 49.9 in adult, unspecified obesity type, unspecified whether serious comorbidity present (HCC) - ICD9: 278.01, V85.42, ICD10: E66.813, E66.01, Z68.42 (primary diagnosis) Weight decreasing - Pharmacological intervention - SEMAGLUTIDE 0.25 MG OR 0.5 MG (2 MG/3 ML) SUBCUTANEOUS PEN INJECTOR 2. Hypertension, unspecified type - ICD9: 401.9, ICD10: I10 - Uncontrolled - Recommend home blood pressure monitoring, to bring results to next visit - Encouraged sodium restriction, DASH or Mediterranean diet - Recommend regular aerobic exercise Starting lotrel Ruth Swanson MD documented in this encounter [facility] 02-02-2024 Telephone encounter Note Rx was sent by [facility] [employer] [employer] pt informed Per Mikhail Morales can you let her know to hold her potassium bicarb while taking this? Pt also informed of abpve message from Mikhail morales [facility] 02-02-2024 Miscellaneous Notes Rx was sent by [employer] pt informed Per Mikhail Morales can you let her know to hold her potassium bicarb while taking this? Pt also informed of abpve message from Mikhail morales Pt called and stated that this med still was not sent to the pharmacy Please sent rx to [facility] #[id number] - [place] [address] - [address] - [phone] [facility] [address] documented in this encounter [facility] 02-02-2024 Telephone encounter Note Libia Morales sent the rx over on 02/02/2024 pt informed [facility] 02-02-2024 Miscellaneous Notes Libia Morales sent the rx over on 02/02/2024 pt informed Pt lvm stating that dr black calls in antibiotic for her bacteria infection and has not received them and she has left [place] and want it to send [facility] to [facility], please advice documented in this encounter [facility] 02-02-2024 Telephone encounter Note Pt called and stated that this med still was not sent to the pharmacy Please sent rx to [facility] #[id number] - [place] [address] - [address] - [phone] [facility] [address] [facility] 02-01-2024 Telephone encounter Note Pt lvm stating that dr black calls in antibiotic for her bacteria infection and has not received them and [facility] send [facility] to [facility], please advice [facility] 01-29-2024 Telephone encounter Note Called patient and updated her on bronchoscopy cultures (+PJP) Bactrim DS ordered x 21 days to patient's pharmacy of choice. Kelsy Camacho APRN.CNP 01/29/2024 2:51 PM [facility] 01-29-2024 Miscellaneous Notes Called patient and updated her on bronchoscopy cultures (+PJP) Bactrim DS ordered x 21 days to patient's pharmacy of choice. Kelsy Camacho APRN.CNP 01/29/2024 2:51 PM documented in this encounter [facility] 01-28-2024 Telephone encounter Note April Randall calling with urgent lab value. Broncho-alveolar lavage - RML BAL Pneumocystis jirovecii dna detected abnormal Secure [employer] chat also sent to Dr. Martin for notification. Isi Coffman RN [facility] 01-28-2024 Miscellaneous Notes 1133 Vidhi Randall calling with urgent lab value. Broncho-alveolar lavage - RML BAL Pneumocystis jirovecii dna detected abnormal Secure EP[employer] chat also sent to Dr. Martin for notification. Isi Coffman RN documented in this encounter [facility] 01-27-2024 Note HNO ID: [id number] Author: BILLY BARGER APRN.CRNA Service: Anesthesiology Author Type: Nurse Wire Frame Lampshade Maker Type: Anesthesia Procedure Notes Filed: 01/27/2024 14:44 Note Text: ANESTHESIOLOGY PROCEDURE NOTE Airway General Information Procedure Start Time/Medication Administration: 01/27/2024 2:27 PM Procedure End Time: 01/27/2024 2:27 AM Patient location during procedure: OR Consent Obtained: Yes Patient identity confirmed: arm band Staffing LAW FIRM CONSULTANT: Billy Barger APRN.LAW FIRM CONSULTANT Performed by: BRET Indications and Patient Condition Indications for airway management: anesthesia Preoxygenated: yes anesthesia circuit Patient position: sniffing Method: asleep Difficult mask ventilation: Moderate. Final Airway Details Final airway type: endotracheal airway Final Endotracheal Airway: ETT Cuffed: yes Successful intubation technique: video laryngoscopy Devices used: Scope 5 Endotracheal tube insertion site: oral Blade: Shirley Blade size: #3 ETT size (mm): 8.5 Measured from: teeth Measurement (cm): 21 Placement verified by: chest auscultation and capnometry Cormack-Lehane Classification: grade I - full view of glottis Number of attempts at approach: 1 Failed airway: no Unrecognized esophageal intubation: no Airway not difficult SIGNATURE: Billy Barger APRN.LAW FIRM CONSULTANT PATIENT NAME: Sheyla Chong DATE: January 27, 2024 TIME: 2:43 PM CSN: [id number] [facility] 01-27-2024 Note HNO ID: [id number] Author: IRMA LOZA DO Service: ? Author Type: Physician Type: Progress Notes Filed: 01/27/2024 08:42 Note Text: The risks and benefits of a corticosteroid injection were discussed with the patient. The risks include but are not limited to: infection, fat atrophy, skin hypopigmentation, facial flushing, elevated blood glucose. The patient elected to proceed with injection and tolerated well. Large Joint Arthro/Inj: L knee joint Informed Consent Consent Obtained: Verbal [place] Protocol A moment to CARE was completed. SIGN IN Personnel directly involved with the procedure wore the appropriate PPE. Patient/Surrogate Stated/Verified: Patient name, Date of , Relevant allergies and Intended procedure TIME OUT Intended patient and procedure match the source document(s). Consent documented and matches the intended procedure. Relevant labs, photos, and/or imaging studies have been reviewed. Correct side/site marked and visible. Medications required for procedure verified. 01/26/2024 2:42 PM The procedure site was prepped in the usual sterile fashion. Site: L knee joint Medications: 40 mg triamcinolone acetonide 40 mg/mL Anesthetics: 4 mL bupivacaine (PF) 0.25 % (2.5 mg/mL) Outcome: Tolerated well, no immediate complications Post-injection instructions were reviewed with the patient and the patient voiced understanding of these instructions. SIGN OUT All instruments, equipment, possible retained foreign bodies accounted for. Post-procedure follow-up management communicated and Plan of Care Visit completed when applicable Large Joint Arthro/Inj: R knee joint Informed Consent Consent Obtained: Verbal [place] Protocol A moment to CARE was completed. SIGN IN Personnel directly involved with the procedure wore the appropriate PPE. Patient/Surrogate Stated/Verified: Patient name, Date of , Relevant allergies and Intended procedure TIME OUT Intended patient and procedure match the source document(s). Consent documented and matches the intended procedure. Relevant labs, photos, and/or imaging studies have been reviewed. Correct side/site marked and visible. Medications required for procedure verified. 01/26/2024 2:42 PM The procedure site was prepped in the usual sterile fashion. Site: R knee joint Medications: 40 mg triamcinolone acetonide 40 mg/mL Anesthetics: 4 mL bupivacaine (PF) 0.25 % (2.5 mg/mL) Outcome: Tolerated well, no immediate complications Post-injection instructions were reviewed with the patient and the patient voiced understanding of these instructions. SIGN OUT All instruments, equipment, possible retained foreign bodies accounted for. Post-procedure follow-up management communicated and Plan of Care Visit completed when applicable Irma Loza DO Orthopedic Surgery, Sports Medicine [facility] 01-27-2024 History of Present illness Narrative Associated Order(s): Large Joint Arthro/Inj: L knee joint; Large Joint Arthro/Inj: R knee joint Post-Procedure Diagnose(s): Primary osteoarthritis of right knee; Primary osteoarthritis of left knee The risks and benefits of a corticosteroid injection were discussed with the patient. The risks include but are not limited to: infection, fat atrophy, skin hypopigmentation, facial flushing, elevated blood glucose. The patient elected to proceed with injection and tolerated well. Large Joint Arthro/Inj: L knee joint Informed Consent Consent Obtained: Verbal [place] Protocol A moment to CARE was completed. SIGN IN Personnel directly involved with the procedure wore the appropriate PPE. Patient/Surrogate Stated/Verified: Patient name, Date of , Relevant allergies and Intended procedure TIME OUT Intended patient and procedure match the source document(s). Consent documented and matches the intended procedure. Relevant labs, photos, and/or imaging studies have been reviewed. Correct side/site marked and visible. Medications required for procedure verified. 01/26/2024 2:42 PM The procedure site was prepped in the usual sterile fashion. Site: L knee joint Medications: 40 mg triamcinolone acetonide 40 mg/mL Anesthetics: 4 mL bupivacaine (PF) 0.25 % (2.5 mg/mL) Outcome: Tolerated well, no immediate complications Post-injection instructions were reviewed with the patient and the patient voiced understanding of these instructions. SIGN OUT All instruments, equipment, possible retained foreign bodies accounted for. Post-procedure follow-up management communicated and Plan of Care Visit completed when applicable Large Joint Arthro/Inj: R knee joint Informed Consent Consent Obtained: Verbal [place] Protocol A moment to CARE was completed. SIGN IN Personnel directly involved with the procedure wore the appropriate PPE. Patient/Surrogate Stated/Verified: Patient name, Date of , Relevant allergies and Intended procedure TIME OUT Intended patient and procedure match the source document(s). Consent documented and matches the intended procedure. Relevant labs, photos, and/or imaging studies have been reviewed. Correct side/site marked and visible. Medications required for procedure verified. 01/26/2024 2:42 PM The procedure site was prepped in the usual sterile fashion. Site: R knee joint Medications: 40 mg triamcinolone acetonide 40 mg/mL Anesthetics: 4 mL bupivacaine (PF) 0.25 % (2.5 mg/mL) Outcome: Tolerated well, no immediate complications Post-injection instructions were reviewed with the patient and the patient voiced understanding of these instructions. SIGN OUT All instruments, equipment, possible retained foreign bodies accounted for. Post-procedure follow-up management communicated and Plan of Care Visit completed when applicable Irma Loza DO Orthopedic Surgery, Sports Medicine Injection prepared per Dr. Loza's order and provided to Dr. Loza. Zaira Benitez LPN documented in this encounter [facility] 01-26-2024 Note HNO ID: [id number] Author: ZAIRA BENITEZ LPN Service: ? Author Type: LICENSED NURSE Type: Progress Notes Filed: 01/27/2024 08:42 Note Text: Injection prepared per Dr. Loza's order and provided to Dr. Loza. Zaira Benitez LPN [facility] 01-20-2024 Telephone encounter Note Reviewed preop/medication hold instructions. Answered all questions. [facility] 01-20-2024 Miscellaneous Notes Reviewed preop/medication hold instructions. Answered all questions. Left a voicemail for patient to call back and schedule for New CMN visit on 02/08, 02/09 or 02/10 for follow up after EBUS. PSS: Patient is scheduled for EBUS on 01/27/24, please call patient and schedule for a follow up w/CMN provider or pulmonary provider approximately 2 weeks after procedure around 02/10/24. Please advise when patient is scheduled. Thank you Clau Saldaña Patient is scheduled for EBUS on 01/27/24 @ 3:00pm. Nurse: Please contact patient for medication review and prep. NOTE: Patient has indicated that she is having cortisone shots in both days the day before on 01/26/24, I do not see that this is on the med list but to be sure, please advise if this would require a delay in the procedure. Called pt and reviewed all pre procedure dates times and locations. Pt is aware to be there 2 hours early. Pt aware nothing to eat or drink after midnight Pt aware must have a regional driver Pt aware a nurse will be reaching out to her to cover medications and prep. Pt notes understanding all instructions and will call if they have any questions before the procedure. Images from the original note were not included. Lalo Rubio MD P [facility] Admin Pool For EBUS scheduling, documented in this encounter [facility] 01-20-2024 Telephone encounter Note Left a voicemail for patient to call back and schedule for New CMN visit on 02/08, 02/09 or 02/10 for follow up after EBUS. [facility] 01-19-2024 Telephone encounter Note PSS: Patient is scheduled for EBUS on 01/27/24, please call patient and schedule for a follow up w/CMN provider or pulmonary provider approximately 2 weeks after procedure around 02/10/24. Please advise when patient is scheduled. Thank you Clau Saldaña [facility] 01-19-2024 Telephone encounter Note Patient is scheduled for EBUS on 01/27/24 @ 3:00pm. Nurse: Please contact patient for medication review and prep. NOTE: Patient has indicated that she is having cortisone shots in both days the day before on 01/26/24, I do not see that this is on the med list but to be sure, please advise if this would require a delay in the procedure. Called pt and reviewed all pre procedure dates times and locations. Pt is aware to be there 2 hours early. Pt aware nothing to eat or drink after midnight Pt aware must have a regional driver Pt aware a nurse will be reaching out to her to cover medications and prep. Pt notes understanding all instructions and will call if they have any questions before the procedure. [facility] 01-19-2024 Telephone encounter Note Images from the original note were not included. Lalo Rubio MD P [facility] Admin Pool For EBUS scheduling, [facility] 01-19-2024 Note HNO ID: [id number] Author: LALO RUBIO MD Service: ? Author Type: Physician Type: Progress Notes Filed: 01/19/2024 12:08 Note Text: [facility] OR Bronchoscopy Request: Please schedule patient for the following: Bronchoscopy: OR case Diagnostic/Staging EBUS >2 [address] [id number] Clinical Discussion: 53 years old with chest pain and shortness of breath, found to have hilar and mediastinal lymphadenopathy.? Sarcoid. Sarcoid protocol EBUS. Pulmonary Visit: Does not need a pulmonary visit Time Allotment: 120 mins. On First Available OR date Physician Performing Bronchoscopy: Dedicated OR Staff Anesthesia Type: General Equipment Requests: Therapeutic Bronch and EBUS scope Needs Labs: No Needs EKG: No Needs CT prior: No Does the pt need cardiac clearance? No Anticoagulants/anti-plt therapy? No Hypoglycemic Medications? No Referred by: Nadine Black MD Abdelaziz Mohamed, MD January 19, 2024 12:05 PM Addendum: CBC with diff: WBC 8.61 12/31/2023 RBC 4.74 12/31/2023 HGB 14.0 12/31/2023 Hematocrit 43.1 12/31/2023 MCV 90.9 12/31/2023 MCH 29.5 12/31/2023 MCHC 32.5 12/31/2023 RDW-CV 15.0 12/31/2023 Platelet Count 335 12/31/2023 MPV 9.3 12/31/2023 Neutrophils % 72.2 12/31/2023 Lymphocytes % 15.6 12/31/2023 Monocytes % 9.9 12/31/2023 Eosinophils % 1.7 12/31/2023 Basophils % 0.3 12/31/2023 Abs Neut 6.21 12/31/2023 Abs Elliott 0.85 12/31/2023 Abs Eosin 0.15 12/31/2023 Abs Baso 0.03 12/31/2023 Potassium Date Value Ref Range Status 12/31/2023 3.3 (L) 3.7 - 5.1 mmol/L Final 05/30/2023 3.9 3.7 - 5.1 mmol/L Final 05/29/2023 2.9 (L) 3.7 - 5.1 mmol/L Final Sodium Date Value Ref Range Status 12/31/2023 136 136 - 144 mmol/L Final 05/30/2023 140 136 - 144 mmol/L Final 05/29/2023 138 136 - 144 mmol/L Final BUN Date Value Ref Range Status 12/31/2023 9 7 - 21 mg/dL Final Creatinine Date Value Ref Range Status 12/31/2023 0.70 0.58 - 0.96 mg/dL Final [facility] 01-19-2024 History of Present illness Narrative [facility] OR Bronchoscopy Request: Please schedule patient for the following: Bronchoscopy: OR case Diagnostic/Staging EBUS >2 [address] [id number] Clinical Discussion: 53 years old with chest pain and shortness of breath, found to have hilar and mediastinal lymphadenopathy.? Sarcoid. Sarcoid protocol EBUS. Pulmonary Visit: Does not need a pulmonary visit Time Allotment: 120 mins. On First Available OR date Physician Performing Bronchoscopy: Dedicated OR Staff Anesthesia Type: General Equipment Requests: Therapeutic Bronch and EBUS scope Needs Labs: No Needs EKG: No Needs CT prior: No Does the pt need cardiac clearance? No Anticoagulants/anti-plt therapy? No Hypoglycemic Medications? No Referred by: Nadine Black MD Abdelaziz Mohamed, MD January 19, 2024 12:05 PM Addendum: CBC with diff: WBC 8.61 12/31/2023 RBC 4.74 12/31/2023 HGB 14.0 12/31/2023 Hematocrit 43.1 12/31/2023 MCV 90.9 12/31/2023 MCH 29.5 12/31/2023 MCHC 32.5 12/31/2023 RDW-CV 15.0 12/31/2023 Platelet Count 335 12/31/2023 MPV 9.3 12/31/2023 Neutrophils % 72.2 12/31/2023 Lymphocytes % 15.6 12/31/2023 Monocytes % 9.9 12/31/2023 Eosinophils % 1.7 12/31/2023 Basophils % 0.3 12/31/2023 Abs Neut 6.21 12/31/2023 Abs Elliott 0.85 12/31/2023 Abs Eosin 0.15 12/31/2023 Abs Baso 0.03 12/31/2023 Potassium Date Value Ref Range Status 12/31/2023 3.3 (L) 3.7 - 5.1 mmol/L Final 05/30/2023 3.9 3.7 - 5.1 mmol/L Final 05/29/2023 2.9 (L) 3.7 - 5.1 mmol/L Final Sodium Date Value Ref Range Status 12/31/2023 136 136 - 144 mmol/L Final 05/30/2023 140 136 - 144 mmol/L Final 05/29/2023 138 136 - 144 mmol/L Final BUN Date Value Ref Range Status 12/31/2023 9 7 - 21 mg/dL Final Creatinine Date Value Ref Range Status 12/31/2023 0.70 0.58 - 0.96 mg/dL Final documented in this encounter [facility] 01-15-2024 Instructions Nadine Black MD - 01/15/2024 10:00 AM EDT My Plan and Interventions: 1. Return to office in 2 months. 2. Tests to be ordered today:PFTs 3. New medications today:None 4. Special Instructions:call if has concerns 5. Summary of today's visit: mediastinal and hilar adenopathy 6. Referrals today: None Copy to Referring physician: yes Thank you for allowing me to participate in this patient's care. documented in this encounter [facility] 01-15-2024 History of Present illness Narrative Images from the original note were not included. [facility] New Patient Consult Note Patient Name: Sheyla Chong PRIMARY CARE PHYSICIAN: Ruth Swanson MD REFERRING PHYSICIAN: Ruth Swanson MD REASON FOR CONSULT: Mediastinal adenopathy My final recommendations will be communicated to the requesting health care provider by way of the shared medical record for internal providers or letter via the [employer] for external providers. CHIEF COMPLAINT: Mediastinal adenopathy HISTORY OF PRESENT ILLNESS: Sheyla Chong is a 53 year old female with a history of High cholesterol, Hypothyroidism, CHASE not on CPAP, Ex smoker, Anxiety and depression, fibromyalgia, chronic pain, obesity with BMI 45.93 . This patient is here for first Pulmonary office visit and consultation. I reviewed available objective data including imaging as available. Patient comes in for evaluation of incidentally found mediastinal and hilar lymphadenopathy on the recent CT scan. States that she went to [facility] on 27 December with a right sided chest pain. CT PE protocol was done which did not show any PE but showed mediastinal and hilar lymphadenopathy and some groundglass opacities. She was treated with antibiotics and ibuprofen for a possible pleuritic chest pain. She was told to follow-up with pulmonary and the oncology. She comes in today for evaluation. States that while taking the antibiotics her pain resolved but seems like it is coming back on and off. She denies any fever or chills or night sweats. She denies any weight loss. She denies any shortness of breath at rest but has dyspnea on exertion. She denies any coughing. Denies any wheezing. She is currently vaping. Started smoking at the age of 48 after she underwent divorce. States that 1 pack would last her couple of days but quit smoking 1 year ago. But she quit smoking after she had the recent CT chest. States that she had the CD of CT chest at home but she forgot to bring the CD PAST MEDICAL HISTORY Diagnosis Date Anxiety Arthritis of twhjdncy-xdydtxlbc-bnjjeoaxi joint of right hand Bilateral knee pain Depression Fibromyalgia Hypertension Mixed hyperlipidemia CHASE (obstructive sleep apnea) Pneumonia community aquired Right wrist pain Tobacco use disorder PAST SURGICAL HISTORY Procedure Laterality Date SECTION HX 2004 3 SECTIONS last one in 2004 HYSTERECTOMY HX 2009 KNEE ARTHROSCOPY/SURGERY Left 2017 WRIST SURGERY HX 07/2020 FAMILY HISTORY Problem Relation Age of Onset Obesity Mother Diabetes Father Obesity Father No reported family hx of ILD fibrosis, PAH, Tb, lung cancer, A1AT deficiency Social History Tobacco Use Smoking status: Former Current packs/day: 0.00 Average packs/day: 0.5 packs/day for 3.0 years (1.5 ttl pk-yrs) Types: Cigarettes Start date: 06/2019 Quit date: 06/2022 Years since quittin.5 Smokeless tobacco: Never Vaping Use Vaping status: current everyday user Substance Use Topics Alcohol use: No Drug use: Yes Comment: 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 atorvastatin (LIPITOR) 80 mg tablet Take 1 tablet by mouth once daily. chlorthalidone (HYGROTON) 25 mg tablet take 1 tablet by mouth once daily FLUoxetine (PROZAC) 20 mg capsule Take 1 capsule by mouth two times a day. naproxen (NAPROSYN) 500 mg tablet take 1 tablet by mouth twice a day if needed for pain take with food cyclobenzaprine (FLEXERIL) 10 mg tablet take 1 tablet by mouth twice a day if needed urea (CARMOL) 40 % Apply to affected area as needed. ketoconazole (NIZORAL) 2 % cream Apply bid x 6 weeks gabapentin (NEURONTIN) 100 mg capsule Take 100 mg by mouth three times daily. diclofenac (VOLTAREN) 1 % topical gel apply 4 grams to affected area four times a day TO AFFECTED LOWER JOINT calcium citrate (CALCITRATE) 200 mg (950 mg) tab Take 1 tablet by mouth once daily. Patient should start on May 31, 2023. ergocalciferol 50,000 unit capsule (VITAMIN D2, DRISDOL) Take 1 capsule by mouth one time a week for 4 doses. Patient should start on May 31, 2023. REVIEW OF SYSTEMS Constitutional:No fevers, sweats, chills, nightsweats, change in appetite, change in weight, change in energy. HEENT:Negative for frequent or significant headaches, No changes in hearing or vision, no nose bleeds or other nasal problems RESPIRATORY: Negative for cough, wheezing or shortness of breath. CARDIOVASCULAR: Negative for chest pain, leg swelling or palpitations. GASTROINTESTINAL: Negative for abdominal discomfort, blood in stools or black stools or change in bowel habits GENITOURINARY: No history of dysuria, frequency or incontinence BIOINFORMATICS PROGRAMMER: Negative for abnormal vaginal bleeding, abnormal vaginal discharge MUSCULOSKELETAL: Negative for joint pain or swelling, back pain or muscle pain. NEUROLOGIC:Negative for focal numbness or weakness, headaches and dizziness or syncope. SKIN:Negative for lesions, rash, and itching. PSYCHIATRIC: Negative for sleep disturbance, mood disorder and recent psychosocial stressors. HEMATOLOGIC/LYMPHATIC/IMMUNOLOGIC: No lymphadenopathy ENDOCRINE: Negative for cold or heat intolerance, polyuria, polydipsia and goiter. The remainder of the ROS was negative. PHYSICAL EXAMINATION: VITAL SIGNS: BP 170/88 Pulse 84 Ht 5' 5 (1.65m) Wt 176 lb (79.8kg) SpO2 95% BMI 29.29 kg/(m^2). General appearance: well appearing, alert, and in no acute distress Skin: skin color, texture, turgor normal, no rashes or lesions Eyes: Anicteric sclera. Pupils are equally round and reactive to light. Extraocular movements are intact. ENT: No oral or nasal erythema, bleeding, lesions, striae Heme/Lymph:Negative Lungs: lungs clear to auscultation no wheezing or rhonchi Heart: RRR without murmur, gallop, or rubs. No ectopy GI: Normal abdominal exam, Abdomen soft, non-tender. Bowel sounds normal. No masses, organomegaly Extremities: No deformities, edema, skin discoloration, clubbing or cyanosis. Good capillary refill. Neuro: Gait normal. Reflexes normal and symmetric. Sensation grossly intact. LAST LAB RESULTS: Labs: CBC with diff: WBC 8.61 12/31/2023 RBC 4.74 12/31/2023 HGB 14.0 12/31/2023 Hematocrit 43.1 12/31/2023 MCV 90.9 12/31/2023 MCH 29.5 12/31/2023 MCHC 32.5 12/31/2023 RDW-CV 15.0 12/31/2023 Platelet Count 335 12/31/2023 MPV 9.3 12/31/2023 Neutrophils % 72.2 12/31/2023 Lymphocytes % 15.6 12/31/2023 Monocytes % 9.9 12/31/2023 Eosinophils % 1.7 12/31/2023 Basophils % 0.3 12/31/2023 Abs Neut 6.21 12/31/2023 Abs Elliott 0.85 12/31/2023 Abs Eosin 0.15 12/31/2023 Abs Baso 0.03 12/31/2023 DATA: Diagnostic tests reviewed for today's visit, films/specimens were personally reviewed by me: OTHER TESTING: Echo: Chest xray: CT CHEST:12/28/23: PFT: IMPRESSIONS: ASSESSMENT/PLAN: 1. Hilar adenopathy - ICD9: 785.6, ICD10: R59.0 (primary diagnosis) Patient had a recent a CT chest done at [facility] on December 27 when she presented with chest pain. CT chest showed diffuse mediastinal and hilar lymphadenopathy. I do not have the CD of the CAT scan. Patient is going to bring the CD of the CT chest next Thursday. Once after reviewing the images will schedule for bronchoscopy if needed. Also will get PFTs. Addendum: Reviewed the CT chest. Shows a hilar and mediastinal adenopathy. Differential includes infectious versus inflammatory versus malignancy like lymphoma. Recommend bronchoscopy with biopsy of the lymph nodes. - SPIROMETRY - BASELINE AND POST DILATOR - LUNG VOLUMES - LUNG DIFFUSION CAPACITY (DLCO) 2. Ex-smoker - ICD9: V15.82, ICD10: Z87.891 Quit smoking last year 3. Vaping nicotine dependence, tobacco product - ICD9: 305.1, ICD10: F17.290 - Cessation encouraged. - Physiologic and physical aspects of tobacco addiction as well as strategies for quitting were discussed. - Counseling was given focusing on the harmful effects of this addiction especially given the patient's medical condition(s) which will be worsened because of the chemicals in tobacco. - Counseling was given - Recommended to called -800-QUIT NOW States that she recently quit vaping after the CT scan was done. Nadine Black MD Medications reviewed Education provided today regarding the stated disease states Patient Instructions: See AVS Written and verbal health teaching given to patient, patient verbalizes understanding and agrees with treatment plan. Followup discussed. Electronically Signed: Nadine Black MD January 15, 2024 documented in this encounter [facility] 01-15-2024 Note HNO ID: [id number] Author: NADINE BLACK MD Service: ? Author Type: Physician Type: Progress Notes Filed: 01/18/2024 14:01 Note Text: [facility] New Patient Consult Note Patient Name: Sheyla Chong PRIMARY CARE PHYSICIAN: Ruth Swanson MD REFERRING PHYSICIAN: Ruth Swanson MD REASON FOR CONSULT: Mediastinal adenopathy My final recommendations will be communicated to the requesting health care provider by way of the shared medical record for internal providers or letter via the [employer] for external providers. CHIEF COMPLAINT: Mediastinal adenopathy HISTORY OF PRESENT ILLNESS: Sheyla Chong is a 53 year old female with a history of High cholesterol, Hypothyroidism, CHASE not on CPAP, Ex smoker, Anxiety and depression, fibromyalgia, chronic pain, obesity with BMI 45.93 . This patient is here for first Pulmonary office visit and consultation. I reviewed available objective data including imaging as available. Patient comes in for evaluation of incidentally found mediastinal and hilar lymphadenopathy on the recent CT scan. States that she went to [facility] on 27 December with a right sided chest pain. CT PE protocol was done which did not show any PE but showed mediastinal and hilar lymphadenopathy and some groundglass opacities. She was treated with antibiotics and ibuprofen for a possible pleuritic chest pain. She was told to follow-up with pulmonary and the oncology. She comes in today for evaluation. States that while taking the antibiotics her pain resolved but seems like it is coming back on and off. She denies any fever or chills or night sweats. She denies any weight loss. She denies any shortness of breath at rest but has dyspnea on exertion. She denies any coughing. Denies any wheezing. She is currently vaping. Started smoking at the age of 48 after she underwent divorce. States that 1 pack would last her couple of days but quit smoking 1 year ago. But she quit smoking after she had the recent CT chest. States that she had the CD of CT chest at home but she forgot to bring the CD PAST MEDICAL HISTORY Diagnosis Date Anxiety Arthritis of igrrcwna-ynhbbecgj-phlncxryf joint of right hand Bilateral knee pain Depression Fibromyalgia Hypertension Mixed hyperlipidemia CHASE (obstructive sleep apnea) Pneumonia community aquired Right wrist pain Tobacco use disorder PAST SURGICAL HISTORY Procedure Laterality Date SECTION HX 2004 3 SECTIONS last one in 2004 HYSTERECTOMY HX 2008 KNEE ARTHROSCOPY/SURGERY Left 2017 WRIST SURGERY HX 07/2020 FAMILY HISTORY Problem Relation Age of Onset Obesity Mother Diabetes Father Obesity Father No reported family hx of ILD fibrosis, PAH, Tb, lung cancer, A1AT deficiency Social History Tobacco Use Smoking status: Former Current packs/day: 0.00 Average packs/day: 0.5 packs/day for 3.0 years (1.5 ttl pk-yrs) Types: Cigarettes Start date: 06/2019 Quit date: 06/2022 Years since quittin.5 Smokeless tobacco: Never Vaping Use Vaping status: current everyday user Substance Use Topics Alcohol use: No Drug use: Yes Comment: 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 atorvastatin (LIPITOR) 80 mg tablet Take 1 tablet by mouth once daily. chlorthalidone (HYGROTON) 25 mg tablet take 1 tablet by mouth once daily FLUoxetine (PROZAC) 20 mg capsule Take 1 capsule by mouth two times a day. naproxen (NAPROSYN) 500 mg tablet take 1 tablet by mouth twice a day if needed for pain take with food cyclobenzaprine (FLEXERIL) 10 mg tablet take 1 tablet by mouth twice a day if needed urea (CARMOL) 40 % Apply to affected area as needed. ketoconazole (NIZORAL) 2 % cream Apply bid x 6 weeks gabapentin (NEURONTIN) 100 mg capsule Take 100 mg by mouth three times daily. diclofenac (VOLTAREN) 1 % topical gel apply 4 grams to affected area four times a day TO AFFECTED LOWER JOINT calcium citrate (CALCITRATE) 200 mg (950 mg) tab Take 1 tablet by mouth once daily. Patient should start on May 31, 2023. ergocalciferol 50,000 unit capsule (VITAMIN D2, DRISDOL) Take 1 capsule by mouth one time a week for 4 doses. Patient should start on May 31, 2023. REVIEW OF SYSTEMS Constitutional:No fevers, sweats, chills, nightsweats, change in appetite, change in weight, change in energy. HEENT:Negative for frequent or significant headaches, No changes in hearing or vision, no nose bleeds or other nasal problems RESPIRATORY: Negative for cough, wheezing or shortness of breath. CARDIOVASCULAR: Negative for chest pain, leg swelling or palpitations. GASTROINTESTINAL: Negative for abdominal discomfort, blood in stools or black stools or change in bowel zapata (more content not included)... [facility] 01-14-2024 Telephone encounter Note Has an appointment on 01/14 in [facility]. [facility] 01-14-2024 Miscellaneous Notes Has an appointment on 01/14 in [facility]. Patient called stating she has called to set up an appointment with pulmonology but has yet to hear back. Patient wants to know what she should do. Please follow up with patient. documented in this encounter [facility] 01-14-2024 Telephone encounter Note Patient called stating she has called to set up an appointment with pulmonology but has yet to hear back. Patient wants to know what she should do. Please follow up with patient. [facility] 12-29-2023 Telephone encounter Note Patient contacted, she did this, see mychart [facility] 12-29-2023 Miscellaneous Notes Patient contacted, she did this, see mychart If she could take a pic of the report and send it in this message thread that would be a good start. Patient states that she was seen in [place] [facility] yesterday, she states that she was told that she has 2 masses on her lungs, she states that she is in need of a referral for pulmonology, patient states that she is uploading the results of the xray to her for you to review documented in this encounter [facility] 12-29-2023 Telephone encounter Note If she could take a pic of the report and send it in this message thread that would be a good start. [facility] 12-29-2023 Telephone encounter Note Patient states that she was seen in [place] ED yesterday, she states that she was told that she has 2 masses on her lungs, she states that she is in need of a referral for pulmonology, patient states that she is uploading the results of the xray to her for you to review [facility] 12-08-2023 Telephone encounter Note Patient phones requesting refills as follows: Last office visit 06/16/23 Requested Prescriptions Pending Prescriptions Disp Refills chlorthalidone (HYGROTON) 25 mg tablet [Pharmacy Med Name: CHLORTHALIDONE 25MG TABLETS] 90 tablet 1 Sig: take 1 tablet by mouth once daily Please review and advise. Capri Estrada MA [facility] 12-08-2023 Miscellaneous Notes Patient phones requesting refills as follows: Last office visit 06/16/23 Requested Prescriptions Pending Prescriptions Disp Refills chlorthalidone (HYGROTON) 25 mg tablet [Pharmacy Med Name: CHLORTHALIDONE 25MG TABLETS] 90 tablet 1 Sig: take 1 tablet by mouth once daily Please review and advise. Capri Estrada MA documented in this encounter [facility] 10-22-2023 Note HNO ID: [id number] Author: IRMA LOZA DO Service: ? Author Type: Physician Type: Progress Notes Filed: 10/22/2023 15:56 Note Text: The risks and benefits of a corticosteroid injection were discussed with the patient. The risks include but are not limited to: infection, fat atrophy, skin hypopigmentation, facial flushing, elevated blood glucose. The patient elected to proceed with injection and tolerated well. Large Joint Arthro/Inj: R knee joint Informed Consent Consent Obtained: Verbal [place] Protocol A moment to CARE was completed. SIGN IN Personnel directly involved with the procedure wore the appropriate PPE. Patient/Surrogate Stated/Verified: Patient name, Date of , Relevant allergies and Intended procedure TIME OUT Intended patient and procedure match the source document(s). Consent documented and matches the intended procedure. Relevant labs, photos, and/or imaging studies have been reviewed. Correct side/site marked and visible. Medications required for procedure verified. 10/22/2023 3:55 PM The procedure site was prepped in the usual sterile fashion. Site: R knee joint Medications: 40 mg triamcinolone acetonide 40 mg/mL; 4 mL bupivacaine (PF) 0.25 % (2.5 mg/mL) Outcome: Tolerated well, no immediate complications Post-injection instructions were reviewed with the patient and the patient voiced understanding of these instructions. SIGN OUT All instruments, equipment, possible retained foreign bodies accounted for. Post-procedure follow-up management communicated and Plan of Care Visit completed when applicable Large Joint Arthro/Inj: L knee joint Informed Consent Consent Obtained: Verbal [place] Protocol A moment to CARE was completed. SIGN IN Personnel directly involved with the procedure wore the appropriate PPE. Patient/Surrogate Stated/Verified: Patient name, Date of , Relevant allergies and Intended procedure TIME OUT Intended patient and procedure match the source document(s). Consent documented and matches the intended procedure. Relevant labs, photos, and/or imaging studies have been reviewed. Correct side/site marked and visible. Medications required for procedure verified. 10/22/2023 3:56 PM The procedure site was prepped in the usual sterile fashion. Site: L knee joint Medications: 40 mg triamcinolone acetonide 40 mg/mL; 4 mL bupivacaine (PF) 0.25 % (2.5 mg/mL) Outcome: Tolerated well, no immediate complications Post-injection instructions were reviewed with the patient and the patient voiced understanding of these instructions. SIGN OUT All instruments, equipment, possible retained foreign bodies accounted for. Post-procedure follow-up management communicated and Plan of Care Visit completed when applicable Irma Loza DO Orthopedic Surgery, Sports Medicine [facility] 10-22-2023 History of Present illness Narrative Associated Order(s): Large Joint Arthro/Inj: R knee joint; Large Joint Arthro/Inj: L knee joint Post-Procedure Diagnose(s): Primary osteoarthritis of right knee; Primary osteoarthritis of left knee The risks and benefits of a corticosteroid injection were discussed with the patient. The risks include but are not limited to: infection, fat atrophy, skin hypopigmentation, facial flushing, elevated blood glucose. The patient elected to proceed with injection and tolerated well. Large Joint Arthro/Inj: R knee joint Informed Consent Consent Obtained: Verbal [place] Protocol A moment to CARE was completed. SIGN IN Personnel directly involved with the procedure wore the appropriate PPE. Patient/Surrogate Stated/Verified: Patient name, Date of , Relevant allergies and Intended procedure TIME OUT Intended patient and procedure match the source document(s). Consent documented and matches the intended procedure. Relevant labs, photos, and/or imaging studies have been reviewed. Correct side/site marked and visible. Medications required for procedure verified. 10/22/2023 3:55 PM The procedure site was prepped in the usual sterile fashion. Site: R knee joint Medications: 40 mg triamcinolone acetonide 40 mg/mL; 4 mL bupivacaine (PF) 0.25 % (2.5 mg/mL) Outcome: Tolerated well, no immediate complications Post-injection instructions were reviewed with the patient and the patient voiced understanding of these instructions. SIGN OUT All instruments, equipment, possible retained foreign bodies accounted for. Post-procedure follow-up management communicated and Plan of Care Visit completed when applicable Large Joint Arthro/Inj: L knee joint Informed Consent Consent Obtained: Verbal [place] Protocol A moment to CARE was completed. SIGN IN Personnel directly involved with the procedure wore the appropriate PPE. Patient/Surrogate Stated/Verified: Patient name, Date of , Relevant allergies and Intended procedure TIME OUT Intended patient and procedure match the source document(s). Consent documented and matches the intended procedure. Relevant labs, photos, and/or imaging studies have been reviewed. Correct side/site marked and visible. Medications required for procedure verified. 10/22/2023 3:56 PM The procedure site was prepped in the usual sterile fashion. Site: L knee joint Medications: 40 mg triamcinolone acetonide 40 mg/mL; 4 mL bupivacaine (PF) 0.25 % (2.5 mg/mL) Outcome: Tolerated well, no immediate complications Post-injection instructions were reviewed with the patient and the patient voiced understanding of these instructions. SIGN OUT All instruments, equipment, possible retained foreign bodies accounted for. Post-procedure follow-up management communicated and Plan of Care Visit completed when applicable Irma Loza DO Orthopedic Surgery, Sports Medicine Injection of 4cc marcaine and 1cc kenalog bilaterally ordered by Dr. Loza. Injection prepared per order and handed off to ordering physician. Guru Nixon LPN documented in this encounter [facility] 10-22-2023 Note HNO ID: [id number] Author: GURU NIXON LPN Service: ? Author Type: LICENSED NURSE Type: Progress Notes Filed: 10/22/2023 15:56 Note Text: Injection of 4cc marcaine and 1cc kenalog bilaterally ordered by Dr. Loza. Injection prepared per order and handed off to ordering physician. Guru Nixon LPN [facility] 10-14-2023 Telephone encounter Note Patient phones requesting refills as follows: Forrest: 06/16/2023 Requested Prescriptions Pending Prescriptions Disp Refills FLUoxetine (PROZAC) 20 mg capsule 180 capsule 1 Sig: Take 1 capsule by mouth two times a day. Please review and advise. Vidhya Red RN [facility] 10-14-2023 Miscellaneous Notes Patient phones requesting refills as follows: [place]: 06/16/2023 Requested Prescriptions Pending Prescriptions Disp Refills FLUoxetine (PROZAC) 20 mg capsule 180 capsule 1 Sig: Take 1 capsule by mouth two times a day. Please review and advise. Vidhya Red RN documented in this encounter [facility] 07-01-2023 Note Patient Outreach (IN [facility]) SHEYLA CHONG ([id number]) 1970 F Date Time Provider Department 07/01/23 RUTH SWANSON During your visit today, we recorded the following information about you: Allergies As of Date: 07/01/2023 (No Known Allergies) Date Reviewed: 06/16/2023 Reviewed by: Josafat Sifuentes MA - Fully Assessed Visit Diagnosis:Encounter for screening mammogram for breast cancer [Z12.31] Order(s):SUSANNA SCREENING [[id number]] Order #: [id number] FUTURE Prescriptions as of 07/06/2023 - chlorthalidone (HYGROTON) 25 mg tablet Take 1 tablet by mouth once daily. - calcium citrate (CALCITRATE) 200 mg (950 mg) tab Take 1 tablet by mouth once daily. Patient should start on May 31, 2023. - ergocalciferol 50,000 unit capsule (VITAMIN D2, DRISDOL) Take 1 capsule by mouth one time a week for 4 doses. Patient should start on May 31, 2023. - FLUoxetine (PROZAC) 20 mg capsule Take 1 capsule by mouth two times a day. - naproxen (NAPROSYN) 500 mg tablet take 1 tablet by mouth twice a day if needed for pain take with food - cyclobenzaprine (FLEXERIL) 10 mg tablet take 1 tablet by mouth twice a day if needed - urea (CARMOL) 40 % Apply to affected area as needed. - ketoconazole (NIZORAL) 2 % cream Apply bid x 6 weeks - atorvastatin (LIPITOR) 40 mg tablet take 1 tablet by mouth once daily - gabapentin (NEURONTIN) 100 mg capsule Take 100 mg by mouth three times daily. - diclofenac (VOLTAREN) 1 % topical gel apply 4 grams to affected area four times a day TO AFFECTED LOWER JOINT Problem List As Of Date 07/01/2023 Noted Resolved Closed fracture of multiple pubic rami, right, *05/29/2023 Anxiety and depression [F41.9, F32.A] 05/29/2023 Primary hypertension [I10] 05/29/2023 Chronic back pain [M54.9, G89.29] 05/29/2023 Osteoarthritis [M19.90] 05/29/2023 HLD (hyperlipidemia) [E78.5] 05/29/2023 Hypokalemia [E87.6] 05/29/2023 High serum bicarbonate [R79.89] 05/29/2023 Closed fracture of sacrum (HCC) [S32.10XA] 05/29/2023 Obesity, Class III, BMI >= 40 [E66.01] 05/29/2023 Opioid dependence in remission (HCC) [F11.21] 06/02/2023 Encounter Status:Closed by EPIC, PRODUSER on 07/06/23 [facility] 06-16-2023 Note HNO ID: [id number] Author: RUTH SWANSON MD Service: ? Author Type: Physician Type: Progress Notes Filed: 06/16/2023 16:58 Note Text: Pt is here with continued discomfort from a pelvis fracture, possibly a stress fracture.She is walking with a walker. The history is provided by the patient. Hypertension Pertinent negatives include no chest pain, palpitations or shortness of breath. HISTORY REVIEWED PAST MEDICAL HISTORY Diagnosis Date Anxiety Arthritis of kqdsyoae-qcrtjoozr-kbgnxwymi joint of right hand Bilateral knee pain Depression Fibromyalgia Hypertension Mixed hyperlipidemia CHASE (obstructive sleep apnea) Pneumonia community aquired Right wrist pain Tobacco use disorder PAST SURGICAL HISTORY Procedure Laterality Date SECTION HX 2004 3 SECTIONS last one in 2004 HYSTERECTOMY HX 2008 KNEE ARTHROSCOPY/SURGERY Left 2017 WRIST SURGERY HX 07/2020 FAMILY HISTORY Problem Relation Age of Onset Obesity Mother Diabetes Father Obesity Father Social History Social History Narrative Not on file Allergies: ALLERGIES No Known Allergies Medications: calcium citrate (CALCITRATE) 200 mg (950 mg) tab Take 1 tablet by mouth once daily. Patient should start on May 31, 2023. ergocalciferol 50,000 unit capsule (VITAMIN D2, DRISDOL) Take 1 capsule by mouth one time a week for 4 doses. Patient should start on May 31, 2023. FLUoxetine (PROZAC) 20 mg capsule Take 1 capsule by mouth two times a day. naproxen (NAPROSYN) 500 mg tablet take 1 tablet by mouth twice a day if needed for pain take with food cyclobenzaprine (FLEXERIL) 10 mg tablet take 1 tablet by mouth twice a day if needed urea (CARMOL) 40 % Apply to affected area as needed. ketoconazole (NIZORAL) 2 % cream Apply bid x 6 weeks gabapentin (NEURONTIN) 100 mg capsule Take 100 mg by mouth three times daily. diclofenac (VOLTAREN) 1 % topical gel apply 4 grams to affected area four times a day TO AFFECTED LOWER JOINT chlorthalidone (HYGROTON) 25 mg tablet Take 1 tablet by mouth once daily. HYDROcodone-acetaminophen (NORCO) 5-325 mg per tablet Take 1 tablet by mouth every 6 hours as needed for pain for up to 7 days. atorvastatin (LIPITOR) 40 mg tablet take 1 tablet by mouth once daily Problem List: ACTIVE PROBLEM LIST Opioid Dependence in Remission ([facility]) - 06/02/2023 Closed Fracture of Multiple Pubic Rami, Right, Initial Encounter ([facility]) - 05/29/2023 Anxiety and Depression - 05/29/2023 Primary Hypertension - 05/29/2023 Chronic Back Pain - 05/29/2023 Osteoarthritis - 05/29/2023 Hld (Hyperlipidemia) - 05/29/2023 Hypokalemia - 05/29/2023 High Serum Bicarbonate - 05/29/2023 Closed Fracture of Sacrum ([facility]) - 05/29/2023 Obesity, Class III, BMI >= 40 - 05/29/2023 Review of Systems Constitutional: Negative. HENT: Negative. Respiratory: Negative for cough, shortness of breath and wheezing. Cardiovascular: Negative for chest pain, palpitations and leg swelling. Genitourinary: Positive for pelvic pain. Physical Exam Vitals and nursing note reviewed. Constitutional: General: She is not in acute distress. Appearance: Normal appearance. She is not ill-appearing, toxic-appearing or diaphoretic. Cardiovascular: Rate and Rhythm: Normal rate and regular rhythm. Pulmonary: Effort: Pulmonary effort is normal. Breath sounds: Normal breath sounds. Musculoskeletal: Lumbar back: Tenderness present. Decreased range of motion. Back: Skin: General: Skin is warm and dry. Neurological: Mental Status: She is alert and oriented to person, place, and time. BP 135/90 Pulse 89 Temp 36.6 ?C (97.8 ?F) (Left Tympanic) Ht 165.1 cm (5' 5 ) Wt 113.4 kg (250 lb) SpO2 99% BMI 41.60 kg/m? ASSESSMENT/PLAN: 1. Closed nondisplaced fracture of right ilium with routine healing, unspecified fracture morphology, subsequent encounter - ICD9: V54.19, ICD10: S32.301D PT consulted - HYDROCODONE 5 MG-ACETAMINOPHEN 325 MG TABLET Ruth Swanson MD [facility] 06-16-2023 History of Present illness Narrative Images from the original note were not included. Pt is here with continued discomfort from a pelvis fracture, possibly a stress fracture.She is walking with a walker. The history is provided by the patient. Hypertension Pertinent negatives include no chest pain, palpitations or shortness of breath. HISTORY REVIEWED PAST MEDICAL HISTORY Diagnosis Date Anxiety Arthritis of nltxjbgd-carfeoymi-gzoreishi joint of right hand Bilateral knee pain Depression Fibromyalgia Hypertension Mixed hyperlipidemia CHASE (obstructive sleep apnea) Pneumonia community aquired Right wrist pain Tobacco use disorder PAST SURGICAL HISTORY Procedure Laterality Date SECTION HX 2005 3 SECTIONS last one in 2004 HYSTERECTOMY HX 2009 KNEE ARTHROSCOPY/SURGERY Left 2017 WRIST SURGERY HX 07/2020 FAMILY HISTORY Problem Relation Age of Onset Obesity Mother Diabetes Father Obesity Father Social History Social History Narrative Not on file Allergies: ALLERGIES No Known Allergies Medications: calcium citrate (CALCITRATE) 200 mg (950 mg) tab Take 1 tablet by mouth once daily. Patient should start on May 31, 2023. ergocalciferol 50,000 unit capsule (VITAMIN D2, DRISDOL) Take 1 capsule by mouth one time a week for 4 doses. Patient should start on May 31, 2023. FLUoxetine (PROZAC) 20 mg capsule Take 1 capsule by mouth two times a day. naproxen (NAPROSYN) 500 mg tablet take 1 tablet by mouth twice a day if needed for pain take with food cyclobenzaprine (FLEXERIL) 10 mg tablet take 1 tablet by mouth twice a day if needed urea (CARMOL) 40 % Apply to affected area as needed. ketoconazole (NIZORAL) 2 % cream Apply bid x 6 weeks gabapentin (NEURONTIN) 100 mg capsule Take 100 mg by mouth three times daily. diclofenac (VOLTAREN) 1 % topical gel apply 4 grams to affected area four times a day TO AFFECTED LOWER JOINT chlorthalidone (HYGROTON) 25 mg tablet Take 1 tablet by mouth once daily. HYDROcodone-acetaminophen (NORCO) 5-325 mg per tablet Take 1 tablet by mouth every 6 hours as needed for pain for up to 7 days. atorvastatin (LIPITOR) 40 mg tablet take 1 tablet by mouth once daily Problem List: ACTIVE PROBLEM LIST Opioid Dependence in Remission (Formerly [facility]) - 06/02/2023 Closed Fracture of Multiple Pubic Rami, Right, Initial Encounter (Former[facility]) - 05/29/2023 Anxiety and Depression - 05/29/2023 Primary Hypertension - 05/29/2023 Chronic Back Pain - 05/29/2023 Osteoarthritis - 05/29/2023 Hld (Hyperlipidemia) - 05/29/2023 Hypokalemia - 05/29/2023 High Serum Bicarbonate - 05/29/2023 Closed Fracture of Sacrum (Hcc) - 05/29/2023 Obesity, Class III, BMI >= 40 - 05/29/2023 Review of Systems Constitutional: Negative. HENT: Negative. Respiratory: Negative for cough, shortness of breath and wheezing. Cardiovascular: Negative for chest pain, palpitations and leg swelling. Genitourinary: Positive for pelvic pain. Physical Exam Vitals and nursing note reviewed. Constitutional: General: She is not in acute distress. Appearance: Normal appearance. She is not ill-appearing, toxic-appearing or diaphoretic. Cardiovascular: Rate and Rhythm: Normal rate and regular rhythm. Pulmonary: Effort: Pulmonary effort is normal. Breath sounds: Normal breath sounds. Musculoskeletal: Lumbar back: Tenderness present. Decreased range of motion. Back: Skin: General: Skin is warm and dry. Neurological: Mental Status: She is alert and oriented to person, place, and time. BP 135/90 Pulse 89 Temp 36.6 C (97.8 F) (Left Tympanic) Ht 165.1 cm (5' 5 ) Wt 113.4 kg (250 lb) SpO2 99% BMI 41.60 kg/m ASSESSMENT/PLAN: 1. Closed nondisplaced fracture of right ilium with routine healing, unspecified fracture morphology, subsequent encounter - ICD9: V54.19, ICD10: S32.301D PT consulted - HYDROCODONE 5 MG-ACETAMINOPHEN 325 MG TABLET Ruth Swanson MD documented in this encounter [facility] 06-10-2023 Note HNO ID: [id number] Author: ZARA HAWK Tech Service: ? Author Type: Piano Bench Assembler Type: Progress Notes Filed: 06/10/2023 15:08 Note Text: Radiology Service Progress Note PATIENT NAME: Sheyla Chong DATE OF SERVICE: June 10, 2023 TIME: 3:08 PM PATIENT IDENTITY VERIFICATION COMPLETED USING TWO (2) IDENTIFIERS: Name and Date of confirmed by patient verbally. FALL SCREENING: Has the patient had 2 falls in the last year or 1 fall with injury or currently using an Ambulatory Assistive Device (Walker, Cane, Wheelchair, Crutches, etc.)? No PATIENT GENDER DATA: Female. status: : No status: NO. PATIENT RELEVANT IMPLANT DATA REVIEWED: Not Applicable PATIENT PRESENTS WITH AN IMPLANTABLE OR ATTACHED CARE SERVICES MANAGER: No RADIOLOGY DEPARTMENT: General X-ray: Exam(s) Completed: Pelvis X-Ray: Pelvis General AP PERIPHERAL IV DATA: Not applicable SIGNED BY: Stephanie Cortez June 10, 2023 3:08 PM [facility] 06-10-2023 Note HNO ID: [id number] Author: LIZA DORSEY, Service: ? Author Type: Physician Type: Progress Notes Filed: 06/16/2023 10:06 Note Text: Reason for Visit/Chief Complaint Sheyla Chong is a 53 year old female who presents today for a new evaluation of following complaint: Patient presents with: Right Hip - New, Pain History of Present Illness: PAIN EVALUATION 06/10/2023 0528 Pain Level: 7 Description: Aching;Burning;Pressure;Pulsating; Radiating;Sharp;Stabbing;Throbbing Duration Units: Weeks Frequency: Intermittent Intervention/Comfort measure: Medication;Reposition;Relaxation;C old;Heat;Positioning Comments: Most time if laying on my back it will help with excruciating pain. It will juat be a constant dull ache while laying down. HPI: Sheyla Chong is a 53 year old female presenting today with right hip pain. Patient has been experiencing hip pain for about 4 weeks now. She has made multiple trips to the ED over the past 4 weeks due to the pain. Patient continues to have difficulty walking and standing Pain history is noted as above. Denies calf pain, numbness, tingling, fever, chills or other constitutional symptoms. Previous Treatments: Ice: No Heat: No Brace: No NSAIDs: Yes, percocoet, norco Injections: No Surgeries: No Physical Therapy: No Review of Systems: Patient did not have, and does not currently have, any weight loss, malaise, fever, chills, headache, chest pain, chest pressure, palpitations, cough, shortness of breath, orthopnea, paroxsymal nocturnal dyspnea, nausea, vomiting, diarrhea, constipation, melena, hematochezia, urinary difficulties, prolonged bleeding, easily bruising, heat or cold intolerance, new onset joint pain or swelling, new onset extremity weakness or numbness, new onset auditory or visual disturbances, lightheadedness, dizziness, partial loss of consciousness or full loss of consciousness. Current Outpatient Medications on File Prior to Visit Medication Sig HYDROcodone-acetaminophen (NORCO) 5-325 mg per tablet 1 tablet as needed Orally every 8 hrs for 28 days triazolam (HALCION) 0.25 mg tablet take 1 tablet by mouth 1 HOUR PRIOR TO INJECTION triazolam (HALCION) 0.25 mg tablet 1 tablet one hour prior to injection Orally 1 per day. for 2 days calcium citrate (CALCITRATE) 200 mg (950 mg) tab Take 1 tablet by mouth once daily. Patient should start on May 31, 2023. ergocalciferol 50,000 unit capsule (VITAMIN D2, DRISDOL) Take 1 capsule by mouth one time a week for 4 doses. Patient should start on May 31, 2023. FLUoxetine (PROZAC) 20 mg capsule Take 1 capsule by mouth two times a day. naproxen (NAPROSYN) 500 mg tablet take 1 tablet by mouth twice a day if needed for pain take with food cyclobenzaprine (FLEXERIL) 10 mg tablet take 1 tablet by mouth twice a day if needed urea (CARMOL) 40 % Apply to affected area as needed. ketoconazole (NIZORAL) 2 % cream Apply bid x 6 weeks gabapentin (NEURONTIN) 100 mg capsule Take 100 mg by mouth three times daily. diclofenac (VOLTAREN) 1 % topical gel apply 4 grams to affected area four times a day TO AFFECTED LOWER JOINT chlorthalidone (HYGROTON) 25 mg tablet take 1 tablet by mouth once daily atorvastatin (LIPITOR) 40 mg tablet take 1 tablet by mouth once daily No current facility-administered medications on file prior to visit. ALLERGIES No Known Allergies Physical Exam: Vitals: There were no vitals taken for this visit. Psych: Pleasant, good affect and mood General Appearance: Well appearing, alert, in no acute distress, well-hydrated, well nourished.. Skin: Skin color, texture, turgor normal, no suspicious rashes or lesions. Peripheral Pulses: Normal. Neurologic: Gait abnormal. Reflexes normal and symmetric. Sensation grossly intact.. Lymph Nodes: No cervical lymphadenopathy, No supraclavicular lymphadenopathy, No axillary lymphadenopathy., and No inguinal lymphadenopathy.. Respiratory: No recent pulmonary infection, hemoptysis, chronic cough, or shortness of breath at rest Rheumatologic: Joint deformities: right hip pain Back Exam Tenderness The patient is experiencing tenderness in the lumbar. Range of Motion Extension: normal Flexion: normal Lateral bend right: normal Lateral bend left: normal Rotation right: normal Rotation left: normal Muscle Strength The patient has normal back strength. Right Quadriceps: 5/5 Left Quadriceps: 5/5 Right Hamstrings: 5/5 Left Hamstrings: 5/5 Tests Straight leg raise right: negative Straight leg raise left: negative Reflexes Patellar: normal Achilles: normal Babinski's sign: normal Other Toe walk: normal Heel walk: normal Sensation: normal Gait: abnormal Erythema: no back redness Comments: Ttp sup/inf and sacr at site of fractures Sgi, compts soft, neg homans bilateral LE Neg straight leg raise Painful gait, amb with assistance Imaging: Last CT Hip/Pelvis (more content not included)... [facility] 06-10-2023 History of Present illness Narrative Images from the original note were not included. Reason for Visit/Chief Complaint Sheyla Chong is a 53 year old female who presents today for a new evaluation of following complaint: Patient presents with: Right Hip - New, Pain History of Present Illness: PAIN EVALUATION 06/10/2023 0528 Pain Level: 7 Description: Aching;Burning;Pressure;Pulsating; Radiating;Sharp;Stabbing;Throbbing Duration Units: Weeks Frequency: Intermittent Intervention/Comfort measure: Medication;Reposition;Relaxation;C old;Heat;Positioning Comments: Most time if laying on my back it will help with excruciating pain. It will juat be a constant dull ache while laying down. HPI: Sheyla Chong is a 53 year old female presenting today with right hip pain. Patient has been experiencing hip pain for about 4 weeks now. She has made multiple trips to the ED over the past 4 weeks due to the pain. Patient continues to have difficulty walking and standing Pain history is noted as above. Denies calf pain, numbness, tingling, fever, chills or other constitutional symptoms. Previous Treatments: Ice: No Heat: No Brace: No NSAIDs: Yes, percocoet, norco Injections: No Surgeries: No Physical Therapy: No Review of Systems: Patient did not have, and does not currently have, any weight loss, malaise, fever, chills, headache, chest pain, chest pressure, palpitations, cough, shortness of breath, orthopnea, paroxsymal nocturnal dyspnea, nausea, vomiting, diarrhea, constipation, melena, hematochezia, urinary difficulties, prolonged bleeding, easily bruising, heat or cold intolerance, new onset joint pain or swelling, new onset extremity weakness or numbness, new onset auditory or visual disturbances, lightheadedness, dizziness, partial loss of consciousness or full loss of consciousness. Current Outpatient Medications on File Prior to Visit Medication Sig HYDROcodone-acetaminophen (NORCO) 5-325 mg per tablet 1 tablet as needed Orally every 8 hrs for 28 days triazolam (HALCION) 0.25 mg tablet take 1 tablet by mouth 1 HOUR PRIOR TO INJECTION triazolam (HALCION) 0.25 mg tablet 1 tablet one hour prior to injection Orally 1 per day. for 2 days calcium citrate (CALCITRATE) 200 mg (950 mg) tab Take 1 tablet by mouth once daily. Patient should start on May 31, 2023. ergocalciferol 50,000 unit capsule (VITAMIN D2, DRISDOL) Take 1 capsule by mouth one time a week for 4 doses. Patient should start on May 31, 2023. FLUoxetine (PROZAC) 20 mg capsule Take 1 capsule by mouth two times a day. naproxen (NAPROSYN) 500 mg tablet take 1 tablet by mouth twice a day if needed for pain take with food cyclobenzaprine (FLEXERIL) 10 mg tablet take 1 tablet by mouth twice a day if needed urea (CARMOL) 40 % Apply to affected area as needed. ketoconazole (NIZORAL) 2 % cream Apply bid x 6 weeks gabapentin (NEURONTIN) 100 mg capsule Take 100 mg by mouth three times daily. diclofenac (VOLTAREN) 1 % topical gel apply 4 grams to affected area four times a day TO AFFECTED LOWER JOINT chlorthalidone (HYGROTON) 25 mg tablet take 1 tablet by mouth once daily atorvastatin (LIPITOR) 40 mg tablet take 1 tablet by mouth once daily No current facility-administered medications on file prior to visit. ALLERGIES No Known Allergies Physical Exam: Vitals: There were no vitals taken for this visit. Psych: Pleasant, good affect and mood General Appearance: Well appearing, alert, in no acute distress, well-hydrated, well nourished.. Skin: Skin color, texture, turgor normal, no suspicious rashes or lesions. Peripheral Pulses: Normal. Neurologic: Gait abnormal. Reflexes normal and symmetric. Sensation grossly intact.. Lymph Nodes: No cervical lymphadenopathy, No supraclavicular lymphadenopathy, No axillary lymphadenopathy., and No inguinal lymphadenopathy.. Respiratory: No recent pulmonary infection, hemoptysis, chronic cough, or shortness of breath at rest Rheumatologic: Joint deformities: right hip pain Back Exam Tenderness The patient is experiencing tenderness in the lumbar. Range of Motion Extension: normal Flexion: normal Lateral bend right: normal Lateral bend left: normal Rotation right: normal Rotation left: normal Muscle Strength The patient has normal back strength. Right Quadriceps: 5/5 Left Quadriceps: 5/5 Right Hamstrings: 5/5 Left Hamstrings: 5/5 Tests Straight leg raise right: negative Straight leg raise left: negative Reflexes Patellar: normal Achilles: normal Babinski's sign: normal Other Toe walk: normal Heel walk: normal Sensation: normal Gait: abnormal Erythema: no back redness Comments: Ttp sup/inf and sacr at site of fractures Sgi, compts soft, neg homans bilateral LE Neg straight leg raise Painful gait, amb with assistance Imaging: Last CT Hip/Pelvis - Impression Only CT HIP WO IVCON RIGHT Exam End: 05/26/2023 12:10 PM (Final result) Impression: IMPRESSION: Right superior and inferior rami fractures. Bilateral sacral alae insufficiency fractures. Pharmacist'S Aide: BASIL ... Assessment and Plan: IMPRESSION: Right superior and inferior rami fractures. Bilateral sacral alae insufficiency fractures. IMPRESSION: Findings compatible with an acute Schmorl's node along the superior endplate of L3 causing less than 30% compression. Moderate degenerative disc and facet disease as detailed above. Broad-based disc protrusion causes mild canal stenosis at L4-L5. Severe right L5-S1 and moderate left L5-S1 neural foraminal stenoses. Anatomic Lumbar Variant: None. L4-5 is considered the level of the iliac crest and assume there are 5 lumbar-type vertebrae. Pharmacist'S Aide: BASIL Impression: Encounter Diagnosis ICD-10-CM 1. Fracture of unspecified parts of lumbosacral spine and pelvis, subsequent encounter for fracture with routine healing S32.9XXD MRI PELVIS WO IVCON 2. Closed fracture of sacrum, unspecified portion of sacrum, initial encounter ([facility]) S32.10XA 3. Closed fracture of multiple pubic rami, right, initial encounter ([facility]) S32.591A Plan: Today, in detail, through a thorough evaluation, we discussed possible etiologies of pain and our plans for further diagnostic and therapeutic interventions. We discussed strategies for decreasing pain and improving strength, stability and motion. Patient's questions were answered in detailed. Patient verbalizes understanding and agrees with the treatment plan as discussed. Mri pelvis Back brace for comfort Pt needs bone density as claims she has not fallen, so atypical and rare for these fractures without trauma Needs endo work up, will staff messaged dr swanson as well messaged ej 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 all imaging complete Dr nelson possible back injection for chronic back pain, referral placed; no injections until work up placed Patient aware and in agreement of plan. All questions answered. Liza Dorsey D.O. M.P.HDarrion documented in this encounter [facility] 06-10-2023 History of Present illness Narrative Radiology Service Progress Note PATIENT NAME: Sheyla Chong DATE OF SERVICE: June 10, 2023 TIME: 3:08 PM PATIENT IDENTITY VERIFICATION COMPLETED USING TWO (2) IDENTIFIERS: Name and Date of confirmed by patient verbally. FALL SCREENING: Has the patient had 2 falls in the last year or 1 fall with injury or currently using an Ambulatory Assistive Device (Walker, Cane, Wheelchair, Crutches, etc.)? No PATIENT GENDER DATA: Female. status: : No status: NO. PATIENT RELEVANT IMPLANT DATA REVIEWED: Not Applicable PATIENT PRESENTS WITH AN IMPLANTABLE OR ATTACHED CARE SERVICES MANAGER: No RADIOLOGY DEPARTMENT: General X-ray: Exam(s) Completed: Pelvis X-Ray: Pelvis General AP PERIPHERAL IV DATA: Not applicable SIGNED BY: Stephanie Cortez June 10, 2023 3:08 PM documented in this encounter [facility] 06-03-2023 Miscellaneous Notes See chart review for follow up. Pt is now being followed by the PCP for home care. documented in this encounter [facility] 06-02-2023 Instructions Ruth Swanson MD - 06/02/2023 2:19 PM EDT BONE MINERAL DENSITY PATIENT INSTRUCTIONS ======= Bone mineral density testing measures the amount of calcium in certain parts of your bones. This information determines how strong your bones are. The test is used to detect osteoporosis, a disease in which the bone's mineral content and density are low, increasing a person's risk of fractures. The lumbar spine (lower back) and the hip are the skeletal sites usually examined. For the test, remember that: 1. You cannot take this test if you are . 2. Eat a normal diet on the day of the test. 3. Take your medications as you normally would. 4. DO NOT take calcium supplements (such as Tums) for 24 hours before the test. 5. On the day of the test, leave valuables (jewelry or credit cards) at home. 6. The test should be performed prior to oral, rectal or IV contrast studies, or at least 7 days after any of these studies. For the test, you may be asked to wear a hospital gown. You will lie on your back, on a padded table, in a comfortable position. Generally, you can resume your usual activities immediately. documented in this encounter [facility] 06-02-2023 Note HNO ID: [id number] Author: RUTH SWANSON MD Service: ? Author Type: Physician Type: Progress Notes Filed: 06/02/2023 14:29 Note Text: Pt is a 53 year old female presenting today to follow up from a hospital visit. Pt was admitted from 05/28-05/29 with a closed fracture right pubic rami and sacral fracture at [facility]. Pt did not have surgery. Pt states she does not know what caused the fractures. Denies recent injury. Pt states the pain is in the medial groin area. Pt states the pain travels from right hip and groin down to her right ankle. Pt states she was discharged with percocet, calcium citrate, vitamin d, lidocaine patch 4%, oxycodone IR 5 mg, miralax. Pt states she had a low potassium level and was given 4 bags of IV potassium while admitted. Potassium level was 2.9 4 days On admission note, neurosurgery was consulted for acute Schmorl's node along the superior endplate of L3 causing less than 30% compression. Moderate degenerative disc disease, mild canal stenosis at L4-5, severe right L5-S1 and moderate left L5-S1 neural foraminal stenosis at this time neurosurgery thought it was best to try and control pain and possibly do right L4-5, L5-S1 transformational injection as outpatient. Pt states her sons wedding is this weekend and wants to feel better for this. The history is provided by the patient. HISTORY REVIEWED PAST MEDICAL HISTORY Diagnosis Date Anxiety Arthritis of ridwdvom-jywlgaweo-kgjuyxrxh joint of right hand Bilateral knee pain Depression Fibromyalgia Hypertension Mixed hyperlipidemia CHASE (obstructive sleep apnea) Pneumonia community aquired Right wrist pain Tobacco use disorder PAST SURGICAL HISTORY Procedure Laterality Date SECTION HX 2004 3 SECTIONS last one in 2004 HYSTERECTOMY HX 2008 KNEE ARTHROSCOPY/SURGERY Left 2017 WRIST SURGERY HX 07/2020 FAMILY HISTORY Problem Relation Age of Onset Obesity Mother Diabetes Father Obesity Father Social History Social History Narrative Not on file Allergies: ALLERGIES No Known Allergies Medications: HYDROcodone-acetaminophen (NORCO) 5-325 mg per tablet 1 tablet as needed Orally every 8 hrs for 28 days triazolam (HALCION) 0.25 mg tablet take 1 tablet by mouth 1 HOUR PRIOR TO INJECTION triazolam (HALCION) 0.25 mg tablet 1 tablet one hour prior to injection Orally 1 per day. for 2 days calcium citrate (CALCITRATE) 200 mg (950 mg) tab Take 1 tablet by mouth once daily. Patient should start on May 31, 2023. ergocalciferol 50,000 unit capsule (VITAMIN D2, DRISDOL) Take 1 capsule by mouth one time a week for 4 doses. Patient should start on May 31, 2023. lidocaine (SALONPAS) 4 % patch Apply 1 Patch as directed once daily for 7 days. oxyCODONE IR (ROXICODONE) 5 mg immediate release tablet Take 1 tablet by mouth every 6 hours as needed for up to 3 days. polyethylene glycol 3350 (MIRALAX) 17 gram/dose powder Take 17 g by mouth once daily for 7 days. Dissolve dose in 4 - 8 ounces of liquid and take as directed. FLUoxetine (PROZAC) 20 mg capsule Take 1 capsule by mouth two times a day. naproxen (NAPROSYN) 500 mg tablet take 1 tablet by mouth twice a day if needed for pain take with food cyclobenzaprine (FLEXERIL) 10 mg tablet take 1 tablet by mouth twice a day if needed urea (CARMOL) 40 % Apply to affected area as needed. ketoconazole (NIZORAL) 2 % cream Apply bid x 6 weeks gabapentin (NEURONTIN) 100 mg capsule Take 100 mg by mouth three times daily. diclofenac (VOLTAREN) 1 % topical gel apply 4 grams to affected area four times a day TO AFFECTED LOWER JOINT chlorthalidone (HYGROTON) 25 mg tablet take 1 tablet by mouth once daily atorvastatin (LIPITOR) 40 mg tablet take 1 tablet by mouth once daily Problem List: ACTIVE PROBLEM LIST Closed Fracture of Multiple Pubic Rami, Right, Initial Encounter ([facility]) - 05/29/2023 Anxiety and Depression - 05/29/2023 Primary Hypertension - 05/29/2023 Chronic Back Pain - 05/29/2023 Osteoarthritis - 05/29/2023 Hld (Hyperlipidemia) - 05/29/2023 Hypokalemia - 05/29/2023 High Serum Bicarbonate - 05/29/2023 Closed Fracture of Sacrum (Hcc) - 05/29/2023 Obesity, Class III, BMI >= 40 - 05/29/2023 Review of Systems Constitutional: Negative for chills, fatigue and fever. HENT: Negative. Respiratory: Negative for cough, shortness of breath and wheezing. Cardiovascular: Negative for chest pain, palpitations and leg swelling. Musculoskeletal: Positive for arthralgias. Physical Exam Constitutional: Appearance: Normal appearance. She is not ill-appearing, toxic-appearing or diaphoretic. Comments: Mild distress HENT: Head: Normocephalic and atraumatic. Cardiovascular: Rate and Rhythm: Normal rate and regular rhythm. Pulses: Normal pulses. Pulmonary: Effort: Pulmonary effort is normal. Breath sounds: Normal breath sounds. Musculoskeletal: General: Tenderness present. Right hip: Tendernes (more content not included)... [facility] 06-02-2023 History of Present illness Narrative Images from the original note were not included. Pt is a 53 year old female presenting today to follow up from a hospital visit. Pt was admitted from 05/28-05/29 with a closed fracture right pubic rami and sacral fracture at [facility]. Pt did not have surgery. Pt states she does not know what caused the fractures. Denies recent injury. Pt states the pain is in the medial groin area. Pt states the pain travels from right hip and groin down to her right ankle. Pt states she was discharged with percocet, calcium citrate, vitamin d, lidocaine patch 4%, oxycodone IR 5 mg, miralax. Pt states she had a low potassium level and was given 4 bags of IV potassium while admitted. Potassium level was 2.9 4 days On admission note, neurosurgery was consulted for acute Schmorl's node along the superior endplate of L3 causing less than 30% compression. Moderate degenerative disc disease, mild canal stenosis at L4-5, severe right L5-S1 and moderate left L5-S1 neural foraminal stenosis at this time neurosurgery thought it was best to try and control pain and possibly do right L4-5, L5-S1 transformational injection as outpatient. Pt states her sons wedding is this weekend and wants to feel better for this. The history is provided by the patient. HISTORY REVIEWED PAST MEDICAL HISTORY Diagnosis Date Anxiety Arthritis of zaksasyy-xnogouynz-qrrlcuyqc joint of right hand Bilateral knee pain Depression Fibromyalgia Hypertension Mixed hyperlipidemia CHASE (obstructive sleep apnea) Pneumonia community aquired Right wrist pain Tobacco use disorder PAST SURGICAL HISTORY Procedure Laterality Date SECTION HX 2004 3 SECTIONS last one in 2004 HYSTERECTOMY HX 2009 KNEE ARTHROSCOPY/SURGERY Left 2017 WRIST SURGERY HX 07/2020 FAMILY HISTORY Problem Relation Age of Onset Obesity Mother Diabetes Father Obesity Father Social History Social History Narrative Not on file Allergies: ALLERGIES No Known Allergies Medications: HYDROcodone-acetaminophen (NORCO) 5-325 mg per tablet 1 tablet as needed Orally every 8 hrs for 28 days triazolam (HALCION) 0.25 mg tablet take 1 tablet by mouth 1 HOUR PRIOR TO INJECTION triazolam (HALCION) 0.25 mg tablet 1 tablet one hour prior to injection Orally 1 per day. for 2 days calcium citrate (CALCITRATE) 200 mg (950 mg) tab Take 1 tablet by mouth once daily. Patient should start on May 31, 2023. ergocalciferol 50,000 unit capsule (VITAMIN D2, DRISDOL) Take 1 capsule by mouth one time a week for 4 doses. Patient should start on May 31, 2023. lidocaine (SALONPAS) 4 % patch Apply 1 Patch as directed once daily for 7 days. oxyCODONE IR (ROXICODONE) 5 mg immediate release tablet Take 1 tablet by mouth every 6 hours as needed for up to 3 days. polyethylene glycol 3350 (MIRALAX) 17 gram/dose powder Take 17 g by mouth once daily for 7 days. Dissolve dose in 4 - 8 ounces of liquid and take as directed. FLUoxetine (PROZAC) 20 mg capsule Take 1 capsule by mouth two times a day. naproxen (NAPROSYN) 500 mg tablet take 1 tablet by mouth twice a day if needed for pain take with food cyclobenzaprine (FLEXERIL) 10 mg tablet take 1 tablet by mouth twice a day if needed urea (CARMOL) 40 % Apply to affected area as needed. ketoconazole (NIZORAL) 2 % cream Apply bid x 6 weeks gabapentin (NEURONTIN) 100 mg capsule Take 100 mg by mouth three times daily. diclofenac (VOLTAREN) 1 % topical gel apply 4 grams to affected area four times a day TO AFFECTED LOWER JOINT chlorthalidone (HYGROTON) 25 mg tablet take 1 tablet by mouth once daily atorvastatin (LIPITOR) 40 mg tablet take 1 tablet by mouth once daily Problem List: ACTIVE PROBLEM LIST Closed Fracture of Multiple Pubic Rami, Right, Initial Encounter (Hcc) - 05/29/2023 Anxiety and Depression - 05/29/2023 Primary Hypertension - 05/29/2023 Chronic Back Pain - 05/29/2023 Osteoarthritis - 05/29/2023 Hld (Hyperlipidemia) - 05/29/2023 Hypokalemia - 05/29/2023 High Serum Bicarbonate - 05/29/2023 Closed Fracture of Sacrum (Hcc) - 05/29/2023 Obesity, Class III, BMI >= 40 - 05/29/2023 Review of Systems Constitutional: Negative for chills, fatigue and fever. HENT: Negative. Respiratory: Negative for cough, shortness of breath and wheezing. Cardiovascular: Negative for chest pain, palpitations and leg swelling. Musculoskeletal: Positive for arthralgias. Physical Exam Constitutional: Appearance: Normal appearance. She is not ill-appearing, toxic-appearing or diaphoretic. Comments: Mild distress HENT: Head: Normocephalic and atraumatic. Cardiovascular: Rate and Rhythm: Normal rate and regular rhythm. Pulses: Normal pulses. Pulmonary: Effort: Pulmonary effort is normal. Breath sounds: Normal breath sounds. Musculoskeletal: General: Tenderness present. Right hip: Tenderness present. Decreased range of motion. Legs: Skin: General: Skin is warm and dry. Neurological: Mental Status: She is alert and oriented to person, place, and time. BP 106/72 Pulse 91 Temp 37.3 C (99.1 F) (Left Tympanic) Ht 165.1 cm (5' 5 ) SpO2 93% BMI 41.60 kg/m ASSESSMENT/PLAN: 1. Closed fracture of multiple rami of right pubis, initial encounter ([facility]) - ICD9: 808.2, ICD10: S32.591A (primary diagnosis) - DXA-AXIAL SKELETON - BD DXA TRABECULAR BONE SCORE (TBS) 2. Closed fracture of sacrum, unspecified fracture morphology, initial encounter ([facility]) - ICD9: 805.6, ICD10: S32.10XA - DXA-AXIAL SKELETON - BD DXA TRABECULAR BONE SCORE (TBS) 3. Other osteoporosis - ICD9: 733.09, ICD10: M81.8 - Reviewed the need for Calcium and Vitamin D supplements and weight bearing exercise as tolerated - DXA-AXIAL SKELETON - BD DXA TRABECULAR BONE SCORE (TBS) Ruth Swanson MD documented in this encounter [facility] 06-01-2023 Miscellaneous Notes Date/Time: 06/01/2023 10:35 AM Called patient @ [phone], left voicemail requesting return call to confirm [facility] services. Called significant other Oz @ [phone], left voicemail requesting return call to confirm [facility] services. documented in this encounter [facility] 06-01-2023 Miscellaneous Notes Ruth Swanson MD Please advise if you are agreeable to signing and following for [facility] services? Our Clinicians will be sending the Plan of Care to you for review and approval. They will reach out for any appropriate orders required to provide home care services for the patient. We are not able to initiate HHC services without a following provider. Home care clinicians may also obtain orders from [facility] Virtualist Providers Thank you and we would be happy to answer any questions. Pat Osman LPN 06/01/2023 10:34 AM documented in this encounter [facility] 05-30-2023 Note HNO ID: [id number] Author: NOTE, INTERFACE, ? Service: ? Author Type: ? Type: Progress Notes Filed: 05/30/2023 03:38 Note Text: Epic Scheduled Downtime: 05/30/2023 1:00:00 AM to 05/30/2023 3:24:00 AM [facility] 05-19-2023 Note HNO ID: [id number] Author: RUTH SWANSON MD Service: ? Author Type: Physician Type: Progress Notes Filed: 05/19/2023 14:03 Note Text: DISTANCE HEALTH VISIT This Team Access Model visit is a phone encounter. It required patient-provider interaction for the medical decision making as documented below. I have communicated my name and active licensure. The patient's identity and physical location were verified at the time of this visit. Either the patient or their legal veterans employment representative has been informed of the risks and benefits of -- and alternatives to -- treatment through a remote evaluation and consents to proceed with the evaluation remotely. Sheyla Chong is a 53 year old female seen for a yearly follow up for refills, but she has some concerns about her blood pressure and would rather come in the get this checked in person. She does want to get her prozac filled today as she will be running out. Her anxiety and depression and well controled on this at the present dose..Wee spoke for about 10 min. HISTORY REVIEWED (electronic chart updated): - medical history - medications - allergies REVIEW OF SYSTEMS: GENERAL: feeling well without fatigue, no recent change in weight PHYSICAL EXAMINATION: VIDEO EXAM: (if done, performed via video enabled technology) No exam performed ASSESSMENT: ASSESSMENT/PLAN: 1. Anxiety with depression - ICD9: 300.4, ICD10: F41.8 Refill prpzac Ruth Swanson MD PLAN: Follow up in person soon. Ruth Swanson MD [facility] 05-19-2023 History of Present illness Narrative DISTANCE HEALTH VISIT This Team Access Model visit is a phone encounter. It required patient-provider interaction for the medical decision making as documented below. I have communicated my name and active licensure. The patient's identity and physical location were verified at the time of this visit. Either the patient or their legal veterans employment representative has been informed of the risks and benefits of -- and alternatives to -- treatment through a remote evaluation and consents to proceed with the evaluation remotely. Sheyla Chong is a 53 year old female seen for a yearly follow up for refills, but she has some concerns about her blood pressure and would rather come in the get this checked in person. She does want to get her prozac filled today as she will be running out. Her anxiety and depression and well controled on this at the present dose..Kim spoke for about 10 min. HISTORY REVIEWED (electronic chart updated): - medical history - medications - allergies REVIEW OF SYSTEMS: GENERAL: feeling well without fatigue, no recent change in weight PHYSICAL EXAMINATION: VIDEO EXAM: (if done, performed via video enabled technology) No exam performed ASSESSMENT: ASSESSMENT/PLAN: 1. Anxiety with depression - ICD9: 300.4, ICD10: F41.8 Refill prpzac Ruth Swanson MD PLAN: Follow up in person soon. Ruth Swanson MD documented in this encounter [facility] 05-17-2023 Miscellaneous Notes Please call, Patient needs apt for refills. Any provider. In person only Thank you documented in this encounter [facility] 04-02-2023 Note HNO ID: [id number] Author: IRMA LOZA, DO Service: ? Author Type: Physician Type: Progress Notes Filed: 04/02/2023 10:43 Note Text: Patient presents with: Left Knee - Established Patient, Follow Up, Knee Pain, Swelling Right Knee - Established Patient, Follow Up, Knee Pain, Swelling Sheyla Chong is a 53 year old female who presents for Osteoarthritis of the bilateral knees. The patient notes that the right knee is worse than the left. The patient has undergone conservative management with multiple rounds of corticosteroid injections, Euflexxa injections, physical therapy and bracing. She notes significant improvement of her symptoms following her last corticosteroid injection in October. She is requesting repeat corticosteroid injection today. Reviewed nursing note and current pain scale. PAST MEDICAL HISTORY Diagnosis Date Anxiety Arthritis of hnwemqgz-hnmitadcw-vzxswlktz joint of right hand Bilateral knee pain Depression Fibromyalgia Hypertension Mixed hyperlipidemia CHASE (obstructive sleep apnea) Pneumonia community aquired Right wrist pain Tobacco use disorder PAST SURGICAL HISTORY Procedure Laterality Date SECTION HX 2004 3 SECTIONS last one in 2004 HYSTERECTOMY HX 2008 KNEE ARTHROSCOPY/SURGERY Left 2017 WRIST SURGERY HX 07/2020 FAMILY HISTORY Problem Relation Age of Onset Obesity Mother Diabetes Father Obesity Father Social History Tobacco Use Smoking status: Former Packs/day: 0.50 Years: 3.00 Additional pack years: 0.00 Total pack years: 1.50 Types: Cigarettes Quit date: 06/2022 Years since quittin.7 Smokeless tobacco: Never Vaping Use Vaping Use: Never used Substance Use Topics Alcohol use: No Drug use: Yes Comment: 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 ketoconazole (NIZORAL) 2 % cream Apply bid x 6 weeks chlorthalidone (HYGROTON) 25 mg tablet take 1 tablet by mouth once daily FLUoxetine (PROZAC) 20 mg capsule take 1 capsule by mouth twice a day atorvastatin (LIPITOR) 40 mg tablet take 1 tablet by mouth once daily potassium chloride ER (K-DUR, KLOR-CON) 20 mEq tablet Take 1 tablet by mouth once daily. HYDROcodone-acetaminophen (NORCO) 5-325 mg per tablet Take 1 tablet by mouth every 8 hours as needed. lisinopril (ZESTRIL, PRINIVIL) 20 mg tablet Take 1 tablet by mouth once daily. gabapentin (NEURONTIN) 100 mg capsule Take 100 mg by mouth three times daily. diclofenac (VOLTAREN) 1 % topical gel apply 4 grams to affected area four times a day TO AFFECTED LOWER JOINT No current facility-administered medications for this visit. Allergies: ALLERGIES No Known Allergies Physical Examination: Resp 20 Ht 5' 5 (1.65m) Wt 230 lb (104.3kg) BMI 38.27 kg/(m2). Bilateral Knee Exam Inspection: Skin is intact Standing alignment is: Varus Limb length is equal Edema is absent Effusion is small Warmth is absent Quadriceps atrophy is absent Hoffa swelling is absent Femoral anteversion is absent Tibial torsion is absent Motion Hyperextension: Absent Flexion: 90 degrees Extension: 0 degrees Patellofemoral Crepitus is present Patellar grind pain is present Retinacular tenderness is absent Facet tenderness is present medially/laterally Lateral subluxation normal Medial subluxation is absent Apprehension is normal Tibiofemoral: Crepitus is present Joint line tenderness is present medially Collateral ligament tenderness is absent Stability Elsy is stable Posterior drawer is stable Valgus stress opening is normal at 0 degrees and normal at 30 degrees Varus stress opening is normal at 0 degree and normal at 30 degrees ER symmetry is normal Strength: Extension is 5/5 Flexion is 5/5 Hip/Ankle Hindfoot alignment is normal. Hip motion is normal. Hip strength is normal Assessment and Plan: 1. Primary osteoarthritis of left knee - ICD9: 715.16, ICD10: M17.12 (primary diagnosis) 2. Primary osteoarthritis of right knee - ICD9: 715.16, ICD10: M17.11 The risks and benefits of a corticosteroid injection were discussed with the patient. The risks include but are not limited to: infection, fat atrophy, skin hypopigmentation, facial flushing, elevated blood glucose. The patient elected to proceed with injection and tolerated well. The patient may continue her therapist directed home exercise program as well as bracing as tolerated. I discussed with the patient that I am happy to see her back anytime. Large Joint Arthro/Inj: R knee joint Informed Consent Consent Obtained: Verbal [place] Protocol A moment to CARE was completed. SIGN IN Per (more content not included)... [facility] 03-31-2023 Note HNO ID: [id number] Author: JODY YAP LPN Service: ? Author Type: LICENSED NURSE Type: Progress Notes Filed: 04/02/2023 10:43 Note Text: This nurse prepared two injections of 4ml Marcaine and 1ml Kenalog with a 22g needle for injection of bilat knee injections and handed them to Dr. Loza.Jody Yap LPN [facility] 03-31-2023 Note HNO ID: [id number] Author: JODY YAP LPN Service: ? Author Type: LICENSED NURSE Type: Progress Notes Filed: 04/02/2023 10:43 Note Text: REVIEW OF SYSTEMS: GENERAL: Well developed, well nourished. No acute distress PAIN: Chronic Pain bilat knee CARDIOVASCULAR: negative MSK: bilat knee SKIN: Negative for lesions, rash, itching, metal sensitivity NEURO: Negative for seizure, trauma, numbness/tingling of extremities. ENDOCRINE: Negative for diabetic associated symptoms HEMATOLOGY: Negative for excessive bleeding, clots, bleeding disorders. [facility] 03-02-2023 History of Present illness Narrative Summary: XRAY Radiology Service Progress Note PATIENT NAME: Sheyla Chong DATE OF SERVICE: March 02, 2023 TIME: 4:23 PM PATIENT IDENTITY VERIFICATION COMPLETED USING TWO (2) IDENTIFIERS: Name and Date of confirmed by patient verbally. FALL SCREENING: Has the patient had 2 falls in the last year or 1 fall with injury or currently using an Ambulatory Assistive Device (Walker, Cane, Wheelchair, Crutches, etc.)? No PATIENT GENDER DATA: Female. status: : No status: NO. PATIENT RELEVANT IMPLANT DATA REVIEWED: Not Applicable RADIOLOGY DEPARTMENT: General X-ray: Exam(s) Completed: Lower Extremity X-Ray(s): Ankle, Right and Foot, Right Upper Extremity X-Ray(s): Hand, right PERIPHERAL IV DATA: Not applicable SIGNED BY: RT Krzysztof(R) March 02, 2023 4:23 PM documented in this encounter [facility] 02-05-2023 Miscellaneous Notes Pharmacy [employer] message requesting the following refill. Requested Prescriptions Pending Prescriptions Disp Refills naproxen (NAPROSYN) 500 mg tablet [Pharmacy Med Name: NAPROXEN 500 MG TABLET] 60 tablet 2 Sig: take 1 tablet by mouth twice a day if needed for pain take with food Patients last known Refill Date: 01/13/2023 Patient Phone numbers: [phone] (home) Request is for script(s) to be escript to pharmacy. Trena Amezquita documented in this encounter [facility] 01-12-2023 Miscellaneous Notes Call/message received from pharmacy requesting refill. Please E-Scribe Last OV: 01/06/22 with Ruth Swanson MD Future OV: message sent to schedule [facility] Phone #: [phone] Requested Prescriptions Pending Prescriptions Disp Refills cyclobenzaprine (FLEXERIL) 10 mg tablet [Pharmacy Med Name: CYCLOBENZAPRINE 10 MG TABLET] 60 tablet 2 Sig: take 1 tablet by mouth twice a day if needed Order pended for review. Please advise. Chely French LPN documented in this encounter [facility] 11-18-2022 History of Present illness Narrative I have communicated my name and active licensure. The patient's identity and physical location were verified at the time of this visit. Either the patient or their legal veterans employment representative has been informed of the risks and benefits of -- and alternatives to -- treatment through a remote evaluation and consents to proceed with the evaluation remotely. VIRTUAL VISIT PROGRESS NOTE This is a virtual visit using [employer] video visit. It required patient-provider interaction for the medical decision making as documented below. I have communicated my name and active licensure. The patient's identity and physical location were verified at the time of this visit. Either the patient or their legal veterans employment representative has been informed of the risks and benefits of -- and alternatives to -- treatment through a remote evaluation and consents to proceed with the evaluation remotely. Sheyla Chong is a 52 year old female seen for itchy rash at feet x weeks-months no treatment to date. HISTORY REVIEWED (electronic chart updated): PAST MEDICAL HISTORY Diagnosis Date Anxiety Arthritis of abvwlxnd-ndofbfqfs-itkxvivgb joint of right hand Bilateral knee pain Depression Fibromyalgia Hypertension Mixed hyperlipidemia CHASE (obstructive sleep apnea) Pneumonia community aquired Right wrist pain Tobacco use disorder PAST SURGICAL HISTORY Procedure Laterality Date SECTION HX 2004 3 SECTIONS last one in 2004 HYSTERECTOMY HX 2008 KNEE ARTHROSCOPY/SURGERY Left 2017 WRIST SURGERY HX 07/2020 FAMILY HISTORY Problem Relation Age of Onset Obesity Mother Diabetes Father Obesity Father Social History Tobacco Use Smoking status: Former Packs/day: 0.50 Years: 3.00 Additional pack years: 0.00 Total pack years: 1.50 Types: Cigarettes Quit date: 06/2022 Years since quittin.4 Smokeless tobacco: Never Vaping Use Vaping Use: Never used Substance Use Topics Alcohol use: No Drug use: Yes Comment: 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 ketoconazole (NIZORAL) 2 % cream Apply bid x 6 weeks naproxen (NAPROSYN) 500 mg tablet take 1 tablet by mouth twice a day if needed for pain take with food chlorthalidone (HYGROTON) 25 mg tablet take 1 tablet by mouth once daily cyclobenzaprine (FLEXERIL) 10 mg tablet take 1 tablet by mouth twice a day if needed FLUoxetine (PROZAC) 20 mg capsule take 1 capsule by mouth twice a day atorvastatin (LIPITOR) 40 mg tablet take 1 tablet by mouth once daily potassium chloride ER (K-DUR, KLOR-CON) 20 mEq tablet Take 1 tablet by mouth once daily. HYDROcodone-acetaminophen (NORCO) 5-325 mg per tablet Take 1 tablet by mouth every 8 hours as needed. lisinopril (ZESTRIL, PRINIVIL) 20 mg tablet Take 1 tablet by mouth once daily. gabapentin (NEURONTIN) 100 mg capsule Take 100 mg by mouth three times daily. diclofenac (VOLTAREN) 1 % topical gel apply 4 grams to affected area four times a day TO AFFECTED LOWER JOINT No current facility-administered medications for this visit. ALLERGIES No Known Allergies REVIEW OF SYSTEMS: No f c sob PHYSICAL EXAMINATION: VIDEO EXAM: (if completed, performed via video enabled technology) Scaling patches at feet and ankles ASSESSMENT: (B35.3) Tinea pedis, unspecified laterality (primary encounter diagnosis) PLAN: Urea 40 bid Ketoconazole cream bid Rtc 1 month if not improved There are no Patient Instructions on file for this visit. Idalia Murillo MD documented in this encounter [facility] 10-24-2022 Miscellaneous Notes Patient phones requesting refills as follows: Requested Prescriptions Pending Prescriptions Disp Refills chlorthalidone (HYGROTON) 25 mg tablet [Pharmacy Med Name: CHLORTHALIDONE 25 MG TABLET] 90 tablet 1 Sig: take 1 tablet by mouth once daily Last OV: [facility] 01-06-2022 Please review and advise. MARÍA Osman documented in this encounter [facility] 07-28-2022 History of Present illness Narrative Associated Order(s): Large Joint Arthro/Inj: R knee joint; Large Joint Arthro/Inj: L knee joint Post-Procedure Diagnose(s): Primary osteoarthritis of right knee; Primary osteoarthritis of left knee The risks and benefits of a corticosteroid injection were discussed with the patient. The risks include but are not limited to: infection, fat atrophy, skin hypopigmentation, facial flushing, elevated blood glucose. The patient elected to proceed with injection and tolerated well. Large Joint Arthro/Inj: R knee joint Informed Consent Consent Obtained: Verbal [place] Protocol A moment to CARE was completed. SIGN IN Personnel directly involved with the procedure wore the appropriate PPE. Patient/Surrogate Stated/Verified: Patient name, Date of , Relevant allergies and Intended procedure TIME OUT Intended patient and procedure match the source document(s). Consent documented and matches the intended procedure. Relevant labs, photos, and/or imaging studies have been reviewed. Correct side/site marked and visible. Medications required for procedure verified. Fire risk assessed and interventions discussed. 07/28/2022 3:47 PM The procedure site was prepped in the usual sterile fashion. Site: R knee joint Medications: 40 mg triamcinolone acetonide 40 mg/mL; 4 mL BUPivacaine (PF) 0.25 % (2.5 mg/mL) Outcome: Tolerated well, no immediate complications Post-injection instructions were reviewed with the patient and the patient voiced understanding of these instructions. SIGN OUT All instruments, equipment, possible retained foreign bodies accounted for. Large Joint Arthro/Inj: L knee joint Informed Consent Consent Obtained: Verbal [place] Protocol A moment to CARE was completed. SIGN IN Personnel directly involved with the procedure wore the appropriate PPE. Patient/Surrogate Stated/Verified: Patient name, Date of , Relevant allergies and Intended procedure TIME OUT Intended patient and procedure match the source document(s). Consent documented and matches the intended procedure. Relevant labs, photos, and/or imaging studies have been reviewed. Correct side/site marked and visible. Medications required for procedure verified. Fire risk assessed and interventions discussed. 07/28/2022 3:48 PM The procedure site was prepped in the usual sterile fashion. Site: L knee joint Medications: 40 mg triamcinolone acetonide 40 mg/mL Anesthetics: 4 mL BUPivacaine (PF) 0.25 % (2.5 mg/mL) Outcome: Tolerated well, no immediate complications Post-injection instructions were reviewed with the patient and the patient voiced understanding of these instructions. SIGN OUT All instruments, equipment, possible retained foreign bodies accounted for. Irma Loza DO Orthopedic Surgery, Sports Medicine Injection is 4cc marcaine and 1cc kenalog bilaterally. Injection prepared per physician order and handed off to Dr. Loza. Guru Nixon LPN documented in this encounter [facility] 07-15-2022 History of Present illness Narrative Patient presents with: Right Knee - Established Patient Sheyla Chong is a 52 year old female who presents for right knee pain, and popping. The patient states that last Thursday she experienced uncomfortable popping of her right knee x4 and the sensation of her right knee giving out. The patient has a known history of osteoarthritis of her bilateral knees and last received corticosteroid injections on 04/28/[address] Porras. The patient has been icing and heating her knee for pain relief. She is having difficulty performing her duties at work secondary to significant discomfort and feelings of instability. Reviewed nursing note and current pain scale. PAST MEDICAL HISTORY Diagnosis Date Anxiety Arthritis of rohuvtrc-axgqccnbi-vbjoxhsqm joint of right hand Bilateral knee pain Depression Fibromyalgia Hypertension Mixed hyperlipidemia CHASE (obstructive sleep apnea) Pneumonia community aquired Right wrist pain Tobacco use disorder PAST SURGICAL HISTORY Procedure Laterality Date SECTION HX 2004 3 SECTIONS last one in 2004 HYSTERECTOMY HX 2008 KNEE ARTHROSCOPY/SURGERY Left 2017 WRIST SURGERY HX 07/2020 FAMILY HISTORY Problem Relation Age of Onset Obesity Mother Diabetes Father Obesity Father Social History Tobacco Use Smoking status: Former Packs/day: 0.50 Years: 3.00 Pack years: 1.50 Types: Cigarettes Quit date: 06/2022 Years since quittin.0 Smokeless tobacco: Never Vaping Use Vaping Use: Never used Substance Use Topics Alcohol use: No Drug use: Yes Comment: 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 HYDROcodone-acetaminophen (NORCO) 5-325 mg per tablet Take 1 tablet by mouth every 8 hours as needed. lisinopril (ZESTRIL, PRINIVIL) 20 mg tablet Take 1 tablet by mouth once daily. gabapentin (NEURONTIN) 100 mg capsule Take 100 mg by mouth three times daily. diclofenac (VOLTAREN) 1 % topical gel apply 4 grams to affected area four times a day TO AFFECTED LOWER JOINT cyclobenzaprine (FLEXERIL) 10 mg tablet Take 1 tablet by mouth twice daily as needed. FLUoxetine (PROZAC) 20 mg capsule Take 1 capsule by mouth twice daily. chlorthalidone (HYGROTON) 25 mg tablet Take 1 tablet by mouth once daily. naproxen (NAPROSYN) 500 mg tablet take 1 tablet by mouth twice a day if needed for pain take with food No current facility-administered medications for this visit. Allergies: ALLERGIES No Known Allergies ROS: Review of systems: General: No fever or chills, no weight loss, no weakness, no fatigue Skin: No rashes, no dryness HEENT: No vision changes, no nasal congestion, no sore throat, no sinus pressure Neck: No lymphadenopathy, no pain or stiffness Respiratory: No cough, no SOB, no wheeze Cardiovascular: no chest, no palpitations, no edema GI: No abdominal pain, no nausea, no vomiting, no diarrhea, no constipation : No increased frequency, no dysuria, no hematuria M/S: See HPI Endocrine: No polyuria, no polydipsia, no cold or heat intolerance Neuro: No numbness, no tingling, no weakness, no dizziness Psych: No change in mood Physical Examination: Pulse 74 Ht 5' 5 (1.65m) Wt 230 lb (104.3kg) SpO2 98% BMI 38.27 kg/(m^2). Right knee Exam Inspection: Skin is intact Standing alignment is: Varus Limb length is equal Edema is absent Effusion is small Warmth is absent Quadriceps atrophy is absent Hoffa swelling is absent Femoral anteversion is absent Tibial torsion is absent Motion Hyperextension: Absent Flexion: 90 degrees Extension: 0 degrees Patellofemoral Crepitus is present Patellar grind pain is present Retinacular tenderness is absent Facet tenderness is present medially/laterally Lateral subluxation normal Medial subluxation is absent Apprehension is normal Tibiofemoral: Crepitus is present Joint line tenderness is present medially Collateral ligament tenderness is absent Stability Elsy is stable Posterior drawer is stable Valgus stress opening is normal at 0 degrees and normal at 30 degrees Varus stress opening is normal at 0 degree and normal at 30 degrees ER symmetry is normal Strength: Extension is 5/5 Flexion is 5/5 Hip/Ankle Hindfoot alignment is normal. Hip motion is normal. Hip strength is normal Images: Recent Results (from the past 36 hour(s)) XR KNEE GENERAL 4V AP BOTH/PA BOTH/LAT/MERC RIGHT Narrative * * *Final Report* * * DATE OF EXAM: Jul 15 2022 9:45AM RHX [id number] - XR KNEE 4V AP/PA BOTH+LAT/LINCOLN RT / PROCEDURE REASON: Primary osteoarthritis of right knee * * * * Physician Interpretation * * * * XR KNEE 4V AP/PA BOTH+LAT/LINCOLN RT Ordering Physician: IRMA LOZA 07/15/2022 9:45 AM RIGHT KNEE Clinical Statement: Primary osteoarthritis FINDINGS: 4 images of the right knee were obtained. There were no prior studies available for comparison. There are moderate degenerative changes of the medial joint compartment. There is mild degenerative change of the lateral joint compartment. There is mild to moderate degenerative change of the patellofemoral joint more prominent laterally. There are no acute fractures. There is no joint effusion. Impression IMPRESSION: Degenerative change most prominent involving the medial joint compartment. Pharmacist'S Aide: PSCB Transcribe Date/Time: Jul 15 2022 9:51A Dictated by : PIETRO CALLAHAN MD This examination was interpreted and the report reviewed and electronically signed by: PIETRO CALLAHAN MD on Jul 15 2022 9:53AM EST Assessment and Plan: 1. Primary osteoarthritis of right knee - ICD9: 715.16, ICD10: M17.11 The physical exam and imaging findings were discussed with the patient. The patient has significant pain in her right knee with feelings of instability and popping. We reviewed her x-rays which reveal no acute fractures or dislocations. The patient does have significant osteoarthritis of her bilateral knees with resulting varus deformity. We discussed that it has been less than 3 months since her last corticosteroid injection, therefore she is not eligible for corticosteroid injection today. We discussed continuing conservative management with ice and heat and oral anti-inflammatories as tolerated. We discussed a hinged knee brace on the right for added stability. A brace was provided to the patient today. The patient has an appointment with me on 07/28/2022 for bilateral knee injections which will be performed at that time. Irma Loza D.O. Medical Decision Making: Problems: Moderate: 1+ chronic illnesses with change Data: Unique source(s) for external note(s) reviewed: 1 Unique test result(s) reviewed: 2 Risk: Low: Low risk from testing/treatment Medical Decision Making Level: 4 - Moderate documented in this encounter [facility] 07-15-2022 History of Present illness Narrative Summary: KNEE XRAY Radiology Service Progress Note PATIENT NAME: Sheyla Chong DATE OF SERVICE: July 15, 2022 TIME: 9:44 AM PATIENT IDENTITY VERIFICATION COMPLETED USING TWO (2) IDENTIFIERS: Name and Date of confirmed by patient verbally. FALL SCREENING: Has the patient had 2 falls in the last year or 1 fall with injury or currently using an Ambulatory Assistive Device (Walker, Cane, Wheelchair, Crutches, etc.)? No PATIENT GENDER DATA: Female. status: : No status: NO. PATIENT RELEVANT IMPLANT DATA REVIEWED: Not Applicable RADIOLOGY DEPARTMENT: General X-ray: Exam(s) Completed: Lower Extremity X-Ray(s): Knee, AP / Lat / Tunne / Merchant Right PERIPHERAL IV DATA: Not applicable SIGNED BY: RT Manoj(R) July 15, 2022 9:44 AM documented in this encounter [facility] 05-26-2022 Miscellaneous Notes [facility] [address] [place] [id number] May 26, 2022 PID: [id number] Sheyla Chong [address] [facility] [address] [place] [address] Dear Darrion Castillo, We are pleased to inform you that the results of your recent breast imaging exam on 05/23/2022 are normal. Early detection of cancer is very important. We also understand recommendations regarding breast cancer screening are controversial. Please discuss with your primary care provider which strategy is best for you and whether a mammogram is right for you. Your imaging studies and report will be kept on file at [facility] as part of your permanent medical record and are available for your continuing care. Thank you for allowing us to help in meeting your health care needs. Sincerely, Dr. Reina Interpreting Radiologist [facility] (Normal over 40) documented in this encounter [facility] 05-23-2022 History of Present illness Narrative Radiology Service Progress Note PATIENT NAME: Sheyla Chong DATE OF SERVICE: May 23, 2022 TIME: 3:01 PM PATIENT IDENTITY VERIFICATION COMPLETED USING TWO (2) IDENTIFIERS: Name and Date of confirmed by patient verbally. FALL SCREENING: Has the patient had 2 falls in the last year or 1 fall with injury or currently using an Ambulatory Assistive Device (Walker, Cane, Wheelchair, Crutches, etc.)? No PATIENT GENDER DATA: Female. status: : No status: NO. PATIENT RELEVANT IMPLANT DATA REVIEWED: Not Applicable RADIOLOGY DEPARTMENT: Mammography PERIPHERAL IV DATA: Not applicable SIGNED BY: RT Imain(R) May 23, 2022 3:01 PM documented in this encounter [facility] 01-13-2022 History of Present illness Narrative Injections prepared per Dr. Loza's order and handed directly to her. Melanie Calvillo LPN Associated Order(s): Large Joint Arthro/Inj: L knee joint; Large Joint Arthro/Inj: R knee joint Post-Procedure Diagnose(s): Primary osteoarthritis of right knee; Primary osteoarthritis of left knee Patient presents with: Left Knee - Established Patient, Knee Pain, Injections: Right knee also hurting d/t over compensating Sheyla Chong is a 51 year old female who presents for bilateral knee pain left worse than right. The patient has received left knee corticosteroid injections in the past which provide her with several months of relief. Her last injection was in September 2021. She states that she has been compensating with her right knee and is having significant medial and patellofemoral right knee pain as well. Reviewed nursing note and current pain scale. PAST MEDICAL HISTORY Diagnosis Date Anxiety Arthritis of azjfbqdu-oreeunmpa-bfztukxsb joint of right hand Bilateral knee pain Depression Fibromyalgia Hypertension Mixed hyperlipidemia CHASE (obstructive sleep apnea) Pneumonia community aquired Right wrist pain Tobacco use disorder PAST SURGICAL HISTORY Procedure Laterality Date SECTION HX 2004 3 SECTIONS last one in 2004 HYSTERECTOMY HX 2009 KNEE ARTHROSCOPY/SURGERY Left 2017 WRIST SURGERY HX 07/2020 FAMILY HISTORY Problem Relation Age of Onset Obesity Mother Diabetes Father Obesity Father Social History Tobacco Use Smoking status: Every Day Packs/day: 0.50 Years: 3.00 Pack years: 1.50 Types: Cigarettes Smokeless tobacco: Never Vaping Use Vaping Use: Never used Substance Use Topics Alcohol use: No Drug use: Yes Comment: 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 atorvastatin (LIPITOR) 40 mg tablet Take 1 tablet by mouth once daily. cetirizine (ZYRTEC) 10 mg tablet Take 1 tablet by mouth once daily. FLUoxetine (PROZAC) 20 mg capsule Take 1 capsule by mouth twice daily. chlorthalidone (HYGROTON) 25 mg tablet Take 1 tablet by mouth once daily. naproxen (NAPROSYN) 500 mg tablet take 1 tablet by mouth twice a day if needed for pain take with food naproxen (NAPROSYN) 500 mg tablet Take 1 tablet by mouth twice daily as needed (for pain). for pain. Take with food. No current facility-administered medications for this visit. Allergies: ALLERGIES No Known Allergies ROS: Review of systems: General: No fever or chills, no weight loss, no weakness, no fatigue Skin: No rashes, no dryness HEENT: No vision changes, no nasal congestion, no sore throat, no sinus pressure Neck: No lymphadenopathy, no pain or stiffness Respiratory: No cough, no SOB, no wheeze Cardiovascular: no chest, no palpitations, no edema GI: No abdominal pain, no nausea, no vomiting, no diarrhea, no constipation : No increased frequency, no dysuria, no hematuria M/S: See HPI Endocrine: No polyuria, no polydipsia, no cold or heat intolerance Neuro: No numbness, no tingling, no weakness, no dizziness Psych: No change in mood Physical Examination: Resp 20 Ht 5' 5 (1.65m) Wt 250 lb (113.4kg) BMI 41.60 kg/(m^2). Left Knee Exam Inspection: Skin is intact Standing alignment is: varus Limb length is equal Edema is absent Effusion is absent Warmth is absent Quadriceps atrophy is absent Hoffa swelling is absent Femoral anteversion is absent Tibial torsion is absent Motion Hyperextension: absent Flexion: 90 degrees Extension: 0 degrees Patellofemoral Crepitus is present Patellar grind pain is present Retinacular tenderness is absent Facet tenderness is present medially/laterally Lateral subluxation normal Medial subluxation is absent Apprehension is normal Tibiofemoral: Crepitus is present Joint line tenderness is present medially Collateral ligament tenderness is absent Stability Elsy is stable Posterior drawer is stable Valgus stress opening is normal at 0 degrees and normal at 30 degrees Varus stress opening is normal at 0 degree and normal at 30 degrees ER symmetry is normal Strength: Extension is 5/5 Flexion is 5/5 Hip/Ankle Hindfoot alignment is normal. Hip motion is normal. Hip strength is normal Right Knee: ROM: 0 - 90 degrees Crepitus with ROM Tenderness to palpation along the medial joint line No effusion palpable No quadriceps atrophy No ligamentous instability Varus alignement Assessment and Plan: 1. Primary osteoarthritis of left knee - ICD9: 715.16, ICD10: M17.12 (primary diagnosis) 2. Primary osteoarthritis of right knee - ICD9: 715.16, ICD10: M17.11 The risks and benefits of a corticosteroid injections were discussed with the patient. The risks include but are not limited to: infection, fat atrophy, skin hypopigmentation, facial flushing, elevated blood glucose. The patient elected to proceed with injection and tolerated well. Large Joint Arthro/Inj: L knee joint Informed Consent Consent Obtained: Verbal [place] Protocol A moment to CARE was completed. SIGN IN Personnel directly involved with the procedure wore the appropriate PPE. Patient/Surrogate Stated/Verified: Patient name, Date of , Relevant allergies and Intended procedure TIME OUT Intended patient and procedure match the source document(s). Consent documented and matches the intended procedure. Relevant labs, photos, and/or imaging studies have been reviewed. Correct side/site marked and visible. Medications required for procedure verified. Fire risk assessed and interventions discussed. 01/13/2022 3:49 PM The procedure site was prepped in the usual sterile fashion. Site: L knee joint Medications: 40 mg triamcinolone acetonide 40 mg/mL Anesthetics: 2 mL lidocaine (PF) 10 mg/mL (1 %); 2 mL bupivacaine (PF) 0.25 % (2.5 mg/mL) Outcome: Tolerated well, no immediate complications Post-injection instructions were reviewed with the patient and the patient voiced understanding of these instructions. SIGN OUT All instruments, equipment, possible retained foreign bodies accounted for. Post-procedure follow-up management communicated and Plan of Care Visit completed when applicable Large Joint Arthro/Inj: R knee joint Informed Consent Consent Obtained: Verbal [place] Protocol A moment to CARE was completed. SIGN IN Personnel directly involved with the procedure wore the appropriate PPE. Patient/Surrogate Stated/Verified: Date of , Patient name, Intended procedure and Relevant allergies TIME OUT Intended patient and procedure match the source document(s). Consent documented and matches the intended procedure. Relevant labs, photos, and/or imaging studies have been reviewed. Correct side/site marked and visible. Medications required for procedure verified. Fire risk assessed and interventions discussed. 01/13/2022 3:49 PM The procedure site was prepped in the usual sterile fashion. Site: R knee joint Medications: 40 mg triamcinolone acetonide 40 mg/mL Anesthetics: 2 mL bupivacaine (PF) 0.25 % (2.5 mg/mL); 2 mL lidocaine (PF) 10 mg/mL (1 %) Outcome: Tolerated well, no immediate complications Post-injection instructions were reviewed with the patient and the patient voiced understanding of these instructions. SIGN OUT All instruments, equipment, possible retained foreign bodies accounted for. Post-procedure follow-up management communicated and Plan of Care Visit completed when applicable Irma Loza D.O. Medical Decision Making: Problems: Moderate: 2+ stable chronic illnesses Data: Unique test result(s) reviewed: 1 Risk: Low: Low risk from testing/treatment Medical Decision Making Level: 3 - Low documented in this encounter [facility] 12-30-2021 Miscellaneous Notes Patient has not been seen by PCP in over one year. Please call to schedule an appointment for refills. Thanks, Karen Kuo PA-C documented in this encounter [facility] 12-10-2021 History of Present illness Narrative Patient presents with: Left Knee - Follow Up Sheyla Chong is a 51 year old female who presents for Follow-up for left knee pain. The patient has been using her brace and lidocaine patches. She sees Dr. Harvey for pain management. She received a corticosteroid injection from me about 6 weeks ago which did improve her symptoms for several weeks. Reviewed nursing note and current pain scale. PAST MEDICAL HISTORY Diagnosis Date Anxiety Arthritis of cbotwyuj-reqfeojsg-eflfajboy joint of right hand Depression Fibromyalgia Hypertension Mixed hyperlipidemia CHASE (obstructive sleep apnea) Pneumonia community aquired Right wrist pain Tobacco use disorder PAST SURGICAL HISTORY Procedure Laterality Date SECTION HX 2004 3 SECTIONS last one in 2004 HYSTERECTOMY HX 2008 KNEE ARTHROSCOPY/SURGERY Left 2017 WRIST SURGERY HX 07/2020 FAMILY HISTORY Problem Relation Age of Onset Obesity Mother Diabetes Father Obesity Father Social History Tobacco Use Smoking status: Every Day Packs/day: 0.50 Years: 3.00 Pack years: 1.50 Types: Cigarettes Smokeless tobacco: Never Vaping Use Vaping Use: Never used Substance Use Topics Alcohol use: No Drug use: Yes Comment: rx percocet abuse- 4 years October Medications: Current Outpatient Medications Medication Sig naproxen (NAPROSYN) 500 mg tablet take 1 tablet by mouth twice a day if needed for pain take with food cyclobenzaprine (FLEXERIL) 10 mg tablet Take 1 tablet by mouth twice daily as needed. chlorthalidone (HYGROTON) 25 mg tablet take 1 tablet by mouth once daily FLUoxetine (PROZAC) 20 mg capsule Take 1 capsule by mouth twice daily. cetirizine (ZYRTEC) 10 mg tablet take 1 tablet by mouth once daily naproxen (NAPROSYN) 500 mg tablet Take 1 tablet by mouth twice daily as needed (for pain). for pain. Take with food. diclofenac (VOLTAREN) 1 % topical gel Apply 2 g to affected area four times daily. atorvastatin (LIPITOR) 40 mg tablet Take 1 tablet by mouth once daily. No current facility-administered medications for this visit. Allergies: ALLERGIES No Known Allergies ROS: Review of systems: General: No fever or chills, no weight loss, no weakness, no fatigue Skin: No rashes, no dryness HEENT: No vision changes, no nasal congestion, no sore throat, no sinus pressure Neck: No lymphadenopathy, no pain or stiffness Respiratory: No cough, no SOB, no wheeze Cardiovascular: no chest, no palpitations, no edema GI: No abdominal pain, no nausea, no vomiting, no diarrhea, no constipation : No increased frequency, no dysuria, no hematuria M/S: See HPI Endocrine: No polyuria, no polydipsia, no cold or heat intolerance Neuro: No numbness, no tingling, no weakness, no dizziness Psych: No change in mood Physical Examination: Resp 18 Ht 5' 5 (1.65m) Wt 250 lb (113.4kg) BMI 41.60 kg/(m^2). Left Knee Exam Inspection: Skin is intact Standing alignment is: varus Limb length is equal Edema is absent Effusion is absent Warmth is absent Quadriceps atrophy is absent Hoffa swelling is absent Femoral anteversion is absent Tibial torsion is absent Motion Hyperextension: absent Flexion: 90 degrees Extension: 0 degrees Patellofemoral Crepitus is present Patellar grind pain is present Retinacular tenderness is absent Facet tenderness is present medially/laterally Lateral subluxation normal Medial subluxation is absent Apprehension is normal Tibiofemoral: Crepitus is present Joint line tenderness is present medially Collateral ligament tenderness is absent Stability Elsy is stable Posterior drawer is stable Valgus stress opening is normal at 0 degrees and normal at 30 degrees Varus stress opening is normal at 0 degree and normal at 30 degrees ER symmetry is normal Strength: Extension is 5/5 Flexion is 5/5 Hip/Ankle Hindfoot alignment is normal. Hip motion is normal. Hip strength is normal Assessment and Plan: 1. Primary osteoarthritis of left knee - ICD9: 715.16, ICD10: M17.12 I discussed continued nonoperative management of the patient's left knee osteoarthritis. The patient is not due for an injection at this time. She was unable to tolerate Euflexxa injections but did receive temporary relief from corticosteroid injections. We discussed continued management with home exercises, brace wear, Voltaren gel, naproxen, and input from her pain management doctor. When the patient is ready, she would be a good candidate for a left total knee arthroplasty which we discussed today. A prescription for naproxen was provided today. I will see her back as needed. Irma Loza D.O. Medical Decision Making: Problems: Moderate: 1+ chronic illnesses with change Data: Unique test result(s) reviewed: 1 Risk: Moderate: Drug management Medical Decision Making Level: 4 - Moderate documented in this encounter [facility] 10-16-2021 History of Present illness Narrative Associated Order(s): Large Joint Arthro/Inj: L knee joint Post-Procedure Diagnose(s): Primary osteoarthritis of left knee Patient presents with: Left Knee - Follow Up Sheyla Chong is a 51 year old female who presents for left knee pain. The patient underwent 2 of 3 of the Euflexxa injections without improvement in her symptoms. She states that she is undergoing a difficult time in her family currently. She endorses medial sided left knee pain. She states that she is having a difficult time performing her duties of her job with this pain. She denies any fever or chills. Reviewed nursing note and current pain scale. PAST MEDICAL HISTORY Diagnosis Date Anxiety Arthritis of zdqrclay-nwxrjcdew-bewdaryrs joint of right hand Depression Fibromyalgia Hypertension Mixed hyperlipidemia CHASE (obstructive sleep apnea) Pneumonia community aquired Right wrist pain Tobacco use disorder PAST SURGICAL HISTORY Procedure Laterality Date SECTION HX 2004 3 SECTIONS last one in 2004 HYSTERECTOMY HX 2009 KNEE ARTHROSCOPY/SURGERY Left 2017 WRIST SURGERY HX 07/2020 FAMILY HISTORY Problem Relation Age of Onset Obesity Mother Diabetes Father Obesity Father Social History Tobacco Use Smoking status: Current Every Day Smoker Packs/day: 0.50 Years: 3.00 Pack years: 1.50 Types: Cigarettes Smokeless tobacco: Never Used Vaping Use Vaping Use: Never used Substance Use Topics Alcohol use: No Drug use: Yes Comment: rx percocet abuse- 4 years October Medications: Current Outpatient Medications Medication Sig naproxen (NAPROSYN) 500 mg tablet Take 1 tablet by mouth twice daily as needed. for pain. Take with food. cyclobenzaprine (FLEXERIL) 10 mg tablet Take 1 tablet by mouth twice daily as needed. chlorthalidone (HYGROTON) 25 mg tablet take 1 tablet by mouth once daily FLUoxetine (PROZAC) 20 mg capsule Take 1 capsule by mouth twice daily. cetirizine (ZYRTEC) 10 mg tablet take 1 tablet by mouth once daily atorvastatin (LIPITOR) 40 mg tablet Take 1 tablet by mouth once daily. No current facility-administered medications for this visit. Allergies: ALLERGIES No Known Allergies ROS: Review of systems: General: No fever or chills, no weight loss, no weakness, no fatigue Skin: No rashes, no dryness HEENT: No vision changes, no nasal congestion, no sore throat, no sinus pressure Neck: No lymphadenopathy, no pain or stiffness Respiratory: No cough, no SOB, no wheeze Cardiovascular: no chest, no palpitations, no edema GI: No abdominal pain, no nausea, no vomiting, no diarrhea, no constipation : No increased frequency, no dysuria, no hematuria M/S: See HPI Endocrine: No polyuria, no polydipsia, no cold or heat intolerance Neuro: No numbness, no tingling, no weakness, no dizziness Psych: No change in mood Physical Examination: Resp 16 Ht 5' 5 (1.65m) Wt 250 lb (113.4kg) BMI 41.60 kg/(m^2). Left Knee Exam Inspection: Skin is intact Standing alignment is: varus Limb length is equal Edema is absent Effusion is moderate Warmth is absent Quadriceps atrophy is absent Hoffa swelling is absent Femoral anteversion is absent Tibial torsion is absent Motion Hyperextension: absent Flexion: 130 Extension: 5 Patellofemoral Crepitus is present Patellar grind pain is absent Retinacular tenderness is absent Facet tenderness is present medially/laterally Lateral subluxation normal Medial subluxation is absent Apprehension is normal Tibiofemoral: Crepitus is present Joint line tenderness is present medially Collateral ligament tenderness is absent Meniscus Mulugeta is: absent Flexion test is absent Stability Elsy is stable Posterior drawer is stable Valgus stress opening is normal at 0 degrees and normal at 30 degrees Varus stress opening is normal at 0 degree and normal at 30 degrees ER symmetry is normal Strength: Extension is 5/5 Flexion is 5/5 Images: RADIOGRAPHIC EVALUATION: Standing AP, 45 degree weight bearing, merchant and lateral radiographs of the left knee were ordered, taken and reviewed today. Left The medial compartment shows severe joint space narrowing. The lateral compartment shows mild joint space narrowing. The patellofemoral compartment shows moderate joint space narrowing. The PA weight bearing shows varus of the left knee. There are marginal oseophytes noted. The patellae are located well in the trochlea. There are no signs of fracture, avulsion, or dislocation. There are no overt signs of bony tumor. Radiographic Interpretation: Left Knee: Tricompartmental degenerative changes of the left knee Large Joint Arthro/Inj: L knee joint Informed Consent Consent Obtained: Verbal [place] Protocol A moment to CARE was completed. SIGN IN Personnel directly involved with the procedure wore the appropriate PPE. Special Equipment: N/A Patient/Surrogate Stated/Verified: Patient name, Date of , Relevant allergies and Intended procedure TIME OUT Intended patient and procedure match the source document(s). Consent documented and matches the intended procedure. Relevant labs, photos, and/or imaging studies have been reviewed. Correct side/site marked and visible. Medications required for procedure verified. Fire risk assessed and interventions discussed. 10/16/2021 1:10 PM The procedure site was prepped in the usual sterile fashion. Site: L knee joint Aspirate: 3 mL clearMedications: 40 mg triamcinolone acetonide 40 mg/mL Anesthetics: 2 mL lidocaine (PF) 10 mg/mL (1 %); 2 mL bupivacaine (PF) 0.25 % (2.5 mg/mL) Outcome: Tolerated well, no immediate complications Post-injection instructions were reviewed with the patient and the patient voiced understanding of these instructions. SIGN OUT All instruments, equipment, possible retained foreign bodies accounted for. Post-procedure follow-up management communicated and Plan of Care Visit completed when applicable Assessment and Plan: 1. Primary osteoarthritis of left knee - ICD9: 715.16, ICD10: M17.12 The physical exam and imaging findings were discussed with the patient. The patient has yvsw-[id number] arthritis of her medial compartment with tricompartmental osteoarthritis and osteophytes which are visualized both on plain x-ray and on MRI of the left knee. At this point, the patient has attempted physical therapy, bracing, corticosteroid injections, and Euflexxa injections. She has not had significant improvement from these conservative measures. I discussed with the patient that I am happy to repeat a corticosteroid injection and aspirate her left knee joint today. As far as further treatment options, the patient has maximized conservative measures and would be a good candidate for a total knee arthroplasty. We did discuss this today. The patient has several social factors going on right now and states that this is not in good time for a knee replacement. I discussed with the patient that we can continue to control her symptoms with injections and a home exercise program until she feels she is ready for surgical intervention. The risks and benefits of a corticosteroid injection were discussed with the patient. The risks include but are not limited to: infection, fat atrophy, skin hypopigmentation, facial flushing, and elevated glucose. The patient elected to proceed with injection and tolerated well. I will see the patient back as needed. Irma Loza D.O. Medical Decision Making: Problems: Moderate: 1+ chronic illnesses with change Data: Unique test result(s) reviewed: 1 Unique test(s) ordered: 1 Risk: Low: Low risk from testing/treatment Medical Decision Making Level: 3 - Low documented in this encounter [facility] 10-14-2021 Nurse Note Injection is 2 cc marcaine and 2 cc lidocaine and 1 cc kenalog Injection prepared per physician order and handed off to Dr Santiago Loza. Angeles Lugo LPN documented in this encounter [facility] 09-03-2021 History of Present illness Narrative Associated Order(s): Large Joint Arthro/Inj: L knee joint Post-Procedure Diagnose(s): Primary osteoarthritis of left knee Patient presents with: Left Knee - Follow Up Sheyla Chong is a 51 year old female who presents for Euflexxa injection. The patient's states that her left knee has been stiff sore and achy since her last injection. She states that she has been working long hours and has spent a significant amount of time up on her left knee. He denies any fever or chills. She denies any redness of the knee. Reviewed nursing note and current pain scale. PAST MEDICAL HISTORY Diagnosis Date Anxiety Arthritis of nwqmjukd-tvvjoymgo-itorbkoaq joint of right hand Depression Fibromyalgia Hypertension Mixed hyperlipidemia CHASE (obstructive sleep apnea) Pneumonia community aquired Right wrist pain Tobacco use disorder PAST SURGICAL HISTORY Procedure Laterality Date SECTION HX 2004 3 SECTIONS last one in 2004 HYSTERECTOMY HX 2008 KNEE ARTHROSCOPY/SURGERY Left 2017 WRIST SURGERY HX 07/2020 FAMILY HISTORY Problem Relation Age of Onset Obesity Mother Diabetes Father Obesity Father Social History Tobacco Use Smoking status: Current Every Day Smoker Packs/day: 0.50 Years: 3.00 Pack years: 1.50 Types: Cigarettes Smokeless tobacco: Never Used Vaping Use Vaping Use: Never used Substance Use Topics Alcohol use: No Drug use: Yes Comment: 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 chlorthalidone (HYGROTON) 25 mg tablet take 1 tablet by mouth once daily meloxicam (MOBIC) 15 mg tablet take 1 tablet by mouth once daily with food FLUoxetine (PROZAC) 20 mg capsule Take 1 capsule by mouth twice daily. cetirizine (ZYRTEC) 10 mg tablet take 1 tablet by mouth once daily atorvastatin (LIPITOR) 40 mg tablet Take 1 tablet by mouth once daily. No current facility-administered medications for this visit. Allergies: ALLERGIES No Known Allergies Review of systems: General: No fever or chills, no weight loss, no weakness, no fatigue Skin: No rashes, no dryness HEENT: No vision changes, no nasal congestion, no sore throat, no sinus pressure Neck: No lymphadenopathy, no pain or stiffness Respiratory: No cough, no SOB, no wheeze Cardiovascular: no chest, no palpitations, no edema GI: No abdominal pain, no nausea, no vomiting, no diarrhea, no constipation : No increased frequency, no dysuria, no hematuria M/S: See HPI Endocrine: No polyuria, no polydipsia, no cold or heat intolerance Neuro: No numbness, no tingling, no weakness, no dizziness Psych: No change in mood Physical Examination: Resp 18 Ht 5' 5 (1.65m) Wt 250 lb (113.4kg) BMI 41.60 kg/(m^2). Left knee: Inspection: No erythema or swelling No effusion ROM: 0-90 degrees Medial joint line pain Crepitus with ROM No instability to varus and valgus testing Elsy stable Assessment and Plan: 1. Primary osteoarthritis of left knee - ICD9: 715.16, ICD10: M17.12 Physical exam and treatment options were discussed with the patient. The patient is stiff, sore, and achy after her injection last week. The patient denies allergic reaction to the injection. I asked the patient if she would like to continue the Euflexxa injections, and the patient states that she would like to continue. The risks and benefits of a injection were discussed with the patient. The risks include but are not limited to: infection, stiffness, swelling of the injection site. The patient elected to proceed with injection and tolerated. Large Joint Arthro/Inj: L knee joint Informed Consent Consent Obtained: Verbal [place] Protocol A moment to CARE was completed. SIGN IN Personnel directly involved with the procedure wore the appropriate PPE. Patient/Surrogate Stated/Verified: Patient name, Date of , Relevant allergies and Intended procedure TIME OUT Intended patient and procedure match the source document(s). Relevant labs, photos, and/or imaging studies have been reviewed. Medications required for procedure verified. 09/03/2021 12:08 PM The procedure site was prepped in the usual sterile fashion. Site: L knee joint Medications: 20 mg sodium hyaluronate 10 mg/mL(mw 2.4 -3.6 million) Outcome: Tolerated well, no immediate complications Post-injection instructions were reviewed with the patient and the patient voiced understanding of these instructions. SIGN OUT All instruments, equipment, possible retained foreign bodies accounted for. Post-procedure follow-up management communicated and Plan of Care Visit completed when applicable Irma Loza D.O. Medical Decision Making: Problems: Moderate: 1+ chronic illnesses with change Data: Unique source(s) for external note(s) reviewed: 1 Unique test result(s) reviewed: 1 Risk: Low: Low risk from testing/treatment Medical Decision Making Level: 3 - Low documented in this encounter [facility] 08-23-2021 History of Present illness Narrative Associated Order(s): Large Joint Arthro/Inj: L knee joint Post-Procedure Diagnose(s): Primary osteoarthritis of left knee Patient presents with: Left Knee - Follow Up Sheyla Chong is a 51 year old female who presents for Euflexxa injection. She has continued pain in her left knee. Reviewed nursing note and current pain scale. PAST MEDICAL HISTORY Diagnosis Date Anxiety Arthritis of bfzklrpg-vgvcvkowt-zcmlhasqm joint of right hand Depression Fibromyalgia Hypertension Mixed hyperlipidemia CHASE (obstructive sleep apnea) Pneumonia community aquired Right wrist pain Tobacco use disorder PAST SURGICAL HISTORY Procedure Laterality Date SECTION HX 2005 3 SECTIONS last one in 2004 HYSTERECTOMY HX 2009 KNEE ARTHROSCOPY/SURGERY Left 2017 WRIST SURGERY HX 07/2020 FAMILY HISTORY Problem Relation Age of Onset Obesity Mother Diabetes Father Obesity Father Social History Tobacco Use Smoking status: Current Every Day Smoker Packs/day: 0.50 Years: 3.00 Pack years: 1.50 Types: Cigarettes Smokeless tobacco: Never Used Vaping Use Vaping Use: Never used Substance Use Topics Alcohol use: No Drug use: Yes Comment: 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 chlorthalidone (HYGROTON) 25 mg tablet take 1 tablet by mouth once daily meloxicam (MOBIC) 15 mg tablet take 1 tablet by mouth once daily with food FLUoxetine (PROZAC) 20 mg capsule Take 1 capsule by mouth twice daily. cetirizine (ZYRTEC) 10 mg tablet take 1 tablet by mouth once daily atorvastatin (LIPITOR) 40 mg tablet Take 1 tablet by mouth once daily. No current facility-administered medications for this visit. Allergies: ALLERGIES No Known Allergies ROS: Review of systems: General: No fever or chills, no weight loss, no weakness, no fatigue Skin: No rashes, no dryness HEENT: No vision changes, no nasal congestion, no sore throat, no sinus pressure Neck: No lymphadenopathy, no pain or stiffness Respiratory: No cough, no SOB, no wheeze Cardiovascular: no chest, no palpitations, no edema GI: No abdominal pain, no nausea, no vomiting, no diarrhea, no constipation : No increased frequency, no dysuria, no hematuria M/S: See HPI Endocrine: No polyuria, no polydipsia, no cold or heat intolerance Neuro: No numbness, no tingling, no weakness, no dizziness Psych: No change in mood Physical Examination: Resp 18 Ht 5' 5 (1.65m) Wt 250 lb (113.4kg) BMI 41.60 kg/(m^2). Left Knee Exam Inspection: Skin is intact Standing alignment is: varus Limb length is equal Edema is absent Effusion is absent Warmth is absent Quadriceps atrophy is absent Hoffa swelling is absent Femoral anteversion is absent Tibial torsion is absent Motion Hyperextension: absent Flexion: 130 Extension: 5 Patellofemoral Crepitus is present Patellar grind pain is absent Retinacular tenderness is absent Facet tenderness is present medially/laterally Lateral subluxation normal Medial subluxation is absent Apprehension is normal Tibiofemoral: Crepitus is present Joint line tenderness is present medially Collateral ligament tenderness is absent Meniscus Mulugeta is: absent Flexion test is absent Stability Elsy is stable Posterior drawer is stable Valgus stress opening is normal at 0 degrees and normal at 30 degrees Varus stress opening is normal at 0 degree and normal at 30 degrees ER symmetry is normal Strength: Extension is 5/5 Flexion is 5/5 Hip/Ankle Hindfoot alignment is normal. Hip motion is normal. Hip strength is normal Assessment and Plan: 1. Primary osteoarthritis of left knee - ICD9: 715.16, ICD10: M17.12 The risks and benefits of Euflexxa injection were discussed today. The risks include but are not limited to infection and allergic reaction. A sterile preparation of the left knee was performed and the injection was provided today.. The patient tolerated well. I will see her for repeat evaluation in 1 week. Large Joint Arthro/Inj: L knee joint Informed Consent Consent Obtained: Verbal [place] Protocol A moment to CARE was completed. SIGN IN Personnel directly involved with the procedure wore the appropriate PPE. Patient/Surrogate Stated/Verified: Patient name, Relevant allergies, Intended procedure and Date of TIME OUT Intended patient and procedure match the source document(s). Relevant labs, photos, and/or imaging studies have been reviewed. Medications required for procedure verified. 08/23/2021 10:19 AM The procedure site was prepped in the usual sterile fashion. Site: L knee joint Medications: 20 mg sodium hyaluronate 10 mg/mL(mw 2.4 -3.6 million) Outcome: Tolerated well, no immediate complications Post-injection instructions were reviewed with the patient and the patient voiced understanding of these instructions. SIGN OUT All instruments, equipment, possible retained foreign bodies accounted for. Post-procedure follow-up management communicated and Plan of Care Visit completed when applicable Irma Loza D.O. Medical Decision Making: Problems: Low: Acute, uncomplicated illness or injury Data: Unique test result(s) reviewed: 1 Risk: Low: Low risk from testing/treatment Medical Decision Making Level: 3 - Low documented in this encounter [facility] 08-06-2021 Miscellaneous Notes Patient has been identified by name and date of : Yes Last office visit in this department: 10/30/2020 RX INSTRUCTIONS: Patient aware RX will be sent to pharmacy. No need to notify patient. Pending Prescriptions Disp Refills CHLORTHALIDONE 25 MG TABLET 90 tablet 1 Sig: Take 1 tablet by mouth once daily. YURIY: No Please review and advise. Sarah Rodriguez RN documented in this encounter [facility] 06-28-2021 History of Present illness Narrative Patient presents with: Left Knee - Shaheed Chong is a 51 year old female who presents for evaluation for left knee pain. The patient has a history of left knee arthroscopy in 2016. In November/December of this year she began having medial knee pain. She saw Dr. Harvey in March 2021 who provided a corticosteroid injection. She states that the corticosteroid injection improved her symptoms but then wore off quickly. She has performed home exercises and does take NSAIDs as needed. She denies formal physical therapy. 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 Reviewed nursing note and current pain scale. PAST MEDICAL HISTORY Diagnosis Date Anxiety Arthritis of tofkjzlu-rwliseyoy-iljrejuda joint of right hand Depression Fibromyalgia Hypertension Mixed hyperlipidemia CHASE (obstructive sleep apnea) Pneumonia community aquired Right wrist pain Tobacco use disorder PAST SURGICAL HISTORY Procedure Laterality Date SECTION HX 2004 3 SECTIONS last one in 2004 HYSTERECTOMY HX 2009 KNEE ARTHROSCOPY/SURGERY Left 2017 WRIST SURGERY HX 07/2020 FAMILY HISTORY Problem Relation Age of Onset Obesity Mother Diabetes Father Obesity Father Social History Tobacco Use Smoking status: Current Every Day Smoker Packs/day: 0.50 Years: 3.00 Pack years: 1.50 Types: Cigarettes Smokeless tobacco: Never Used Vaping Use Vaping Use: Never used Substance Use Topics Alcohol use: No Drug use: Yes Comment: rx percocet abuse- 4 years October Medications: Current Outpatient Medications Medication Sig FLUoxetine (PROZAC) 20 mg capsule Take 1 capsule by mouth twice daily. meloxicam (MOBIC) 15 mg tablet take 1 tablet by mouth once daily with food cetirizine (ZYRTEC) 10 mg tablet take 1 tablet by mouth once daily cyclobenzaprine (FLEXERIL) 10 mg tablet Take 1 tablet by mouth twice daily as needed. naproxen (NAPROSYN) 500 mg tablet take 1 tablet by mouth twice a day atorvastatin (LIPITOR) 40 mg tablet Take 1 tablet by mouth once daily. chlorthalidone (HYGROTON) 25 mg tablet Take 1 tablet by mouth once daily. No current facility-administered medications for this visit. Allergies: ALLERGIES No Known Allergies ROS: Review of systems: General: No fever or chills, no weight loss, no weakness, no fatigue Skin: No rashes, no dryness HEENT: No vision changes, no nasal congestion, no sore throat, no sinus pressure Neck: No lymphadenopathy, no pain or stiffness Respiratory: No cough, no SOB, no wheeze Cardiovascular: no chest, no palpitations, no edema GI: No abdominal pain, no nausea, no vomiting, no diarrhea, no constipation : No increased frequency, no dysuria, no hematuria M/S: See HPI Endocrine: No polyuria, no polydipsia, no cold or heat intolerance Neuro: No numbness, no tingling, no weakness, no dizziness Psych: No change in mood Physical Examination: Resp 18 Ht 5' 5 (1.65m) Wt 250 lb (113.4kg) BMI 41.60 kg/(m^2). Left Knee Exam Inspection: Skin is intact Standing alignment is: varus Limb length is equal Edema is absent Effusion is absent Warmth is absent Quadriceps atrophy is absent Hoffa swelling is absent Femoral anteversion is absent Tibial torsion is absent Motion Hyperextension: absent Flexion: 130 Extension: 5 Patellofemoral Crepitus is present Patellar grind pain is absent Retinacular tenderness is absent Facet tenderness is present medially/laterally Lateral subluxation normal Medial subluxation is absent Apprehension is normal Tibiofemoral: Crepitus is present Joint line tenderness is present medially Collateral ligament tenderness is absent Meniscus Mulugeta is: absent Flexion test is absent Stability Elsy is stable Posterior drawer is stable Valgus stress opening is normal at 0 degrees and normal at 30 degrees Varus stress opening is normal at 0 degree and normal at 30 degrees ER symmetry is normal Strength: Extension is 5/5 Flexion is 5/5 Hip/Ankle Hindfoot alignment is normal. Hip motion is normal. Hip strength is normal Images: MRI Left knee 06/04/21 IMPRESSION: Severe medial compartment osteoarthritis associated with a complex tear of the medial meniscus, as detailed. No insufficiency fracture. Additional findings as detailed in the report. Assessment and Plan: 1. Primary osteoarthritis of left knee - ICD9: 715.16, ICD10: M17.12 The physical exam and imaging findings were discussed with the patient. The patient has severe osteoarthritis of the medial compartment of the left knee. She does have associated degenerative meniscus tear. Secondary to the patient's severe osteoarthritis she is not a candidate for knee arthroscopy at this time. This was discussed with the patient along with other treatment options. The patient has had a corticosteroid injection in the past which did improve her symptoms but did not last for very long. The patient would like to try a gel injection. Prior authorization was submitted for the a gel injection today. The patient and I discussed formal physical therapy as there is good evidence as physical therapy to treat degenerative meniscus tears in the setting of osteoarthritis. I will see the patient back for gel injection when approved. Irma Loza DO Medical Decision Making: Problems: Moderate: 1+ chronic illnesses with change Data: Unique source(s) for external note(s) reviewed: 1 Unique test result(s) reviewed: 2 Risk: Low: Low risk from testing/treatment Medical Decision Making Level: 4 - Moderate REVIEW OF SYSTEMS: GENERAL: Well developed, well nourished. No acute distress PAIN: Pain lt knee CARDIOVASCULAR: Negative for chest pain, leg swelling and palpations. MSK: Negative for joint swelling SKIN: Negative for lesions, rash, itching, metal sensitivity NEURO: Negative for seizure, trauma, numbness/tingling of extremities. ENDOCRINE: Negative for diabetic associated symptoms HEMATOLOGY: Negative for excessive bleeding, clots, bleeding disorders. documented in this encounter [facility] 06-25-2021 Miscellaneous Notes New script sent by Dr. Swanson. Yeah 1 bid Pharmacy called regarding the refill order for Prozac sent today. Today's order states take Prozac 2 caps twice daily. The pharmacy states the patient has been on Prozac 1 cap twice daily. Please advise regarding dosage and if it should be 1 cap twice daily, please send new order to pharmacy. documented in this encounter [facility] 06-24-2021 Miscellaneous Notes Pharmacy electronically requesting refills as follows: Pending Prescriptions Disp Refills FLUOXETINE 20 MG CAPSULE 180 capsule 1 Sig: take 1 capsule by mouth twice a day YURIY: Yes Last office visit: 10/30/2020 Last refill: 12/13/2020 90 days 1 refill Please review and advise. Alana Doll LPN documented in this encounter [facility] Evaluation note Diagnosis Primary osteoarthritis of left knee- Primary Primary localized osteoarthrosis, lower leg [facility] Chronic midline low back pain without sciatica Muscle spasm Spasm of muscle [facility] Diagnosis Primary osteoarthritis of left knee- Primary Primary localized osteoarthrosis, lower leg [facility] Primary osteoarthritis of left knee- Primary Primary localized osteoarthrosis, lower leg [facility] Diagnosis Primary osteoarthritis of left knee- Primary Primary localized osteoarthrosis, lower leg [facility] Diagnosis Chronic midline low back pain without sciatica Muscle spasm Spasm of muscle [facility] Diagnosis Primary osteoarthritis of left knee- Primary Primary localized osteoarthrosis, lower leg Primary osteoarthritis of right knee Primary localized osteoarthrosis, lower leg [facility] Diagnosis Encounter for screening mammogram for breast cancer [facility] this [facility] Diagnosis Encounter for screening mammogram for breast cancer [facility] Diagnosis Primary osteoarthritis of right knee- Primary Primary localized osteoarthrosis, lower leg [facility] in this [facility] Diagnosis Primary osteoarthritis of right knee Primary localized osteoarthrosis, lower leg documented in this encounter [facility] note* Diagnosis Primary osteoarthritis of right knee- Primary Primary localized osteoarthrosis, lower leg Primary osteoarthritis of left knee Primary localized osteoarthrosis, lower leg documented in this encounter [facility] note* Diagnosis Tinea pedis, unspecified laterality- Primary documented in this encounter [facility] note* Diagnosis Chronic midline low back pain without sciatica Muscle spasm Spasm of muscle [facility] Diagnosis Anxiety with depression- Primary [facility]* Diagnosis Closed fracture of multiple rami of right pubis, initial encounter ([facility])- Primary Closed fracture of sacrum, unspecified fracture morphology, initial encounter ([facility]) Other osteoporosis Opioid dependence in remission (HCC) Opioid type dependence, in remission documented in this encounter [facility] note* Diagnosis Fracture of unspecified parts of lumbosacral spine and pelvis, subsequent encounter for fracture with routine healing- Primary Closed fracture of sacrum, unspecified portion of sacrum, initial encounter ([facility]) Closed fracture of multiple pubic rami, right, initial encounter ([facility]) documented in this encounter [facility] note* Diagnosis Closed nondisplaced fracture of right ilium with routine healing, unspecified fracture morphology, subsequent encounter- Primary [facility]* Diagnosis Encounter for screening mammogram for breast cancer [facility] this [facility]* Diagnosis Primary osteoarthritis of left knee- Primary Primary localized osteoarthrosis, lower leg Primary osteoarthritis of right knee Primary localized osteoarthrosis, lower leg [facility] this [facility]* Diagnosis Pain in joint involving pelvic region and thigh, unspecified laterality [facility] Diagnosis Hilar adenopathy- Primary Enlargement of lymph nodes Ex-smoker Personal history of tobacco use, presenting hazards to health Vaping nicotine dependence, tobacco product [facility] Diagnosis Mediastinal lymphadenopathy- Primary Enlargement of lymph nodes Mediastinal lymphadenopathy Enlargement of lymph nodes documented in this encounter [facility] note* Diagnosis Primary osteoarthritis of left knee- Primary Primary localized osteoarthrosis, lower leg Primary osteoarthritis of right knee Primary localized osteoarthrosis, lower leg [facility] this 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 Former cigarette smoker Personal history of tobacco use, presenting hazards to health Mediastinal lymphadenopathy Enlargement of lymph nodes Dyspnea on exertion Other dyspnea and respiratory abnormality documented in this encounter [facility] for referral (narrative)* Diagnostic Procedure Only (Routine) - Pending Review Specialty Diagnoses / Procedures Referred By Long kern Referred To Contact XR IMAGING Diagnoses Primary osteoarthritis of left knee Procedures XR KNEE GENERAL 4V AP BOTH/PA BOTH/LAT/MERC LEFT RADIOLOGIC EXAM KNEE COMPLETE 4/MORE VIEWS Irma Loza DO [address] [place] [address] Xr Imaging Referral ID Status Reason Start Date Expiration Date Visits Requested Visits Authorized [id number] Pending Review Auto-Generat ed Referral 10/16/2021 11/13/2022 1 1 [facility] for referral (narrative)* Diagnostic Procedure Only (Routine) - Pending Review Specialty Diagnoses / Procedures Referred By Long t Referred To Contact BR IMAGING Diagnoses Encounter for screening mammogram for breast cancer Procedures SUSANNA SCREENING SCREENING MAMMOGRAPHY BI 2-VIEW BREAST INC Ruth Stein MD [address] [place] [address] [facility] [address] [place] [address] Referral ID Status Reason Start Date Expiration Date Visits Requested Visits Authorized [id number] Pending Review Auto-Generat ed Referral 12/21/202 2 04/11/2023 1 1 [facility] for referral (narrative)* Diagnostic Procedure Only (Routine) - Closed Specialty Diagnoses / Procedures Referred By Contac t Referred To Contact BR IMAGING Diagnoses Encounter for screening mammogram for breast cancer Procedures SUSANNA SCREENING SCREENING MAMMOGRAPHY BI 2-VIEW BREAST INC ILIANA Swanson, Ruth Hanson MD [address] [place] [address] [facility] [address] [place] [address] Referral ID Status Reason Start Date Expiration Date V isits Requested Visits Authorized [id number] Closed Auto-Generate d Referral 03/12/2022 04/11/2023 1 1 [facility] for referral (narrative)* Diagnostic Procedure Only (Routine) - Closed Specialty Diagnoses / Procedures Referred By Contac t Referred To Contact XR IMAGING Diagnoses Primary osteoarthritis of right knee Procedures XR KNEE GENERAL 4V AP BOTH/PA BOTH/LAT/MERC RIGHT RADIOLOGIC EXAM KNEE COMPLETE 4/MORE VIEWS Irma Loza, DO [address] [place] [address] Xr Imaging Referral ID Status Reason Start Date Expiration Date V isits Requested Visits Authorized [id number] Closed Auto-Generate d Referral 07/14/2022 08/13/2023 1 1 [facility] for referral (narrative)* Diagnostic Procedure Only (Routine) - Closed Specialty Diagnoses / Procedures Referred By Contac t Referred To Contact XR IMAGING Diagnoses Primary osteoarthritis of right knee Procedures XR KNEE GENERAL 4V AP BOTH/PA BOTH/LAT/MERC RIGHT RADIOLOGIC EXAM KNEE COMPLETE 4/MORE VIEWS Irma Loza, DO [address] [place] [address] Xr Imaging Referral ID Status Reason Start Date Expiration Date V isits Requested Visits Authorized [id number] Closed Auto-Generate d Referral 07/14/2022 08/13/2023 1 1 [facility] for referral (narrative)* Diagnostic Procedure Only (Routine) - Pending Review Specialty Diagnoses / Procedures Referred By Contac t Referred To Contact BR IMAGING Diagnoses Encounter for screening mammogram for breast cancer Procedures SUSANNA SCREENING SCREENING MAMMOGRAPHY BI 2-VIEW BREAST INC Ruth Stein MD [address] [place] [address] [facility] [address] [place] [address] Referral ID Status Reason Start Date Expiration Date Visits Requested Visits Authorized [id number] Pending Review Auto-Generat ed Referral 07/01/2023 07/30/2024 1 1 [facility] for referral (narrative)* Diagnostic Procedure Only (Routine) - Closed Specialty Diagnoses / Procedures Referred By Contac t Referred To Contact XR IMAGING Diagnoses Pain in joint involving pelvic region and thigh, unspecified laterality Procedures XR PELVIS 1V AP RADIOLOGIC EXAMINATION PELVIS 1/2 VIEWS Liza Dorsey DO [address] [address] [place] [address] [place] [address] Referral ID Status Reason Start Date Expiration Date V isits Requested Visits Authorized [id number] Closed Auto-Generate d Referral 06/09/2023 07/08/2024 1 1 [facility] for referral (narrative)* Outpatient Procedure (Routine) - Pending Review Specialty Diagnoses / Procedures Referred By Contac t Referred To Contact [facility] Diagnoses Hilar adenopathy Procedures LUNG DIFFUSION CAPACITY (DLCO) DIFFUSING CAPACITY Nadine Black MD [address] [facility] [address] [place] [address] Res[facility] [place] [address] [place] [address] Referral ID Status Reason Start Date Expiration Date Visits Requested Visits Authorized [id number] Pending Review Auto-Generat ed Referral 4 02/13/2025 1 1 * Outpatient Procedure (Routine) - Pending Review Specialty Diagnoses / Procedures Referred By Long kern Referred To Contact [facility] Diagnoses Hilar adenopathy Procedures LUNG VOLUMES Nadine Black MD [address] [facility] [address] [place] [address] [address] Referral ID Status Reason Start Date Expiration Date Visits Requested Visits Authorized [id number] Pending Review Auto-Generat ed Referral 4 02/13/2025 1 1 * Outpatient Procedure (Routine) - Pending Review Specialty Diagnoses / Procedures Referred By Long kern Referred To Contact [facility] Diagnoses Hilar adenopathy Procedures SPIROMETRY - BASELINE AND POST DILATOR BRNCDILAT RSPSE SPMTRY PRE&POST-BRNCDILAT ADMN Nadine Black MD [address] [facility] [address] [place] [address] [address] Referral ID Status Reason Start Date Expiration Date Visits Requested Visits Authorized [id number] Pending Review Auto-Generat ed Referral 4 02/13/2025 1 1 [facility] for visit Narrative* Diagnostic Procedure Only (Routine) - Closed Specialty Diagnoses / Procedures Referred By Long kern Referred To Contact BR IMAGING Diagnoses Encounter for screening mammogram for breast cancer Procedures SUSANNA SCREENING SCREENING MAMMOGRAPHY BI 2-VIEW BREAST INC CAD Ruth Swanson MD [address] [place] [address] Br Imaging [address] [place] [phone] Referral ID Status Reason Start Date Expiration Date V isits Requested Visits Authorized [id number] Closed Auto-Generate d Referral 03/12/2022 04/11/2023 1 1 [facility] for visit Narrative* Diagnostic Procedure Only (Routine) - Closed Specialty Diagnoses / Procedures Referred By Contac t Referred To Contact XR IMAGING Diagnoses Primary osteoarthritis of right knee Procedures XR KNEE GENERAL 4V AP BOTH/PA BOTH/LAT/MERC RIGHT RADIOLOGIC EXAM KNEE COMPLETE 4/MORE VIEWS Irma Loza DO [address] [place] [address] Xr Imaging Referral ID Status Reason Start Date Expiration Date V isits Requested Visits Authorized [id number] Closed Auto-Generate d Referral 07/14/2022 08/13/2023 1 1 [facility] for visit Narrative* Diagnostic Procedure Only (Routine) - Closed Specialty Diagnoses / Procedures Referred By Contac t Referred To Contact XR IMAGING Diagnoses Pain in joint involving pelvic region and thigh, unspecified laterality Procedures XR PELVIS 1V AP RADIOLOGIC EXAMINATION PELVIS 1/2 VIEWS Liza Dorsey DO [address] [place] [address] [place] [address] Referral ID Status Reason Start Date Expiration Date V isits Requested Visits Authorized [id number] Closed Auto-Generate d Referral 06/09/2023 07/08/2024 1 1 [facility] Summary Purpose Family History No Family History Records FoundNo Family History Records FoundNo Family History Records FoundNo Family History Records FoundNo Family History Records FoundNo Family History Records FoundNo Family History Records FoundNo Family History Records FoundNo Family History Records FoundNo Family History Records Found Advance Directives Documents on File Type Date Recorded 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 Advance Directive(s) 05/05/2021 1:47 AM Advance Directive(s) 12/30/2020 4:54 PM Advance Directive(s) 09/08/2020 1:32 AM Advance Directive(s) 03/08/2020 10:16 PM Advance Directive(s) 02/19/2019 5:16 PM Advance Directive(s) 04/04/2018 4:40 PM Documents on File Type Date Recorded 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 Advance Directive(s) 05/05/2021 1:47 AM Advance Directive(s) 12/30/2020 4:54 PM Advance Directive(s) 09/08/2020 1:32 AM Advance Directive(s) 03/08/2020 10:16 PM Advance Directive(s) 02/19/2019 5:16 PM Advance Directive(s) 04/04/2018 4:40 PM Date Activated Date Inactivated Comments 05/29/2023 11:57 PM 05/30/2023 9:51 PM Question Answer Comments Full Code Order Discussed With: Patient Date Activated Date Inactivated Comments 05/29/2023 11:57 PM 05/30/2023 9:51 PM Question Answer Comments Full Code Order Discussed With: Patient Reason for Referral Specialty Diagnoses / Procedures Referred By Contac t Referred To Contact Ruth Swanson MD [address] [place] [address] Referral ID Status Reason Start Date Expiration Date V isits Requested Visits Authorized [id number] Pending Review 1 1 Specialty Diagnoses / Procedures Referred By Contac t Referred To Contact Physical Therapy Diagnoses Primary osteoarthritis of left knee Procedures CONSULT TO PHYSICAL THERAPY Irma Loza DO [facility] [address] [place] [address] Referral ID Status Reason Start Date Expiration Date Visits Requested Visits Authorized [id number] Ref Not Required PCP Requested Referral 06/29/2021 06/28/2022 1 1 Specialty Diagnoses / Procedures Referred By Contac t Referred To Contact Irma oLza DO [facility] [address] [place] [address] Referral ID Status Reason Start Date Expiration Date Visits Re quested Visits Authorized [id number] Closed 1 1 Specialty Diagnoses / Procedures Referred By Contac t Referred To Contact MR IMAGING Diagnoses Fracture of unspecified parts of lumbosacral spine and pelvis, subsequent encounter for fracture with routine healing Procedures MRI PELVIS WO IVCON MRI PELVIS W/O CONTRAST MATERIAL Liza Dorsey DO [address] [facility] [address] [place] [address] [place] [address] Referral ID Status Reason Start Date Expiration Date Visits Requested Visits Authorized [id number] Pending Review Auto-Generat ed Referral 06/10/2023 07/09/2024 1 1 Specialty Diagnoses / Procedures Referred By Contac t Referred To Contact [facility] Diagnoses Closed nondisplaced fracture of right ilium with routine healing, unspecified fracture morphology, subsequent encounter Procedures CONSULT TO PHYSICAL THERAPY PHYSICAL THERAPY EVALUATION HIGH COMPLEX 45 MINS Ruth Swanson MD [address] [place] [address] [facility] [place] [address] [place] [address] Referral ID Status Reason Start Date Expiration Date Visits Requested Visits Authorized [id number] Pending Review Auto-Generat ed Referral 06/16/2023 06/15/2024 1 1 Specialty Diagnoses / Procedures Referred By Long kern Referred To Contact Diagnoses Class 3 severe obesity with body mass index (BMI) of 45.0 to 49.9 in adult, unspecified obesity type, unspecified whether serious comorbidity present (HCC) Ruth Swanson MD [address] [place] [address] Referral ID Status Reason Start Date Expiration Date V isits Requested Visits Authorized [id number] Pending Review 02/04/2024 04/04/2024 1 1 Medications Administered Section Inactive Administered Medications - up to 3 most recent administrations Medication Order MAR Action Action Date Dose Rate Site sodium hyaluronate 20 mg injection (EUFLEXXA) 20 mg, Injection - FOR ORTHO USE ONLY, ONE TIME INJECTION, 1 dose, Starting on Thu08/23/21 at 1019, Until Thu08/23/21 at 1019 Given 08/23/2021 10:19 AM EDT 20 mg Inactive Administered Medications - up to 3 most recent administrations Medication Order MAR Action Action Date Dose Rate Site sodium hyaluronate 20 mg injection (EUFLEXXA) 20 mg, Injection - FOR ORTHO USE ONLY, ONE TIME INJECTION, 1 dose, Starting on Thu09/03/21 at 1208, Until Thu09/03/21 at 1208 Given 09/03/2021 12:08 PM EDT 20 mg Inactive Administered Medications - up to 3 most recent administrations Medication Order MAR Action Action Date Dose Rate Site bupivacaine (PF) 0.25 % (2.5 mg/mL) 2 mL injection (SENSORCAINE MPF) 2 mL, Injection - FOR ORTHO USE ONLY, ONE TIME INJECTION, 1 dose, Starting on Thu10/16/21 at 1310, Until Thu10/16/21 at 1310 Given 10/16/2021 1:10 PM EDT 2 mL lidocaine (PF) 10 mg/mL (1 %) 2 mL injection (XYLOCAINE) 2 mL, Injection - FOR ORTHO USE ONLY, ONE TIME INJECTION, 1 dose, Starting on Thu10/16/21 at 1310, Until Thu10/16/21 at 1310 Given 10/16/2021 1:10 PM EDT 2 mL triamcinolone acetonide 40 mg injection (KeNALog 40) 40 mg, Injection - FOR ORTHO USE ONLY, ONE TIME INJECTION, 1 dose, Starting on Thu10/16/21 at 1310, Until Thu10/16/21 at 1310 Given 10/16/2021 1:10 PM EDT 40 mg Inactive Administered Medications - up to 3 most recent administrations Medication Order MAR Action Action Date Dose Rate Site bupivacaine (PF) 0.25 % (2.5 mg/mL) 2 mL injection (SENSORCAINE MPF) 2 mL, Injection - FOR ORTHO USE ONLY, ONE TIME INJECTION, 1 dose, Starting on Thu01/13/22 at 1549, Until Thu01/13/22 at 1549 Given 01/13/2022 3:49 PM EDT 2 mL Knee, Left bupivacaine (PF) 0.25 % (2.5 mg/mL) 2 mL injection (SENSORCAINE MPF) 2 mL, Injection - FOR ORTHO USE ONLY, ONE TIME INJECTION, 1 dose, Starting on Thu01/13/22 at 1549, Until Thu01/13/22 at 1549 Given 01/13/2022 3:49 PM EDT 2 mL Knee, Right lidocaine (PF) 10 mg/mL (1 %) 2 mL injection (XYLOCAINE) 2 mL, Injection - FOR ORTHO USE ONLY, ONE TIME INJECTION, 1 dose, Starting on Thu01/13/22 at 1549, Until Thu01/13/22 at 1549 Given 01/13/2022 3:49 PM EDT 2 mL Knee, Left lidocaine (PF) 10 mg/mL (1 %) 2 mL injection (XYLOCAINE) 2 mL, Injection - FOR ORTHO USE ONLY, ONE TIME INJECTION, 1 dose, Starting on Thu01/13/22 at 1549, Until Thu01/13/22 at 1549 Given 01/13/2022 3:49 PM EDT 2 mL Knee, Right triamcinolone acetonide 40 mg injection (KeNALog 40) 40 mg, Injection - FOR ORTHO USE ONLY, ONE TIME INJECTION, 1 dose, Starting on Thu01/13/22 at 1549, Until Thu01/13/22 at 1549 Given 01/13/2022 3:49 PM EDT 40 mg Knee, Left triamcinolone acetonide 40 mg injection (KeNALog 40) 40 mg, Injection - FOR ORTHO USE ONLY, ONE TIME INJECTION, 1 dose, Starting on Thu01/13/22 at 1549, Until Thu01/13/22 at 1549 Given 01/13/2022 3:49 PM EDT 40 mg Knee, Right Inactive Administered Medications - up to 3 most recent administrations Medication Order MAR Action Action Date Dose Rate Site BUPivacaine (PF) 0.25 % (2.5 mg/mL) 4 mL injection (SENSORCAINE MPF) 4 mL, Injection - FOR ORTHO USE ONLY, ONE TIME INJECTION, 1 dose, Starting on Thu07/28/22 at 1547, Until Thu07/28/22 at 1547 Given 07/28/2022 3:47 PM EDT 4 mL Knee, Right BUPivacaine (PF) 0.25 % (2.5 mg/mL) 4 mL injection (SENSORCAINE MPF) 4 mL, Injection - FOR ORTHO USE ONLY, ONE TIME INJECTION, 1 dose, Starting on Thu07/28/22 at 1548, Until Thu07/28/22 at 1548 Given 07/28/2022 3:48 PM EDT 4 mL Knee, Left triamcinolone acetonide 40 mg injection (KeNALog 40) 40 mg, Injection - FOR ORTHO USE ONLY, ONE TIME INJECTION, 1 dose, Starting on Thu07/28/22 at 1547, Until Thu07/28/22 at 1547 Given 07/28/2022 3:47 PM EDT 40 mg Knee, Right triamcinolone acetonide 40 mg injection (KeNALog 40) 40 mg, Injection - FOR ORTHO USE ONLY, ONE TIME INJECTION, 1 dose, Starting on 07/28/22 at 1548, Until Thu07/28/22 at 1548 Given 07/28/2022 3:48 PM EDT 40 mg Knee, Left Additional Source Comments INFORMATION SOURCE (unrecogn ized section and content) DATE CREATED AUTHOR 09/16/2017 [facility] DATE CREATED AUTHOR AUTHOR'S ORGANIZ ATION 09/16/2017 [facility] DATE CREATED AUTHOR AUTHOR'S ORGANIZ ATION 09/16/2017 [facility] DATE CREATED AUTHOR AUTHOR'S ORGANIZ ATION 09/16/2017 [facility] DATE CREATED AUTHOR AUTHOR'S ORGANIZ ATION 01/16/2021 [facility] DATE CREATED AUTHOR AUTHOR'S ORGANIZ ATION 04/11/2021 [facility] DATE CREATED AUTHOR AUTHOR'S ORGANIZ ATION 06/15/2023 [facility] DATE CREATED AUTHOR AUTHOR'S ORGANIZ ATION 01/19/2024 [facility] DATE CREATED AUTHOR AUTHOR'S ORGANIZ ATION 02/09/2024 [facility] DATE CREATED AUTHOR AUTHOR'S ORGANIZ ATION 03/13/2024 [facility] Source Comments (unrecognize d section and content) In the event this informatio n is protected by the Federal Confidentiality of Alcohol and Drug Abuse Patient Records regulations: The Federal rules restrict any use of the information to criminally investigate or prosecute any alcohol or drug abuse patient.[facility] the event this information is protected by the Federal Confidentiality of Alcohol and Drug Abuse Patient Records regulations: The Federal rules restrict any use of the information to criminally investigate or prosecute any alcohol or drug abuse patient.[facility] the event this information is protected by the Federal Confidentiality of Alcohol and Drug Abuse Patient Records regulations: The Federal rules restrict any use of the information to criminally investigate or prosecute any alcohol or drug abuse patient.[facility] the event this information is protected by the Federal Confidentiality of Alcohol and Drug Abuse Patient Records regulations: The Federal rules restrict any use of the information to criminally investigate or prosecute any alcohol or drug abuse patient.[facility] the event this information is protected by the Federal Confidentiality of Alcohol and Drug Abuse Patient Records regulations: The Federal rules restrict any use of the information to criminally investigate or prosecute any alcohol or drug abuse patient.[facility] the event this information is protected by the Federal Confidentiality of Alcohol and Drug Abuse Patient Records regulations: The Federal rules restrict any use of the information to criminally investigate or prosecute any alcohol or drug abuse patient.[facility] the event this information is protected by the Federal Confidentiality of Alcohol and Drug Abuse Patient Records regulations: The Federal rules restrict any use of the information to criminally investigate or prosecute any alcohol or drug abuse patient.[facility] the event this information is protected by the Federal Confidentiality of Alcohol and Drug Abuse Patient Records regulations: The Federal rules restrict any use of the information to criminally investigate or prosecute any alcohol or drug abuse patient.[facility] the event this information is protected by the Federal Confidentiality of Alcohol and Drug Abuse Patient Records regulations: The Federal rules restrict any use of the information to criminally investigate or prosecute any alcohol or drug abuse patient.[facility] the event this information is protected by the Federal Confidentiality of Alcohol and Drug Abuse Patient Records regulations: The Federal rules restrict any use of the information to criminally investigate or prosecute any alcohol or drug abuse patient.[facility] the event this information is protected by the Federal Confidentiality of Alcohol and Drug Abuse Patient Records regulations: The Federal rules restrict any use of the information to criminally investigate or prosecute any alcohol or drug abuse patient.[facility] the event this information is protected by the Federal Confidentiality of Alcohol and Drug Abuse Patient Records regulations: The Federal rules restrict any use of the information to criminally investigate or prosecute any alcohol or drug abuse patient.[facility] the event this information is protected by the Federal Confidentiality of Alcohol and Drug Abuse Patient Records regulations: The Federal rules restrict any use of the information to criminally investigate or prosecute any alcohol or drug abuse patient.[facility] the event this information is protected by the Federal Confidentiality of Alcohol and Drug Abuse Patient Records regulations: The Federal rules restrict any use of the information to criminally investigate or prosecute any alcohol or drug abuse patient.[facility] the event this information is protected by the Federal Confidentiality of Alcohol and Drug Abuse Patient Records regulations: The Federal rules restrict any use of the information to criminally investigate or prosecute any alcohol or drug abuse patient.[facility] the event this information is protected by the Federal Confidentiality of Alcohol and Drug Abuse Patient Records regulations: The Federal rules restrict any use of the information to criminally investigate or prosecute any alcohol or drug abuse patient.[facility] HospitalIn the event this information is protected by the Federal Confidentiality of Alcohol and Drug Abuse Patient Records regulations: The Federal rules restrict any use of the information to criminally investigate or prosecute any alcohol or drug abuse patient.[facility] HospitalIn the event this information is protected by the Federal Confidentiality of Alcohol and Drug Abuse Patient Records regulations: The Federal rules restrict any use of the information to criminally investigate or prosecute any alcohol or drug abuse patient.[facility] HospitalIn the event this information is protected by the Federal Confidentiality of Alcohol and Drug Abuse Patient Records regulations: The Federal rules restrict any use of the information to criminally investigate or prosecute any alcohol or drug abuse patient.[facility] HospitalIn the event this information is protected by the Federal Confidentiality of Alcohol and Drug Abuse Patient Records regulations: The Federal rules restrict any use of the information to criminally investigate or prosecute any alcohol or drug abuse patient.[facility] HospitalIn the event this information is protected by the Federal Confidentiality of Alcohol and Drug Abuse Patient Records regulations: The Federal rules restrict any use of the information to criminally investigate or prosecute any alcohol or drug abuse patient.[facility] HospitalIn the event this information is protected by the Federal Confidentiality of Alcohol and Drug Abuse Patient Records regulations: The Federal rules restrict any use of the information to criminally investigate or prosecute any alcohol or drug abuse patient.[facility] HospitalIn the event this information is protected by the Federal Confidentiality of Alcohol and Drug Abuse Patient Records regulations: The Federal rules restrict any use of the information to criminally investigate or prosecute any alcohol or drug abuse patient.[facility] HospitalIn the event this information is protected by the Federal Confidentiality of Alcohol and Drug Abuse Patient Records regulations: The Federal rules restrict any use of the information to criminally investigate or prosecute any alcohol or drug abuse patient.[facility] HospitalIn the event this information is protected by the Federal Confidentiality of Alcohol and Drug Abuse Patient Records regulations: The Federal rules restrict any use of the information to criminally investigate or prosecute any alcohol or drug abuse patient.[facility] HospitalIn the event this information is protected by the Federal Confidentiality of Alcohol and Drug Abuse Patient Records regulations: The Federal rules restrict any use of the information to criminally investigate or prosecute any alcohol or drug abuse patient.[facility] HospitalIn the event this information is protected by the Federal Confidentiality of Alcohol and Drug Abuse Patient Records regulations: The Federal rules restrict any use of the information to criminally investigate or prosecute any alcohol or drug abuse patient.[facility] HospitalIn the event this information is protected by the Federal Confidentiality of Alcohol and Drug Abuse Patient Records regulations: The Federal rules restrict any use of the information to criminally investigate or prosecute any alcohol or drug abuse patient.[facility] HospitalIn the event this information is protected by the Federal Confidentiality of Alcohol and Drug Abuse Patient Records regulations: The Federal rules restrict any use of the information to criminally investigate or prosecute any alcohol or drug abuse patient.[facility] HospitalIn the event this information is protected by the Federal Confidentiality of Alcohol and Drug Abuse Patient Records regulations: The Federal rules restrict any use of the information to criminally investigate or prosecute any alcohol or drug abuse patient.[facility] HospitalIn the event this information is protected by the Federal Confidentiality of Alcohol and Drug Abuse Patient Records regulations: The Federal rules restrict any use of the information to criminally investigate or prosecute any alcohol or drug abuse patient.[facility] HospitalIn the event this information is protected by the Federal Confidentiality of Alcohol and Drug Abuse Patient Records regulations: The Federal rules restrict any use of the information to criminally investigate or prosecute any alcohol or drug abuse patient.[facility] HospitalIn the event this information is protected by the Federal Confidentiality of Alcohol and Drug Abuse Patient Records regulations: The Federal rules restrict any use of the information to criminally investigate or prosecute any alcohol or drug abuse patient.[facility] HospitalIn the event this information is protected by the Federal Confidentiality of Alcohol and Drug Abuse Patient Records regulations: The Federal rules restrict any use of the information to criminally investigate or prosecute any alcohol or drug abuse patient.[facility] HospitalIn the event this information is protected by the Federal Confidentiality of Alcohol and Drug Abuse Patient Records regulations: The Federal rules restrict any use of the information to criminally investigate or prosecute any alcohol or drug abuse patient.[facility] HospitalIn the event this information is protected by the Federal Confidentiality of Alcohol and Drug Abuse Patient Records regulations: The Federal rules restrict any use of the information to criminally investigate or prosecute any alcohol or drug abuse patient.[facility] HospitalIn the event this information is protected by the Federal Confidentiality of Alcohol and Drug Abuse Patient Records regulations: The Federal rules restrict any use of the information to criminally investigate or prosecute any alcohol or drug abuse patient.[facility] HospitalIn the event this information is protected by the Federal Confidentiality of Alcohol and Drug Abuse Patient Records regulations: The Federal rules restrict any use of the information to criminally investigate or prosecute any alcohol or drug abuse patient.[facility] HospitalIn the event this information is protected by the Federal Confidentiality of Alcohol and Drug Abuse Patient Records regulations: The Federal rules restrict any use of the information to criminally investigate or prosecute any alcohol or drug abuse patient.[facility] HospitalIn the event this information is protected by the Federal Confidentiality of Alcohol and Drug Abuse Patient Records regulations: The Federal rules restrict any use of the information to criminally investigate or prosecute any alcohol or drug abuse patient.[facility] HospitalIn the event this information is protected by the Federal Confidentiality of Alcohol and Drug Abuse Patient Records regulations: The Federal rules restrict any use of the information to criminally investigate or prosecute any alcohol or drug abuse patient.[facility] HospitalIn the event this information is protected by the Federal Confidentiality of Alcohol and Drug Abuse Patient Records regulations: The Federal rules restrict any use of the information to criminally investigate or prosecute any alcohol or drug abuse patient.[facility] HospitalIn the event this information is protected by the Federal Confidentiality of Alcohol and Drug Abuse Patient Records regulations: The Federal rules restrict any use of the information to criminally investigate or prosecute any alcohol or drug abuse patient.[facility] HospitalIn the event this information is protected by the Federal Confidentiality of Alcohol and Drug Abuse Patient Records regulations: The Federal rules restrict any use of the information to criminally investigate or prosecute any alcohol or drug abuse patient.[facility] HospitalIn the event this information is protected by the Federal Confidentiality of Alcohol and Drug Abuse Patient Records regulations: The Federal rules restrict any use of the information to criminally investigate or prosecute any alcohol or drug abuse patient.[facility] HospitalIn the event this information is protected by the Federal Confidentiality of Alcohol and Drug Abuse Patient Records regulations: The Federal rules restrict any use of the information to criminally investigate or prosecute any alcohol or drug abuse patient.[facility] HospitalIn the event this information is protected by the Federal Confidentiality of Alcohol and Drug Abuse Patient Records regulations: The Federal rules restrict any use of the information to criminally investigate or prosecute any alcohol or drug abuse patient.[facility] HospitalIn the event this information is protected by the Federal Confidentiality of Alcohol and Drug Abuse Patient Records regulations: The Federal rules restrict any use of the information to criminally investigate or prosecute any alcohol or drug abuse patient.[facility] HospitalIn the event this information is protected by the Federal Confidentiality of Alcohol and Drug Abuse Patient Records regulations: The Federal rules restrict any use of the information to criminally investigate or prosecute any alcohol or drug abuse patient.[facility] HospitalIn the event this information is protected by the Federal Confidentiality of Alcohol and Drug Abuse Patient Records regulations: The Federal rules restrict any use of the information to criminally investigate or prosecute any alcohol or drug abuse patient.[facility] HospitalIn the event this information is protected by the Federal Confidentiality of Alcohol and Drug Abuse Patient Records regulations: The Federal rules restrict any use of the information to criminally investigate or prosecute any alcohol or drug abuse patient.[facility] HospitalIn the event this information is protected by the Federal Confidentiality of Alcohol and Drug Abuse Patient Records regulations: The Federal rules restrict any use of the information to criminally investigate or prosecute any alcohol or drug abuse patient.[facility] HospitalIn the event this information is protected by the Federal Confidentiality of Alcohol and Drug Abuse Patient Records regulations: The Federal rules restrict any use of the information to criminally investigate or prosecute any alcohol or drug abuse patient.[facility] HospitalIn the event this information is protected by the Federal Confidentiality of Alcohol and Drug Abuse Patient Records regulations: The Federal rules restrict any use of the information to criminally investigate or prosecute any alcohol or drug abuse patient.[facility] HospitalIn the event this information is protected by the Federal Confidentiality of Alcohol and Drug Abuse Patient Records regulations: The Federal rules restrict any use of the information to criminally investigate or prosecute any alcohol or drug abuse patient.[facility] HospitalIn the event this information is protected by the Federal Confidentiality of Alcohol and Drug Abuse Patient Records regulations: The Federal rules restrict any use of the information to criminally investigate or prosecute any alcohol or drug abuse patient.[facility] HospitalIn the event this information is protected by the Federal Confidentiality of Alcohol and Drug Abuse Patient Records regulations: The Federal rules restrict any use of the information to criminally investigate or prosecute any alcohol or drug abuse patient.[facility] Reason for Visit (unrecogniz ed section and content) Reason Comments Refill Request Reason Comments Medication Problem Reason Comments New Reason Onset Date Comments Refill Request 08/05/2021 Reason Onset Date Comments Refill Request 08/15/2021 Reason Comments Follow Up Specialty Diagnoses / Procedures Referred By Contac t Referred To Contact ORTHOPAEDIC SURGERY Diagnoses Unilateral primary osteoarthritis, left knee Procedures ARTHROCENTESIS ASPIR&/INJ MAJOR JT/BURSA W/O US EUFLEXXA INJ PER DOSE Irma Loza, [address] [place] [address] [facility] [address] [place] [address] Referral ID Status Reason Start Date Expiration Date V isits Requested Visits Authorized [id number] Authorized 07/03/2021 10/01/2021 3 3 Reason Comments Follow Up Reason Comments Refill Request Reason Onset Date Comments Refill Request 12/12/2021 Reason Comments Established Patient Right knee also hurt ing d/t over compensating Knee Pain Right knee also hurt ing d/t over compensating Injections Right knee also hurt ing d/t over compensating Reason Comments Established Patient Reason Comments Established Patient Reason Comments Dermatitis Reason Comments Depression Reason Comments Home Care Confirmation call. Reason Comments Home Care MD to follow. Reason Comments Hospital F/U [facility], C losed fracture pubic rami, sacral fracture Reason Comments New Pain Reason Comments Hypertension Medications Refills Reason Onset Date Comments Refill Request 10/14/2023 Reason Comments Patient Update Reason Comments Patient Question Reason Comments Lymphadenopathy Specialty Diagnoses / Procedures Referred By [place] Referred To Contact Pulmonary and Critical Care Medicine Diagnoses Hilar adenopathy Procedures CONSULT TO PULM/CRITICAL CARE OFFICE/OUTPATIENT NEW HIGH MDM 60 MINUTES Ruth Swanson MD [address] [place] [address] Referral ID Status Reason Start Date Expiration Date V isits Requested Visits Authorized [id number] Closed PCP Requested Referral 12/31/2023 12/30/2024 1 1 Reason Comments Bronchoscopy Scheduling Bronchoscopy celestino eduling Reason Comments Results urgent lab value Reason Onset Date Comments Orders 01/29/2024 Reason Onset Date Comments Refill Request 02/02/2024 Reason Comments Weight Problem Pt wants to discuss Ozempic Reason Onset Date Comments Orders 02/19/2024 Opened In Error 02/19/2024 Reason Onset Date Comments Opened In Error 02/19/2024 Reason Comments 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, 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 EBUS Care Teams (unrecognized sec tion and content) Copy Editor Relationship Specialty Start Date End Date Ruth Swanson MD [address] [place] [address] PCP - General Family Practice 03/12/20 Copy Editor Relationship Specialty Start Date End Date Ruth Swanson MD [address] [address] PCP - General Family Practice 03/12/20 Copy Editor Relationship Specialty Start Date End Date Ruth Swanson MD [address] [address] PCP - General Family Practice 03/12/20 Copy Editor Relationship Specialty Start Date End Date Ruth Swanson MD [address] [address] PCP - General Family Practice 03/12/20 Copy Editor Relationship Specialty Start Date End Date Ruth Swanson MD [address] [place] [address] PCP - General Family Practice 03/12/20 Copy Editor Relationship Specialty Start Date End Date Ruth Swanson MD [address] [place] [address] PCP - General Family Practice 03/12/20 Copy Editor Relationship Specialty Start Date End Date Ruth Swanson MD [address] [place] [address] PCP - General Family Practice 03/12/20 Copy Editor Relationship Specialty Start Date End Date Ruth Swanson MD [address] [place] [address] PCP - General Family Practice 03/12/20 Copy Editor Relationship Specialty Start Date End Date Ruth Swanson MD [address] [place] [address] PCP - General Family Practice 03/12/20 Job Mehta, DO [address] [place] [address] Family Practice 11/07/21 Kevin Lee, DO [address] [place] [address] Primary Staff Physician Family Practice 11/07/21 Alicia Hernandez, DO [address] [place] [address] Primary Staff Physician Family Practice 11/07/21 Jeff Deng MD [address] [place] [address] Primary Staff Physician Family Practice 11/07/21 Genesis Deng MD [address] [place] [address] Primary Staff Physician Family Practice 11/07/21 Ruth Swanson MD [address] [place] [address] Primary Staff Physician Family Practice 11/07/21 Alphonso Sosa, DO [address] [place] [address] Primary Staff Physician Family Practice 11/07/21 Geneva Adames, RN Registered Nurse 11/07/21 Job Mehta, DO [address] [place] [address] Primary Staff Physician Family Practice 11/07/21 [facility] [address] [place] [address] Primary Service Family Practice 11/07/21 Adrian Aaron, DO [address] [place] [address] Primary Staff Physician Family Practice 11/07/21 Geneva Adames, RN Registered Nurse Family Practice 11/18/21 Kevin Lee, DO [address] [place] [address] Family Practice 11/18/21 [facility] [address] [place] [address] Primary Staff Physician Family Practice 11/18/21 Copy Editor Relationship Specialty Start Date End Date Ruth Swanson MD [address] [place] [address] PCP - General Family Medicine 03/12/20 Job Mehta, DO [address] [place] [address] Family Medicine 11/07/21 Kevin Lee, DO [address] [place] [address] Primary Staff Physician Family Medicine 11/07/21 Alicia Hernandez, DO [address] [place] [address] Primary Staff Physician Family Medicine 11/07/21 Jeff Deng MD [address] [facility] [place] [address] Primary Staff Physician Family Medicine 11/07/21 Genesis Deng MD [address] [facility] [address] Primary Staff Physician Family Medicine 11/07/21 Ruth Swanson MD [address] [facility] [place] [address] Primary Staff Physician Family Medicine 11/07/21 Alphonso Sosa, DO [address] [place] [address] Primary Staff Physician Family Medicine 11/07/21 Geneva Adames, RN Registered Nurse 11/07/21 Job Mehta, DO [address] [place] [address] Primary Staff Physician Family Medicine 11/07/21 [facility] [address] [place] [address] Primary Service Family Medicine 11/07/21 Adrian Aaron, DO [address] [place] [address] Primary Staff Physician Family Medicine 11/07/21 Geneva Adames, JELANI Registered Nurse [facility] [place] 11/18/21 Kevin Lee, DO [address] [facility] [place] [address] Family Medicine 11/18/21 [facility] [address] [place] [address] Primary Staff Physician Family Medicine 11/18/21 Copy Editor Relationship Specialty Start Date End Date Ruth Swanson MD [address] [place] [address] PCP - General Family Medicine 03/12/20 Job Mehta, DO [address] [place] [address] Family Medicine 11/07/21 Kevin Lee, DO [address] [facility] [place] [address] Primary Staff Physician Family Medicine 11/07/21 Alicia Hernandez, DO [address] [facility] [place] [place] [address] Primary Staff Physician Family Medicine 11/07/21 Jeff Deng MD [address] [place] [address] Primary Staff Physician Family Medicine 11/07/21 Genesis Deng MD [address] [place] [address] Primary Staff Physician Family Medicine 11/07/21 Rtuh Swanson MD [address] [place] [address] Primary Staff Physician Family Medicine 11/07/21 Alphonso Sosa, DO [address] [place] [address] Primary Staff Physician Family Medicine 11/07/21 Geneva Adames, RN Registered Nurse 11/07/21 Job Mehta, DO [address] [facility] [place] [place] [address] Primary Staff Physician Family Medicine 11/07/21 [facility] [address] [place] [address] Primary Service Family Medicine 11/07/21 Adrian Aaron, DO [address] [place] [address] Primary Staff Physician Family Medicine 11/07/21 Geneva Adames, RN Registered Nurse Family Medicine 11/18/21 Kevin Lee, DO [address] [place] [address] Family Medicine 11/18/21 [facility] [address] [place] [address] Primary Staff Physician Family Medicine 11/18/21 Copy Editor Relationship Specialty Start Date End Date Ruth Swanson MD [address] [place] [address] PCP - General Family Medicine 03/12/20 Job Mehta, DO [address] [place] [address] Family Medicine 11/07/21 Kevin Lee, DO [address] [place] [address] Primary Staff Physician Family Medicine 11/07/21 Alicia Hernandez, DO [address] [facility] [place] [address] Primary Staff Physician Family Medicine 11/07/21 Jeff Deng MD [address] [facility] [place] [address] Primary Staff Physician Family Medicine 11/07/21 Genesis Deng MD [address] [facility] [address] Primary Staff Physician Family Medicine 11/07/21 Ruth Swanson MD [address] [facility] [place] [address] Primary Staff Physician Family Medicine 11/07/21 Alphonso Sosa, DO [address] [place] [address] Primary Staff Physician Family Medicine 11/07/21 Geneva Adames, RN Registered Nurse 11/07/21 Job Mehta, DO [address] [place] [address] Primary Staff Physician Family Medicine 11/07/21 [facility] [address] [place] [address] Primary Service Family Medicine 11/07/21 Adrian Aaron, DO [address] [place] [address] Primary Staff Physician Family Medicine 11/07/21 Geneva Adames, JELANI Registered Nurse Family Medicine 11/18/21 Kevin Lee, DO [address] [place] [address] Family Medicine 11/18/21 [facility] [address] [place] [address] Primary Staff Physician Family Medicine 11/18/21 Copy Editor Relationship Specialty Start Date End Date Ruth Swanson MD [address] [place] [address] PCP - General Family Medicine 03/12/20 Job Mehta, DO [address] [place] [address] Family Medicine 11/07/21 Kevin Lee, DO [address] [place] [address] Primary Staff Physician Family Medicine 11/07/21 Alicia Hernandez, DO [address] [place] [address] Primary Staff Physician Family Medicine 11/07/21 Jeff Deng MD [address] [place] [address] Primary Staff Physician Family Medicine 11/07/21 Genesis Deng MD [address] [place] [address] Primary Staff Physician Family Medicine 11/07/21 Ruth Swanson MD [address] [place] [address] Primary Staff Physician Family Medicine 11/07/21 Alphonso Sosa, DO [address] [facility] [place] [address] Primary Staff Physician Family Medicine 11/07/21 Geneva Adames, RN Registered Nurse 11/07/21 Job Mehta, DO [address] [facility] [place] [address] Primary Staff Physician Family Medicine 11/07/21 [facility] [address] [facility] [place] [address] Primary Service Family Medicine 11/07/21 Adrian Aaron, DO [address] [facility] [place] [address] Primary Staff Physician Family Medicine 11/07/21 Geneva Adames, RN Registered Nurse Family Medicine 11/18/21 Kevin Lee, DO [address] [facility] [place] [address] Family Medicine 11/18/21 [facility] [address] [place] [address] Primary Staff Physician Family Medicine 11/18/21 Copy Editor Relationship Specialty Start Date End Date Ruth Swanson MD [address] [place] [address] PCP - General Family Medicine 03/12/20 Job Mehta, DO [address] [place] [address] Family Medicine 11/07/21 Kevin Lee, DO [address] [place] [address] Primary Staff Physician Family Medicine 11/07/21 Alicia Hernandez, DO [address] [place] [address] Primary Staff Physician Family Medicine 11/07/21 Jeff Deng MD [address] [place] [address] Primary Staff Physician Family Medicine 11/07/21 Genesis Deng MD [address] [place] [address] Primary Staff Physician Family Medicine 11/07/21 Ruth Swanson MD [address] [place] [address] Primary Staff Physician Family Medicine 11/07/21 Alphonso Sosa, DO [address] [place] [address] Primary Staff Physician Family Medicine 11/07/21 Job Mehta, DO [address] [place] [address] Primary Staff Physician Family Medicine 11/07/21 [facility] [address] [place] [address] Primary Service Family Medicine 11/07/21 Adrian Aaron, DO [address] [place] [address] Primary Staff Physician Family Medicine 11/07/21 Kevin Lee, DO [address] [place] [address] Family Medicine 11/18/21 [facility] [address] [place] [address] Primary Staff Physician Family Medicine 11/18/21 Geneva Adames, boilerhouse mechanicProduce Runner 02/18/22 Copy Editor Relationship Specialty Start Date End Date Ruth Swanson MD [address] [place] [address] PCP - General Family Medicine 03/12/20 Job Mehta, DO [address] [place] [address] Family Medicine 11/07/21 Kevin Lee, DO [address] [place] [address] Primary Staff Physician Family Medicine 11/07/21 Alicia Hernandez, DO [address] [place] [address] Primary Staff Physician Family Medicine 11/07/21 Jeff Deng MD [address] [place] [address] Primary Staff Physician Family Medicine 11/07/21 Genesis Deng MD [address] [place] [address] Primary Staff Physician Family Medicine 11/07/21 Ruth Swanson MD [address] [place] [address] Primary Staff Physician Family Medicine 11/07/21 Alphonso Sosa, [address] [place] [address] Primary Staff Physician Family Medicine 11/07/21 Job Mehta, DO [address] [place] [address] Primary Staff Physician Family Medicine 11/07/21 [facility] [address] [place] [address] Primary Service Family Medicine 11/07/21 Adrian Aaron, DO [address] [place] [address] Primary Staff Physician Family Medicine 11/07/21 Kevin Lee, DO [address] [place] [address] Family Medicine 11/18/21 [facility] [address] [place] [address] Primary Staff Physician Family Medicine 11/18/21 Geneva Adames, boilerhouse mechanicProduce Runner 02/18/22 Copy Editor Relationship Specialty Start Date End Date Ruth Swanson MD [address] [place] [address] PCP - General Family Medicine 03/12/20 Job Mehta, DO [address] [place] [address] Family Medicine 11/07/21 Kevin Lee, DO [address] [place] [address] Primary Staff Physician Family Medicine 11/07/21 Alicia Hernandez, DO [address] [place] [address] Primary Staff Physician Family Medicine 11/07/21 Jeff Deng MD [address] [place] [address] Primary Staff Physician Family Medicine 11/07/21 Genesis Deng MD [address] [place] [address] Primary Staff Physician Family Medicine 11/07/21 Ruth Swanson MD [address] [place] [address] Primary Staff Physician Family Medicine 11/07/21 Alphonso Sosa, DO [address] [place] [address] Primary Staff Physician Family Medicine 11/07/21 Job Mehta, DO [address] [place] [address] Primary Staff Physician Family Medicine 11/07/21 [facility] [address] [place] [address] Primary Service Family Medicine 11/07/21 Adrian Aaron, DO [address] [place] [address] Primary Staff Physician Family Medicine 11/07/21 Kevin Lee, DO [address] [place] [address] Family Medicine 11/18/21 [facility] [address] [place] [address] Primary Staff Physician Family Medicine 11/18/21 Geneva Adames, boilerhouse mechanicProduce Runner 02/18/22 Copy Editor Relationship Specialty Start Date End Date Ruth Swanson MD [address] [place] [address] PCP - General Family Medicine 03/12/20 Job Mehta, DO [address] [place] [address] Family Medicine 11/07/21 Kevin Lee, DO [address] [place] [address] Primary Staff Physician Family Medicine 11/07/21 Alicia Hernandez, DO [address] [place] [address] Primary Staff Physician Family Medicine 11/07/21 Jeff Deng MD [address] [facility] [facility] [place] [address] Primary Staff Physician Family Medicine 11/07/21 Genesis Deng MD [address] [place] [address] Primary Staff Physician Family Medicine 11/07/21 Ruth Swanson MD [address] [facility] [place] [address] Primary Staff Physician Family Medicine 11/07/21 Alphonso Sosa, DO [address] [facility] [place] [address] Primary Staff Physician Family Medicine 11/07/21 Job Mehta, DO [address] [facility] [place] [address] Primary Staff Physician Family Medicine 11/07/21 [facility] [address] [facility] [place] [address] Primary Service Family Medicine 11/07/21 Adrian Aaron, DO [address] [facility] [place] [address] Primary Staff Physician Family Medicine 11/07/21 Kevin Lee, DO [address] [facility] [place] [address] Family Medicine 11/18/21 [facility] [address] [facility] [place] [address] Primary Staff Physician Family Medicine 11/18/21 Geneva Adames, boilerhouse mechanicProduce Runner 02/18/22 Copy Editor Relationship Specialty Start Date End Date Ruth Swanson MD [address] [place] [address] PCP - General Family Medicine 03/12/20 Job Mehta, DO [address] [place] [address] Family Medicine 11/07/21 Kevin Lee, DO [address] [place] [address] Primary Staff Physician Family Medicine 11/07/21 Alicia Hernandez, DO [address] [place] [address] Primary Staff Physician Family Medicine 11/07/21 Jeff Deng MD [address] [place] [address] Primary Staff Physician Family Medicine 11/07/21 Genesis Deng MD [address] [place] [address] Primary Staff Physician Family Medicine 11/07/21 Ruth Swanson MD [address] [place] [address] Primary Staff Physician Family Medicine 11/07/21 Alphonso Sosa, DO [address] [place] [address] Primary Staff Physician Family Medicine 11/07/21 Job Mehta, DO [address] [place] [address] Primary Staff Physician Family Medicine 11/07/21 [facility] [address] [place] [address] Primary Service Family Medicine 11/07/21 Adrian Aaron, DO [address] [place] [address] Primary Staff Physician Family Medicine 11/07/21 Kevin Lee, DO [address] [place] [address] Family Medicine 11/18/21 [facility] [address] [place] [address] Primary Staff Physician Family Medicine 11/18/21 Geneva Adames, boilerhouse mechanicProduce Runner 02/18/22 Copy Editor Relationship Specialty Start Date End Date Ruth Swanson MD [address] [place] [address] PCP - General Family Medicine 03/12/20 Job Mehta, DO [address] [place] [address] Family Medicine 11/07/21 Kevin Lee, DO [address] [place] [address] Primary Staff Physician Family Medicine 11/07/21 Alicia Hernandez, DO [address] [place] [address] Primary Staff Physician Family Medicine 11/07/21 Jeff Deng MD [address] [place] [address] Primary Staff Physician Family Medicine 11/07/21 Genesis Deng MD [address] [place] [address] Primary Staff Physician Family Medicine 11/07/21 Ruth Swanson MD [address] [place] [address] Primary Staff Physician Family Medicine 11/07/21 Alphonso Sosa, DO [address] [place] [address] Primary Staff Physician Family Medicine 11/07/21 Job Mehta, DO [address] [place] [address] Primary Staff Physician Family Medicine 11/07/21 [facility] [address] [place] [address] Primary Service Family Medicine 11/07/21 Adrian Aaron, DO [address] [place] [address] Primary Staff Physician Family Medicine 11/07/21 Kevin Lee, DO [address] [place] [address] Family Medicine 11/18/21 [facility] [address] [place] [address] Primary Staff Physician Family Medicine 11/18/21 Geneva Adames, boilerhouse mechanicProduce Runner 02/18/22 Copy Editor Relationship Specialty Start Date End Date Ruth Swanson MD [address] [place] [address] PCP - General Family Medicine 03/12/20 Job Mehta DO [address] [place] [address] Family Medicine 11/07/21 Kevin Lee DO [address] [facility] [place] [address] Primary Staff Physician Family Medicine 11/07/21 Alicia Hernandez DO [address] [facility] [place] [address] Primary Staff Physician Family Medicine 11/07/21 Jeff Deng MD [address] [place] [address] Primary Staff Physician Family Medicine 11/07/21 Genesis Deng MD [address] [place] [address] Primary Staff Physician Family Medicine 11/07/21 Ruth Swanson MD [address] [place] [address] Primary Staff Physician Family Medicine 11/07/21 Alphonso Sosa DO [address] [facility] [place] [address] Primary Staff Physician Family Medicine 11/07/21 Job Mehta DO [address] [place] [address] Primary Staff Physician Family Medicine 11/07/21 [facility] [address] [place] [address] Primary Service Family Medicine 11/07/21 Adrian aAron, DO [address] [place] [address] Primary Staff Physician Family Medicine 11/07/21 Kevin Lee, [address] [place] [address] Family Medicine 11/18/21 [facility] [address] [place] [address] Primary Staff Physician Family Medicine 11/18/21 Geneva Adames, boilerhouse mechanicProduce Runner 02/18/22 Copy Editor Relationship Specialty Start Date End Date Ruth Swanson MD [address] [place] [address] PCP - General Family Medicine 03/12/20 Job Mehta DO [address] [place] [address] Family Medicine 11/07/21 Kevin Lee DO [address] [place] [address] Primary Staff Physician Family Medicine 11/07/21 Alicia Hernandez, [address] [place] [address] Primary Staff Physician Family Medicine 11/07/21 Jeff Deng MD [address] [place] [address] Primary Staff Physician Family Medicine 11/07/21 Genesis Deng MD [address] [place] [address] Primary Staff Physician Family Medicine 11/07/21 Ruth Swanson MD [address] [place] [address] Primary Staff Physician Family Medicine 11/07/21 Alphonso Sosa, [address] [place] [address] Primary Staff Physician Family Medicine 11/07/21 Job Mehta DO [address] [place] [address] Primary Staff Physician Family Medicine 11/07/21 [facility] [address] [place] [address] Primary Service Family Medicine 11/07/21 Adrian Aaron DO [address] [place] [address] Primary Staff Physician Family Medicine 11/07/21 Kevin Lee, DO [address] [place] [address] Family Medicine 11/18/21 [facility] [address] [place] [address] Primary Staff Physician Family Medicine 11/18/21 Geneva Adames, boilerhouse mechanicProduce Runner 02/18/22 Irma Loza DO [address] [place] [address] Referring Orthopedics 11/11/22 Irma Loza DO [address] [place] [address] Referring Orthopedics 11/17/22 Copy Editor Relationship Specialty Start Date End Date Ruth Swanson MD [address] [place] [address] PCP - General Family Medicine 03/12/20 Job Mehta DO [address] [place] [address] Family Medicine 11/07/21 Kevin Lee DO [address] [facility] [place] [address] Primary Staff Physician Family Medicine 11/07/21 Alicia Hernandez DO [address] [place] [address] Primary Staff Physician Family Medicine 11/07/21 Jeff Deng MD [address] [facility] [place] [address] Primary Staff Physician Family Medicine 11/07/21 Genesis Deng MD [address] [place] [address] Primary Staff Physician Family Medicine 11/07/21 Ruth Swanson MD [address] [place] [address] Primary Staff Physician Family Medicine 11/07/21 Alphonso Sosa, DO [address] [place] [address] Primary Staff Physician Family Medicine 11/07/21 Job Mehta, DO [address] [place] [address] Primary Staff Physician Family Medicine 11/07/21 [facility] [address] [place] [address] Primary Service Family Medicine 11/07/21 Adrian Aaron DO [address] [place] [address] Primary Staff Physician Family Medicine 11/07/21 Kevin Lee, DO [address] [place] [address] Family Medicine 11/18/21 [facility] [address] [place] [address] Primary Staff Physician Family Medicine 11/18/21 Geneva Adames, boilerhouse mechanicProduce Runner 02/18/22 Irma Loza DO [address] [place] [address] Referring Orthopedics 11/11/22 Irma Loza DO [address] [place] [address] Referring Orthopedics 11/17/22 Copy Editor Relationship Specialty Start Date End Date Ruth Swanson MD [address] [place] [address] PCP - General Family Medicine 03/12/20 Job Mehta DO [address] [place] [address] Family Medicine 11/07/21 Kevin Lee DO [address] [place] [address] Primary Staff Physician Family Medicine 11/07/21 Alicia Hernandez DO [address] [place], [place] [address] Primary Staff Physician Family Medicine 11/07/21 Jeff Deng MD [address] [place] [address] Primary Staff Physician Family Medicine 11/07/21 Genesis Deng MD [address] [place] [address] Primary Staff Physician Family Medicine 11/07/21 Ruth Swanson MD [address] [place] [address] Primary Staff Physician Family Medicine 11/07/21 Alphonso Sosa, DO [address] [facility] [place] [address] Primary Staff Physician Family Medicine 11/07/21 Job Mehta, DO [address] [place] [address] Primary Staff Physician Family Medicine 11/07/21 [facility] [address] [place] [address] Primary Service Family Medicine 11/07/21 Adrian Aaron DO [address] [place] [address] Primary Staff Physician Family Medicine 11/07/21 Kevin Lee, DO [address] [place] [address] Family Medicine 11/18/21 [facility] [address] [place] [address] Primary Staff Physician Family Medicine 11/18/21 Geneva Adames, boilerhouse mechanicProduce Runner 02/18/22 Irma Loza, DO [address] [id number] Referring Orthopedics 11/11/22 Irma Loza DO [address] [place] [address] Referring Orthopedics 11/17/22 Copy Editor Relationship Specialty Start Date End Date Ruth Swanson MD [address] [facility] [place] [address] PCP - General Family Medicine 03/12/20 Job Mehta DO [address] [facility] [place] [address] Family Medicine 11/07/21 Kevin Lee DO [address] [place] [address] Primary Staff Physician Family Medicine 11/07/21 Alicia Hernandez DO [address] [place] [address] Primary Staff Physician Family Medicine 11/07/21 Jeff Deng MD [address] [place] [address] Primary Staff Physician Family Medicine 11/07/21 Genesis Deng MD [address] [place] [address] Primary Staff Physician Family Medicine 11/07/21 Ruth Swanson MD [address] [place] [address] Primary Staff Physician Family Medicine 11/07/21 Alphonso Sosa, DO [address] [facility] [place] [address] Primary Staff Physician Family Medicine 11/07/21 Job Mehta, DO [address] [facility] [place] [address] Primary Staff Physician Family Medicine 11/07/21 [facility] [address] [place] [address] Primary Service Family Medicine 11/07/21 Adrian Aaron, DO [address] [place] [address] Primary Staff Physician Family Medicine 11/07/21 Kevin Lee, DO [address] [place] [address] Family Medicine 11/18/21 [facility] [address] [place] [address] Primary Staff Physician Family Medicine 11/18/21 Geneva Adames, boilerhouse mechanicProduce Runner 02/18/22 Irma Loza DO [address] [place] [address] Referring Orthopedics 11/11/22 Irma Loza DO [address] [place] [address] Referring Orthopedics 11/17/22 Copy Editor Relationship Specialty Start Date End Date Ruth Swanson MD [address] [place] [address] PCP - General Family Medicine 03/12/20 Job Mehta DO [address] [place] [address] Family Medicine 11/07/21 Kevin Lee DO [address] [place] [address] Primary Staff Physician Family Medicine 11/07/21 Alicia Hernandez DO [address] [place] [address] Primary Staff Physician Family Medicine 11/07/21 Jeff Deng MD [address] [place] [address] Primary Staff Physician Family Medicine 11/07/21 Genesis Deng MD [address] [place] [address] Primary Staff Physician Family Medicine 11/07/21 Ruth Swanson MD [address] [place] [address] Primary Staff Physician Family Medicine 11/07/21 Alphonso Sosa DO [address] [place] [address] Primary Staff Physician Family Medicine 11/07/21 Job Mehta, DO [address] [place] [address] Primary Staff Physician Family Medicine 11/07/21 [facility] [address] [place] [address] Primary Service Family Medicine 11/07/21 Adrian Aaron DO [address] [place] [address] Primary Staff Physician Family Medicine 11/07/21 Kevin Lee, DO [address] [place] [address] Family Medicine 11/18/21 [facility] [address] [place] [address] Primary Staff Physician Family Medicine 11/18/21 Geneva Adames, boilerhouse mechanicProduce Runner 02/18/22 Irma Loza DO [address] [place] [address] Referring Orthopedics 11/11/22 Irma Loza DO [address] [place] [address] Referring Orthopedics 11/17/22 Copy Editor Relationship Specialty Start Date End Date Ruth Swanson MD [address] [place] [address] PCP - General Family Medicine 03/12/20 Job Mehta DO [address] [place] [address] Family Medicine 11/07/21 Kevin Lee, DO [address] [place] [address] Primary Staff Physician Family Medicine 11/07/21 Alicia Hernanedz, DO [address] [place] [address] Primary Staff Physician Family Medicine 11/07/21 Jeff Deng MD [address] [place] [address] Primary Staff Physician Family Medicine 11/07/21 Genesis Deng MD [address] [place] [address] Primary Staff Physician Family Medicine 11/07/21 Ruth Swanson MD [address] [place] [address] Primary Staff Physician Family Medicine 11/07/21 Alphonso Sosa, DO [address] [place] [address] Primary Staff Physician Family Medicine 11/07/21 Job Mehta DO [address] [place] [address] Primary Staff Physician Family Medicine 11/07/21 Jesus Barnett [address] [place] [address] Primary Service Family Medicine 11/07/21 Adrian Aaron DO [address] [place] [address] Primary Staff Physician Family Medicine 11/07/21 Kevin Lee DO [address] [place] [address] Family Medicine 11/18/21 [facility] [address] [place] [address] Primary Staff Physician Family Medicine 11/18/21 Geneva Adames, boilerhouse mechanicProduce Runner 02/18/22 [place] [address] [place] [address] Referring Internal Medicine 05/31/23 Juma Curry, cotton puller Supervisor [employer] 06/01/23 06/01/23 Copy Editor Relationship Specialty Start Date End Date Ruth Swanson MD [address] [place] [address] PCP - General Family Medicine 03/12/20 Job Mehta DO [address] [place] [address] Family Medicine 11/07/21 Kevin Lee DO [address] [place] [address] Primary Staff Physician Family Medicine 11/07/21 Alicia Hernandez DO [address] [place] [address] Primary Staff Physician Family Medicine 11/07/21 Jeff Deng MD [address] [place] [address] Primary Staff Physician Family Medicine 11/07/21 Genesis Deng MD [address] [place] [address] Primary Staff Physician Family Medicine 11/07/21 Ruth Swanson MD [address] [place] [address] Primary Staff Physician Family Medicine 11/07/21 Alphonso Sosa DO [address] [place] [address] Primary Staff Physician Family Medicine 11/07/21 Job Mehta DO [address] [place] [address] Primary Staff Physician Family Medicine 11/07/21 [facility] [address] [place] [address] Primary Service Family Medicine 11/07/21 Adrian Aaron DO [address] [place] [address] Primary Staff Physician Family Medicine 11/07/21 Kevin Lee, DO [address] [place] [address] Family Medicine 11/18/21 [facility] [address] [place] [address] Primary Staff Physician Family Medicine 11/18/21 Geneva Adames, boilerhouse mechanicProduce Runner 02/18/22 [place] [address] [place] [address] Referring Internal Medicine 05/31/23 Copy Editor Relationship Specialty Start Date End Date Ruth Swanson MD [address] [place] [address] PCP - General Family Medicine 03/12/20 Job Mehta DO [address] [place] [address] Family Medicine 11/07/21 Kevin Lee, [address] [place] [address] Primary Staff Physician Family Medicine 11/07/21 Alicia Hernandez DO [address] [place] [address] Primary Staff Physician Family Medicine 11/07/21 Jeff Deng MD [address] [place] [address] Primary Staff Physician Family Medicine 11/07/21 Genesis Deng MD [address] [place] [address] Primary Staff Physician Family Medicine 11/07/21 Ruth Swanson MD [address] [place] [address] Primary Staff Physician Family Medicine 11/07/21 Alphonso Sosa, DO [address] [place] [address] Primary Staff Physician Family Medicine 11/07/21 Job Mehta DO [address] [place] [address] Primary Staff Physician Family Medicine 11/07/21 [facility] [address] [place] [address] Primary Service Family Medicine 11/07/21 Adrian Aaron DO [address] [place] [address] Primary Staff Physician Family Medicine 11/07/21 Kevin Lee, [address] [place] [address] Family Medicine 11/18/21 [facility] [address] [place] [address] Primary Staff Physician Family Medicine 11/18/21 Geneva Adames RN Produce Runner 02/18/22 Irma Loza DO [address] [place] [address] Referring Orthopedics 11/11/22 05/30/23 Irma Loza DO [address] [place] [address] Referring Orthopedics 11/17/22 05/30/23 [place] [address] [place], [place] [address] Referring Internal Medicine 05/31/23 Juma Curry RN Primary Care Supervisor [employer] 06/01/23 06/01/23 Copy Editor Relationship Specialty Start Date End Date Ruth Swanson MD [address] [place] [address] PCP - General Family Medicine 03/12/20 Job Mehta DO [address] [place] [place] [address] Family Medicine 11/07/21 Kevin Lee DO [address] [place] [address] Primary Staff Physician Family Medicine 11/07/21 Alicia Hernandez DO [address] [place], [place] [id number] Primary Staff Physician Family Medicine 11/07/21 Jeff Deng MD [address] [place] [address] Primary Staff Physician Family Medicine 11/07/21 Genesis Deng MD [address] [place] [address] Primary Staff Physician Family Medicine 11/07/21 Ruth Swanson MD [address] [place] [address] Primary Staff Physician Family Medicine 11/07/21 Alphonso Sosa DO [address] [place] [address] Primary Staff Physician Family Medicine 11/07/21 Job Mehta, DO [address] [place] [address] Primary Staff Physician Family Medicine 11/07/21 [facility] [address] [place] [address] Primary Service Family Medicine 11/07/21 Adrian Aaron DO [address] [place] [address] Primary Staff Physician Family Medicine 11/07/21 Kevin Lee, DO [address] [place] [address] Family Medicine 11/18/21 [facility] [address] [place] [address] Primary Staff Physician Family Medicine 11/18/21 Geneva Adames, boilerhouse mechanicProduce Runner 02/18/22 [place] [address] [place] [address] Referring Internal Medicine 05/31/23 Copy Editor Relationship Specialty Start Date End Date Ruth Swanson MD [address] [place] [address] PCP - General Family Medicine 03/12/20 Job Mehta DO [address] [facility] [place] [address] Family Medicine 11/07/21 Kevin Lee DO [address] [place] [address] Primary Staff Physician Family Medicine 11/07/21 Alicia Hernandez DO [address] [facility] [place] [id number] Primary Staff Physician Family Medicine 11/07/21 Jeff Deng MD [address] [place] [address] Primary Staff Physician Family Medicine 11/07/21 Genesis Deng MD [address] [place] [address] Primary Staff Physician Family Medicine 11/07/21 Ruth Swanson MD [address] [place] [address] Primary Staff Physician Family Medicine 11/07/21 Alphonso Sosa, DO [address] [facility] [place] [address] Primary Staff Physician Family Medicine 11/07/21 Job Mehta, DO [address] [place] [address] Primary Staff Physician Family Medicine 11/07/21 [facility] [address] [place] [address] Primary Service Family Medicine 11/07/21 Adrian Aaron DO [address] [place] [address] Primary Staff Physician Family Medicine 11/07/21 Kevin Lee, DO [address] [place] [address] Family Medicine 11/18/21 [facility] [address] [place] [address] Primary Staff Physician Family Medicine 11/18/21 Geneva Adames, boilerhouse mechanicProduce Runner 02/18/22 [place] [address] [place] [address] Referring Internal Medicine 05/31/23 Copy Editor Relationship Specialty Start Date End Date Ruth Swanson MD [address] [place] [address] PCP - General Family Medicine 03/12/20 Job Mehta DO [address] [place] [address] Family Medicine 11/07/21 Kevin Lee DO [address] [place] [address] Primary Staff Physician Family Medicine 11/07/21 Alicia Hernandez DO [address] [place] [address] Primary Staff Physician Family Medicine 11/07/21 Jeff Deng MD [address] [place] [address] Primary Staff Physician Family Medicine 11/07/21 Genesis Deng MD [address] [place] [address] Primary Staff Physician Family Medicine 11/07/21 Ruth Swanson MD [address] [place] [address] Primary Staff Physician Family Medicine 11/07/21 Alphonso Soas DO [address] [place] [address] Primary Staff Physician Family Medicine 11/07/21 Job Mehta DO [address] [place] [address] Primary Staff Physician Family Medicine 11/07/21 [facility] [address] [place] [address] Primary Service Family Medicine 11/07/21 Adrian Aaron DO [address] [place] [address] Primary Staff Physician Family Medicine 11/07/21 Kevin Lee DO [address] [place] [address] Family Medicine 11/18/21 [facility] [address] [facility] [place] [address] Primary Staff Physician Family Medicine 11/18/21 Geneva Adames, boilerhouse mechanicProduce Runner 02/18/22 [place] [address] [place] [address] Referring Internal Medicine 05/31/23 Copy Editor Relationship Specialty Start Date End Date Ruth Swanson MD [address] [facility] [place] [address] PCP - General Family Medicine 03/12/20 Job Mehta DO [address] [place] [address] Family Medicine 11/07/21 Kevin Lee DO [address] [place] [address] Primary Staff Physician Family Medicine 11/07/21 Alicia Hernandez DO [address] [place] [id number] Primary Staff Physician Family Medicine 11/07/21 Jeff Deng MD [address] [place] [address] Primary Staff Physician Family Medicine 11/07/21 Genesis Deng MD [address] [place] [address] Primary Staff Physician Family Medicine 11/07/21 Ruth Swanson MD [address] [place] [address] Primary Staff Physician Family Medicine 11/07/21 Alphonso Sosa DO [address] [place] [address] Primary Staff Physician Family Medicine 11/07/21 Job Mehta DO [address] [place] [address] Primary Staff Physician Family Medicine 11/07/21 Jesus Barnett [address] [place] [address] Primary Service Family Medicine 11/07/21 Adrian Aaron DO [address] [place] [address] Primary Staff Physician Family Medicine 11/07/21 Kevin Lee DO [address] [place] [address] Family Medicine 11/18/21 [facility] [address] [place] [address] Primary Staff Physician Family Medicine 11/18/21 Geneva Adames, boilerhouse mechanicProduce Runner 02/18/22 [place] [address] [place] [address] Referring Internal Medicine 05/31/23 Copy Editor Relationship Specialty Start Date End Date Ruth Swanson MD [address] [place] [address] PCP - General Family Medicine 03/12/20 Job Mehta DO [address] [place] [address] Family Medicine 11/07/21 Kevin Lee DO [address] [place] [address] Primary Staff Physician Family Medicine 11/07/21 Alicia Hernandez DO [address] [place] [address] Primary Staff Physician Family Medicine 11/07/21 Jeff Deng MD [address] [place] [address] Primary Staff Physician Family Medicine 11/07/21 Genesis Deng MD [address] [place] [address] Primary Staff Physician Family Medicine 11/07/21 Ruth Swanson MD [address] [place] [address] Primary Staff Physician Family Medicine 11/07/21 Alphonso Sosa DO [address] [place] [address] Primary Staff Physician Family Medicine 11/07/21 Job Mehta, DO [address] [place] [address] Primary Staff Physician Family Medicine 11/07/21 [facility] [address] [place] [address] Primary Service Family Medicine 11/07/21 Adrian Aaron DO [address] [place] [address] Primary Staff Physician Family Medicine 11/07/21 Kevin Lee, DO [address] [place] [address] Family Medicine 11/18/21 [facility] [address] [place] [address] Primary Staff Physician Family Medicine 11/18/21 Geneva Adames, boilerhouse mechanicProduce Runner 02/18/22 [place] [address] [place] [address] Referring Internal Medicine 05/31/23 Copy Editor Relationship Specialty Start Date End Date Ruth Swanson MD [address] [place] [address] PCP - General Family Medicine 03/12/20 Job Mehta DO [address] [facility] [place] [address] Family Medicine 11/07/21 Kevin Lee DO [address] [place] [address] Primary Staff Physician Family Medicine 11/07/21 Alicia Hernandez DO [address] [facility] [place] [id number] Primary Staff Physician Family Medicine 11/07/21 Jeff Deng MD [address] [place] [address] Primary Staff Physician Family Medicine 11/07/21 Genesis Deng MD [address] [place] [address] Primary Staff Physician Family Medicine 11/07/21 Ruth Swanson MD [address] [place] [address] Primary Staff Physician Family Medicine 11/07/21 Alphonso Sosa, DO [address] [facility] [place] [address] Primary Staff Physician Family Medicine 11/07/21 Job Mehta, DO [address] [place] [address] Primary Staff Physician Family Medicine 11/07/21 [facility] [address] [place] [address] Primary Service Family Medicine 11/07/21 Adrian Aaron DO [address] [place] [address] Primary Staff Physician Family Medicine 11/07/21 Kevin Lee, DO [address] [place] [address] Family Medicine 11/18/21 [facility] [address] [place] [address] Primary Staff Physician Family Medicine 11/18/21 Geneva Adames, boilerhouse mechanicProduce Runner 02/18/22 [place] [address] [place] [address] Referring Internal Medicine 05/31/23 Copy Editor Relationship Specialty Start Date End Date Ruth Swanson MD [address] [place] [address] PCP - General Family Medicine 03/12/20 Job Mehta DO [address] [place] [address] Family Medicine 11/07/21 Kevin Lee DO [address] [place] [address] Primary Staff Physician Family Medicine 11/07/21 Alicia Hernandez DO [address] [place] [address] Primary Staff Physician Family Medicine 11/07/21 Jeff Deng MD [address] [place] [address] Primary Staff Physician Family Medicine 11/07/21 Genesis Deng MD [address] [place] [address] Primary Staff Physician Family Medicine 11/07/21 Ruth Swanson MD [address] [place] [address] Primary Staff Physician Family Medicine 11/07/21 Alphonso Sosa DO [address] [place] [address] Primary Staff Physician Family Medicine 11/07/21 Job Mehta DO [address] [place] [address] Primary Staff Physician Family Medicine 11/07/21 [facility] [address] [place] [address] Primary Service Family Medicine 11/07/21 Adrian Aaron DO [address] [place] [address] Primary Staff Physician Family Medicine 11/07/21 Kevin Lee DO [address] [place] [place] [address] Family Medicine 11/18/21 [facility] [address] [facility] [place] [address] Primary Staff Physician Family Medicine 11/18/21 Geneva Adames, boilerhouse mechanicProduce Runner 02/18/22 [place] [address] [place] [address] Referring Internal Medicine 05/31/23 Copy Editor Relationship Specialty Start Date End Date Ruth Swanson MD [address] [facility] [place] [address] PCP - General Family Medicine 03/12/20 Job Mehta DO [address] [place] [address] Family Medicine 11/07/21 Kevin Lee DO [address] [place] [address] Primary Staff Physician Family Medicine 11/07/21 Alicia Hernandez DO [address] [place] [address] Primary Staff Physician Family Medicine 11/07/21 Jeff Deng MD [address] [place] [address] Primary Staff Physician Family Medicine 11/07/21 Genesis Deng MD [address] [place] [address] Primary Staff Physician Family Medicine 11/07/21 Ruth Swanson MD [address] [place] [address] Primary Staff Physician Family Medicine 11/07/21 Alphonso Sosa DO [address] [place] [address] Primary Staff Physician Family Medicine 11/07/21 Job Mehta DO [address] [place] [address] Primary Staff Physician Family Medicine 11/07/21 Jesus Barnett [address] [place] [address] Primary Service Family Medicine 11/07/21 Adrian Aaron DO [address] [place] [address] Primary Staff Physician Family Medicine 11/07/21 Kevin Lee DO [address] [place] [address] Family Medicine 11/18/21 [facility] [address] [place] [address] Primary Staff Physician Family Medicine 11/18/21 Geneva Adames, boilerhouse mechanicProduce Runner 02/18/22 [place] [address] [place] [address] Referring Internal Medicine 05/31/23 Copy Editor Relationship Specialty Start Date End Date Ruth Swanson MD [address] [place] [address] PCP - General Family Medicine 03/12/20 Job Mehta DO [address] [place] [address] Family Medicine 11/07/21 Kevin Lee DO [address] [place] [address] Primary Staff Physician Family Medicine 11/07/21 Alicia Hernandez DO [address] [place] [address] Primary Staff Physician Family Medicine 11/07/21 Jeff Deng MD [address] [place] [address] Primary Staff Physician Family Medicine 11/07/21 Genesis Deng MD [address] [place] [address] Primary Staff Physician Family Medicine 11/07/21 Ruth Swanson MD [address] [place] [address] Primary Staff Physician Family Medicine 11/07/21 Alphonso Sosa DO [address] [place] [address] Primary Staff Physician Family Medicine 11/07/21 Job Mehta, DO [address] [place] [address] Primary Staff Physician Family Medicine 11/07/21 [facility] [address] [place] [address] Primary Service Family Medicine 11/07/21 Adrian Aaron DO [address] [place] [address] Primary Staff Physician Family Medicine 11/07/21 Kevin Lee, DO [address] [place] [address] Family Medicine 11/18/21 [facility] [address] [place] [address] Primary Staff Physician Family Medicine 11/18/21 Geneva Adames, boilerhouse mechanicProduce Runner 02/18/22 [place] [address] [place] [address] Referring Internal Medicine 05/31/23 Copy Editor Relationship Specialty Start Date End Date Ruth Swanson MD [address] [place] [address] PCP - General Family Medicine 03/12/20 Job Mehta DO [address] [facility] [place] [address] Family Medicine 11/07/21 Kevin Lee DO [address] [place] [address] Primary Staff Physician Family Medicine 11/07/21 Alicia Hernandez DO [address] [facility] [place] [address] Primary Staff Physician Family Medicine 11/07/21 Jeff Deng MD [address] [place] [address] Primary Staff Physician Family Medicine 11/07/21 Genesis Deng MD [address] [place] [address] Primary Staff Physician Family Medicine 11/07/21 Ruth Swanson MD [address] [place] [address] Primary Staff Physician Family Medicine 11/07/21 Alphonso Sosa, DO [address] [facility] [place] [address] Primary Staff Physician Family Medicine 11/07/21 Job Mehta, DO [address] [place] [address] Primary Staff Physician Family Medicine 11/07/21 [facility] [address] [place] [address] Primary Service Family Medicine 11/07/21 Adrian Aaron DO [address] [place] [address] Primary Staff Physician Family Medicine 11/07/21 Kevin Lee, DO [address] [place] [address] Family Medicine 11/18/21 [facility] [address] [place] [address] Primary Staff Physician Family Medicine 11/18/21 Geneva Adames, boilerhouse mechanicProduce Runner 02/18/22 [place] [address] [place] [address] Referring Internal Medicine 05/31/23 Copy Editor Relationship Specialty Start Date End Date Ruth Swanson MD [address] [place] [address] PCP - General Family Medicine 03/12/20 Job Mehta DO [address] [place] [address] Family Medicine 11/07/21 Kevin Lee DO [address] [place] [address] Primary Staff Physician Family Medicine 11/07/21 Alicia Hernandez DO [address] [place] [address] Primary Staff Physician Family Medicine 11/07/21 Jeff Deng MD [address] [place] [address] Primary Staff Physician Family Medicine 11/07/21 Genesis Deng MD [address] [place] [address] Primary Staff Physician Family Medicine 11/07/21 Ruth Swanson MD [address] [place] [address] Primary Staff Physician Family Medicine 11/07/21 Alphonso Sosa DO [address] [place] [address] Primary Staff Physician Family Medicine 11/07/21 Job Mehta DO [address] [place] [address] Primary Staff Physician Family Medicine 11/07/21 [facility] [address] [place] [address] Primary Service Family Medicine 11/07/21 Adrian Aaron DO [address] [place] [place] [address] Primary Staff Physician Family Medicine 11/07/21 Kevin Lee DO [address] [place] [place] [address] Family Medicine 11/18/21 [facility] [address] [facility] [place] [address] Primary Staff Physician Family Medicine 11/18/21 Geneva Adames, boilerhouse mechanicProduce Runner 02/18/22 [place] [address] [place] [address] Referring Internal Medicine 05/31/23 Copy Editor Relationship Specialty Start Date End Date Ruth Swanson MD [address] [facility] [place] [address] PCP - General Family Medicine 03/12/20 Job Mehta DO [address] [place] [address] Family Medicine 11/07/21 Kevin Lee DO [address] [place] [address] Primary Staff Physician Family Medicine 11/07/21 Alicia Hernandez DO [address] [place] [address] Primary Staff Physician Family Medicine 11/07/21 Jeff Deng MD [address] [place] [address] Primary Staff Physician Family Medicine 11/07/21 Genesis Deng MD [address] [place] [address] Primary Staff Physician Family Medicine 11/07/21 Ruth Swanson MD [address] [place] [address] Primary Staff Physician Family Medicine 11/07/21 Alphonso Sosa DO [address] [place] [address] Primary Staff Physician Family Medicine 11/07/21 Job Mehta DO [address] [place] [address] Primary Staff Physician Family Medicine 11/07/21 Jesus Barnett [address] [place] [address] Primary Service Family Medicine 11/07/21 Adrian Aaron DO [address] [place] [address] Primary Staff Physician Family Medicine 11/07/21 Kevin Lee DO [address] [place] [address] Family Medicine 11/18/21 [facility] [address] [place] [address] Primary Staff Physician Family Medicine 11/18/21 Geneva Adames, boilerhouse mechanicProduce Runner 02/18/22 [place] [address] [place] [address] Referring Internal Medicine 05/31/23 Copy Editor Relationship Specialty Start Date End Date Ruth Swanson MD [address] [place] [address] PCP - General Family Medicine 03/12/20 Job Mehta DO [address] [place] [address] Family Medicine 11/07/21 Kevin Lee DO [address] [place] [address] Primary Staff Physician Family Medicine 11/07/21 Alicia Hernandez DO [address] [place] [address] Primary Staff Physician Family Medicine 11/07/21 Jeff Deng MD [address] [place] [address] Primary Staff Physician Family Medicine 11/07/21 Genesis Deng MD [address] [place] [address] Primary Staff Physician Family Medicine 11/07/21 Ruth Swanson MD [address] [place] [address] Primary Staff Physician Family Medicine 11/07/21 Alphonso Sosa DO [address] [place] [address] Primary Staff Physician Family Medicine 11/07/21 Job Mehta, DO [address] [place] [address] Primary Staff Physician Family Medicine 11/07/21 [facility] [address] [place] [address] Primary Service Family Medicine 11/07/21 Adrian Aaron DO [address] [place] [address] Primary Staff Physician Family Medicine 11/07/21 Kevin Lee, DO [address] [place] [address] Family Medicine 11/18/21 [facility] [address] [place] [address] Primary Staff Physician Family Medicine 11/18/21 Geneva Adames, boilerhouse mechanicProduce Runner 02/18/22 [place] [address] [place] [address] Referring Internal Medicine 05/31/23 Copy Editor Relationship Specialty Start Date End Date Ruth Swanson MD [address] [place] [address] PCP - General Family Medicine 03/12/20 Job Mehta DO [address] [facility] [place] [address] Family Medicine 11/07/21 Kevin Lee DO [address] [address] Primary Staff Physician Family Medicine 11/07/21 Alicia Hernandez DO [address] [facility] [place] [id number] Primary Staff Physician Family Medicine 11/07/21 Jeff Deng MD [address] [place] [address] Primary Staff Physician Family Medicine 11/07/21 Genesis Deng MD [address] [place] [address] Primary Staff Physician Family Medicine 11/07/21 Ruth Swanson MD [address] [address] Primary Staff Physician Family Medicine 11/07/21 Alphonso Sosa, DO [address] [facility] [place] [address] Primary Staff Physician Family Medicine 11/07/21 Job Mehta, DO [address] [place] [address] Primary Staff Physician Family Medicine 11/07/21 [facility] [address] [place] [address] Primary Service Family Medicine 11/07/21 Adrian Aaron DO [address] [place] [address] Primary Staff Physician Family Medicine 11/07/21 Kevin Lee, DO [address] [address] Family Medicine 11/18/21 [facility] [address] [place] [address] Primary Staff Physician Family Medicine 11/18/21 Geneva Adames, boilerhouse mechanicProduce Runner 02/18/22 [place] [address] [place] [address] Referring Internal Medicine 05/31/23 Copy Editor Relationship Specialty Start Date End Date Ruth Swanson MD [address] [place] [address] PCP - General Family Medicine 03/12/20 Job Mehta DO [address] [place] [address] Family Medicine 11/07/21 Kevin Lee DO [address] [address] Primary Staff Physician Family Medicine 11/07/21 Alicia Hernandez DO [address] [place] [id number] Primary Staff Physician Family Medicine 11/07/21 Jeff Deng MD [address] [place] [address] Primary Staff Physician Family Medicine 11/07/21 Genesis Deng MD [address] [place] [address] Primary Staff Physician Family Medicine 11/07/21 Ruth Swanson MD [address] [place] [address] Primary Staff Physician Family Medicine 11/07/21 Alphonso Sosa DO [address] [place] [address] Primary Staff Physician Family Medicine 11/07/21 Job Mehta DO [address] [place] [address] Primary Staff Physician Family Medicine 11/07/21 [facility] [address] [place] [address] Primary Service Family Medicine 11/07/21 Adrian Aaron DO [address] [place] [place] [address] Primary Staff Physician Family Medicine 11/07/21 Kevin Lee DO [address] [place] [place] [address] Family Medicine 11/18/21 [facility] [address] [facility] [facility] [place] [address] Primary Staff Physician Family Medicine 11/18/21 Geneva Adames, boilerhouse mechanicProduce Runner 02/18/22 [place] [address] [place] [address] Referring Internal Medicine 05/31/23 Copy Editor Relationship Specialty Start Date End Date Ruth Swanson MD [address] [facility] [place] [address] PCP - General Family Medicine 03/12/20 Job Mehta DO [address] [place] [address] Family Medicine 11/07/21 Kevin Lee DO [address] [place] [address] Primary Staff Physician Family Medicine 11/07/21 Alicia Hernandez DO [address] [place] [id number] Primary Staff Physician Family Medicine 11/07/21 Jeff Deng MD [address] [place] [address] Primary Staff Physician Family Medicine 11/07/21 Genesis Deng MD [address] [place] [address] Primary Staff Physician Family Medicine 11/07/21 Ruth Swanson MD [address] [place] [address] Primary Staff Physician Family Medicine 11/07/21 Alphonso Sosa DO [address] [place] [address] Primary Staff Physician Family Medicine 11/07/21 Job Mehta DO [address] [place] [address] Primary Staff Physician Family Medicine 11/07/21 Jesus Barnett [address] [place] [address] Primary Service Family Medicine 11/07/21 Adrian Aaron DO [address] [place] [address] Primary Staff Physician Family Medicine 11/07/21 Kevin Lee DO [address] [place] [address] Family Medicine 11/18/21 [facility] [address] [place] [address] Primary Staff Physician Family Medicine 11/18/21 Geneva Adames, boilerhouse mechanicProduce Runner 02/18/22 [place] [address] [place] [address] Referring Internal Medicine 05/31/23 Copy Editor Relationship Specialty Start Date End Date Ruth Swanson MD [address] [place] [address] PCP - General Family Medicine 03/12/20 Job Mehta DO [address] [place] [address] Family Medicine 11/07/21 Kevin Lee DO [address] [place] [address] Primary Staff Physician Family Medicine 11/07/21 Alicia Hernandez DO [address] [place], [place] [id number] Primary Staff Physician Family Medicine 11/07/21 Jeff Deng MD [address] [place] [address] Primary Staff Physician Family Medicine 11/07/21 Genesis Deng MD [address] [place] [address] Primary Staff Physician Family Medicine 11/07/21 Ruth Swanson MD [address] [place] [address] Primary Staff Physician Family Medicine 11/07/21 Alphonso Sosa DO [address] [place] [address] Primary Staff Physician Family Medicine 11/07/21 Job Mehta, DO [address] [place] [address] Primary Staff Physician Family Medicine 11/07/21 [facility] [address] [place] [address] Primary Service Family Medicine 11/07/21 Adrian Aaron DO [address] [place] [address] Primary Staff Physician Family Medicine 11/07/21 Kevin Lee, DO [address] [place] [address] Family Medicine 11/18/21 [facility] [address] [place] [address] Primary Staff Physician Family Medicine 11/18/21 Geneva Adames, boilerhouse mechanicProduce Runner 02/18/22 [place] [address] [place] [address] Referring Internal Medicine 05/31/23 Copy Editor Relationship Specialty Start Date End Date Ruth Swanson MD [address] [place] [address] PCP - General Family Medicine 03/12/20 Job Mehta DO [address] [facility] [place] [address] Family Medicine 11/07/21 Kevin Lee DO [address] [place] [address] Primary Staff Physician Family Medicine 11/07/21 Alicia Hernandez DO [address] [facility] [place] [phone] Primary Staff Physician Family Medicine 11/07/21 Jeff Deng MD [address] [place] [address] Primary Staff Physician Family Medicine 11/07/21 Genesis Deng MD [address] [place] [address] Primary Staff Physician Family Medicine 11/07/21 Ruth Swanson MD [address] [place] [address] Primary Staff Physician Family Medicine 11/07/21 Alphonso Sosa, DO [address] [facility] [place] [address] Primary Staff Physician Family Medicine 11/07/21 Job Mehta, DO [address] [place] [address] Primary Staff Physician Family Medicine 11/07/21 [facility] [address] [place] [address] Primary Service Family Medicine 11/07/21 Adrian Aaron DO [address] [place] [address] Primary Staff Physician Family Medicine 11/07/21 Kevin Lee, DO [address] [place] [address] Family Medicine 11/18/21 [facility] [address] [place] [address] Primary Staff Physician Family Medicine 11/18/21 Geneva Adames, boilerhouse mechanicProduce Runner 02/18/22 [place] [address] [place] [address] Referring Internal Medicine 05/31/23 Copy Editor Relationship Specialty Start Date End Date Ruth Swanson MD [address] [place] [address] PCP - General Family Medicine 03/12/20 Job Mehta DO [address] [place] [address] Family Medicine 11/07/21 Kevin Lee DO [address] [place] [address] Primary Staff Physician Family Medicine 11/07/21 Alicia Hernandez DO [address] [place] [phone] Primary Staff Physician Family Medicine 11/07/21 Jeff Deng MD [address] [place] [address] Primary Staff Physician Family Medicine 11/07/21 Genesis Deng MD [address] [place] [address] Primary Staff Physician Family Medicine 11/07/21 Ruth Swanson MD [address] [place] [address] Primary Staff Physician Family Medicine 11/07/21 Alphonso Sosa DO [address] [place] [address] Primary Staff Physician Family Medicine 11/07/21 Job Mehta DO [address] [place] [address] Primary Staff Physician Family Medicine 11/07/21 [facility] [address] [facility] [place] [address] Primary Service Family Medicine 11/07/21 Adrian Aaron, DO [address] [place] [address] Primary Staff Physician Family Medicine 11/07/21 Kevin Lee, DO [address] [place] [address] Family Medicine 11/18/21 [facility] [address] [place] [address] Primary Staff Physician Family Medicine 11/18/21 Geneva Adames, boilerhouse mechanicProduce Runner 02/18/22 [place] [address] [place] [address] Referring Internal Medicine 05/31/23 FOR RECORDS PERTAINING TO PATIENTS WHO ARE OR HAVE BEEN ENROLLED IN A CHEMICAL DEPENDENCY/SUBSTANCEABUSE PROGRAM, SOME INFORMATION MAY BE OMITTED. This clinical summary was aggregated from multiple sources. Caution should be exercised in using it in the provision of clinical care. This summary normalizes information from multiple sources, and as a consequence, information in this document may materially change the coding, format and clinical context of patient data. In addition, data may be omitted in some cases. CLINICAL DECISIONS SHOULD BE BASED ON THE PRIMARY CLINICAL RECORDS. [facility] [facility]. provides no warranty or guarantee of the accuracy or completeness of information in this document.
[2024-04-04 16:18] VITALS: BP 177/92; PULSE 85; O2SAT 96
--- NOTE | 2024-04-04 16:19 | ECG_ITS ---
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
--- NOTE | 2024-04-04 16:20 | ED.ABDPAIN1 ---
HPI - Abdominal Pain General Chief Complaint: Abdominal Pain Stated Complaint: ABDOMINAL PAIN, BACK PAIN Time Seen by Provider: 04/04/24 16:13 Source: patient Mode of arrival: ambulance History of Present Illness HPI narrative: 54-year-old female presents to the emergency department for abdominal pain. She is complaining of pain in the left upper portion of her abdomen for 3 weeks. She states it never goes away and she has been vomiting. No chest pain or fever. There is been no injury. She has been having bowel movements. She has had a hysterectomy but never had a bowel obstruction. The pain is moderate to severe at times but sometimes it is mild. Related Data Home Medications ?Medication ?Instructions ?Recorded ?Confirmed Kratom 600 mg PO ONCE PRN PRN 12/28/23 04/04/24 acetaminophen 650 mg 650 mg PO Q12H PRN pain 12/28/23 04/04/24 tablet,extended release (8 Hour Pain Reliever) chlorthalidone 25 mg tablet 25 mg PO DAILY 12/28/23 04/04/24 cyclobenzaprine 10 mg tablet 10 mg PO BID 12/28/23 04/04/24 fluoxetine 20 mg capsule 20 mg PO BID 12/28/23 04/04/24 gabapentin 300 mg capsule 300 mg PO TID 12/28/23 04/04/24 hydrocodone 5 mg-acetaminophen 325 1 tab PO Q8H 12/28/23 04/04/24 mg tablet semaglutide 0.25 mg or 0.5 mg (2 0.25 mg subcut QWEEK 12/28/23 04/04/24 mg/3 mL) subcutaneous pen injector (Ozempic) Allergies Allergy/AdvReac Type Severity Reaction Status Date / Time No Known Drug Allergies Allergy Verified 04/04/24 16:15 Review of Systems ROS Narrative A ten point review of systems is negative except as noted above. PFSH PFSH Social History Little interest or pleasure in doing things: not at all Feeling down, depressed, or hopeless: not at all Exam Narrative Exam Narrative: Nurses note and vital signs reviewed and patient is not hypoxic. General: The patient appears well and in no apparent distress. Patient is resting comfortably on cart. Skin: Warm, dry, no pallor noted. There is no rash noted. Head: Normocephalic, atraumatic Eye: Normal conjunctiva, no drainage Ears, Nose, Mouth, and Throat: oral mucosa is moist. Nares patent. Cardiovascular: Regular Rate and Rhythm Respiratory: Patient is in no distress, no accessory muscle use, lungs are clear to auscultation, no wheezing, rales or rhonchi Back: non-tender GI: Obese soft and nondistended. She has diffuse tenderness on the left side of her abdomen particularly in the upper portion. No masses. Musculoskeletal: The patient has no evidence of calf tenderness, no pitting edema, symmetrical pulses noted bilaterally Neurological: A&O, normal speech Psychiatric: Cooperative Constitutional Vital Signs, click to edit/add: Last Vital Signs Temp 98.8 F 04/04/24 14:21 Pulse 85 04/04/24 16:18 Resp 20 04/04/24 16:18 BP 177/92 H 04/04/24 16:18 Pulse Ox 96 04/04/24 16:18 O2 Del Method Room Air 04/04/24 16:18 Course Vital Signs Vital signs: Vital Signs Temperature 98.8 F 04/04/24 14:21 Pulse Rate 93 H 04/04/24 14:21 Respiratory Rate 20 04/04/24 14:21 Blood Pressure 159/93 H 04/04/24 14:21 Pulse Oximetry 97 04/04/24 14:21 Oxygen Delivery Method Room Air 04/04/24 14:21 Temperature 98.8 F 04/04/24 14:21 Pulse Rate 85 04/04/24 16:18 Respiratory Rate 20 04/04/24 16:18 Blood Pressure 177/92 H 04/04/24 16:18 Pulse Oximetry 96 04/04/24 16:18 Oxygen Delivery Method Room Air 04/04/24 16:18 MDM - Abdominal Pain MDM Narrative Medical decision making narrative: Blood work is essentially except for WBC of 13,000. CT scan is ordered and pending and the patient is signed out to Dr. Medina at change of shift. While the patient was here the patient told us that her chest started hurting, on the left side. A second EKG was performed which shows normal sinus rhythm and no acute change and some artifact. Troponin also ordered and is pending. Differential Diagnosis Differential diagnosis: Likely abdominal pain, calculus of kidney, constipation, diverticulitis, gastroenteritis, pancreatitis and small bowel obstruction Lab Data Attestation: I reviewed the patient's lab results. Labs: Lab Results 04/04/24 Range/Units 16:25 WBC 13.4 H (4.0-11.0) 10^3/uL RBC 4.10 L (4.20-5.40) 10^6/uL Hgb 12.5 (12.0-16.0) g/dL Hct 38.5 (36.0-48.0) % MCV 93.9 (81.0-99.0) fL MCH 30.5 (26.7-34.0) pg MCHC 32.5 (29.9-35.2) g/dL RDW 14.6 (11.0-15.0) % Plt Count 401 (150-450) 10^3/uL MPV 9.3 L (9.5-13.5) fL Neut % (Auto) 79.7 H (43.0-75.0) % Lymph % (Auto) 11.9 L (20.5-60.0) % Stevens % (Auto) 5.9 (1.7-12.0) % Eos % (Auto) 1.7 (0.9-7.0) % Baso % (Auto) 0.4 (0.2-2.0) % Neut # (Auto) 10.7 H (1.4-6.5) 10^3/uL Lymph # (Auto) 1.6 (1.2-3.8) 10^3/uL Stevens # (Auto) 0.8 (0.3-0.8) 10^3/uL Eos # (Auto) 0.2 (0.0-0.7) 10^3/uL Baso # (Auto) 0.1 (0.0-0.1) 10^3/uL Abs Immat Gran (auto) 0.06 H (0.00-0.03) 10^3/uL Imm/Tot Granulo (auto) 0.4 (0.0-0.5) % Sodium 138 (136-145) mmol/L Potassium 3.3 L (3.5-5.1) mmol/L Chloride 102 (98-107) mmol/L Carbon Dioxide 27.4 (21.0-32.0) mmol/L Anion Gap 11.9 BUN 11.0 (7.0-18.0) mg/dL Creatinine 0.70 (0.55-1.02) mg/dL Est GFR ( Amer) >60 (>=60 mL/min/1.73m^2) Est GFR (Non-Af Amer) >60 (>=60 mL/min/1.73m^2) BUN/Creatinine Ratio 15.7 Glucose 103 (74-106) mg/dL Calcium 9.2 (8.5-10.1) mg/dL Total Bilirubin 0.5 (0.2-1.0) mg/dL Direct Bilirubin 0.1 (0.0-0.2) mg/dL AST 15 (15-37) U/L ALT 19 (14-59) U/L Alkaline Phosphatase 149 H (46-116) U/L Total Protein 7.3 (6.4-8.2) g/dL Albumin 3.8 (3.4-5.0) g/dL Globulin 3.5 g/dL Albumin/Globulin Ratio 1.1 Amylase 27 (25-115) U/L Lipase 25.0 (16.0-77.0) U/L ECG Data Attestation: I personally reviewed and interpreted this ECG as follows: (First EKG at 5:17 PM shows sinus rhythm without acute change and a rate of 76. Second EKG at 6:35 PM shows artifact and sinus rhythm and no acute change) Discharge Plan Discharge Chief Complaint: Abdominal Pain Clinical Impression: Abdominal pain Patient Disposition: Still a Patient Prescriptions / Home Meds: No Action chlorthalidone 25 mg tablet 25 mg PO DAILY hydrocodone-acetaminophen 5-325 mg tablet 1 tab PO Q8H gabapentin 300 mg capsule 300 mg PO TID cyclobenzaprine 10 mg tablet 10 mg PO BID fluoxetine 20 mg capsule 20 mg PO BID Rx Instructions: administer in the morning and at noon/midday Kratom capsule 600 mg PO ONCE PRN (Reason: PRN) acetaminophen [8 Hour Pain Reliever] 650 mg tablet extended release 650 mg PO Q12H PRN (Reason: pain) Ozempic 0.25 mg or 0.5 mg (2 mg/3 mL) pen injector 0.25 mg subcut QWEEK Rx Instructions: for 4 weeks 0.25mg/0.2 mL Print Language: Indonesian Referrals: Physician,Non-Staff, MD [Primary Care Provider] - 1 week
[2024-04-04] MEDS: 0.9 % SODIUM CHLORIDE 1,000 ML 100 ML IV (16:41)
[2024-04-04] MEDS: ONDANSETRON PF 4 MG/2 ML VIAL IV (16:41)
[2024-04-04] MEDS: MORPHINE SULFATE 4 MG/ML VIAL IV ×2 (16:46→17:46)
[2024-04-04 16:50] LABS: Basophils Absolute Auto 0.1 10^3/uL (0.0-0.1); Basophils Percent Auto 0.4 % (0.2-2.0); Eosinophils Absolute Auto 0.2 10^3/uL (0.0-0.7); Eosinophils Percent Auto 1.7 % (0.9-7.0); Hematocrit 38.5 % (36.0-48.0); Hemoglobin 12.5 g/dL (12.0-16.0); Immature Granulocytes Abs Auto 0.06 10^3/uL (0.00-0.03); Immature Granulocytes Pct Auto 0.4 % (0.0-0.5); Lymphocytes Absolute Auto 1.6 10^3/uL (1.2-3.8); Lymphocytes Percent Auto 11.9 % (20.5-60.0); Mean Corpuscular HGB Conc 32.5 g/dL (29.9-35.2); Mean Corpuscular Hemoglobin 30.5 pg (26.7-34.0); Mean Corpuscular Volume 93.9 fL (81.0-99.0); Mean Platelet Volume 9.3 fL (9.5-13.5); Monocytes Absolute Auto 0.8 10^3/uL (0.3-0.8); Monocytes Percent Auto 5.9 % (1.7-12.0); Neutrophils Absolute Auto 10.7 10^3/uL (1.4-6.5); Neutrophils Percent Auto 79.7 % (43.0-75.0); Platelet Count 401 10^3/uL (150-450); Red Cell Distribution Width 14.6 % (11.0-15.0); White Blood Count 13.4 10^3/uL (4.0-11.0)
[2024-04-04 17:08] LABS: Anion Gap 11.9; BUN Creatinine Ratio 15.7; Calcium 9.2 mg/dL (8.5-10.1); Carbon Dioxide 27.4 mmol/L (21.0-32.0); Chloride 102 mmol/L (98-107); Estimated GFR (African America >60 (>=60 mL/min/1.73m^2); Estimated GFR (Non-African Ame >60 (>=60 mL/min/1.73m^2); Glucose 103 mg/dL (74-106); Potassium 3.3 mmol/L (3.5-5.1); Sodium 138 mmol/L (136-145)
[2024-04-04 17:13] LABS: Alanine Aminotransferase 19 U/L (14-59); Albumin Globulin Ratio 1.1; Albumin Level 3.8 g/dL (3.4-5.0); Alkaline Phosphatase 149 U/L (46-116); Amylase 27 U/L (25-115); Aspartate Amino Transferase 15 U/L (15-37); Bilirubin Direct 0.1 mg/dL (0.0-0.2); Bilirubin Total 0.5 mg/dL (0.2-1.0); Globulin 3.5 g/dL; Total Protein 7.3 g/dL (6.4-8.2)
[2024-04-04 17:40] VITALS: BP 174/93; PULSE 92; O2SAT 100
--- NOTE | 2024-04-04 18:10 | CT_ITS ---
[facility] [address] [place], [place] [address] Patient Name: MABEL CHONG MRN: [id number] date: 1970 Sex: F Assigned Patient Location: ER Current Patient Location: .[facility] Accession/Order Number: [id number] Exam Date: 04/04/2024 18:00 Report Date: 04/04/2024 20:15 At the request of: ART DARNELL Procedure: CT abdomen pelvis w con CT ABDOMEN AND PELVIS WITH CONTRAST, 04/04/2024 HISTORY: Abdominal pain on left side of abdomen. COMPARISON: None. TECHNIQUE: Postcontrast axial CT images obtained through the abdomen and pelvis. Reconstructions in sagittal and coronal planes. Dose reduction techniques were achieved by using automated exposure control and/or adjustment of mA and/or kV according to patient size and/or use of iterative reconstruction technique. FINDINGS: Lung bases are clear. There are multiple subacute rib fractures laterally on the left involving the left seventh, eighth and ninth ribs. The fractures involving the left seventh and eighth ribs appear to be new. Heart size normal. No pericardial effusion. Liver unremarkable. Gallbladder normal. Pancreas is unremarkable. Spleen normal. Adrenal glands are normal. No kidney stones. No hydronephrosis. The stomach is normal. Duodenum is normal. There is no bowel obstruction. No bowel wall thickening. There is no abnormal thickening or inflammation of the colon. Abdominal aorta normal in size. Inferior vena cava normal in size. No ascites or free air. In the pelvis, the bladder is normal. There has been a hysterectomy. Rectum unremarkable. Ovaries unremarkable. No free fluid in the pelvis. Old inferior pubic ramus fracture on the right. There is an old superior pubic ramus fracture on the right. No suspicious osseous lesions. CT/CT abdomen pelvis w con IMPRESSION: 1. There are subacute rib fractures laterally on the left involving the left seventh, eighth and ninth ribs. The fractures involving the left seventh and eighth ribs appear to be new. Recommend correlating clinically for pain in the lower chest wall laterally on the left. 2. There are old fractures involving the superior and inferior pubic rami on the right. 3. No acute intra-abdominal or pelvic abnormality. Electronically authenticated by: LIZET WORRELL Date: 04/04/2024 20:15
--- NOTE | 2024-04-04 18:32 | ECG_ITS ---
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
[2024-04-04 19:08] LABS: Troponin I High Sensitivity 14.2 pg/mL (4.0-51.3)
--- NOTE | 2024-04-04 19:29 | ED_ITS ---
HPI - Abdominal Pain General Chief Complaint: Abdominal Pain Stated Complaint: ABDOMINAL PAIN, BACK PAIN Time Seen by Provider: 04/04/24 16:13 Source: patient Mode of arrival: ambulance History of Present Illness HPI narrative: This 54-year-old female was signed out to me at shift change pending CT scan of the abdomen pelvis. She presents for evaluation of left upper quadrant abdominal pain and while in the emergency department complained of chest pain. Her EKGs x 2 were normal. She has a normal troponin at 14. CT scan of the abdomen pelvis which is included in the body of this report shows several rib fractures on that side. The patient states she was here recently after falling on the ice and was told that she had 4 rib fractures. The remainder of her scan was read as normal. This was discussed with her and she was given a copy of it. The patient request something for pain but states that she typically gets Wink 5 mg and the pharmacy will not fill it so she request Wink 7.5 which they may fill for her ongoing pain. She does see pain management in [place] and states she is going there next week. I reviewed her labs. Her white count is mildly elevated at 13.4. Potassium is mildly low at 3.3. Alkaline phosphatase is minimally elevated but the remainder of her liver function tests and lipase were normal. Will be given a Percocet prior to discharge. This time she is stable for discharge. I did suggest that she follow-up closely with her family physician as she may require a colonoscopy for this ongoing pain. I did review her [facility] report which confirms that she is in pain management in [place], [place] Related Data Home Medications ?Medication ?Instructions ?Recorded ?Confirmed Kratom 600 mg PO ONCE PRN PRN 12/28/23 04/04/24 acetaminophen 650 mg 650 mg PO Q12H PRN pain 12/28/23 04/04/24 tablet,extended release (8 Hour Pain Reliever) chlorthalidone 25 mg tablet 25 mg PO DAILY 12/28/23 04/04/24 cyclobenzaprine 10 mg tablet 10 mg PO BID 12/28/23 04/04/24 fluoxetine 20 mg capsule 20 mg PO BID 12/28/23 04/04/24 gabapentin 300 mg capsule 300 mg PO TID 12/28/23 04/04/24 hydrocodone 5 mg-acetaminophen 325 1 tab PO Q8H 12/28/23 04/04/24 mg tablet semaglutide 0.25 mg or 0.5 mg (2 0.25 mg subcut QWEEK 12/28/23 04/04/24 mg/3 mL) subcutaneous pen injector (Ozempic) Allergies Allergy/AdvReac Type Severity Reaction Status Date / Time No Known Drug Allergies Allergy Verified 04/04/24 16:15 PFSH PFSH Social History Little interest or pleasure in doing things: not at all Feeling down, depressed, or hopeless: not at all Exam Constitutional Vital Signs, click to edit/add: Last Vital Signs Temp 98.8 F 04/04/24 14:21 Pulse 92 H 04/04/24 17:40 Resp 20 04/04/24 17:40 BP 174/93 H 04/04/24 17:40 Pulse Ox 100 04/04/24 17:40 O2 Del Method Room Air 04/04/24 16:18 Course Vital Signs Vital signs: Vital Signs Temperature 98.8 F 04/04/24 14:21 Pulse Rate 93 H 04/04/24 14:21 Respiratory Rate 04/04/24 14:21 Blood Pressure 159/93 H 04/04/24 14:21 Pulse Oximetry 97 04/04/24 14:21 Oxygen Delivery Method Room Air 04/04/24 14:21 Temperature 98.8 F 04/04/24 14:21 Pulse Rate 92 H 04/04/24 17:40 Respiratory Rate 04/04/24 17:40 Blood Pressure 174/93 H 04/04/24 17:40 Pulse Oximetry 100 04/04/24 17:40 Oxygen Delivery Method Room Air 04/04/24 16:18 MDM - Abdominal Pain MDM Narrative Medical decision making narrative: [place] [address] CT Scan Report Draft Patient: MABEL CHONG MR#: [id number] : 1970 Acct:[id number] Age/Sex: 54 / F ADM Date: 04/04/24 Loc: ER Attending Dr: Ordering Physician: Art Ramos M.D. Date of Service: 04/04/24 Procedure(s): CT abdomen pelvis w con Accession Number(s): [id number] cc: ~ [facility] [place] [id number] Patient Name: MABEL CHONG MRN: [id number] date: 1970 Sex: F Assigned Patient Location: ER Current Patient Location: ED.MAIN Accession/Order Number: [id number] Exam Date: 04/04/2024 18:00 Report Date: 04/04/2024 19:26 At the request of: ART RAMOS Procedure: CT abdomen pelvis w con Initial impression only. CT/CT abdomen pelvis w con IMPRESSION: 1. There are subacute rib fractures laterally on the left involving the left, eighth and ninth ribs. The fractures involving the left seventh and eighth ribs appear to be new. Recommend correlating clinically for pain in the lower chest wall laterally on the left. 2. There are old fractures involving the superior and inferior pubic rami on the right. 3. No acute intra-abdominal or pelvic abnormality. Electronically authenticated by: LIZET WORRELL Date: 04/04/2024 19:26 Lab Data Labs: Lab Results 04/04/24 04/04/24 Range/Units 16:25 18:37 WBC 13.4 H (4.0-11.0) 10^3/uL RBC 4.10 L (4.20-5.40) 10^6/uL Hgb 12.5 (12.0-16.0) g/dL Hct 38.5 (36.0-48.0) % MCV 93.9 (81.0-99.0) fL MCH 30.5 (26.7-34.0) pg MCHC 32.5 (29.9-35.2) g/dL RDW 14.6 (11.0-15.0) % Plt Count 401 (150-450) 10^3/uL MPV 9.3 L (9.5-13.5) fL Neut % (Auto) 79.7 H (43.0-75.0) % Lymph % (Auto) 11.9 L (20.5-60.0) % Kimble % (Auto) 5.9 (1.7-12.0) % Eos % (Auto) 1.7 (0.9-7.0) % Baso % (Auto) 0.4 (0.2-2.0) % Neut # (Auto) 10.7 H (1.4-6.5) 10^3/uL Lymph # (Auto) 1.6 (1.2-3.8) 10^3/uL Kimble # (Auto) 0.8 (0.3-0.8) 10^3/uL Eos # (Auto) 0.2 (0.0-0.7) 10^3/uL Baso # (Auto) 0.1 (0.0-0.1) 10^3/uL Abs Immat Gran (auto) 0.06 H (0.00-0.03) 10^3/uL Imm/Tot Granulo (auto) 0.4 (0.0-0.5) % Sodium 138 (136-145) mmol/L Potassium 3.3 L (3.5-5.1) mmol/L Chloride 102 (98-107) mmol/L Carbon Dioxide 27.4 (21.0-32.0) mmol/L Anion Gap 11.9 BUN 11.0 (7.0-18.0) mg/dL Creatinine 0.70 (0.55-1.02) mg/dL Est GFR ( Amer) >60 (>=60 mL/min/1.73m^2) Est GFR (Non-Af Amer) >60 (>=60 mL/min/1.73m^2) BUN/Creatinine Ratio 15.7 Glucose 103 (74-106) mg/dL Calcium 9.2 (8.5-10.1) mg/dL Total Bilirubin 0.5 (0.2-1.0) mg/dL Direct Bilirubin 0.1 (0.0-0.2) mg/dL AST 15 (15-37) U/L ALT 19 (14-59) U/L Alkaline Phosphatase 149 H (46-116) U/L Troponin I High Sens 14.2 (4.0-51.3) pg/mL Total Protein 7.3 (6.4-8.2) g/dL Albumin 3.8 (3.4-5.0) g/dL Globulin 3.5 g/dL Albumin/Globulin Ratio 1.1 Amylase 27 (25-115) U/L Lipase 25.0 (16.0-77.0) U/L Discharge Plan Discharge Chief Complaint: Abdominal Pain Clinical Impression: Abdominal pain, Multiple rib fractures Patient Disposition: Home, Self-Care Time of Disposition Decision: 19:40 Prescriptions / Home Meds: No Action chlorthalidone 25 mg tablet 25 mg PO DAILY hydrocodone-acetaminophen 5-325 mg tablet 1 tab PO Q8H gabapentin 300 mg capsule 300 mg PO TID cyclobenzaprine 10 mg tablet 10 mg PO BID fluoxetine 20 mg capsule 20 mg PO BID Rx Instructions: administer in the morning and at noon/midday Kratom capsule 600 mg PO ONCE PRN (Reason: PRN) acetaminophen [8 Hour Pain Reliever] 650 mg tablet extended release 650 mg PO Q12H PRN (Reason: pain) Ozempic 0.25 mg or 0.5 mg (2 mg/3 mL) pen injector 0.25 mg subcut QWEEK Rx Instructions: for 4 weeks 0.25mg/0.2 mL Print Language: Citizen [place] Referrals: Physician,Non-Staff, MD [Primary Care Provider] - 1 week
[2024-04-04] MEDS: OXYCODONE HCL/ACETAMINOPHEN 5MG/325MG 2 TAB PO (20:13)
== END 2024-04-04 20:20 | disposition home or self-care (01) ==
PROVIDERS: Emergency Medicine; Emergency Provider Emergency Medicine
DX: R10.12 Left upper quadrant pain (principal); S22.42XA Multiple fractures of ribs, left side, initial encounter for closed fracture; W19.XXXA Unspecified fall, initial encounter; R11.10 Vomiting, unspecified; Z90.710 Acquired absence of both cervix and uterus
CPT/HCPCS: 36415; 74177; 80048; 80076; 82150; 83690; 84484; 85025; 93005; 96361; 96374; 96375; 96376; 99285; J2270; J2405; Q9967